=== PATIENT | female | born 1945 | race Caucasian/White ===

== ENCOUNTER 2023-09-01 09:34 | Outpatient (REF) | payer MEDICARE, SELFPAY | END 2023-09-01 09:35 | disposition home or self-care (01) | LOC: HO.HOSX 09:34 | PROVIDERS: Visit Provider Orthopaedic Surgery | DX: M25.561 Pain in right knee (principal) | CPT/HCPCS: 73562; 99202 ==

== ENCOUNTER 2023-09-01 14:06 | Outpatient (AMB) | payer MEDICARE, SELFPAY ==
--- NOTE | 2023-09-01 14:13 | MHC.OFFVIS ---
Intake Intake Visit Reasons: Right knee pain Intake Note: Ms. Leyva is a 78-year-old female who presents with complaints of progressively worsening right knee pain. She describes her pain as sharp and severe in nature. Her pain has gotten worse over the last few years in spite of continued non operative treatments. The patient did undergo left total knee replacement surgery in 2019. That surgery was performed by another orthopedic surgeon in [place]. The patient reports mild intermittent discomfort in her left knee. She has had injections given into her right knee. The most recent injection gave her minimal relief. She has also done physical therapy which aggravated her pain. The patient has tried Tylenol which gives her minimal relief. She has not able to take anti-inflammatory medicines because she is on Eliquis. The patient has difficulty walking even short distances because of her pain. At this point her right knee pain is interfering with her activities of daily living and her ability to sleep well through the night. Allergies No Known Allergies Allergy (Verified 09/01/23 14:20) Medication List - Last Reconciled 09/02/23 by Adán De León MD amlodipine 5 mg PO DAILY apixaban (Eliquis) 5 mg PO BID atorvastatin 40 mg PO DAILY cyclosporine 0.05% (Restasis) drps ophthalmic (eye) BID esomeprazole magnesium (Nexium) mg PO gabapentin 300 mg PO TID trazodone 100 mg PO [facility] Surgical History History of arthroscopy of left shoulder (~06/2022) History of right shoulder replacement (~04/2021) History of total left knee replacement (~03/2020) Social History Household Members: Spouse Housing: House Alcohol intake: current Alcohol intake frequency: holidays/special occasions only Alcohol type: wine Patient Tobacco Use Status: Former Tobacco user Current occupational status: retired Physical Exam Const Other: Well-nourished well-developed very friendly female awake alert and oriented x3 in no acute distress Extrem Other: Bilateral lower extremity examination shows good capillary refill, no skin lesions noted, normal sensation light touch Right knee examination shows a minimal effusion, palpable crepitus with range of motion, pain with range of motion, range of motion from -3 degrees to 115 degrees, no instability Results Reviewed Results Reviewed: X-rays of the patient's right knee show severe joint space narrowing with grade 4 [id number] arthritis, subchondral sclerosis, osteophyte formation, no acute bony abnormalities Assessment & Plan Assessment & Plan (1) Right knee pain: Code(s): M25.561 - Pain in right knee Plan Ms. Leyva presents with progressively worsening right knee pain due to end-stage degenerative joint disease. I had a lengthy discussion with the patient regarding the treatment options. This point she has failed continued non operative treatments. Risks and benefits of right total knee replacement surgery were discussed at length with the patient. The patient wishes to proceed with surgery. She will be scheduled for next available date. I will see her back 1 week prior to her surgery to answer any final questions that she might have. Feel free to call me at any time should questions regarding her orthopedic management arise. Thank you very much for asking me to see this very friendly patient. I spent 22 minutes in reviewing the patient's records and imaging studies, seeing the patient and documenting in the medical record. Orders: Orders XR knee RT 3V 09/01/23 M25.561 - Pain in right knee Coding Level of Care Code New Pt Level 2 (89583) Diagnoses Right knee pain M25.561
== END 2023-09-01 15:11 | disposition home or self-care (01) ==
PROVIDERS: PCP Internal Medicine Endocrinology, Diabetes & Metabolism; Visit Provider Orthopaedic Surgery
DX: M25.561 Pain in right knee (principal)
CPT/HCPCS: 99202

== ENCOUNTER 2023-12-07 12:20 | Outpatient (AMB) | payer MEDICARE, SELFPAY ==
--- NOTE | 2023-12-07 12:26 | MHC.OFFVIS ---
Intake Vital Signs 12/07/23 12:42 Height 4 ft 11 in Weight 127 lb BMI 25.6 Intake Visit Reasons: Preop RT TKA 12/12/23 DR Intake Note: Ms. Leyav is a 78-year-old female who presents with complaints of progressively worsening right knee pain. She describes her pain as sharp and severe in nature. Her pain has gotten worse over the last few years in spite of continued non operative treatments. The patient did undergo left total knee replacement surgery in 2019. That surgery was performed by another orthopedic surgeon in [place]. The patient reports mild intermittent discomfort in her left knee. She has had injections given into her right knee. The most recent injection gave her minimal relief. She has also done physical therapy which aggravated her pain. The patient has tried Tylenol which gives her minimal relief. She has not able to take anti-inflammatory medicines because she is on Eliquis. The patient has difficulty walking even short distances because of her pain. At this point her right knee pain is interfering with her activities of daily living and her ability to sleep well through the night. Allergies oxycodone [From Tylox] Adverse Reaction (Intermediate, Verified 12/07/23 12:42) Nausea and Vomiting ( after childbirth-age 19)-has had since Medication List - Last Reconciled 12/07/23 by Adán De León MD acetaminophen 975 mg PO BID amlodipine 5 mg PO QAM apixaban (Eliquis) 5 mg PO BID ascorbic acid (vitamin C) 500 mg PO QAM atorvastatin 40 mg PO QAM calcium carbonate-vitamin D3 600 mg-5 mcg (200 unit) 1 tab PO BEDTIME cyclosporine 0.05% (Restasis) 1 drp ophthalmic (eye) BID docusate sodium 100 mg PO BID esomeprazole magnesium (Nexium) 40 mg PO BID ferrous sulfate 325 mg PO QAM gabapentin 300 mg PO BEDTIME glucos sul [id number] 550-30-1 mg (Glucosamine Chondroitin) 1 cap PO BID loratadine (Claritin) 10 mg PO DAILY PRN mirabegron ER (Myrbetriq) 50 mg PO BEDTIME multivitamin 1 tab PO QAM trazodone 100 mg PO BEDTIME [facility] Medical History Lumbar disc herniation Spinal stenosis Difficulty swallowing Basal cell carcinoma Overactive bladder Iron deficiency Elevated cholesterol Atrial fibrillation CVA (cerebral vascular accident) Sjogrens syndrome Osteoarthritis GERD (gastroesophageal reflux disease) HTN (hypertension) Surgical History History of surgery on upper extremity Hx of bilateral cataract extraction History of esophagogastroduodenoscopy (EGD) H/O colonoscopy Hx of tonsillectomy History of extraction of renal calculus History of arthroscopy of left shoulder (~06/2022) History of right shoulder replacement (~04/2021) History of total left knee replacement (~03/2020) Social History Household Members: Spouse Housing: House Are you a primary home health caregiver to a significant other at home: No Do you presently have visiting nurse or other home services: No Alcohol intake: current Alcohol intake frequency: holidays/special occasions only Alcohol type: wine Patient Tobacco Use Status: Former Tobacco user Quit Date: age 19 Tobacco use type: Cigarette Years Smoked: 5 Current occupational status: retired Physical Exam Vital Signs: BMI result Body Mass Index 25.6 Const Other: Well-nourished well-developed very friendly female awake alert and oriented x3 in no acute distress Extrem Other: Bilateral lower extremity examination shows good capillary refill, no skin lesions noted, normal sensation light touch Right knee examination shows a minimal effusion, palpable crepitus with range of motion, pain with range of motion, range of motion from -3 degrees to 115 degrees, no instability Results Reviewed Results Reviewed: X-rays of the patient's right knee show end-stage degenerative joint disease with grade 4 [id number]-rw-kkid arthritis, subchondral sclerosis, osteophyte formation, no acute bony abnormalities Assessment & Plan Assessment & Plan (1) Arthritis of right knee: Code(s): M17.11 - Unilateral primary osteoarthritis, right knee Plan Ms. Leyva presents with progressively worsening right knee pain due to end-stage degenerative joint disease. I had a lengthy discussion with the patient regarding the treatment options. At this point she has failed continued non operative treatments. The risks and benefits of right total knee replacement surgery were discussed at length with the patient. The patient wishes to proceed with surgery. services program manager will be consulted for inpatient rehabilitation at [facility] following her surgery. The patient will follow-up as instructed. Feel free to call me at any time should questions regarding her orthopedic management arise. I spent 22 minutes in reviewing the patient's records and imaging studies, seeing the patient and documenting in the medical record. Coding Level of Care Code Est Pt Level 2 (99740) Diagnoses Arthritis of right knee M17.11
[2023-12-07 12:42] VITALS: BMI 25.6
== END 2023-12-07 13:00 | disposition home or self-care (01) ==
PROVIDERS: PCP Internal Medicine Endocrinology, Diabetes & Metabolism; Visit Provider Orthopaedic Surgery
DX: M17.11 Unilateral primary osteoarthritis, right knee (principal)
CPT/HCPCS: 99213

== ENCOUNTER → 2023-12-07 12:20 | Outpatient (BNVA) | payer MEDICARE, SELFPAY | PROVIDERS: PCP Internal Medicine Endocrinology, Diabetes & Metabolism; Visit Provider Orthopaedic Surgery | DX: Z01.818 Encounter for other preprocedural examination (principal); M17.11 Unilateral primary osteoarthritis, right knee | CPT/HCPCS: 99212 ==

== ENCOUNTER 2023-12-12 08:04 | Inpatient (IN) | payer MEDICARE, SELFPAY ==
[2023-12-01 14:15] VITALS: BP 111/58; PULSE 80; RESP 18; BMI 26.7
--- NOTE | 2023-12-01 14:31 | HO.ANESPROP2 ---
HPI - Anesthesia Eval Consult details Narrative: 78yo F for Right Knee Replacement Total, 12/12/23 Medically optimized No recent illness No CP/SOB within limits of knee pain. Able to do housework, groceries. Afib/flutter: Paroxysmal. 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 GERD: ppi BID controls Sjogrens: Restasis eye drops PMFSH Active Problems Active Problems: All Active Problems (Updated 12/01/23 @ 14:04 by Kathleen Serrano RN) Right knee pain (Acute) Past Medical History Medical History Lumbar disc herniation Spinal stenosis Difficulty swallowing Basal cell carcinoma Overactive bladder Iron deficiency Elevated cholesterol Atrial fibrillation CVA (cerebral vascular accident) Sjogrens syndrome Osteoarthritis GERD (gastroesophageal reflux disease) HTN (hypertension) Family History Family history of problems with anesthesia: No Surgical History Surgical History History of surgery on upper extremity Hx of bilateral cataract extraction History of esophagogastroduodenoscopy (EGD) H/O colonoscopy Hx of tonsillectomy History of extraction of renal calculus History of arthroscopy of left shoulder (~06/2022) History of right shoulder replacement (~04/2021) History of total left knee replacement (~03/2020) History of Problems with Anesthesia: No Social History Social History Household Members: Spouse Housing: House Are you a primary primary care sales representative to a significant other at home: No Do you presently have visiting nurse or other home services: No Alcohol intake: current Alcohol intake frequency: holidays/special occasions only Alcohol type: wine Patient Tobacco Use Status: Former Tobacco user Quit Date: age 19 Tobacco use type: Cigarette Years Smoked: 5 Smoked in Last 30 Days: No Use of substances other than those prescribed or required for medical reasons: No Currently Displaying Signs/Symptoms of Drug Intoxication Withdrawal: No Have you been hit, kicked, punched, or otherwise hurt by someone within the past year? If so, by whom?: No Do you feel safe in your current relationship?: Yes Is there a partner from a previous relationship who is making you feel unsafe now?: No Are you made to feel afraid or neglected: No Are you DNR?: No Advance Directives: No Advance Directives Information Provided: Yes Advance Directives on File: No Do you have thoughts of harming others: None Do you have a plan to hurt others: No Plan Recently lost weight without trying: No Eating poorly because of decreased appetite: No Nutrition Risks: Surgical patient >75years Patient : No : No Poor oral hygiene: No Current occupational status: retired Meds Allergies Allergy/AdvReac Type Severity Reaction Status Date / Time oxycodone [From Tylox] AdvReac Intermediate Nausea and Verified 12/12/23 08:11 Vomiting ( after childbirth-age 19)-has had since Home Medications Medication Instructions Recorded Confirmed Last Taken Type amlodipine 5 mg tablet 5 mg PO DAILY 09/01/23 12/12/23 Unknown History apixaban 5 mg tablet (Eliquis) 5 mg PO BID 09/01/23 12/07/23 12/08/23 History atorvastatin 40 mg tablet 40 mg PO DAILY 09/01/23 12/12/23 Unknown History cyclosporine 0.05 % eye drops in a 1 drp ophthalmic (eye) BID 09/01/23 12/07/23 Unknown History dropperette (Restasis) esomeprazole magnesium 40 mg 40 mg PO BID 09/01/23 12/07/23 Unknown History capsule,delayed release (Nexium) gabapentin 300 mg capsule 300 mg PO BEDTIME 09/01/23 12/07/23 Unknown History trazodone 50 mg tablet 100 mg PO BEDTIME 09/01/23 12/07/23 Unknown History acetaminophen 325 mg tablet 975 mg PO BID 11/30/23 12/07/23 Unknown History calcium carbonate 600 mg-vitamin 1 tab PO BEDTIME 11/30/23 12/07/23 Unknown History D3 5 mcg (200 unit) tablet docusate sodium 100 mg capsule 100 mg PO BID 11/30/23 12/07/23 Unknown History mirabegron 50 mg tablet,extended 50 mg PO BEDTIME 11/30/23 12/07/23 Unknown History release 24 hr (Myrbetriq) multivitamin 1 tab PO DAILY 11/30/23 12/12/23 Unknown History ascorbic acid (vitamin C) 500 mg 500 mg PO DAILY 12/01/23 12/12/23 Unknown History tablet ferrous sulfate 325 mg (65 mg 325 mg PO DAILY 12/01/23 12/12/23 Unknown History iron) tablet glucosamine sulf dipot 1 cap PO BID 12/01/23 12/07/23 Unknown History chlr,msm,chond 550 mg-C 30 mg-alondra 1 mg capsule (Glucosamine Chondroitin) loratadine 10 mg tablet (Claritin) 10 mg PO DAILY PRN Allergy Symptoms 12/01/23 12/07/23 Unknown History Exam Pertinent Lab Results Pertinent Lab Results: CBC 11/2023 from outside facility WNL Laboratory Tests 12/01/23 15:34 Sodium 140 Potassium 4.8 Chloride 107 Carbon Dioxide 24 BUN 13 Creatinine 0.83 Narrative Narrative: EKG 11/2023 NSR Airway Mallampati Class: III TM Dist: >3cm Neck ROM: Full Loose/Missing/Broken Teeth: Yes (pulled molars, crowns throughout d/t sjogrens) Heart: RRR Lungs: CTAB Assessment and Plan Assessment Anesthesia Assessment: Anesthesia Plan Discussed and PAT Visit Final Anesthetic Review Family History of Problems with Anesthesia: No History of Problems with Anesthesia: No
[2023-12-01 16:39] LABS: Anion Gap 14 (12-20); Blood Urea Nitrogen 13 mg/dL (9-16); Calcium 9.5 mg/dL (8.4-10.2); Carbon Dioxide 24 mmol/L (22-29); Chloride 107 mmol/L (96-108); Creatinine Clr Calc Pharmacy 43.3; Estimated Glomerular Filt Rate > 60; Glucose Random 97 mg/dL (60-115); Potassium 4.8 mmol/L (3.3-5.1); Sodium 140 mmol/L (135-145)
[2023-12-01 16:55] LABS: MRSA Nasal PCR NEGATIVE (Negative); SA Nasal PCR POSITIVE (Negative)
[2023-12-12] VITALS (13 sets, daily range): BP systolic 99–147; BP diastolic 48–84; PULSE 71–90; RESP 15–20; TEMP 36.1–36.7; O2SAT 92–99; BMI 25.6
--- NOTE | ~2023-12-12 | XR_ITS ---
EXAMINATION: XR KNEE, RIGHT CLINICAL INFORMATION: Status post right TKA COMPARISON: 09/01/2023 TECHNIQUE: AP and lateral views of the right knee. FINDINGS: Prosthetic components of the total knee arthroplasty are appropriately aligned. No periprosthetic fracture. Gas from recent surgery is present in the joint and surrounding soft tissues. A joint effusion is present. XR/XR knee RT 2V IMPRESSION: Appropriate alignment of the right total knee arthroplasty.
[2023-12-12] MEDS: Lactated Ringers 1,000 ML 100 ML IVCONT ×2 (08:36→18:21)
--- NOTE | 2023-12-12 09:19 | PHA.MEDREC ---
Pharmacy Consult ? Medication Reconciliation Pharmacy has completed the medication reconciliation. Reviewed med rec done by nursing
--- NOTE | 2023-12-12 12:39 | PM.OP ---
Brief Operative Note Date of Service: 12/12/23 Pre-op diagnosis: Right knee degenerative joint disease Post-op diagnosis: same Procedure: Right total knee arthroplasty Implants: [employer] cemented posterior stabilized total knee arthroplasty with a femoral component size 1 right, tibial component size 2, polyethylene liner size 2 with 9 mm of thickness, a symmetric patellar component size 27 with 8 mm of thickness Surgeon: Adán De León MD Anesthesia: regional and spinal Was an Paper Sales Manager used for this Procedure?: Yes Paper Sales Manager: Adriane Peep Estimated blood loss (mL): 200 Pathology: other (Bony fragments from the right femur, tibia and patella) Condition: stable Disposition: PACU
--- NOTE | 2023-12-12 12:40 | P.OP_ITS ---
Operative Note Operative Note Date of Service: 12/12/23 Narrative: After the patient was identified as Brigitte Leyva and her right knee was initialed by myself the patient was brought to the holding area where a right leg nerve block was performed by the anesthesiologist in routine fashion. The patient was then brought to the operating room where conscious sedation and spinal anesthesia were performed by the anesthesiologist in routine fashion. The patient was given 2 g of IV Ancef preoperatively for infection prophylaxis. The patient's right lower extremity was prepped and draped in sterile fashion. A formal time-out was completed. The patient's right knee was placed onto a small bump to produce 30? of knee flexion during exposure. A #10 scalpel blade was used to make a midline incision extending 1 handbreadth proximal and distal to the patella. A second #10 scalpel blade was used to dissect the subcutaneous tissues down to the extensor mechanism. The subcutaneous flaps were maintained as thick as possible. A medial parapatellar arthrotomy was then performed using a #10 scalpel blade. The arthrotomy was begun just medial to the patellar tendon. The arthrotomy was continued 1 cm medial to the patella and then 5 mm into the medial aspect of the quadriceps tendon. The infrapatellar fat pad was partially excised to help with exposure. The soft tissue retinaculum was raised one-half of the way around the medial aspect of the proximal tibia. The patella was everted and the knee was flexed to 90?. There was no injury to the patellar tendon or its insertion onto the tibial tubercle. A drill bit was introduced into the distal aspect of the femur with a starting point 1 cm anterior to the origin of the posterior cruciate ligament. The intramedullary alignment juancarlos was put into place. The distal alignment guide was set for a 5 degree valgus cut. The distal cutting block was put into place and was held with 4 pins. The intramedullary alignment juancarlos was removed. Soft tissues were retracted in the distal femoral cut was made using a sagittal saw. The distal aspect of the femur measured to be a size 1 right component. Two drill holes were placed into the distal aspect of the femur marking 3? of external rotation. The distal cutting block was impacted into place and was held with 2 pins. Soft tissues were retracted and the 4 distal femoral cuts were made using a sagittal saw. Final notching and drilling of the distal aspect of the femur were performed in routine fashion. The trial femoral component was impacted into place. The knee was taken through a full range of motion. The patella tracked well. The patella was everted and the knee was flexed to 90?. The trial component was removed and our attention was directed to the proximal tibia. The medial and lateral menisci were removed using a #10 scalpel blade. A small rim of the medial meniscus was left intact to help prevent injury to the medial collateral ligament. A drill bit was then introduced into the proximal tibia with a starting point midway from medial to lateral and one-third of the way posteriorly. The intramedullary alignment juancarlos was put into place. The proximal tibial cutting guide was placed over the alignment juancarlos in line with the 2nd toe. The guide was held in place using 3 pins. The intramedullary alignment juancarlos was removed. Soft tissues were retracted and the proximal tibial cut was made using a sagittal saw. The proximal tibia measured to be a size 2 component. The tibial tray was put into place with a 9 mm liner. The femoral component was impacted into place. The knee was taken through a full range of motion. There was full flexion and full extension. There was no instability with varus or valgus stress testing with the knee in flexion or extension. The patella tracked well with no medially directed force. The rotation of the tibial tray was marked using electrocautery with the knee in extension. The patella was everted and the knee was flexed to 90?. All trial components were removed. The tibial tray was placed onto the proximal tibia in line with the electrocautery lorin. The tray was held in place using 3 pins. Final broaching of the proximal tibia was performed in routine fashion. The trial liner and trial femoral component were put into place. The knee was brought into extension and our attention was directed to the patella. The patella measured 25 mm in thickness. The patellar resection guide was set for a 10 mm resection. Soft tissues were retracted and the patella cut was made using a sagittal saw. The remaining patella measured 15 mm in thickness. The undersurface of the patella was paul sured to be a size 27 symmetric component. Three drill holes were placed into the undersurface of the patella in routine fashion. The trial component was put into place. The knee was taken through a full range of motion. The patella tracked well. The patella was everted and the knee was flexed to 90?. All trial components were removed. The knee was once again brought into extension and placed onto a small bump. The knee joint was irrigated with copious amounts of normal saline solution via pulse lavage while the cement was mixed. The patella was everted and the knee was flexed to 90?. A small amount of cement was placed along the posterior aspects of the tibial and femoral components. Cement was then pressurized into the proximal tibia. The tibial component was impacted into place. Any excess cement was removed. The polyethylene liner was then impacted into place. Cement was then pressurized into the distal aspect of the femur. A small amount of cement was placed into the intramedullary canal to help reduce bleeding. The femoral component was impacted into place. Any excess cement was removed. The knee was then brought into extension. Cement was pressurized into the undersurface of the patella. The patellar component was put into place and was held with a patella clamp. Any excess cement was removed. Once the cement had hardened the patellar clamp was removed. The knee was taken through a full range of motion. There was full flexion and extension. There was no instability with varus or valgus stress testing with the knee in flexion or extension. The patella tracked well with no medially directed force. The knee joint was irrigated with copious amounts of normal saline solution via pulse lavage. Any significant bleeding vessels were coagulated. The patient's right knee was placed onto a small bump. The arthrotomy was closed with #2 Ethibond [id number] interrupted suture as well as #1 Vicryl [id number] interrupted suture. The wound was once again irrigated. The subcutaneous tissues were closed with 0 Vicryl and 2-0 Vicryl interrupted sutures. The skin was closed with skin nikki. Dry sterile dressing and Bhavin bandages were placed over the patient's right knee. The patient was awake and alert. The patient was transferred to the recovery room in stable condition.
--- NOTE | 2023-12-12 12:44 | P.EN_ITS ---
Event Note Date of Service: 12/12/23 Event Note: Patient's sister is an logistics administrator at a snf. She has reserved the patient a bed for short term rehab. The patient is also in agreement to be discharged to a short term rehab as her is elderly and she will need assistance at home. Would benefit from at least a 2 night stay and discharge to rehab. Time Spent With Patient Time: Total time managing care of this patient today ____ minutes.
[2023-12-12] MEDS: oxyCODONE HCl Immed Release 5 MG TABLET PO (14:21)
[2023-12-12] MEDS: HYDROmorphone HCl 0.5 MG/0.5 ML SYRINGE 0.25 MG IVPUSH (15:17)
--- NOTE | 2023-12-12 15:50 | P.CONHOSP_ITS ---
History of Present Illness Data of Consult Service Date: 12/12/23 Requesting physician: Adriane Pepe Primary Care Provider: MD HENNA Fang Reason for consult: medical management 78-year-old female with history of iron-deficiency, hyperlipidemia, atrial fibrillation on Eliquis, Sjogren's syndrome, GERD, hypertension, chronic low back pain orthopedic surgery for management of osteoarthritis of the right knee with consult placed to hospitalist service for medical management. She reports only occasional alcohol use is a former smoker who quit many years ago, and denies any illicit drug use. She has no complaints at this time. Not currently on steroids for her sjogrens but has chronic dry eyes and mouth. Review of Systems 2 Review of Systems: General: No fevers, malaise, unintentional weight loss HEENT: No blurred vision, diplopia. No sore throat, nasal congestion, rhinorrhea, sinus pain, ear pain Cardiovascular: No chest pain, palpitations, or leg edema Respiratory: No shortness of breath, wheezing, cough GI: No abdominal pain, nausea, vomiting, diarrhea, constipation, melena, hematochezia : No dysuria, hematuria, increased urinary frequency, decreased urinary output MSK: No myalgia, back pain Neuro: No headaches, weakness, paresthesias Skin: No rashes or lesions COUNT INCLUDES THE [facility] Medical History Lumbar disc herniation Spinal stenosis Difficulty swallowing Basal cell carcinoma Overactive bladder Iron deficiency Elevated cholesterol Atrial fibrillation CVA (cerebral vascular accident) Sjogrens syndrome Osteoarthritis GERD (gastroesophageal reflux disease) HTN (hypertension) Surgical History History of surgery on upper extremity Hx of bilateral cataract extraction History of esophagogastroduodenoscopy (EGD) H/O colonoscopy Hx of tonsillectomy History of extraction of renal calculus History of arthroscopy of left shoulder (~06/2022) History of right shoulder replacement (~04/2021) History of total left knee replacement (~03/2020) Social History Household Members: Spouse Housing: House Are you a primary manager managed care to a significant other at home: No Do you presently have visiting nurse or other home services: No Alcohol intake: current Alcohol intake frequency: holidays/special occasions only Alcohol type: wine Patient Tobacco Use Status: Former Tobacco user Quit Date: age 19 Tobacco use type: Cigarette Years Smoked: 5 Smoked in Last 30 Days: No Use of substances other than those prescribed or required for medical reasons: No Have you been hit, kicked, punched, or otherwise hurt by someone within the past year? If so, by whom?: No Do you feel safe in your current relationship?: Yes Is there a partner from a previous relationship who is making you feel unsafe now?: No Are you made to feel afraid or neglected: No Are you DNR?: No Advance Directives: No Advance Directives Information Provided: Yes Advance Directives on File: No Do you have thoughts of harming others: None Do you have a plan to hurt others: No Plan Recently lost weight without trying: No Eating poorly because of decreased appetite: No Nutrition Risks: Surgical patient >75years Patient : No : No Poor oral hygiene: No Current occupational status: retired [employer] Allergies Allergy/AdvReac Type Severity Reaction Status Date / Time oxycodone [From Tylox] AdvReac Intermediate Nausea and Verified 12/12/23 08:11 Vomiting ( after childbirth-age 19)-has had since Active Medications: Current Medications Acetaminophen (Acetaminophen 325 Mg Tablet) 650 mg PO Q6H PRN PRN Reason: Pain, Mild (Pain Scale 1-3) Amlodipine Besylate (Amlodipine Besylate 5 Mg Tablet) 5 mg PO DAILY@0900 [facility]; Protocol Apixaban (Apixaban 5 Mg Tablet) 5 mg PO BID [facility] Ascorbic Acid (Ascorbic Acid 500 Mg Tablet) 500 mg PO DAILY@0900 [facility] Atorvastatin Calcium (Atorvastatin Calcium 40 Mg Tablet) 40 mg PO DAILY@0900 [facility] Celecoxib (Celecoxib 200 Mg Capsule) 200 mg PO BID [facility] Docusate Sodium (Docusate Sodium 100 Mg Capsule) 100 mg PO BID [facility] Ferrous Sulfate (Ferrous Sulfate 324 Mg Tablet.Dr) 324 mg PO DAILY@0900 [facility] Gabapentin (Gabapentin 300 Mg Capsule) 300 mg PO BEDTIME [facility] Hydromorphone HCl (Hydromorphone Hcl 0.5 Mg/0.5 Ml Syringe) 0.25 mg IVPUSH Q4H PRN; Protocol PRN Reason: Pain, Severe (Pain Scale 7-10) Last Admin: 12/12/23 15:17 Dose: 0.25 mg Hydromorphone HCl (Hydromorphone Hcl 0.5 Mg/0.5 Ml Syringe) 0.5 mg IVPUSH Q4H PRN; Protocol PRN Reason: Pain, Severe (Pain Scale 7-10) Lactated Ringer's (Lr) 1,000 mls @ 100 mls/hr IVCONT .Q10H [facility] Cefazolin Sodium/Dextrose (Ancef) 2 gm in 50 mls @ 100 mls/hr IV Q8H [facility] Stop: 12/13/23 02:29 Loratadine (Loratadine 10 Mg Tablet) 10 mg PO DAILY PRN PRN Reason: Allergy Symptoms Methocarbamol (Methocarbamol 500 Mg Tablet) 500 mg PO TID [facility] Mirabegron (Mirabegron 50 Mg Tab.Er.24h) 50 mg PO BEDTIME [facility] Non-Formulary Medication (Calcium Carbonate-Vitamin D3) 1 tab PO BEDTIME [facility] Non-Formulary Medication (Cyclosporine [Restasis]) 1 drop EYE-BOTH BID [facility] Non-Formulary Medication (Glucos Sul [id number] [Glucosamine Chondroitin]) 1 cap PO BID [facility] Omeprazole (Omeprazole 20 Mg Capsule.Dr) 20 mg PO BID [facility] Ondansetron HCl (Ondansetron Hcl 4 Mg/2 Ml Vial) 4 mg IVPUSH Q8H PRN PRN Reason: Nausea and Vomiting Oxycodone HCl (Oxycodone Hcl Immed Release 5 Mg Tablet) 5 mg PO Q4H PRN PRN Reason: Pain, Moderate(Pain Scale 4-6) Last Admin: 12/12/23 14:21 Dose: 5 mg Oxycodone HCl (Oxycodone Hcl Immed Release 5 Mg Tablet) 0.25 mg PO Q4H PRN PRN Reason: Pain, Mild (Pain Scale 1-3) Sodium Chloride (0.9 % Sodium Chloride Flush 3 Ml Syringe) 3 ml IVFLUSH QSHIFT [facility] Trazodone HCl (Trazodone Hcl 100 Mg Tablet) 100 mg PO BEDTIME [facility] Home Medications Medication Instructions Recorded Confirmed Last Taken Type amlodipine 5 mg tablet 5 mg PO DAILY 09/01/23 12/12/23 Unknown History apixaban 5 mg tablet (Eliquis) 5 mg PO BID 09/01/23 12/07/23 12/08/23 History atorvastatin 40 mg tablet 40 mg PO DAILY 09/01/23 12/12/23 Unknown History cyclosporine 0.05 % eye drops in a 1 drp ophthalmic (eye) BID 09/01/23 12/07/23 Unknown History dropperette (Restasis) esomeprazole magnesium 40 mg 40 mg PO BID 09/01/23 12/07/23 Unknown History capsule,delayed release (Nexium) gabapentin 300 mg capsule 300 mg PO BEDTIME 09/01/23 12/07/23 Unknown History trazodone 50 mg tablet 100 mg PO BEDTIME 09/01/23 12/07/23 Unknown History acetaminophen 325 mg tablet 975 mg PO BID 11/30/23 12/07/23 Unknown History calcium carbonate 600 mg-vitamin 1 tab PO BEDTIME 11/30/23 12/07/23 Unknown History D3 5 mcg (200 unit) tablet docusate sodium 100 mg capsule 100 mg PO BID 11/30/23 12/07/23 Unknown History mirabegron 50 mg tablet,extended 50 mg PO BEDTIME 11/30/23 12/07/23 Unknown History release 24 hr (Myrbetriq) multivitamin 1 tab PO DAILY 11/30/23 12/12/23 Unknown History ascorbic acid (vitamin C) 500 mg 500 mg PO DAILY 12/01/23 12/12/23 Unknown History tablet ferrous sulfate 325 mg (65 mg 325 mg PO DAILY 12/01/23 12/12/23 Unknown History iron) tablet glucosamine sulf dipot 1 cap PO BID 12/01/23 12/07/23 Unknown History chlr,msm,chond 550 mg-C 30 mg-alondra 1 mg capsule (Glucosamine Chondroitin) loratadine 10 mg tablet (Claritin) 10 mg PO DAILY PRN Allergy Symptoms 12/01/23 12/07/23 Unknown History Physical Exam 2 Vital Signs and Narrative: Vital Signs: Last Vital Signs Temp 98 F 12/12/23 12:04 Pulse 71 12/12/23 15:22 Resp 15 12/12/23 15:22 BP 146/68 H 12/12/23 15:22 Pulse Ox 97 12/12/23 15:22 O2 Del Method Nasal Cannula 12/12/23 15:22 O2 Flow Rate 2 12/12/23 15:22 BMI result Body Mass Index 25.6 Constitutional - Awake and Alert, No apparent distress Eyes - PERRLA, EOMI Cardiovascular - S1S2, RRR, No edema Respiratory - Normal lung expansion, Normal respiratory effort, No respiratory distress, CTA bilaterally Gastrointestinal - NT / ND; +BS; No rebound or guarding Extremities - no calf tenderness bilaterally, no swelling Skin - Warm/Dry Neurological - Alert & oriented x3 Psychological - Appropriate affect Results Labs 12/01/23 15:34 Imaging Radiologist's Impressions: Impressions Knee X-Ray 12/12/23 12:23 IMPRESSION: Appropriate alignment of the right total knee arthroplasty. Assessment and Plan (1) Arthritis of right knee: Status: Acute Plan 78-year-old female with history of iron-deficiency, hyperlipidemia, atrial fibrillation on Eliquis, Sjogren's syndrome, GERD, hypertension, chronic low back pain orthopedic surgery for management of osteoarthritis of the right knee with consult placed to hospitalist service for medical management. #OA R knee s/p TKA POD 0 -plan per ortho #Paroxysmal atrial fibrillation- rate controlled -resume eliquis per ortho surgery -not on rate control #HTN -resume amlodipine am #HLD -statin #GERD -ppi #Sjogrens -continue eye drops Thank you for allowing me to participate in this consult. Signing off at this time. Please do not hesitate to call for further questions or for ny acute medical issues
[2023-12-12] MEDS: ceFAZolin Sodium/Dextrose,Iso 2 GM/50 ML PIGGYBACK IV (18:21)
[2023-12-12] MEDS: methocarbamoL 500 MG TABLET PO (19:28)
[2023-12-12] MEDS: Celecoxib 200 MG CAPSULE PO (19:28)
[2023-12-12] MEDS: Calcium + Vitamin D 250 MG TABLET 500 MG PO (19:28)
[2023-12-12] MEDS: HYDROmorphone HCl 0.5 MG/0.5 ML SYRINGE IVPUSH (19:28)
[2023-12-12] MEDS: Docusate Sodium 100 MG CAPSULE PO (19:28)
[2023-12-12] MEDS: ondansetron HCL 4 MG/2 ML VIAL IVPUSH (20:59)
[2023-12-12] MEDS: Mirabegron 50 MG TAB.ER.24H PO (21:34)
[2023-12-12] MEDS: Apixaban 5 MG TABLET PO (21:34)
[2023-12-12] MEDS: CYCLOSPORINE 0.05% 1 EACH EYE-BOTH (21:34)
[2023-12-12] MEDS: Gabapentin 300 MG CAPSULE PO (21:34)
[2023-12-12] MEDS: traZODone HCL 100 MG TABLET PO (23:33)
[2023-12-13] VITALS (8 sets, daily range): BP systolic 93–139; BP diastolic 46–71; PULSE 63–90; RESP 16–20; TEMP 36.1–37; O2SAT 88–96
[2023-12-13] MEDS: Magnesium Hydrox/Alum Hydrox 30 ML ORAL.SUSP PO (00:03)
[2023-12-13] MEDS: HYDROmorphone HCl 0.5 MG/0.5 ML SYRINGE 0.25 MG IVPUSH ×5 (00:03→19:56)
[2023-12-13] MEDS: ceFAZolin Sodium/Dextrose,Iso 2 GM/50 ML PIGGYBACK IV (01:01)
--- NOTE | 2023-12-13 01:10 | PC.NURSE ---
Pt c/o nausea PRN Zofran given with some effect. Pt continues to belch and c/o heart burn and indigestion. MD Walker notified. PRN Maalox ordered and given with some effect. Pt vomit x2. Encouraged sleeping with HOB >30 degrees to decrease risk of aspiration and to stop acid from coming up the esophagus.
[2023-12-13] MEDS: Acetaminophen 325 MG TABLET 650 MG PO ×2 (01:44→19:54)
[2023-12-13] MEDS: Lactated Ringers 1,000 ML 100 ML IVCONT ×2 (04:32→17:24)
[2023-12-13 06:11] LABS: MANUAL DIFF FLAG NO
[2023-12-13 06:24] LABS: Basophils Percent Auto 0.2 % (0-2); Eosinophils Percent Auto 0.1 % (0-4); Hematocrit 31.3 % (37.0-47.0); Hemoglobin 10.3 g/dl (12.0-16.0); Imm Gran Abs Auto 0.07 X10*3/uL (0.00-0.03); Imm Gran Pct Auto 0.7 % (0.0-0.4); Lymphocytes Absolute Auto 0.8 X10*3/uL (1.2-4.9); Lymphocytes Percent Auto 7.1 % (20-40); Mean Corpuscular HGB Conc 32.9 g/dl (31.0-35.0); Mean Corpuscular Hemoglobin 30.6 pg (27.0-33.0); Mean Corpuscular Volume 92.9 fL (80.0-98.0); Mean Platelet Volume 9.6 fL (9.4-12.3); Monocytes Absolute Auto 1.3 X10*3/uL (0.1-1.2); Monocytes Percent Auto 11.6 % (2-11); Neutrophils Absolute Auto 8.6 x10*3/uL (2.0-8.3); Neutrophils Percent Auto 80.3 % (45-73); Platelet Count 189 X10*3/uL (160-400); Red Blood Count 3.37 X10*6/uL (4.20-5.50); Red Cell Distribution Width 14.9 % (11.0-16.0); White Blood Count 10.7 X10*3/uL (4.8-10.8)
[2023-12-13 06:35] LABS: Anion Gap 12 (12-20); Blood Urea Nitrogen 10 mg/dL (9-16); Calcium 8.4 mg/dL (8.4-10.2); Carbon Dioxide 26 mmol/L (22-29); Chloride 103 mmol/L (96-108); Creatinine Clr Calc Pharmacy 51.9; Estimated Glomerular Filt Rate > 60; Glucose Fasting 133 mg/dL (60-99); Potassium 3.8 mmol/L (3.3-5.1); Sodium 137 mmol/L (135-145)
[2023-12-13] MEDS: CYCLOSPORINE 0.05% 1 EACH EYE-BOTH ×2 (07:34→19:56)
[2023-12-13] MEDS: Ferrous Sulfate 324 MG TABLET.DR PO (07:38)
[2023-12-13] MEDS: amLODIPine Besylate 5 MG TABLET PO (07:39)
[2023-12-13] MEDS: Atorvastatin Calcium 40 MG TABLET PO (07:39)
[2023-12-13] MEDS: Ascorbic Acid 500 MG TABLET PO (07:39)
[2023-12-13] MEDS: Docusate Sodium 100 MG CAPSULE PO ×2 (07:40→19:53)
[2023-12-13] MEDS: methocarbamoL 500 MG TABLET PO ×3 (07:40→19:53)
[2023-12-13] MEDS: Apixaban 5 MG TABLET PO ×2 (07:40→19:53)
[2023-12-13] MEDS: Celecoxib 200 MG CAPSULE PO ×2 (07:40→19:54)
--- NOTE | 2023-12-13 10:39 | P.PNOP_ITS ---
Subjective Subjective Date of Service: 12/13/23 Interval history: POD 1 s/p RT TKA no overnight events resting in bed denies sob,cp,palpitations Physical Exam Vital Signs: Vital Signs: Last Vital Signs Temp 98.4 F 12/13/23 08:00 Pulse 90 12/13/23 03:14 Resp 20 12/13/23 08:00 BP 119/65 12/13/23 08:00 Pulse Ox 93 12/13/23 03:18 O2 Del Method Nasal Cannula 12/13/23 03:18 O2 Flow Rate 2 12/13/23 03:18 BMI result Body Mass Index 25.6 Const: General: cooperative, healthy appearing and no acute distress Resp: Effort & Inspection: normal respiratory effort and able to speak in complete sentences Cardio: Rate: regular rate Peripheral pulses: Peripheral pulses 2+ throughout GI: Palpation (GI): Soft to palpation Skin: General skin exam: no rashes or lesions noted Extrem: Other: bandage clean dry and intact. [place] intact. No erythema or joint effusion. Calf supple nontender. Neurovascularly intact. Procedures Date of Service Date of Service: 12/13/23 Progress Note: A&P Assessment and plan (1) Status post total right knee replacement: Status: Acute Assessment and Plan: * Continue pain mgmnt * Begin Aspirin for dvt ppx * begin PT for RT TKA * Dispo planning-Pending PT eval, pain mgmnt Need for continued inpatient stay: Time Spent With Patient Time: Total time managing care of this patient today ____ minutes. Quality Stroke Does the patient have a stroke diagnosis?: No VTE Prior VTE?: No VTE Risk Level:: Surgical - very high VTE Device Contraindication: N/A - Device Ordered VTE Drug Contraindication: N/A - Med Ordered
--- NOTE | 2023-12-13 11:41 | HO.POSTANES ---
Post Anesthesia Evaluation Post Anesthesia Evaluation Date of Service: 12/13/23 Vital Signs: Vital Signs Temp Pulse Resp BP Pulse Ox O2 Del Method O2 Flow Rate 12/13/23 08:00 98.4 F 20 119/65 12/13/23 03:18 93 Nasal Cannula 2 12/13/23 03:14 97.9 F 90 20 139/71 88 L Room Air Anesthesia: Spinal and Nerve Block Mental Status: Awake Pain Control: Satisfactory Nausea/Vomiting: None Hydration: Adequate Anesthesia-Related Issues: No Anes. Related Issues
--- NOTE | 2023-12-13 15:50 | MHC.CM.PN ---
IMM 12/13/23 Female s/p R TKA. She lives with her spouse. She is independent with all functional mobility. PT rec STR. Preferences obtained. A referral has been sent to [facility]. They have offered a bed for 12/15/23. DP STR @ [facility] via BLS. A copy of the patients HCP has been requested.
[2023-12-13] MEDS: 0.9 % Sodium Chloride Flush 3 ML SYRINGE IVFLUSH ×2 (16:24→20:07)
[2023-12-13] MEDS: ondansetron HCL 4 MG/2 ML VIAL IVPUSH (17:24)
[2023-12-13] MEDS: Mirabegron 50 MG TAB.ER.24H PO (19:53)
[2023-12-13] MEDS: Calcium + Vitamin D 250 MG TABLET 500 MG PO (19:53)
[2023-12-13] MEDS: Gabapentin 300 MG CAPSULE PO (19:53)
[2023-12-13] MEDS: traZODone HCL 100 MG TABLET PO (20:04)
--- NOTE | 2023-12-13 21:42 | PC.NURSE ---
Patient transferred down to [facility] at this time. RN to RN report given to ESTELA Martinez assuming care of patient at this time.
--- NOTE | 2023-12-13 21:58 | PC.NURSE ---
patient states she is not allergic to Roxicodone
[2023-12-13] MEDS: oxyCODONE HCl Immed Release 5 MG TABLET PO (22:12)
[2023-12-14 04:00] VITALS: BP 100/53; PULSE 82; RESP 16; TEMP 36.5; O2SAT 94
[2023-12-14 06:42] LABS: Basophils Percent Auto 0.3 % (0-2); Eosinophils Absolute Auto 0.2 X10*3/uL (0.0-0.4); Eosinophils Percent Auto 1.5 % (0-4); Hematocrit 27.4 % (37.0-47.0); Imm Gran Abs Auto 0.09 X10*3/uL (0.00-0.03); Imm Gran Pct Auto 0.9 % (0.0-0.4); Lymphocytes Absolute Auto 1.4 X10*3/uL (1.2-4.9); Lymphocytes Percent Auto 13.5 % (20-40); MANUAL DIFF FLAG SCAN; Mean Corpuscular HGB Conc 32.8 g/dl (31.0-35.0); Mean Corpuscular Hemoglobin 30.5 pg (27.0-33.0); Mean Corpuscular Volume 92.9 fL (80.0-98.0); Mean Platelet Volume 9.9 fL (9.4-12.3); Monocytes Absolute Auto 1.5 X10*3/uL (0.1-1.2); Monocytes Percent Auto 14.8 % (2-11); Neutrophils Absolute Auto 7.1 x10*3/uL (2.0-8.3); Platelet Count 184 X10*3/uL (160-400); Red Blood Count 2.95 X10*6/uL (4.20-5.50); Red Cell Distribution Width 15.3 % (11.0-16.0); SCAN SMEAR FLAG 1; White Blood Count 10.3 X10*3/uL (4.8-10.8)
[2023-12-14 06:57] LABS: Anion Gap 11 (12-20); Blood Urea Nitrogen 16 mg/dL (9-16); Calcium 8.5 mg/dL (8.4-10.2); Carbon Dioxide 25 mmol/L (22-29); Chloride 101 mmol/L (96-108); Creatinine Clr Calc Pharmacy 41.9; Estimated Glomerular Filt Rate > 60; Glucose Fasting 109 mg/dL (60-99); Potassium 3.9 mmol/L (3.3-5.1); Sodium 133 mmol/L (135-145)
[2023-12-14] MEDS: oxyCODONE HCl Immed Release 5 MG TABLET PO ×2 (07:09→18:33)
[2023-12-14 07:12] VITALS: BP 125/60; PULSE 89; RESP 12; TEMP 36.2; O2SAT 92
--- NOTE | 2023-12-14 07:13 | PC.NURSE ---
medicated patient for stated 6/10 right knee pain at 0710, first attempt removed lower dose, but unable to waste order (0.25mg of 5mg tab). nursing city supervisor wasted tab with this fha underwriter and also called pharmacy to correct. pharmacy will reach out to provider to correct.
--- NOTE | 2023-12-14 07:58 | P.PNOP_ITS ---
Subjective Subjective Date of Service: 12/14/23 Interval history: POD 2 s/p RT TKA no overnight events resting in bed denies sob,cp,palpitations Physical Exam Vital Signs: Vital Signs: Last Vital Signs Temp 97.1 F 12/14/23 07:12 Pulse 89 12/14/23 07:12 Resp 12 12/14/23 07:12 BP 125/60 12/14/23 07:12 Pulse Ox 92 12/14/23 07:12 O2 Del Method Nasal Cannula 12/14/23 07:12 O2 Flow Rate 2 12/14/23 07:12 BMI result Body Mass Index 25.6 Const: General: cooperative, healthy appearing and no acute distress Resp: Effort & Inspection: normal respiratory effort and able to speak in complete sentences Cardio: Rate: regular rate Peripheral pulses: Peripheral pulses 2+ throughout GI: Palpation (GI): Soft to palpation Skin: General skin exam: no rashes or lesions noted Extrem: Other: bandage clean dry and intact. [place] intact. No erythema or joint effusion. Calf supple nontender. Neurovascularly intact. Procedures Date of Service Date of Service: 12/14/23 Progress Note: A&P Assessment and plan (1) Status post total right knee replacement: Status: Acute Assessment and Plan: * Continue pain mgmnt * Begin Aspirin for dvt ppx * begin PT for RT TKA * Dispo planning- PT, pain mgmnt Need for continued inpatient stay: Additional physical therapy for safe ambulation, pain management Time Spent With Patient Time: Total time managing care of this patient today ____ minutes. Quality Stroke Does the patient have a stroke diagnosis?: No VTE Prior VTE?: No VTE Risk Level:: Surgical - very high VTE Device Contraindication: N/A - Device Ordered VTE Drug Contraindication: N/A - Med Ordered
[2023-12-14] MEDS: Ferrous Sulfate 324 MG TABLET.DR PO (08:16)
[2023-12-14] MEDS: amLODIPine Besylate 5 MG TABLET PO (08:16)
[2023-12-14] MEDS: Atorvastatin Calcium 40 MG TABLET PO (08:16)
[2023-12-14] MEDS: Celecoxib 200 MG CAPSULE PO ×2 (08:16→20:46)
[2023-12-14] MEDS: Ascorbic Acid 500 MG TABLET PO (08:17)
[2023-12-14] MEDS: 0.9 % Sodium Chloride Flush 3 ML SYRINGE IVFLUSH ×2 (08:17→17:51)
[2023-12-14] MEDS: methocarbamoL 500 MG TABLET PO ×3 (08:17→20:45)
[2023-12-14] MEDS: Docusate Sodium 100 MG CAPSULE PO ×2 (08:17→20:45)
[2023-12-14] MEDS: Apixaban 5 MG TABLET PO ×2 (08:17→20:46)
[2023-12-14] MEDS: CYCLOSPORINE 0.05% 1 EACH EYE-BOTH ×2 (08:18→20:49)
[2023-12-14 08:19] LABS: SLIDE REVIEW VERIFIED
[2023-12-14] MEDS: HYDROmorphone HCl 0.5 MG/0.5 ML SYRINGE 0.25 MG IVPUSH (10:35)
[2023-12-14 11:25] VITALS: BP 100/49; PULSE 86; RESP 16; TEMP 36.9; O2SAT 93
--- NOTE | 2023-12-14 12:49 | MHC.CM.PN ---
pt not ready for dc dc plan is for str
[2023-12-14 16:00] VITALS: BP 128/52; PULSE 90; RESP 18; TEMP 37.2; O2SAT 94
--- NOTE | 2023-12-14 17:45 | PC.NURSE ---
Spoke with Javier in Pharmacy,new label will be send for Nexium
--- NOTE | 2023-12-14 18:31 | PC.NURSE ---
Patient requested to keep Nexium in her room
[2023-12-14 20:00] VITALS: BP 106/53; PULSE 90; RESP 20; TEMP 36.9; O2SAT 92
[2023-12-14] MEDS: Mirabegron 50 MG TAB.ER.24H PO (20:45)
[2023-12-14] MEDS: Gabapentin 300 MG CAPSULE PO (20:45)
[2023-12-14] MEDS: traZODone HCL 100 MG TABLET PO (20:46)
[2023-12-14] MEDS: Calcium + Vitamin D 250 MG TABLET 500 MG PO (20:46)
[2023-12-14 23:23] VITALS: BP 109/55; PULSE 89; RESP 20; TEMP 36.3; O2SAT 90
[2023-12-15] MEDS: 0.9 % Sodium Chloride Flush 3 ML SYRINGE IVFLUSH ×2 (01:18→08:39)
--- NOTE | 2023-12-15 02:22 | PC.NURSE ---
pt requested to using the bedside commode at night. we encourage to walk to BR. walk to the hallway and bathroom during the day. no c/o pain. will cont to monitor.
[2023-12-15 02:37] VITALS: BP 130/59; PULSE 86; RESP 20; TEMP 36.2; O2SAT 93
[2023-12-15] MEDS: HYDROmorphone HCl 0.5 MG/0.5 ML SYRINGE 0.25 MG IVPUSH (05:30)
[2023-12-15 06:22] LABS: MANUAL DIFF FLAG NO
[2023-12-15 06:25] LABS: Basophils Percent Auto 0.4 % (0-2); Eosinophils Absolute Auto 0.2 X10*3/uL (0.0-0.4); Eosinophils Percent Auto 2.5 % (0-4); Hematocrit 27.1 % (37.0-47.0); Hemoglobin 8.9 g/dl (12.0-16.0); Imm Gran Abs Auto 0.12 X10*3/uL (0.00-0.03); Imm Gran Pct Auto 1.3 % (0.0-0.4); Lymphocytes Absolute Auto 1.3 X10*3/uL (1.2-4.9); Lymphocytes Percent Auto 13.8 % (20-40); Mean Corpuscular HGB Conc 32.8 g/dl (31.0-35.0); Mean Corpuscular Hemoglobin 30.5 pg (27.0-33.0); Mean Corpuscular Volume 92.8 fL (80.0-98.0); Mean Platelet Volume 10.1 fL (9.4-12.3); Monocytes Absolute Auto 1.2 X10*3/uL (0.1-1.2); Monocytes Percent Auto 13.3 % (2-11); Neutrophils Absolute Auto 6.2 x10*3/uL (2.0-8.3); Neutrophils Percent Auto 68.7 % (45-73); Platelet Count 186 X10*3/uL (160-400); Red Blood Count 2.92 X10*6/uL (4.20-5.50); Red Cell Distribution Width 14.8 % (11.0-16.0); White Blood Count 9.1 X10*3/uL (4.8-10.8)
[2023-12-15 06:41] LABS: Anion Gap 9 (12-20); Blood Urea Nitrogen 14 mg/dL (9-16); Calcium 8.4 mg/dL (8.4-10.2); Carbon Dioxide 27 mmol/L (22-29); Chloride 99 mmol/L (96-108); Creatinine Clr Calc Pharmacy 46.3; Estimated Glomerular Filt Rate > 60; Glucose Fasting 97 mg/dL (60-99); Potassium 4.1 mmol/L (3.3-5.1); Sodium 131 mmol/L (135-145)
[2023-12-15 07:04] VITALS: BP 124/60; PULSE 85; RESP 16; TEMP 36.6
[2023-12-15] MEDS: Docusate Sodium 100 MG CAPSULE PO (08:35)
[2023-12-15] MEDS: Apixaban 5 MG TABLET PO (08:35)
[2023-12-15] MEDS: amLODIPine Besylate 5 MG TABLET PO (08:35)
[2023-12-15] MEDS: Celecoxib 200 MG CAPSULE PO (08:35)
[2023-12-15] MEDS: Atorvastatin Calcium 40 MG TABLET PO (08:35)
[2023-12-15] MEDS: Ascorbic Acid 500 MG TABLET PO (08:36)
[2023-12-15] MEDS: Ferrous Sulfate 324 MG TABLET.DR PO (08:36)
[2023-12-15] MEDS: CYCLOSPORINE 0.05% 1 EACH EYE-BOTH (08:36)
[2023-12-15] MEDS: methocarbamoL 500 MG TABLET PO (08:36)
[2023-12-15] MEDS: oxyCODONE HCl Immed Release 5 MG TABLET PO (10:15)
--- NOTE | 2023-12-15 10:30 | P.DS_ITS ---
DS: Providers Provider Date of Service: 12/15/23 Date of admission: 12/12/23 08:04 Primary care physician: Yenni Barnard MD Consults: 12/12/23 14:18 Consult to Hospitalist Routine Comment: Consulting Provider: Hospitalist Reason For Exam: Routine medical management DS: Diagnosis Discharge Diagnosis (1) Status post total right knee replacement: Status: Acute DS: Summary Hospital Course Hospital Course: The patient underwent a successful Right total knee arthroplasty on 12/12/[address] De León, was transferred to PACU and then to the floor to recover. During their stay, their vitals were stable, afebrile at 98.0. Labs were unremarkable, H/H 8.9/27.1. POD 1 she was started on Eliquis for DVT ppx, they also received Physical Therapy services twice a day. Physical therapy should include gait training, ROM to tolerance and quad strength. He is WBAT. Prior to discharge dressing clean dry and intact. The Aquacel dressing should remain intact and dry at all times. Any concerns with the dressing, please contact orthopedic office. No showering. The plan is to be discharged to [facility] Time Attestation Discharge Coordination Time (in mins): 30 Quality: Safe Use of Opioids Does Pt have an Active Cancer Diagnosis on the Problem List?: No Quality: Stroke Does the patient have a stroke diagnosis?: No Physical Exam Vital Signs: Vital Signs: Last Vital Signs Temp 98 F 12/15/23 07:04 Pulse 85 12/15/23 07:04 Resp 16 12/15/23 07:04 BP 124/60 12/15/23 07:04 Pulse Ox 93 12/15/23 02:37 O2 Del Method Nasal Cannula 12/15/23 07:04 O2 Flow Rate 2 12/15/23 07:04 BMI result Body Mass Index 25.6 DS: Data Data Completed and Pending Pending studies at discharge: Pending at discharge 12/12/23 10:09 Surgical [PTH] Routine Labs on day of discharge: Laboratory Results - last 24 hr 12/15/23 06:18 WBC 9.1 RBC 2.92 L Hgb 8.9 L Hct 27.1 L MCV 92.8 MCH 30.5 MCHC 32.8 RDW 14.8 Plt Count 186 MPV 10.1 Immature Gran % (Auto) 1.3 H Neut % (Auto) 68.7 Lymph % (Auto) 13.8 L [place] % (Auto) 13.3 H Eos % (Auto) 2.5 Baso % (Auto) 0.4 Lymph # (Auto) 1.3 [place] # (Auto) 1.2 Eos # (Auto) 0.2 Baso # (Auto) 0.0 Abs Immat Gran (auto) 0.12 H Absolute Neuts (auto) 6.2 Absolute Nucleated RBC 0.000 Nucleated RBC % (auto) 0.0 Sodium 131 L Potassium 4.1 Chloride 99 Carbon Dioxide 27 Anion Gap 9 L BUN 14 Creatinine 0.76 Estim Creat Clear Calc 46.3 Estimated GFR > 60 Fasting Glucose 97 Calcium 8.4 Discharge Plan Discharge Anticipated Discharge Date/Time: 12/15/23 06:44 Patient Disposition: Xfer SNF Discharge Diagnosis: rt tka Referrals: [facility] [Outside] - 1 Week (TRANSFER FOR SHORT TERM REHAB) Yenni Barnard MD [Primary Care Provider] - 1 Week Adriane Pepe PA-C [Physician Process Supervisor] - 2 Weeks (12/29/23 13:15 [facility] Adriane Pepe PA-C ) Discharge Medications: New oxycodone 5 mg Tablet 5 mg PO Q4H PRN (Reason: Pain, Moderate(Pain Scale 4-6)) 7 Days Qty: 42 0RF Rx Instructions: Partial Fill upon patient request. celecoxib 200 mg Capsule 200 mg PO BID 30 Days Qty: 60 0RF methocarbamol 500 mg Tablet 500 mg PO TID 7 Days Qty: 21 0RF acetaminophen 325 mg Tablet 650 mg PO Q6H PRN (Reason: Pain, Mild (Pain Scale 1-3)) 30 Days Qty: 240 0RF Continued multivitamin Tablet 1 tab PO DAILY calcium carbonate-vitamin D3 600 mg-5 mcg (200 unit) Tablet 1 tab PO BEDTIME docusate sodium 100 mg Capsule 100 mg PO BID Myrbetriq 50 mg Tablet Extended Release 24 Hr 50 mg PO BEDTIME loratadine [Claritin] 10 mg Tablet 10 mg PO DAILY PRN (Reason: Allergy Symptoms) ascorbic acid (vitamin C) 500 mg Tablet 500 mg PO DAILY ferrous sulfate 325 mg (65 mg iron) Tablet 325 mg PO DAILY Glucosamine Chondroitin 550-30-1 mg Capsule 1 cap PO BID cyclosporine [Restasis] 0.05 % dropperette 1 drp ophthalmic (eye) BID atorvastatin 40 mg tablet 40 mg PO DAILY gabapentin 300 mg capsule 300 mg PO BEDTIME trazodone 50 mg tablet 100 mg PO BEDTIME amlodipine 5 mg tablet 5 mg PO DAILY Eliquis 5 mg tablet 5 mg PO BID esomeprazole magnesium [Nexium] 40 mg capsule,delayed release(DR/EC) 40 mg PO BID Discontinued acetaminophen 325 mg Tablet 975 mg PO BID Discharge Orders: Discharge Order (Routine); Ordered 12/15/23 Ordered By: Karlie Farah Diet: Regular diet Activity on Discharge: Use cane or walker Stand Alone Forms: Patient Portal Discharge page Print Language: Syrian Care Plan Goals: Restore function of joint Health Concerns: none Plan of Treatment: Physical Therapy Pain management DVT prophylaxis Assessment: Physical Therapy for Total knee arthroplasty: WBAT, gait training, ROM 0-12, quad strength * Limit stair climbing * No showering, no tub bath-keep dressing clean, dry and intact * No driving x6 weeks * Continue Aspirin twice a day x 6 weeks * Follow up with [facility] in 2 weeks: *
--- NOTE | 2023-12-15 10:41 | MHC.CM.PN ---
DP: PT HAS BEEN MEDICALLY CLEARED FOR DC TO STR AT [facility]. BLS TRANSPORT SET UP FOR 2 PM VIA [facility]. RN NOTIFIED, CENTER AWARE.
[2023-12-15] MEDS: HYDROmorphone HCl 0.5 MG/0.5 ML SYRINGE IVPUSH (13:52)
--- NOTE | 2023-12-15 14:38 | PC.NURSE ---
Attempted to call and give report at [facility] x 2 (14:30 and 14:40hrs). No answer on unit. Left message with administrative secretary Ashwini, to have nurse call here for report.
== END 2023-12-15 14:38 | disposition skilled nursing facility (03) | DRG 470 ==
LOC: HO.SSSA 09:02 → HO.IMC 16:46 → HO.S3 12-13 20:23
PROVIDERS: Nurse Practitioner; Admitting Provider Physician Assistant; PCP Internal Medicine Endocrinology, Diabetes & Metabolism; Visit Provider Orthopaedic Surgery
PROC: 0SRC0J9 Replacement of Right Knee Joint with Synthetic Substitute, Cemented, Open Approach (ICD-10-PCS; CPT 27447; principal; 2023-12-12 09:00)
DX: M17.11 Unilateral primary osteoarthritis, right knee (principal); E78.5 Hyperlipidemia, unspecified; G89.18 Other acute postprocedural pain; I48.91 Unspecified atrial fibrillation; M35.00 Sjogren syndrome, unspecified; Z87.891 Personal history of nicotine dependence; Z79.01 Long term (current) use of anticoagulants; Z79.899 Other long term (current) drug therapy
CPT/HCPCS: 36415; 73560; 80048; 85025; 86850; 86900; 86901; 87640; 87641; 88305; 88311; 97110; 97116; 97162; 97530; C1776; J0131; J0665; J0690; J1100; J1170; J2250; J2405; J2704; J3010; J3370; J7120

== ENCOUNTER → 2023-12-12 08:04 | Outpatient (BNV) | payer MEDICARE, SELFPAY | PROVIDERS: Admitting Provider Physician Assistant; PCP Internal Medicine Endocrinology, Diabetes & Metabolism; Visit Provider Orthopaedic Surgery | DX: Z96.651 Presence of right artificial knee joint (principal) | CPT/HCPCS: 27447; 99024; 99499 ==

== ENCOUNTER → 2023-12-12 08:04 | Outpatient (BNV) | payer MEDICARE, SELFPAY | PROVIDERS: Admitting Provider Physician Assistant; PCP Internal Medicine Endocrinology, Diabetes & Metabolism; Visit Provider Physician Assistant | DX: M17.11 Unilateral primary osteoarthritis, right knee (principal) | CPT/HCPCS: 99222 ==

== ENCOUNTER 2023-12-29 10:39 | Outpatient (REF) | payer OTHER, MEDICARE, SELFPAY ==
--- NOTE | ~2023-12-29 | XR_ITS ---
EXAMINATION: XR KNEE, RIGHT CLINICAL INFORMATION: Pain in unspecified knee. COMPARISON: December 12, 2023. TECHNIQUE: AP standing view of bilateral knees as well as lateral and sunrise views of the right knee. FINDINGS: Right knee: Expected postoperative changes status post right knee total arthroplasty with anterior surgical nikki, joint effusion and soft tissue swelling. Hardware appears intact. Alignment is appropriate. Increased curvilinear calcifications along the posterior aspect of the right knee joint. Lucencies in the periarticular soft tissues redemonstrated, decreased since the prior exam, characteristic of recent surgery. Single AP view of the left knee demonstrates total knee arthroplasty which appears intact. XR/XR knee RT 3V IMPRESSION: 1.Expected postoperative changes status post right knee total arthroplasty. Hardware appears intact. 2. Increased curvilinear calcifications along the posterior aspect of the right knee joint. Lucencies in the periarticular soft tissues redemonstrated, decreased since the prior exam, characteristic of recent surgery.
== END 2023-12-29 10:40 | disposition home or self-care (01) ==
LOC: HO.HOSX 10:39
PROVIDERS: Visit Provider Physician Assistant
DX: M25.561 Pain in right knee (principal)
CPT/HCPCS: 73562; 99212

== ENCOUNTER 2023-12-29 13:07 | Outpatient (AMB) | payer MEDICARE, SELFPAY ==
--- NOTE | 2023-12-29 13:16 | A.OFFVIS_ITS ---
Intake Visit Reasons: PO-RT TKA 12/12/23 Intake Note: Brigitte is a 78 year old female who presents today for a post op appointment s/p RT TKA 12/12/23 Patient reports feeling soreness. She was wondering if she could get some pain medication to help her sleep at night due to having a lot of pain at night when she is laying down. Allergies oxycodone [From Tylox] Adverse Reaction (Intermediate, Verified 12/29/23 13:22) Nausea and Vomiting ( after childbirth-age 19)-has had since HPI HPI PO-RT TKA 12/12/23 DR: Details: 78-year-old female who presents in the office today 17 days status post a right total knee arthroplasty, which was performed on 12/12/[address] De León. While in the office today the patient reports feeling soreness. She would like to request pain medication to help her sleep at night due to having a lot of pain when laying down. COUNT INCLUDES THE [facility] Medical History Lumbar disc herniation Spinal stenosis Difficulty swallowing Basal cell carcinoma Overactive bladder Iron deficiency Elevated cholesterol Atrial fibrillation CVA (cerebral vascular accident) Sjogrens syndrome Osteoarthritis GERD (gastroesophageal reflux disease) HTN (hypertension) Surgical History History of surgery on upper extremity Hx of bilateral cataract extraction History of esophagogastroduodenoscopy (EGD) H/O colonoscopy Hx of tonsillectomy History of extraction of renal calculus History of arthroscopy of left shoulder (~06/2022) History of right shoulder replacement (~04/2021) History of total left knee replacement (~03/2020) Social History Household Members: Spouse Housing: House Are you a primary medical care evaluation specialist to a significant other at home: No Do you presently have visiting nurse or other home services: No Alcohol intake: current Alcohol intake frequency: holidays/special occasions only Alcohol type: wine Patient Tobacco Use Status: Former Tobacco user Quit Date: age 19 Tobacco use type: Cigarette Years Smoked: 5 service: No Current occupational status: retired Review of Systems Const All systems reviewed & are unremarkable except as noted in HPI and below Physical Exam Const General: cooperative, healthy appearing and no acute distress Resp Effort & Inspection: normal respiratory effort and able to speak in complete sentences Cardio Rate: regular rate Peripheral pulses: Peripheral pulses 2+ throughout GI Palpation (GI): Soft to palpation Skin Lesions: no lesions Rashes: no rashes Extrem Other: Right knee: Incision site is clean, dry, and intact. No surrounding erythema or drainage. No signs of infection. Barbra intact. ROM Is 10-140 degrees. NVI. Assessment & Plan Assessment & Plan (1) Status post total right knee replacement: Onset Date: ~12/12/23 Comment: Dr. De León Code(s): Z96.651 - Presence of right artificial knee joint Category: Surgical Plan Ms. Leyva is a 78-year-old female who presents in the office today 17 days status post a right total knee arthroplasty, which was performed on 12/12/[address] De León. While in the office today the patient reports feeling soreness. She would like to request pain medication to help her sleep at night due to having a lot of pain when laying down. Patient reports she is at the [facility] in [place]. She reports she is having episodes of Afib for which she has been taking Metoprolol and Eliquis. She reported to me that she had a history of Afib with a stroke in the past. 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 She is in the process of making an appointment with Dr. Koenig. In the meantime, I discussed the case with Dr. De León, and we have decided that we would like to attempt for the patient to be seen by our cardiologists as the patient is currently describing being in and out of Afib with a pulse rate in the high hundreds and low two hundreds occasionally. I spoke with Mehnaz, our nurse navigator who will reach out to our cardiology department for patient to be seen. Follow-up will be with Dr. Marr in 4 weeks, or sooner if needed. X-rays of the right knee which were obtained while in the office today and were reviewed by me, Adriane Pepe PA-C, revealed intact orthopedic hardware with proper alignment. I sent a prescription for an antibiotic prophylactically for possible dental work in the future. However, the patient was educated they should not have any major dental work for the first 3 months post op after the right total knee arthroplasty. I also sent a prescription for Tramadol 50mg po q4-6hrs prn for pain as the patient reports she is unable to tolerate Oxycodone. Orders: Orders XR knee RT 3V Today M25.569 - Pain in unspecified knee Medications: New amoxicillin 2,000 mg (4 x 500 mg) PO ONCE 1 day 4 tabs 0RF take 4 tabs by mouth 1 hour prior to dental ppx tramadol 50 mg PO Q4-6H PRN 42 tabs 0RF pain 7 days Discontinued oxycodone Partial Fill upon patient request. Discontinued Reason: Doctor's Order 5 mg PO Q6H 7 days PRN 28 tabs 0RF Pain, Moderate(Pain Scale 4-6) Patient Instructions: Scribed by Susy De Anda medical staff assistant, for Adriane Pepe PA-C on 12/29/2023 at 1:19 pm, EST.
== END 2023-12-29 14:18 | disposition home or self-care (01) ==
PROVIDERS: PCP Internal Medicine Endocrinology, Diabetes & Metabolism; Visit Provider Physician Assistant
DX: Z96.651 Presence of right artificial knee joint (principal)
CPT/HCPCS: 99024

== ENCOUNTER 2024-01-16 14:03 | Outpatient (AMB) | payer MEDICARE, SELFPAY ==
--- NOTE | 2024-01-16 14:08 | MHC.OFFVIS ---
Vital Signs 01/16/24 14:09 Height 4 ft 11 in Weight 126 lb BMI 25.4 Intake Visit Reasons: PO-s/p RTKA with DR lassiter 12/12/23 Intake Note: Brigitte is a 78 year old who presents today for post op, RTKA with on 12/12/23. Patient reports pain comes and goes, worse at night. Pain level at a 3 on 0-10 pain scale but it goes up to a 7 when laying down. Patient is taking Tramadol for pain with relief. Wet Inspector Optical Glass Required: No Accompanied by: Spouse Allergies oxycodone [From Tylox] Adverse Reaction (Intermediate, Verified 01/16/24 14:10) Nausea and Vomiting ( after childbirth-age 19)-has had since HPI HPI PO-s/p RTKA with DR lassiter 12/12/23: Details: 78-year-old female who returns to the office today for post-op right TKA, 12/12/[address] De León. She continues to have intermittent pain in her knee which is aggravated at night. She has developed a blister over the weekend, she called the service and was rx Bactrim. She denies fever or chills. REPLACED BY [facility] Medical History Lumbar disc herniation Spinal stenosis Difficulty swallowing Basal cell carcinoma Overactive bladder Iron deficiency Elevated cholesterol Atrial fibrillation CVA (cerebral vascular accident) Sjogrens syndrome Osteoarthritis GERD (gastroesophageal reflux disease) HTN (hypertension) Surgical History History of surgery on upper extremity Hx of bilateral cataract extraction History of esophagogastroduodenoscopy (EGD) H/O colonoscopy Hx of tonsillectomy History of extraction of renal calculus History of arthroscopy of left shoulder (~06/2022) History of right shoulder replacement (~04/2021) History of total left knee replacement (~03/2020) Social History Household Members: Spouse Housing: House Are you a primary neonatal intensive care nurse to a significant other at home: No Do you presently have visiting nurse or other home services: No Alcohol intake: current Alcohol intake frequency: holidays/special occasions only Alcohol type: wine Patient Tobacco Use Status: Former Tobacco user Quit Date: age 19 Tobacco use type: Cigarette Years Smoked: 5 service: No Current occupational status: retired Review of Systems Const All systems reviewed & are unremarkable except as noted in HPI and below Physical Exam Vital Signs: BMI result Body Mass Index 25.4 Extrem Other: Right knee: Incision well healed. She does have an area along the lateral aspect of the incision that represents a fracture blister. There is trace amount of erythema along the blister. No purulent drainage. She can extend and flex her knee 0-95 degrees. Calf supple, nontender. NVI. Assessment & Plan Assessment & Plan (1) Status post total right knee replacement: Onset Date: ~12/12/23 Comment: Dr. De León Code(s): Z96.651 - Presence of right artificial knee joint Category: Surgical Plan Dr. De León was available to see the patient with me today. The decision was made to lawrence the blister which occurred in the office today without complications. A sterile dressing was applied. She will take Bactrim twice a day. She will see us back for her routine follow-up appointment as planned, sooner if needed. Medications: Changed From sulfamethoxazole-trimethoprim 800-160 mg (Bactrim DS) 1 tab PO BID 7 days 14 tabs 0RF To sulfamethoxazole-trimethoprim 800-160 mg (Bactrim DS) 1 tab PO BID 6 tabs 0RF 3 days Patient Instructions: Scribed for Karlie Farah PA-C, by Richie Gandhi medical i d sales, on 01/16/2024 at 2:15 PM EST. I, Karlie Farah PA-C, have personally reviewed and agree with the information entered by the scribe. Coding Level of Care Code Global (78730) Diagnoses Status post total right knee replacement Z96.651
[2024-01-16 14:09] VITALS: BMI 25.4
== END 2024-01-16 15:05 | disposition home or self-care (01) ==
PROVIDERS: PCP Internal Medicine Endocrinology, Diabetes & Metabolism; Visit Provider Physician Assistant
DX: Z96.651 Presence of right artificial knee joint (principal)
CPT/HCPCS: 99024

== ENCOUNTER → 2024-01-16 14:03 | Outpatient (BNVA) | payer MEDICARE, SELFPAY | PROVIDERS: PCP Internal Medicine Endocrinology, Diabetes & Metabolism; Visit Provider Physician Assistant | DX: Z47.1 Aftercare following joint replacement surgery (principal); Z96.651 Presence of right artificial knee joint | CPT/HCPCS: 99212 ==

== ENCOUNTER 2024-01-26 13:34 | Outpatient (AMB) | payer MEDICARE, SELFPAY ==
[2024-01-26 13:38] VITALS: BMI 25.4
--- NOTE | 2024-01-26 13:38 | A.OFFVIS_ITS ---
Vital Signs 01/26/24 13:38 Height 4 ft 11 in Weight 126 lb BMI 25.4 Intake Visit Reasons: 6 wk PO-RT TKA 12/12/23 Intake Note: Brigitte is a 78 year old female who presents for her post operative appointment s/p Right TKA on 12/12/2023 . Patient reports she is doing ok she is going to physical therapy and it is going well. She has no concerns at this time. She has completed her Levaquin for possible early cellulitis. She states that the redness around her blister has resolved. She denies any fevers or chills. She has no longer taking narcotics for her discomfort. Allergies oxycodone [From Tylox] Adverse Reaction (Intermediate, Verified 01/26/24 13:48) Nausea and Vomiting ( after childbirth-age 19)-has had since Medication List - Last Reconciled 01/27/24 by Adán De León MD acetaminophen 650 mg (2 x 325 mg) PO Q6H PRN 30 days amoxicillin 2,000 mg (4 x 500 mg) PO ONCE 1 day apixaban (Eliquis) 5 mg PO BID ascorbic acid (vitamin C) 500 mg PO DAILY atorvastatin 40 mg PO DAILY calcium carbonate-vitamin D3 600 mg-5 mcg (200 unit) 1 tab PO BEDTIME cyclosporine 0.05% (Restasis) 1 drp ophthalmic (eye) BID docusate sodium 100 mg PO BID esomeprazole magnesium (Nexium) 40 mg PO BID ferrous sulfate 325 mg PO DAILY furosemide 20 mg PO DAILY gabapentin 300 mg PO BEDTIME glucos sul [id number]-C-Mn 550-30-1 mg (Glucosamine Chondroitin) 1 cap PO B ID loratadine (Claritin) 10 mg PO DAILY PRN metoprolol tartrate 25 mg PO DAILY mirabegron ER (Myrbetriq) 50 mg PO BEDTIME multivitamin 1 tab PO DAILY sulfamethoxazole-trimethoprim 800-160 mg (Bactrim DS) 1 tab PO BID 3 days tramadol 50 mg PO Q4-6H PRN 7 days trazodone 100 mg PO BEDTIME [facility] Medical History Arthritis of right knee Lumbar disc herniation Spinal stenosis Difficulty swallowing Basal cell carcinoma Overactive bladder Iron deficiency Elevated cholesterol Atrial fibrillation CVA (cerebral vascular accident) Sjogrens syndrome Osteoarthritis GERD (gastroesophageal reflux disease) HTN (hypertension) Surgical History (Updated 01/26/24 @ 13:58 by Rachel Katz CMA) Hx of right knee surgery (~12/12/23) History of surgery on upper extremity Hx of bilateral cataract extraction History of esophagogastroduodenoscopy (EGD) H/O colonoscopy Hx of tonsillectomy History of extraction of renal calculus History of arthroscopy of left shoulder (~06/2022) History of right shoulder replacement (~04/2021) History of total left knee replacement (~03/2020) Social History Household Members: Spouse Housing: House Are you a primary neonatal intensive care unit nurse to a significant other at home: No Do you presently have visiting nurse or other home services: No Alcohol intake: current Alcohol intake frequency: holidays/special occasions only Alcohol type: wine Patient Tobacco Use Status: Former Tobacco user Quit Date: age 19 Tobacco use type: Cigarette Years Smoked: 5 service: No Current occupational status: retired Physical Exam Vital Signs: BMI result Body Mass Index 25.4 Extrem Other: Right knee examination shows that the surgical incision is well healed, no erythema, the previous blister is now a dry eschar, no drainage, full active extension and flexion to 120 degrees, her patella tracks well Assessment & Plan Assessment & Plan (1) Right knee pain: Code(s): M25.561 - Pain in right knee Category: Medical Plan Ms. Leyva continues to do well after undergoing right total knee replacement surgery on 12/12/2023. She will continue going to formal physical therapy for now. She will gradually transition to a home exercise program. At this point she has no signs of cellulitis. She can remain off of the Levaquin. She does know to take antibiotics before any dental work. She will contact me prior to her follow-up appointment in 6 weeks should any questions or concerns arise. Feel free to call me at any time should questions regarding her orthopedic management arise. Coding Level of Care Code Global (51830) Diagnoses Right knee pain M25.561
== END 2024-01-26 14:08 | disposition home or self-care (01) ==
PROVIDERS: PCP Internal Medicine Endocrinology, Diabetes & Metabolism; Visit Provider Orthopaedic Surgery
DX: M25.561 Pain in right knee (principal)
CPT/HCPCS: 99024

== ENCOUNTER → 2024-01-26 13:34 | Outpatient (BNVA) | payer MEDICARE, SELFPAY | PROVIDERS: PCP Internal Medicine Endocrinology, Diabetes & Metabolism; Visit Provider Orthopaedic Surgery | DX: Z47.89 Encounter for other orthopedic aftercare (principal); M25.561 Pain in right knee | CPT/HCPCS: 99212 ==

== ENCOUNTER 2024-03-29 09:13 | Outpatient (REF) | payer MEDICARE, SELFPAY ==
--- NOTE | ~2024-03-29 | XR_ITS ---
EXAMINATION: XR KNEE, RIGHT CLINICAL INFORMATION: Right knee pain. COMPARISON: 12/29/2023. TECHNIQUE: Three views of the right knee. FINDINGS: Prosthetic components of the total knee arthroplasty are appropriately aligned without periprosthetic fracture or abnormal lucency. No component migration. Soft tissue fullness in the region of Hoffa's fat pad is likely postoperative. No appreciable effusion. Mild soft tissue swelling at the knee. Bones are osteopenic. XR/XR knee RT 3V IMPRESSION: Appropriate alignment of the total knee arthroplasty without evidence of complications.
== END 2024-03-29 09:14 | disposition home or self-care (01) ==
LOC: HO.HOSX 09:13
PROVIDERS: Visit Provider Orthopaedic Surgery
DX: Z47.1 Aftercare following joint replacement surgery (principal); Z96.651 Presence of right artificial knee joint
CPT/HCPCS: 73562; 99212

== ENCOUNTER 2024-03-29 11:39 | Outpatient (AMB) | payer MEDICARE, SELFPAY ==
--- NOTE | 2024-03-29 11:43 | A.OFFVIS_ITS ---
Intake Visit Reasons: 6 wk PO-RT TKA 12/12/23 Intake Note: Brigitte is a 79 year old female who presents today for a follow up S/P Right TKA 12/12/23 Patient states she is doing well. She completed PT but feels her muscles above the knee are still weak. When she stands for gait initiation she has some discomfort that resolves on its own. She is starting cardio-rehab for her heart. She continues to stay active. She denies any fevers or chills. Allergies oxycodone [From Tylox] Adverse Reaction (Intermediate, Verified 03/29/24 12:07) Nausea and Vomiting ( after childbirth-age 19)-has had since Medication List - Last Reconciled 03/29/24 by Adán De León MD acetaminophen 650 mg (2 x 325 mg) PO Q6H PRN 30 days amoxicillin 2,000 mg (4 x 500 mg) PO ONCE 1 day apixaban (Eliquis) 2.5 mg PO BID ascorbic acid (vitamin C) 500 mg PO DAILY atorvastatin 40 mg PO DAILY calcium carbonate-vitamin D3 600 mg-5 mcg (200 unit) 1 tab PO BEDTIME cyclosporine 0.05% (Restasis) 1 drp ophthalmic (eye) BID docusate sodium 100 mg PO BID empagliflozin (Jardiance) 20 mg PO DAILY esomeprazole magnesium (Nexium) 40 mg PO BID ferrous sulfate 325 mg PO DAILY furosemide 20 mg PO DAILY glucos sul [id number]-C-Mn 550-30-1 mg (Glucosamine Chondroitin) 1 cap PO BID loratadine (Claritin) 10 mg PO DAILY PRN metoprolol succinate ER 25 mg PO DAILY mirabegron ER (Myrbetriq) 50 mg PO BEDTIME multivitamin 1 tab PO DAILY spironolactone 25 mg PO DAILY tramadol 50 mg PO Q4-6H PRN 7 days trazodone 100 mg PO BEDTIME [facility] Medical History Arthritis of right knee Lumbar disc herniation Spinal stenosis Difficulty swallowing Basal cell carcinoma Overactive bladder Iron deficiency Elevated cholesterol Atrial fibrillation CVA (cerebral vascular accident) Sjogrens syndrome Osteoarthritis GERD (gastroesophageal reflux disease) HTN (hypertension) Surgical History Hx of right knee surgery (~12/12/23) History of surgery on upper extremity Hx of bilateral cataract extraction History of esophagogastroduodenoscopy (EGD) H/O colonoscopy Hx of tonsillectomy History of extraction of renal calculus History of arthroscopy of left shoulder (~06/2022) History of right shoulder replacement (~04/2021) History of total left knee replacement (~03/2020) Social History Household Members: Spouse Housing: House Are you a primary account executive healthcare to a significant other at home: No Do you presently have visiting nurse or other home services: No Alcohol intake: current Alcohol intake frequency: holidays/special occasions only Alcohol type: wine Patient Tobacco Use Status: Former Tobacco user Tobacco use type: Cigarette Years Smoked: 5 service: No Current occupational status: retired Physical Exam Const Other: Well-nourished well-developed very friendly female awake alert and oriented x3 in no acute distress Extrem Other: Bilateral lower extremity examination shows good capillary refill, no skin lesions noted, normal sensation light touch Right knee examination shows that the surgical incision is well healed, no erythema, full active extension and flexion to 120 degrees with no discomfort, her patella tracks well, there does remain a small eschar along the lateral aspect of her incision, no drainage, no surrounding erythema Results Reviewed Results Reviewed: X-rays of the patient's right knee taken today show a total knee arthroplasty in good position with no signs of loosening, no acute bony abnormalities Assessment & Plan Assessment & Plan (1) Right knee pain: Code(s): M25.561 - Pain in right knee Category: Medical Plan Mrs. Leyva continues to do well after undergoing right total knee replacement surgery on 12/12/2023. She will continue with her [id number] exercises to prevent stiffness. She does know to take antibiotics before any dental work. She will contact me prior to her follow-up appointment in 2 months should any questions or concerns arise. Feel free to call me at any time should questions regarding her orthopedic management arise. I spent 21 minutes in reviewing the patient's records and imaging studies, seeing the patient and documenting in the medical record. Orders: Orders XR knee RT 3V Today M25.561 - Pain in right knee Coding Level of Care Code Est Pt Level 3 (65904) Diagnoses Right knee pain M25.561
== END 2024-03-29 12:27 | disposition home or self-care (01) ==
PROVIDERS: PCP Internal Medicine Endocrinology, Diabetes & Metabolism; Visit Provider Orthopaedic Surgery
DX: M25.561 Pain in right knee (principal); Z96.651 Presence of right artificial knee joint
CPT/HCPCS: 99213

== ENCOUNTER 2024-05-31 13:12 | Outpatient (REF) | payer MEDICARE, SELFPAY ==
--- NOTE | ~2024-05-31 | XR_ITS ---
EXAMINATION: XR KNEE, RIGHT CLINICAL INFORMATION: M25.561 - Pain in right knee COMPARISON: 03/29/2024. TECHNIQUE: Three views of the right knee. FINDINGS: There is normal bony mineralization. No fracture, dislocation, or focal lesion. Total right knee arthroplasty, with femoral and tibial components intact, anatomically aligned. No periprosthetic lucency or other complication. There is a probable at least moderate sized suprapatellar joint effusion. There are vascular calcifications in the soft tissues. Soft tissues otherwise normal. XR/XR knee RT 3V IMPRESSION: 1. No acute bony abnormalities. 2. Right knee arthroplasty without complication. 2. Prominent knee joint effusion noted on the lateral projection. Electronically signed by: Deyvi Newsome MD 08/11/2024 08:29 PM [facility]
== END 2024-05-31 13:13 | disposition home or self-care (01) ==
LOC: HO.HOSX 13:12
PROVIDERS: PCP Internal Medicine Endocrinology, Diabetes & Metabolism; Visit Provider Orthopaedic Surgery
DX: M25.561 Pain in right knee (principal); Z96.651 Presence of right artificial knee joint
CPT/HCPCS: 73562; 99212

== ENCOUNTER → 2024-05-31 13:14 | Outpatient (BNV) | payer MEDICARE, SELFPAY | PROVIDERS: PCP Internal Medicine Endocrinology, Diabetes & Metabolism; Visit Provider Radiology Diagnostic Radiology | DX: M25.561 Pain in right knee (principal) | CPT/HCPCS: 73562 ==

== ENCOUNTER 2024-05-31 13:57 | Outpatient (AMB) | payer MEDICARE, SELFPAY ==
[2024-05-31 14:00] VITALS: BMI 25.4
--- NOTE | 2024-05-31 14:00 | A.OFFVIS_ITS ---
Vital Signs 05/31/24 14:00 Height 4 ft 11 in Weight 126 lb BMI 25.4 Intake Visit Reasons: OV-RT TKA 12/12/23 DR Intake Note: Brigitte is a 79 year old female who presents for routine follow-up after undergoing right total knee replacement surgery on 12/12/2023. The patient reports minimal discomfort in her right knee. She states that she has had 2 small scabs along the anterior aspect of her right knee which have been getting smaller in size. She denies any fevers or chills. She continues with her home exercise program. She does not take any medicines for her discomfort. Allergies oxycodone [From Tylox] Adverse Reaction (Intermediate, Verified 03/29/24 12:07) Nausea and Vomiting ( after childbirth-age 19)-has had since Medication List - Last Reconciled 05/31/24 by Adán De León MD acetaminophen 650 mg (2 x 325 mg) PO Q6H PRN 30 days amoxicillin 2,000 mg (4 x 500 mg) PO ONCE 1 day apixaban (Eliquis) 2.5 mg PO BID ascorbic acid (vitamin C) 500 mg PO DAILY atorvastatin 40 mg PO DAILY calcium carbonate-vitamin D3 600 mg-5 mcg (200 unit) 1 tab PO BEDTIME cyclosporine 0.05% (Restasis) 1 drp ophthalmic (eye) BID docusate sodium 100 mg PO BID empagliflozin (Jardiance) 20 mg PO DAILY esomeprazole magnesium (Nexium) 40 mg PO BID ferrous sulfate 325 mg PO DAILY furosemide 20 mg PO DAILY glucos sul [id number]-C-Mn 550-30-1 mg (Glucosamine Chondroitin) 1 cap PO BID loratadine (Claritin) 10 mg PO DAILY PRN metoprolol succinate ER 25 mg PO DAILY mirabegron ER (Myrbetriq) 50 mg PO BEDTIME multivitamin 1 tab PO DAILY spironolactone 25 mg PO DAILY tramadol 50 mg PO Q4-6H PRN 7 days trazodone 100 mg PO BEDTIME [facility] Medical History Arthritis of right knee Lumbar disc herniation Spinal stenosis Difficulty swallowing Basal cell carcinoma Overactive bladder Iron deficiency Elevated cholesterol Atrial fibrillation CVA (cerebral vascular accident) Sjogrens syndrome Osteoarthritis GERD (gastroesophageal reflux disease) HTN (hypertension) Surgical History Hx of right knee surgery (~12/12/23) History of surgery on upper extremity Hx of bilateral cataract extraction History of esophagogastroduodenoscopy (EGD) H/O colonoscopy Hx of tonsillectomy History of extraction of renal calculus History of arthroscopy of left shoulder (~06/2022) History of right shoulder replacement (~04/2021) History of total left knee replacement (~03/2020) Social History Household Members: Spouse Housing: House Are you a primary eye care professional to a significant other at home: No Do you presently have visiting nurse or other home services: No Alcohol intake: current Alcohol intake frequency: holidays/special occasions only Alcohol type: wine Patient Tobacco Use Status: Former Tobacco user Tobacco use type: Cigarette Years Smoked: 5 service: No Current occupational status: retired Physical Exam Vital Signs: BMI result Body Mass Index 25.4 Const Other: Well-nourished well-developed very friendly female awake alert and oriented x3 in no acute distress Extrem Other: Bilateral lower extremity examination shows good capillary refill, no skin lesions noted, normal sensation light touch Right knee examination shows full active extension and flexion to 120 degrees with no discomfort, there is a small eschar along the proximal aspect of her incision measuring approximately 2 mm x 2 mm, no drainage; there is a 2nd eschar just lateral to the distal aspect of her incision with no surrounding erythema, no drainage Assessment & Plan Assessment & Plan (1) Status post total right knee replacement: Onset Date: ~12/12/23 Code(s): Z96.651 - Presence of right artificial knee joint Category: Surgical Plan Ms. Leyva continues to do fairly well after undergoing right total knee replacement surgery on 12/12/2023. She does have 2 small eschars along the anterior aspect of her knee of unclear etiology. Although the eschars are becoming smaller in size over time and have no surrounding erythema, I did recommend that the patient follow-up in our [facility] here at [facility] for further recommendations regarding treatment options. At this point the patient does not have evidence of infection. The patient will contact me prior to her follow-up appointment in 4-6 weeks should any questions or concerns arise. Feel free to call me at any time should questions regarding her orthopedic management arise. I spent 22 minutes in reviewing the patient's records and imaging studies, seeing the patient and documenting in the medical record. Orders: Orders XR knee RT 3V Today M25.561 - Pain in right knee Referrals Wound Care Referral R23.4 - Changes in skin texture, Z96.651 - Presence of right artificial knee joint Coding Level of Care Code Est Pt Level 3 (98511) Complex EM visit Add On G2211 Diagnoses Status post total right knee replacement Z96.651
== END 2024-05-31 14:23 | disposition home or self-care (01) ==
PROVIDERS: PCP Internal Medicine Endocrinology, Diabetes & Metabolism; Visit Provider Orthopaedic Surgery
DX: Z47.89 Encounter for other orthopedic aftercare (principal); Z96.651 Presence of right artificial knee joint
CPT/HCPCS: 99213; G2211

== ENCOUNTER 2024-07-12 12:59 | Outpatient (AMB) | payer MEDICARE, SELFPAY ==
--- NOTE | 2024-07-12 13:02 | MHC.OFFVIS ---
Vital Signs 07/12/24 13:03 Height 4 ft 11 in Weight 126 lb BMI 25.4 Intake Visit Reasons: OV-RT TKA 12/12/23 Intake Note: Brigitte is a 79 year old female who presents today for evaluation of her right knee s/p right TKA DOS 12/12/[address] De León. At Dr. De León's request, patient has been evaluated by Dr. Luis Antonio Hancock at [facility] in [place], [place] to get his opinion regarding the possibility that there could be a sinus tract from the knee joint itself indicating a chronic periprosthetic infection. Allergies oxycodone [From Tylox] Adverse Reaction (Intermediate, Verified 07/12/24 13:03) Nausea and Vomiting ( after childbirth-age 19)-has had since HPI HPI OV-RT TKA 12/12/23 DR: Details: 79-year-old female who returns to the office today for a follow-up of right TKA, 12/12/[address] De León. [facility] Medical History Arthritis of right knee Lumbar disc herniation Spinal stenosis Difficulty swallowing Basal cell carcinoma Overactive bladder Iron deficiency Elevated cholesterol Atrial fibrillation CVA (cerebral vascular accident) Sjogrens syndrome Osteoarthritis GERD (gastroesophageal reflux disease) HTN (hypertension) Surgical History Hx of right knee surgery (~12/12/23) History of surgery on upper extremity Hx of bilateral cataract extraction History of esophagogastroduodenoscopy (EGD) H/O colonoscopy Hx of tonsillectomy History of extraction of renal calculus History of arthroscopy of left shoulder (~06/2022) History of right shoulder replacement (~04/2021) History of total left knee replacement (~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) Social History Household Members: Spouse Housing: House Are you a primary hospice home care coordinator to a significant other at home: No Do you presently have visiting nurse or other home services: No Alcohol intake: current Alcohol intake frequency: holidays/special occasions only Alcohol type: wine Patient Tobacco Use Status: Former Tobacco user Tobacco use type: Cigarette Years Smoked: 5 service: No Current occupational status: retired Review of Systems Const All systems reviewed & are unremarkable except as noted in HPI and below Physical Exam Vital Signs: BMI result Body Mass Index 25.4 Extrem Other: Right knee: Incision well healed. She does have a pin prick sized area on the most proximal aspect of the incision that has scant serous discharge. No evidence of retained suture. No erythema, no swelling, no tenderness to palpation. ROM is 0-120 degrees. Calf supple, nontender. NVI. Assessment & Plan Assessment & Plan (1) Status post total right knee replacement: Onset Date: ~12/12/23 Code(s): Z96.651 - Presence of right artificial knee joint Category: Surgical Plan I did take a small curette at the area to try and expose tissue and promote bleeding for healthy tissue healing. She will keep the covered with bandage. She has follow-up with Dr. Hancock at the end of the month which she will keep. She will make an appointment with Dr. De León in 3 months for her routine 9 months postop appointment, sooner if needed. Patient Instructions: Scribed for Karlie Farah PA-C, by Richie Gandhi medical scientific officer, on 07/12/2024 at 1:15 PM EST.? I, Karlie Farah PA-C, have personally reviewed and agree with the information entered by the scribe. Coding Level of Care Code Est Pt Level 3 (49608) Complex EM visit Add On G2211 Diagnoses Status post total right knee replacement Z96.651
[2024-07-12 13:03] VITALS: BMI 25.4
== END 2024-07-12 14:09 | disposition home or self-care (01) ==
PROVIDERS: PCP Internal Medicine Endocrinology, Diabetes & Metabolism; Visit Provider Physician Assistant
DX: Z47.1 Aftercare following joint replacement surgery (principal); Z96.651 Presence of right artificial knee joint
CPT/HCPCS: 99213; G2211

== ENCOUNTER → 2024-07-12 12:59 | Outpatient (BNVA) | payer MEDICARE, SELFPAY | PROVIDERS: PCP Internal Medicine Endocrinology, Diabetes & Metabolism; Visit Provider Orthopaedic Surgery | DX: Z96.651 Presence of right artificial knee joint (principal); Z98.890 Other specified postprocedural states | CPT/HCPCS: 99212 ==

== ENCOUNTER 2024-09-13 10:42 | Outpatient (REF) | payer MEDICARE, SELFPAY ==
--- NOTE | ~2024-09-13 | XR_ITS ---
EXAMINATION: XR KNEE 3 VIEWS RIGHT HISTORY: M25.561 - Pain in right knee COMPARISON: Comparison is made with the prior examination dated 05/31/2024. FINDINGS: Three views of the right knee are submitted. The patient is again noted to be status post right total knee arthroplasty. The orthopedic elements are in anatomic alignment. There is no radiographic evidence of loosening. There is no fracture or dislocation. There is no joint effusion. The soft tissues are unremarkable. XR/XR knee RT 3V IMPRESSION: Status post right total knee arthroplasty. Electronically signed by: Isidro Mendieta MD 09/24/2024 09:16 AM RAZA
--- OUTSIDE RECORDS SUMMARY | 2024-09-14 12:18 | XMS_ITS | Continuity of Care Document ---
Author Organization [facility] [address] [address] Phone [phone] Care Team Providers Care Dye Operator Name Role Phone Yenni Barnard M.D. 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 03/26/2024 KP Ferrous Rcjkelq162(65Fe) mg Tablets 1 by mouth every day Yenni Barnard M.D. 09/12/2023 Vitamin C500mg Chewtabs 1 by mouth every day Yenni Barnard M.D. 09/12/2023 Trazodone AKT703my Tablets Take 1 Tablet AT Bedtime 90tabs Yenni Barnard M.D. 09/02/2023 Gjeykavzmud988xp Capsules 4 caps by mouth prior to dental work 24caps Yenni Barnard M.D. Knoufzxpagdtoa51nd Tablets 1 by mouth every day Unknown Eliquis2.5mg Tablets Take 1 Tablet By Mouth Twice A Day Unknown Metoprolol Succinate ER25mg Tablets ER 24HR 1 by mouth every day Unknown Mbljutgwgp15ol Tablets 1 by mouth every day Unknown Rwuxvegkys538pv Capsules 1 by mouth three times a day prn Unknown Tylenol Extra Dnltczdz325rx Tablets 2 by mouth twice a day prn Yenni Barnard M.D. Restasis0.05% Emulsion 1 drop each eye twice daily Yenni Barnard M.D. Multivitamin Adults 50+Adlt 50+ Tablets 1 by mouth every day Yenni Barnard M.D. Calcium 600 +D High Ilupbsh830-350xx-Tqvj Tablets 1 by mouth qd Yenni Barnard M.D. Vbbite89yk Capsules DR spain mouth twice a day Serena Collins MD Fqjxxewxl06go Tablets ER 24HR 1 by mouth every day Tuan Garduno MD Atorvastatin Sqrwpxf66hb Tablets Take 1 Tablet Once Daily 90tabs Yenni Barnard M.D. History Medications Halgtsywbcxr43hw Madeleine Take 1 lozenge four times a day for 10 days 40units Yenni Barnard M.D. 03/06/2024 - 03/26/2024 Mhyhqryk229275Mwrp/ML Suspension rinse and spit 4 ml qid [...] Comments: TNP CBC With Differential/Plat elet 11/18/2023 [facility] Lab WBC 9.3 K/MM3 (4.0-11 [...] 0) Lymph # 1.7 K/MM3 (0.8-3. 1) [place]# 0.8 K/MM3 (0.4-0. 9) Eo # 0.3 K/MM3 (0.0-0. 4) Baso # 0.1 K/MM3 (0.0-0. 1) Abs. Imm Gran 0.0 K/MM3 Neut 69.0 % (44-76) Lymph 18.8 % (15-43) Monocyte 8.5 % (4.5-10 .5) Eo 2.7 % (0-6) Baso 0.6 % (0-2) Imm Gran 0.4 % Laboratory test finding 11/18/2023 Inhouse Glucose Fingerstick 129 Hemoglobin A1c 5.5% Complete Abc With Diff 10/17/2023 [facility] WBC 6.5 K/MM3 (4.0-11 [...] 0) Lymph # 1.3 K/MM3 (0.8-3. 1) [place]# 0.5 K/MM3 (0.4-0. 9) Eo # 0.2 K/MM3 (0.0-0. 4) Baso # 0.1 K/MM3 (0.0-0. 1) Abs. Imm Gran 0.0 K/MM3 Neut 67.7 % (44-76) Lymph 20.4 % (15-43) Monocyte 7.7 % (4.5-10 .5) Eo 2.8 % (0-6) Baso 0.9 % (0-2) Imm Gran 0.5 % Laboratory test finding 10/17/2023 [facility] Vitamin B12 1166 pg/mL (232-12 45) Folic Acid 36.9 ng/mL (4.8-37 .3) Homocysteine, Plasma 8.9 UMOL/L (0-15) Laboratory test finding 09/12/2023 [facility] Vitamin B12 <pending> Folic Acid <pending> Homocysteine,Pl as ma/Serum <pending> Comprehensive Metabolic Panl 09/02/2023 [facility] Glucose 103 mg/dL High [...] M2 1 Complete Abc With Diff 09/02/2023 [facility] WBC 9.8 K/MM3 (4.0-11 [...] 0) Lymph # 1.9 K/MM3 (0.8-3. 1) [place]# 1.1 K/MM3 High (0.4-0. 9) Eo # 0.2 K/MM3 (0.0-0. 4) Baso # 0.1 K/MM3 (0.0-0. 1) Abs. Imm Gran 0.1 K/MM3 Neut 66.4 % (44-76) Lymph 19.6 % (15-43) Monocyte 10.9 % High (4.5-10 .5) Eo 2.0 % (0-6) Baso 0.6 % (0-2) Imm Gran 0.5 % Iron & Tibc 09/02/2023 [facility] Iron 24 g /dL Low (30-160 ) Unsaturated Iro n Binding [place] 316 g /dL (110-37 0) Est T. Iron Bin d Capacity 340 g /dL (140-53 0) % Iron Saturation 7 % Low (20-55 ) Immunofixation Serum 09/02/2023 [facility] Immunoglobulin Igg 805 mg/dL (700-16 00) Immunoglobulin Iga 207 mg/dL (70-400 ) Immunoglobulin Igm 133 mg/dL (40-230 ) Immunofix Normal immunofix <SEE NOTE> 2 Laboratory test finding 09/02/2023 [facility] Ferritin 14 NG/ML (14-283 ) Laboratory test finding 09/02/2023 Inhouse Glucose Fingerstick 109 Hemoglobin A1c 5.7% Laboratory test finding 05/09/2023 [facility] PTH, Intact 62 pg/mL (15-65) Albumin 4.1 GM/DL (3.4-4. 8) Calcium 8.8 mg/dL (8.6-10 .5) N-Telopeptide Cross Links, Urine 05/09/2023 [facility] Cross Linked N-Telopeptides 589 3 Creat, Urine 67.0 4 N-Telopeptide/C re at Ratio 99 High 5 NTX Interpretaion Comment 6 Creatinine 05/09/2023 [facility] Creatinine 0.8 mg/dL (0.5-1. 0) Estimated GFR Creatinine 74 ML/MIN/1.73 M2 7 Laboratory test finding 05/09/2023 [facility] TSH With Reflex To FT4 3.96 uIU/mL (0.4-4. 2) 25Oh Vitamin D 45.2 NG/ML (20-50 ) Laboratory test finding 05/08/2023 [facility] PTH, Intact <pending> TSH With Reflex To FT4 <pending> 25Oh Vitamin D <pending> Laboratory test finding 05/08/2023 [facility] Calcium <pending> Albumin <pending> Creatinine <pending> Complete Abc With Diff 02/26/2023 [facility] WBC 6.6 K/MM3 (4.0-11 [...] 0) Lymph # 1.6 K/MM3 (0.8-3. 1) [place]# 0.6 K/MM3 (0.4-0. 9) Eo # 0.2 K/MM3 (0.0-0. 4) Baso # 0.0 K/MM3 (0.0-0. 1) Abs. Imm Gran 0.0 K/MM3 Neut 61.7 % (44-76) Lymph 24.4 % (15-43) Monocyte 9.6 % (4.5-10 .5) Eo 3.5 % (0-6) Baso 0.6 % (0-2) Imm Gran 0.2 % Comprehensive Metabolic Panl 02/26/2023 [facility] Glucose 99 mg/dL (70-99) [...] 65 ML/MIN/1.73 M2 8 Lipid Panel 02/26/2023 [facility] Cholesterol, Total 182 mg/dL (<200) Triglyceride 87 mg/dL (<150) HDL Chol 92 mg/dL (>39) LDL Cholesterol , Calculated 73 mg/dL (0-130) Non HDL Cholesterol (Calc) 90 mg/dL (<160) Laboratory test finding 02/26/2023 [facility] Hemoglobin A1c 5.6 % (4.0-5. 6) 9 Laboratory test finding 01/24/2023 [facility] Hemoglobin A1c <pending> Laboratory test finding 12/07/2022 Inhouse Glucose Fingerstick 93 Culture Urine 10/27/2022 [facility] Specimen Description URINE Special Requests NONE Culture NO GROWTH Report Status FINAL 10/29/2022 10 Laboratory test finding 10/13/2022 Inhouse Glucose Fingerstick 94 Hemoglobin A1c 5.4% Comprehensive Metabolic Panl 06/02/2022 [facility] Glucose 117 mg/dL High [...] M2 11 Complete Abc With Diff 06/02/2022 [facility] WBC 7.4 K/MM3 (4.0-11 [...] 0) Lymph # 1.8 K/MM3 (0.8-3. 1) [place]# 0.5 K/MM3 (0.4-0. 9) Eo # 0.2 [...] Estab. Unit: nmol BCE Test performed at [address] [address] 4 Reference range: Not Estab. Unit: mg/dL [facility] [address] [place] [address] 5 Reference range: 0 t o 89 [...] value is <or EQ 38 nM BCE/mM CIRCULAR KNITTER, or NTx has decreased >or EQ 30% [...] J Bone Min Res.11(1):M757,1995 [place] [address] 7 Creatinine based est imated glomerular filtration [...] with health care provider. DIAGNOSTIC USE: The [place] [employer] (ADA) and the World Health [...] sex. Procedures Date Code Description Status 08/30/2024 98339 Collection Of Venous Blood B y Venipuncture Completed 03/26/2024 72520 Collection Of Venous Blood B y Venipuncture Completed 11/18/2023 14994 Collection Of Venous Blood B y Venipuncture Completed 09/02/2023 39143 Collection Of Venous Blood B y Venipuncture Completed 06/02/2022 45068 Collection Of Venous Blood B y Venipuncture [...] M.D. at Main Office 08/30/2024 - Yenni Barnard M.D.* D50.9 Iron deficiency anemia, unspecified * [...] Dr Reason for Referral Status Appt [facility] Maintenance Leader NEW IRON DEFICIENCY AN EMIA Closed [address] [place], [place] [id number] [phone] [facility] Neurology WAS DR MARY CRUZ,.... DX, CARDIOEMBOLIC CVA Closed 06/22/[address] [place] [address] [phone]
--- OUTSIDE RECORDS SUMMARY | 2024-09-14 12:18 | XMS_ITS | Data Portability ---
Author Organization [place] - [facility], Allergy Address [address] [place] [address] Care Team Providers Care Evening Sitter Name Role Phone ZAKI SMILEY Primary Care Provider [phone] Assessment Encounter Date Assessment Date Assessment LastModified [...] Organization Details Recorded Time Bleeding from nose 205627170 Active 2022 Epistaxis; Note: Date Diagnosed: 08/05/2023 9:39 AM (R04.0) Not Available [facility] 02:39:26 [place] ce of salivary secretion 97991215 Active 2014 Diseases of the salivary glands: Xerostomia ; Note: Date Diagnosed: 10/18/2014 3:28 PM (527.7) Not Available [facility] 4 02:39:30 Acute sialoaden itis 278449341 Active 2021 Acute sialoadeni tis; Note: Date Diagnosed: 12/22/2021 11:03 AM (K11.21) Not Available [facility] 4 02:39:23 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 406277018 Active 2022 Other hemorrhagi c disorder due to intrinsic circulatin g anticoagul ants, antibodies , or inhibitors ; Note: Date Diagnosed: 08/05/2023 9:39 AM (D68.318) Not Available [facility] 4 02:39:30 Sialolith iasis 97098545 Active 2021 Sialolithi asis; Note: Date Diagnosed: 12/22/2021 11:07 AM (K11.5) Not Available [facility] 4 02:39:27 Anterior epistaxis 691803178 Active 2023 YARIEL BERGER MD [address] [place] [address], [place], [address] , [facility] 4 14:09:40 Sj??gren' s syndrome 21067039 Active 2023 YARIEL BERGER MD [address] [place] [address], [place], [phone] , [facility] 4 14:09:47 Problem Notes None recorded. Procedures Surgical History Date Name Laterality Status Provider Name and Address Organization Details Recorded Time 4 Epistaxis Simple Nasal Cautery Left completed YARIEL BERGER MD [address] [place] [address], [place], [address], [facility] 06/14/2024 14:10:30 Imaging Results None recorded. Procedure Notes None recorded. Medical Equipment None Reported. Allergies Allergen ID Allergen Name Allergen Category Reaction Reaction Severity Criticality Documentation Date Start Date Code Code System Note Provider Name and Address Organization Details Recorded Time 57393 acetamino phen / oxycodone medicatio n other Not available Not available 01/24/2024 31753 3 RxNorm React ion: unkno wn, unspe cifie d;; Not Available [facility] 4 01:01:01 Medications Name Sig Start Date Stop [...] 5 mg tablet active Medicati on ID: 289293 B rand Name: pilocarp ine HCl Send Method: E-Prescr ibed Sub s Allowed: subs OK Medic ationGen ericName : pilocarp ine HCl Not Available Not Available Not Available nystatin 100,000 unit/mL oral suspensio n 12/22 [place] Medic[place] ID: 15309 Pr escribed By Name: Andrea Chan nd [...] 5 mg tablet active Medicati on ID: 766149 B rand Name: amlodipi ne Send Method: E-Prescr ibed Sub s Allowed: subs OK Medic ationGen ericName : amlodipi ne Not Available Not Available Not Available sulfameth oxazole 800 mg-trimet hoprim 160 mg tablet TAKE 1 TABLET BY MOUTH TWICE A DAY FOR 3 DAYS 06/14 completed Not Available Not Available Not Available aspirin 81 mg tablet,de layed release active Medicati on ID: 184285 B rand Name: aspirin Send Method: E-Prescr [...] mg capsule 12/22 completed Medicati on ID: 60472 Du ration Value: 90 Brand Name: Celebrex Send Method: E-Prescr ibed Sub s Allowed: No subs Med icationG enericNa me: Celebrex Not Available Not Available Not Available trazodone 100 mg tablet 06/14 completed Not Available Not Available Not Available simvastat in 20 mg tablet 12/22 completed Medicati on ID: 09648 Du ration Value: 90 Brand Name: simvasta tin Send Method: E-Prescr ibed Sub s Allowed: subs OK Medic ationGen ericName : simvasta tin Not Available Not Available Not Available cevimelin e 30 mg capsule 12/22 completed Medicati on ID: 07118 Du ration Value: 90 Brand Name: cevimeli [...] propionat e 50 mcg/actua tion nasal spray,lv radhaon 12/22 completed Medicati on ID: 84468 Du ration Value: 30 Brand Name: fluticas one propiona te Send Method: E-Prescr ibed Sub s Allowed: subs OK Speci al Instruct ion: USE 2 SPRAYS IN EACH NOSTRIL DAILY Me dication GenericN ganesh: fluticas one propiona te Not Available Not Available Not Available glucosami ne-chondr oitin 1,500 mg -1,200 mg/30 mL oral liquid 12/22 [place] ID: 9[address]63 Br and Name: glucosam ine-modesto droitin Send [...] multivita min 12/22 completed Medicati on ID: 99620 Br and Name: multivit joseph Sen d Method: E-Prescr ibed Sub s Allowed: subs OK Medic ationGen ericName : multivit joseph Not Available Not Available Not Available Super [place]-3 1,000 mg capsule 12/22 completed Medicati on ID: 82776 Br and Name: Fish Oil Concentr ate Send Method: E-Prescr ibed Sub s Allowed: subs OK Medic ationGen ericName : Fish Oil Concentr ate Not Available Not Available Not Available Myrbetriq 50 mg tablet,ex tended release active Not Available Not Available Not Available Myrbetriq active Medicati on ID: 809322 B rand Name: Myrbetri q Send Method: [...] Updated DateTime 06/14/2024 149.86 cm 23.8 kg/m2 61540.9 g Rozina Addi [place] - [facility] 06/14/2024 14:00:01 Social History None recorded. Functional Status None recorded. Mental Status None recorded. Family History Nothing Reported. Medical History No medical history recorded. Gynecological HistoryNo gynecological history recorded. Obstetrics History GPAL:G 0 P 0 0 0 0 Past Encounters Encounter ID Performer Location Encounter Start Date Encounter Closed Date Diagnosis/Indication Diagnosis SNOMED-CT Code Diagnosis ICD10 Code [id number] YARIEL BERGER MD [facility] [address] [address] 06/14/2024 13:13:49 06/14/2024 14:10:19 Anterior epistaxis 004666264 R04.0 Sj??gren's syndrome 8390 1003 M35.00 Health Concerns Section Related Observation LastModified by Organization Detai ls LastModified Time None Recorded Concern Status LastModified by Organization Details LastModified Time None Recorded Advance Directives Directive None Recorded Payers Encounter Date Sequence Insurance Name Policy Number Policy Palmer Covered Member ID Palmer Member ID Guarantor Name 06/14/2024 1 [place] B-[place] [facility] Brigitte Cordoban [id number] Brigitte Diez [place] 06/14/2024 2 [place] [id number] Brigitte Jeanvon [id number] Brigitte Leyva Notes Date Note Type Note Provider Name and Address Organization Details Recorded Time 06/14/2024 text/html left epistaxis3 times in past few weeks, lasting 3 minutespmhx - sjogrens PV 08/10/23 Aimee - right nasal cautery YARIEL BERGER MD [address] [place] [address], [phone], [place] - [facility] 06/14/2024 14:10:50 OBGyn Episode No OBEpisode recorded.
== END 2024-09-13 10:43 | disposition home or self-care (01) ==
LOC: HO.HOSX 10:42
PROVIDERS: Visit Provider Orthopaedic Surgery
DX: M25.561 Pain in right knee (principal)
CPT/HCPCS: 73562; 99212

== ENCOUNTER 2024-09-13 14:31 | Outpatient (AMB) | payer MEDICARE, SELFPAY ==
[2024-09-13 14:42] VITALS: BMI 25.4
--- NOTE | 2024-09-13 14:42 | A.OFFVIS_ITS ---
Vital Signs 09/13/24 14:42 Height 4 ft 11 in Weight 126 lb BMI 25.4 Intake Visit Reasons: OV-RT TKA 12/12/23 DR Intake Note: Brigitte is a 79 year old female who presents for routine follow-up after undergoing right total knee replacement surgery on 12/12/2023. She reports mild intermittent discomfort in her right knee. She denies any fevers or chills. She has completed formal physical therapy. Allergies oxycodone [From Tylox] Adverse Reaction (Intermediate, Verified 09/13/24 14:42) Nausea and Vomiting ( after childbirth-age 19)-has had since Medication List - Last Reconciled 09/13/24 by Adán De León MD acetaminophen 650 mg (2 x 325 mg) PO Q6H PRN 30 days apixaban (Eliquis) 2.5 mg PO BID ascorbic acid (vitamin C) 500 mg PO DAILY atorvastatin 40 mg PO DAILY calcium carbonate-vitamin D3 600 mg-5 mcg (200 unit) 1 tab PO BEDTIME cyclosporine 0.05% (Restasis) 1 drp ophthalmic (eye) BID docusate sodium 100 mg PO BID empagliflozin (Jardiance) 20 mg PO DAILY esomeprazole magnesium (Nexium) 40 mg PO BID ferrous sulfate 325 mg PO DAILY furosemide 20 mg PO DAILY glucos sul [id number] 550-30-1 mg (Glucosamine Chondroitin) 1 cap PO BID loratadine (Claritin) 10 mg PO DAILY PRN metoprolol succinate ER 25 mg PO DAILY mirabegron ER (Myrbetriq) 50 mg PO BEDTIME multivitamin 1 tab PO DAILY spironolactone 25 mg PO DAILY trazodone 100 mg PO BEDTIME PFSH Medical History Arthritis of right knee Lumbar disc herniation Spinal stenosis Difficulty swallowing Basal cell carcinoma Overactive bladder Iron deficiency Elevated cholesterol Atrial fibrillation CVA (cerebral vascular accident) Sjogrens syndrome Osteoarthritis GERD (gastroesophageal reflux disease) HTN (hypertension) Surgical History Hx of right knee surgery (~12/12/23) History of surgery on upper extremity Hx of bilateral cataract extraction History of esophagogastroduodenoscopy (EGD) H/O colonoscopy Hx of tonsillectomy History of extraction of renal calculus History of arthroscopy of left shoulder (~06/2022) History of right shoulder replacement (~04/2021) History of total left knee replacement (~03/2020) Social History Household Members: Spouse Housing: House Are you a primary attending ambulatory care to a significant other at home: No Do you presently have visiting nurse or other home services: No Alcohol intake: current Alcohol intake frequency: holidays/special occasions only Alcohol type: wine Patient Tobacco Use Status: Former Tobacco user Tobacco use type: Cigarette Years Smoked: 5 service: No Current occupational status: retired Physical Exam Vital Signs: BMI result Body Mass Index 25.4 Const Other: Well-nourished well-developed very friendly female awake alert and oriented x3 in no acute distress Extrem Other: Bilateral lower extremity examination shows good capillary refill, no skin lesions noted, normal sensation light touch Knee examination shows that the surgical incision is, the previous eschar along the proximal aspect of the incision is now gone, full active extension and flexion to 120 degrees with minimal discomfort, her patella tracks well Assessment & Plan Assessment & Plan (1) Right knee pain: Code(s): M25.561 - Pain in right knee Category: Medical Plan Ms. Leyva continues to do well after undergoing right total knee replacement surgery on 12/12/2023. She will continue with her home exercise program. I discussed with the patient the fact that her discomfort and strength should continue to improve over the next few months. She does know to take antibiotics before any dental work. She will contact me prior to her annual follow-up appointment should any questions or concerns arise. Feel free to call me at any time should questions regarding her orthopedic management arise. I spent 22 minutes in reviewing the patient's records and imaging studies, seeing the patient and documenting in the medical record. Orders: Orders XR knee RT 3V Today M25.561 - Pain in right knee Coding Level of Care Code Est Pt Level 3 (75951) Complex EM visit Add On G2211 Diagnoses Right knee pain M25.561
--- OUTSIDE RECORDS SUMMARY | 2024-09-13 16:00 | XMS_ITS | Continuity of Care Document ---
Author Organization [facility] [address] [address] Phone [phone] Care Team Providers Care Gauge And Instrument Inspector Name Role Phone Yenni Barnard M.D. Care Team Informati on Director Of Gift Planning [phone] [facility] Care Team Information Director Of Gift Planning [phone] Problems Active Problems Provider Date Gastroesophageal reflux disease Yenni Alvarez M.D. Onset: 06/02/2022 Sjogren's syndrome Yenni Barnard M.D. Onset: 06/02/2022 Dyslipidemia Yenni Barnard M.D. Ons et: 06/02/2022 Impaired fasting glycemia Yenni Barnard M.D. Onset: 06/02/2022 Essential hypertension Toby Rizzo Onset: 06/02/2022 Osteopenia Yenni Barnard M.D. Ons et: 06/02/2022 Urinary incontinence Karen Rizzo Onset: 06/02/2022 Gastritis Yenni Barnard M.D. Ons et: 06/02/2022 Stricture of esophagus Toby Rizzo Onset: 06/02/2022 Cerebrovascular accident Yenni Barnard M.D. Onset: 06/02/2022 Kidney stone Yenni Barnard M.D. Ons et: 06/02/2022 Prediabetes Yenni Barnard M.D. Ons et: 06/02/2022 Increased frequency of urination Yenni Jasmine M.D. Onset: 06/02/2022 Disorder of rotator cuff Yenni Barnard M.D. Onset: 06/02/2022 Paroxysmal atrial fibrillation Yenni mike M.D. Onset: 06/07/2022 Pure hypercholesterolemia Yenni Barnard M.D. 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 03/26/2024 KP Ferrous Wlaewwk762(65Fe) mg Tablets 1 by mouth every day Yenni Barnard M.D. 09/12/2023 Vitamin C500mg Chewtabs 1 by mouth every day Yenni Barnard M.D. 09/12/2023 Trazodone NWD419hy Tablets Take 1 Tablet AT Bedtime 90tabs Yenni Barnard M.D. 09/02/2023 Ozkxxybwuvc723av Capsules 4 caps by mouth prior to dental work 24caps Yenni Barnard M.D. Mdhclzmuvekyam89hm Tablets 1 by mouth every day Unknown Eliquis2.5mg Tablets Take 1 Tablet By Mouth Twice A Day Unknown Metoprolol Succinate ER25mg Tablets ER 24HR 1 by mouth every day Unknown Xapwopsypz47su Tablets 1 by mouth every day Unknown Ldfjalqxwk382pd Capsules 1 by mouth three times a day prn Unknown Tylenol Extra Sksnqtyk271ky Tablets 2 by mouth twice a day prn Yenni Barnard M.D. Restasis0.05% Emulsion 1 drop each eye twice daily Yenni Barnard M.D. Multivitamin Adults 50+Adlt 50+ Tablets 1 by mouth every day Yenni Barnard M.D. Calcium 600 +D High Yxqpayk904-085ok-Wmiy Tablets 1 by mouth qd Yenni Barnard M.D. Kbecre87is Capsules DR spain mouth twice a day Serena Collins MD Evddiazle42ur Tablets ER 24HR 1 by mouth every day Tuan Garduno MD Atorvastatin Fqbdgmr87tm Tablets Take 1 Tablet Once Daily 90tabs Yenni Barnard M.D. History Medications Xgxgdpdwpeab91ij Madeleine Take 1 lozenge four times a day for 10 days 40units Yenni Barnard M.D. 03/06/2024 - 03/26/2024 Hjbohmud431044Nsdp/ML Suspension rinse and spit 4 ml qid x 10 days 200ml Yenni Barnard M.D. 03/05/2024 - 03/06/2024 Vital Signs Date Vital Result Comment 08/30/2024 2:44pm BP Systolic 110 mmHg BP Diastolic 60 mmHg Height 58.5 inches 4'10.50 Weight 123.50 lb BMI (Body Mass Index) 25.4 kg/m2 Results Test Acquired Date Facility Test Result H/L Range Note CBC With Differential/Plat elet 08/30/2024 [facility] WBC 8.7 x10E3/uL 3.4-10. 8 RBC 4.03 x10E6/uL 3.77-5. 28 Hemoglobin 12.0 g/dL 11.1-15 .9 Hematocrit 37.3 % 34.0-46 .6 MCV 93 fL 79-97 MCH 29.8 pg 26.6-33 .0 MCHC 32.2 g/dL 31.5-35 .7 RDW 14.1 % 11.7-15 .4 Platelets 223 x10E3/uL 150-450 Neutrophils 70 % Not Estab. Lymphs 18 % Not Estab. Monocytes 8 % Not Estab. Eos 3 % Not Estab. Basos 1 % Not Estab. Immature Cells TNP Neutrophils (Absolute) 6.1 x10E3/uL 1.4-7.0 Lymphs (Absolute) 1.5 x10E3/uL 0.7-3.1 Monocytes(Absol ut e) 0.7 x10E3/uL 0.1-0.9 Eos (Absolute) 0.3 x10E3/uL 0.0-0.4 Baso (Absolute) 0.1 x10E3/uL 0.0-0.2 Immature Granulocytes 0 % Not Estab. Immature Grans (Abs) 0.0 x10E3/uL 0.0-0.1 NRBC TNP Hematology Comments: TNP Laboratory test finding 08/30/2024 [facility] Ferritin 47 ng/mL 15-150 Laboratory test finding 08/30/2024 Inhouse Glucose Fingerstick 97 Hemoglobin A1c 5.6% Comp. Metabolic Panel (14) 08/30/2024 [facility] Glucose 103 mg/dL High 70-99 BUN 20 mg/dL 8-27 Creatinine 1.09 mg/dL High 0.57-1. 00 eGFR 51 mL/min/1.73 Low >59 BUN/Creatinine Ratio 18 12-28 Sodium 137 mmol/L 134-144 Potassium 4.7 mmol/L 3.5-5.2 Chloride 104 mmol/L 96-106 Carbon Dioxide, Total 18 mmol/L Low 20-29 Calcium 8.9 mg/dL 8.7-10. 3 Protein, Total 6.0 g/dL 6.0-8.5 Albumin 3.9 g/dL 3.8-4.8 Globulin, Total 2.1 g/dL 1.5-4.5 Bilirubin, Total 0.3 mg/dL 0.0-1 .2 Alkaline Phosphatase 75 IU/L 44-121 Ast (Sgot) 24 IU/L 0-40 Alt (SGPT) 18 IU/L 0-32 CBC With Differential/Plat elet 03/26/2024 [facility] WBC 8.0 x10E3/uL 3.4-10. 8 RBC 4.05 x10E6/uL 3.77-5. 28 Hemoglobin 11.1 g/dL 11.1-15 .9 Hematocrit 37.7 % 34.0-46 .6 MCV 93 fL 79-97 MCH 27.4 pg 26.6-33 .0 MCHC 29.4 g/dL Low 31.5-35 .7 RDW 16.9 % High 11.7-15 .4 Platelets 397 x10E3/uL 150-450 Neutrophils 70 % Not Estab. Lymphs 17 % Not Estab. Monocytes 8 % Not Estab. Eos 3 % Not Estab. Basos 1 % Not Estab. Immature Cells TNP Neutrophils (Absolute) 5.7 x10E3/uL 1.4-7.0 Lymphs (Absolute) 1.4 x10E3/uL 0.7-3.1 Monocytes(Absol ut e) 0.6 x10E3/uL 0.1-0.9 Eos (Absolute) 0.2 x10E3/uL 0.0-0.4 Baso (Absolute) 0.1 x10E3/uL 0.0-0.2 Immature Granulocytes 1 % Not Estab. Immature Grans (Abs) 0.1 x10E3/uL 0.0-0.1 NRBC TNP Hematology Comments: TNP Laboratory test finding 03/26/2024 [facility] Ferritin 169 ng/mL High 15-150 Laboratory test finding 03/26/2024 Inhouse Glucose Fingerstick 102 Hemoglobin A1c 5.7% CBC With Differential/Plat elet 01/31/2024 [facility] WBC 9.3 x10E3/uL 3.4-10. 8 RBC 3.86 x10E6/uL 3.77-5. 28 Hemoglobin 11.4 g/dL 11.1-15 .9 Hematocrit 36.6 % 34.0-46 .6 MCV 95 fL 79-97 MCH 29.5 pg 26.6-33 .0 MCHC 31.1 g/dL Low 31.5-35 .7 RDW 13.5 % 11.7-15 .4 Platelets 406 x10E3/uL 150-450 Neutrophils 73 % Not Estab. Lymphs 16 % Not Estab. Monocytes 6 % Not Estab. Eos 3 % Not Estab. Basos 1 % Not Estab. Immature Cells TNP Neutrophils (Absolute) 6.9 x10E3/uL 1.4-7.0 Lymphs (Absolute) 1.5 x10E3/uL 0.7-3.1 Monocytes(Absol ut e) 0.5 x10E3/uL 0.1-0.9 Eos (Absolute) 0.3 x10E3/uL 0.0-0.4 Baso (Absolute) 0.1 x10E3/uL 0.0-0.2 Immature Granulocytes 1 % Not Estab. Immature Grans (Abs) 0.1 x10E3/uL 0.0-0.1 NRBC TNP Hematology Comments: TNP CBC With Differential/Plat elet 11/18/2023 [facility] WBC 9.3 K/MM3 (4.0-11 .0) RBC 4.22 M/MM3 (4.20-5 .40) HGB 12.7 GM/DL (11.7-1 5.5) HCT 40.0 % (35.7-4 5.8) MCV 94.8 FL (80.0-1 00.0) MCH 30.1 pg (27.0-3 4.0) MCHC 31.8 g/dL Low (33.0-3 7.0) PLT 266 K/MM3 (150-46 0) RDW-SD 62.2 FL High (<47.0) MPV 10.6 FL (9.4-12 .4) Automated NRBC 0.0 #/100WBC'S Abs. NRBC 0.0 K/MM3 Neut # 6.4 K/MM3 (1.3-7. 0) Lymph # 1.7 K/MM3 (0.8-3. 1) Mitchell# 0.8 K/MM3 (0.4-0. 9) Eo # 0.3 K/MM3 (0.0-0. 4) Baso # 0.1 K/MM3 (0.0-0. 1) Abs. Imm Gran 0.0 K/MM3 Neut 69.0 % (44-76) Lymph 18.8 % (15-43) Monocyte 8.5 % (4.5-10 .5) Eo 2.7 % (0-6) Baso 0.6 % (0-2) Imm Gran 0.4 % Laboratory test finding 11/18/2023 Inhouse Glucose Fingerstick 129 Hemoglobin A1c 5.5% Complete Abc With Diff 10/17/2023 [facility] WBC 6.5 K/MM3 (4.0-11 .0) RBC 4.11 M/MM3 Low (4.20-5 .40) HGB 11.7 GM/DL (11.7-1 5.5) HCT 38.1 % (35.7-4 5.8) MCV 92.7 FL (80.0-1 00.0) MCH 28.5 pg (27.0-3 4.0) MCHC 30.7 g/dL Low (33.0-3 7.0) PLT 277 K/MM3 (150-46 0) RDW-SD 64.1 FL High (<47.0) MPV 11.0 FL (9.4-12 .4) Automated NRBC 0.0 #/100WBC'S Abs. NRBC 0.0 K/MM3 Neut # 4.4 K/MM3 (1.3-7. 0) Lymph # 1.3 K/MM3 (0.8-3. 1) Mitchell# 0.5 K/MM3 (0.4-0. 9) Eo # 0.2 K/MM3 (0.0-0. 4) Baso # 0.1 K/MM3 (0.0-0. 1) Abs. Imm Gran 0.0 K/MM3 Neut 67.7 % (44-76) Lymph 20.4 % (15-43) Monocyte 7.7 % (4.5-10 .5) Eo 2.8 % (0-6) Baso 0.9 % (0-2) Imm Gran 0.5 % Laboratory test finding 10/17/2023 [facility] Vitamin B12 1166 pg/mL (232-12 45) Folic Acid 36.9 ng/mL (4.8-37 .3) Homocysteine, Plasma 8.9 UMOL/L (0-15) Laboratory test finding 09/12/2023 [facility] Vitamin B12 <pending> Folic Acid <pending> Homocysteine,Pl as ma/Serum <pending> Comprehensive Metabolic Panl 09/02/2023 [facility] Glucose 103 mg/dL High (70-99) BUN 14 mg/dL (8-23) Creatinine 0.9 mg/dL (0.5-1. 0) Sodium 141 mmol/L (133-14 5) Potassium 4.6 mmol/L (3.6-5. 2) Chloride 106 mmol/L (98-107 ) Bicarbonate 25 mmol/L (22-29) Anion Gap 10 (4-17) Albumin 4.2 GM/DL (3.4-4. 8) Calcium 9.1 mg/dL (8.6-10 .5) Bilirubin,Total 0.2 mg/dL (0-1.2 ) Total Protein 6.6 GM/DL (6.2-8. 2) Ag Ratio 1.8 Ast 23 U/L (0-32) Alk Phos 81 U/L (35-104 ) Alt 14 U/L (0-33) Estimated GFR Creatinine 68 ML/MIN/1.73 M2 1 Complete Abc With Diff 09/02/2023 [facility] WBC 9.8 K/MM3 (4.0-11 .0) RBC 3.77 M/MM3 Low (4.20-5 .40) HGB 10.5 GM/DL Low (11.7-1 5.5) HCT 34.5 % Low (35.7-4 5.8) MCV 91.5 FL (80.0-1 00.0) MCH 27.9 pg (27.0-3 4.0) MCHC 30.4 g/dL Low (33.0-3 7.0) PLT 293 K/MM3 (150-46 0) RDW-SD 54.6 FL High (<47.0) MPV 11.3 FL (9.4-12 .4) Automated NRBC 0.0 #/100WBC'S Abs. NRBC 0.0 K/MM3 Neut # 6.5 K/MM3 (1.3-7. 0) Lymph # 1.9 K/MM3 (0.8-3. 1) Mitchell# 1.1 K/MM3 High (0.4-0. 9) Eo # 0.2 K/MM3 (0.0-0. 4) Baso # 0.1 K/MM3 (0.0-0. 1) Abs. Imm Gran 0.1 K/MM3 Neut 66.4 % (44-76) Lymph 19.6 % (15-43) Monocyte 10.9 % High (4.5-10 .5) Eo 2.0 % (0-6) Baso 0.6 % (0-2) Imm Gran 0.5 % Iron & Tibc 09/02/2023 [facility] Iron 24 g /dL Low (30-160 ) Unsaturated Iro n Binding Plush 316 g /dL (110-37 0) Est T. Iron Bin d Capacity 340 g /dL (140-53 0) % Iron Saturation 7 % Low (20-55 ) Immunofixation Serum 09/02/2023 [facility] Immunoglobulin Igg 805 mg/dL (700-16 00) Immunoglobulin Iga 207 mg/dL (70-400 ) Immunoglobulin Igm 133 mg/dL (40-230 ) Immunofix Normal immunofix <SEE NOTE> 2 Laboratory test finding 09/02/2023 [facility] Ferritin 14 NG/ML (14-283 ) Laboratory test finding 09/02/2023 Inhouse Glucose Fingerstick 109 Hemoglobin A1c 5.7% Laboratory test finding 05/09/2023 [facility] PTH, Intact 62 pg/mL (15-65) Albumin 4.1 GM/DL (3.4-4. 8) Calcium 8.8 mg/dL (8.6-10 .5) N-Telopeptide Cross Links, Urine 05/09/2023 [facility] Cross Linked N-Telopeptides 589 3 Creat, Urine 67.0 4 N-Telopeptide/C re at Ratio 99 High 5 NTX Interpretaion Comment 6 Creatinine 05/09/2023 [facility] Creatinine 0.8 mg/dL (0.5-1. 0) Estimated GFR Creatinine 74 ML/MIN/1.73 M2 7 Laboratory test finding 05/09/2023 [facility] TSH With Reflex To FT4 3.96 uIU/mL (0.4-4. 2) 25Oh Vitamin D 45.2 NG/ML (20-50 ) Laboratory test finding 05/08/2023 [facility] PTH, Intact <pending> TSH With Reflex To FT4 <pending> 25Oh Vitamin D <pending> Laboratory test finding 05/08/2023 [facility] Calcium <pending> Albumin <pending> Creatinine <pending> Complete Abc With Diff 02/26/2023 [facility] WBC 6.6 K/MM3 (4.0-11 .0) RBC 4.08 M/MM3 Low (4.20-5 .40) HGB 11.8 GM/DL (11.7-1 5.5) HCT 38.0 % (35.7-4 5.8) MCV 93.1 FL (80.0-1 00.0) MCH 28.9 pg (27.0-3 4.0) MCHC 31.1 g/dL Low (33.0-3 7.0) PLT 314 K/MM3 (150-46 0) RDW-SD 51.0 FL High (<47.0) MPV 9.9 FL (9.4-12 .4) Automated NRBC 0.0 #/100WBC'S Abs. NRBC 0.0 K/MM3 Neut # 4.0 K/MM3 (1.3-7. 0) Lymph # 1.6 K/MM3 (0.8-3. 1) Mitchell# 0.6 K/MM3 (0.4-0. 9) Eo # 0.2 K/MM3 (0.0-0. 4) Baso # 0.0 K/MM3 (0.0-0. 1) Abs. Imm Gran 0.0 K/MM3 Neut 61.7 % (44-76) Lymph 24.4 % (15-43) Monocyte 9.6 % (4.5-10 .5) Eo 3.5 % (0-6) Baso 0.6 % (0-2) Imm Gran 0.2 % Comprehensive Metabolic Panl 02/26/2023 [facility] Glucose 99 mg/dL (70-99) BUN 16 mg/dL (8-23) Creatinine 0.9 mg/dL (0.5-1. 0) Sodium 140 mmol/L (133-14 5) Potassium 4.6 mmol/L (3.6-5. 2) Chloride 105 mmol/L (98-107 ) Bicarbonate 25 mmol/L (22-29) Anion Gap 10 (4-17) Albumin 4.2 GM/DL (3.4-4. 8) Calcium 9.2 mg/dL (8.6-10 .5) Bilirubin,Total 0.3 mg/dL (0-1.2 ) Total Protein 6.2 GM/DL (6.2-8. 2) Ag Ratio 2.1 Ast 25 U/L (0-32) Alk Phos 91 U/L (35-104 ) Alt 19 U/L (0-33) Estimated GFR Creatinine 65 ML/MIN/1.73 M2 8 Lipid Panel 02/26/2023 [facility] Cholesterol, Total 182 mg/dL (<200) Triglyceride 87 mg/dL (<150) HDL Chol 92 mg/dL (>39) LDL Cholesterol , Calculated 73 mg/dL (0-130) Non HDL Cholesterol (Calc) 90 mg/dL (<160) Laboratory test finding 02/26/2023 [facility] Hemoglobin A1c 5.6 % (4.0-5. 6) 9 Laboratory test finding 01/24/2023 [facility] Hemoglobin A1c <pending> Laboratory test finding 12/07/2022 Inhouse Glucose Fingerstick 93 Culture Urine 10/27/2022 [facility] Specimen Description URINE Special Requests NONE Culture NO GROWTH Report Status FINAL 10/29/2022 10 Laboratory test finding 10/13/2022 Inhouse Glucose Fingerstick 94 Hemoglobin A1c 5.4% Comprehensive Metabolic Panl 06/02/2022 [facility] Glucose 117 mg/dL High (70-99) BUN 14 mg/dL (8-23) Creatinine 0.9 mg/dL (0.5-1. 0) Sodium 141 mmol/L (133-14 5) Potassium 4.7 mmol/L (3.6-5. 2) Chloride 104 mmol/L (98-107 ) Bicarbonate 26 mmol/L (22-29) Anion Gap 11 (4-17) Albumin 4.4 GM/DL (3.4-4. 8) Calcium 9.3 mg/dL (8.6-10 .5) Bilirubin,Total 0.2 mg/dL (0-1.2 ) Total Protein 6.5 GM/DL (6.2-8. 2) Ag Ratio 2.1 Ast 27 U/L (0-32) Alk Phos 116 U/L High (35-104 ) Alt 21 U/L (0-33) Estimated GFR Creatinine 65 ML/MIN/1.73 M2 11 Complete Abc With Diff 06/02/2022 [facility] WBC 7.4 K/MM3 (4.0-11 .0) RBC 4.30 M/MM3 (4.20-5 .40) HGB 12.9 GM/DL (11.7-1 5.5) HCT 39.8 % (35.7-4 5.8) MCV 92.6 FL (80.0-1 00.0) MCH 30.0 pg (27.0-3 4.0) MCHC 32.4 g/dL Low (33.0-3 7.0) PLT 273 K/MM3 (150-46 0) RDW-SD 50.2 FL High (<47.0) MPV 9.9 FL (9.4-12 .4) Automated NRBC 0.0 #/100WBC'S Abs. NRBC 0.0 K/MM3 Neut # 4.9 K/MM3 (1.3-7. 0) Lymph # 1.8 K/MM3 (0.8-3. 1) Mitchell# 0.5 K/MM3 (0.4-0. 9) Eo # 0.2 K/MM3 (0.0-0. 4) Baso # 0.0 K/MM3 (0.0-0. 1) Abs. Imm Gran 0.0 K/MM3 Neut 65.9 % (44-76) Lymph 24.6 % (15-43) Monocyte 6.2 % (4.5-10 .5) Eo 2.4 % (0-6) Baso 0.4 % (0-2) Imm Gran 0.5 % Laboratory test finding 06/02/2022 Inhouse Hemoglobin A1c 5.5% Glucose Fingerstick 125 1 Creatinine based est imated glomerular filtration (eGFR) in adults is calculated using the National Kidney Foundation recommended 2020 CKD-EPI equation. Estimates GFR from serum creatinine, age and sex. 2 Interpreted by Fior Snow MD 3 Reference range: Not Estab. Unit: nmol BCE Test performed at [address] [address] 4 Reference range: Not Estab. Unit: mg/dL [facility], [address] [place] [address] 5 Reference range: 0 t o 89 Unit: nM BCE/mM Cr 6 (NOTE) The N-telopeptide and Creatinine are used to calculate the N-telo/Creat. Ratio which is referred to as NTx . Suggested guidelines for the clinical use of NTx are as follows: 1. Menopausal Women not on Hormone Replacement Therapy (HRT): Women with a baseline NTx value >38 are at significant risk for a decrease in bone mineral density (BMD) after 1 year compared to women on HRT. The probability of a decline in BMD increases with NTx value as follows: (1): Baseline NTx Probability of Decrease in BMD 18- 38 1.4 p EQ 0.28 38- 51 2.5 p EQ 0.03 51- 67 3.8 p EQ 0.0006 67-188 17.3 p EQ 0.0001 2. Menopausal Women Receiving Antiresorptive Therapy: The probability that treatment is effective after three months is increased when the measured NTx value is <or EQ 38 nM BCE/mM ARTIST BLACKSMITH, or NTx has decreased >or EQ 30% from baseline.[1] 3. Patients with Paget's Disease of Bone: The probability that treatment is effective after one month is increased when the measured NTx value is within the reference range, or NTx has decreased >or EQ 30% from baseline.[2] 1. Edda CH, Gayle NH, Valentín GS, et al. Am J Med, 102:29-37,1997. (1):M757, 1996. 2. Bone H, Darryn Dumont, et al. J Bone Min Res.11(1):M757,1995 [place] [address] 7 Creatinine based est imated glomerular filtration (eGFR) in adults is calculated using the National Kidney Foundation recommended 2020 CKD-EPI equation. Estimates GFR from serum creatinine, age and sex. 8 Creatinine based est imated glomerular filtration (eGFR) in adults is calculated using the National Kidney Foundation recommended 2020 CKD-EPI equation. Estimates GFR from serum creatinine, age and sex. 9 MONITORING: In known diabetic patients, hemoglobin A1c targets should be discussed with health care provider. DIAGNOSTIC USE: The [place] Diabetes Association (ADA) and the World Health Organization (WHO) recommend the use of HbA1c to diagnose diabetes using a threshold of 6.5%. Patients who have an HbA1c between 5.7% and 6.4% are considered at increased risk for developing diabetes in the future. CAUTION: Falsely low HbA1c results may be observed in patients with hemolytic anemia, homozygous forms of abnormal hemoglobin (e.g. SS, CC, SC), , recent blood loss or hemoglobin F greater than 7%. Fructosamine may be used as an alternate test in these cases. REFERENCE: ADA: Standards of Medical Care in Diabetes 2020, The Journal of Clinical and Applied Research and Education Volume 43, Supplement 1 10 FINAL 10/29/2022 11 Creatinine based est imated glomerular filtration (eGFR) in adults is calculated using the National Kidney Foundation recommended 2020 CKD-EPI equation. Estimates GFR from serum creatinine, age and sex. Procedures Date Code Description Status 08/30/2024 08404 Collection Of Venous Blood B y Venipuncture Completed 03/26/2024 07185 Collection Of Venous Blood B y Venipuncture Completed 11/18/2023 44791 Collection Of Venous Blood B y Venipuncture Completed 09/02/2023 78947 Collection Of Venous Blood B y Venipuncture Completed 06/02/2022 74428 Collection Of Venous Blood B y Venipuncture Completed Medical Devices Description No Information Available Encounters Type Date Location Provider Dx Diagnosis Office Visit 08/30/2024 2:45p Main Office Yenni Barnard M.D. 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 08/30/2024 I10 Essential (primary) hyperten vince Yenni Barnard M.D. 08/30/2024 I48.0 Paroxysmal atrial fibrillati on Yenni Barnard M.D. 08/30/2024 I50.32 Chronic diastoli c (congestive) heart failure Yenni Barnard M.D. 08/30/2024 E78.00 Pure hypercholesterolemia, u nspecified Yenni Barnard M.D. 08/30/2024 R73.03 Prediabetes Yenni Jasmine M.D. 08/30/[address] ate NOS Yenni Barnard M.D. 08/30/2024 M85.80 Other specified disorders of bone density and structure, unspecified site Yenni Barnard M.D. 08/30/2024 Z86.73 Personal history of transient ischemic attack (TIA), and cerebral infarction without residual deficits Yenni Barnard M.D. Plan of Treatment Future Appointment(s):* 01/03/2025 2:15 pm - Yenni Barnard M.D. at Main Office 08/30/2024 - Yenni Banrard M.D.* D50.9 Iron deficiency anemia, unspecified * I10 Essential (primary) hypertension * I48.0 Paroxysmal atrial fibrillation * I50.32 Chronic diastolic (congestive) heart failure * E78.00 Pure hypercholesterolemia, unspecified * R73.03 Prediabetes * D68.69 Secondary hypercoagulable state NOS * M85.80 Other specified disorders of bone density and structure, unspecified site * Z86.73 Personal history of transient ischemic attack (TIA), and cerebral infarction without residual deficits Functional Status Description No Information Available Mental Status Description No Information Available Referrals Refer to Dr Reason for Referral Status Appt [facility] Client Development Director NEW IRON DEFICIENCY AN EMIA Closed [address] [place], [place] [id number] [phone] [facility] Neurology WAS DR MARY CRUZ,.... DX, CARDIOEMBOLIC CVA Closed 06/22/2022 [address] [place] [address] [phone]
--- OUTSIDE RECORDS SUMMARY | 2024-09-13 16:00 | XMS_ITS | Continuity of Care Document ---
Author Organization [place] - [facility], [facility] Address [address] [place] [address] Care Team Providers Care Excellence Consultant Name Role Phone ZAKI SMILEY Primary Care Provider Assessment Encounter Date Assessment Date Assessment LastModified by Organization Details LastModified Time 06/14/2024 06/14/2024 Nasal examination today identified a prominent bleeding source on the anterior septum. This site was cauterized with silver nitrate. Recommend local wound care with saline nasal spray 3 times daily, K-Y jelly at night, Afrin with episodes of bleeding and packing the nose with Bleed Cease (available OTC) if any additional bleeding. May use Ponaris Nasal Emollient 1/2 dropper twice daily as needed with dryness. If taking antiplatelet or anticoagulant therapy discuss holding with prescribing provider. Return to office as needed or go to emergency room if severe episodes dplosky Not available 06/14/2024 14:09:56 Plan of Treatment Reminders Order Date Submit Date Provider Last Modified By Organization Details Last Modified Time Details Appointments None record ed. Lab None record ed. Referral None record ed. Procedures None record ed. Surgeries None record ed. Imaging None record ed. Medication Orders None record ed. Patient TargetsNo targets recorded. Patient InstructionsNo instructions recorded. Reason for Referral None Reported. Problems Name Problem SNOMED Code Status Onset Date Resolution Date Notes Provider Name and Address Organization Details Recorded Time Bleeding from nose 278644369 Active 2022 Epistaxis; Note: Date Diagnosed: 08/05/2023 9:39 AM (R04.0) Not Available [facility] 02:39:26 [place] ce of salivary secretion 06331262 Active 2014 Diseases of the salivary glands: Xerostomia ; Note: Date Diagnosed: 10/18/2014 3:28 PM (527.7) Not Available [facility] 4 02:39:30 Acute sialoaden itis 624574180 Active 2021 Acute sialoadeni tis; Note: Date Diagnosed: 12/22/2021 11:03 AM (K11.21) Not Available [facility] 4 02:39:23 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 353945622 Active 2022 Other hemorrhagi c disorder due to intrinsic circulatin g anticoagul ants, antibodies , or inhibitors ; Note: Date Diagnosed: 08/05/2023 9:39 AM (D68.318) Not Available [facility] 4 02:39:30 Sialolith iasis 97898316 Active 2021 Sialolithi asis; Note: Date Diagnosed: 12/22/2021 11:07 AM (K11.5) Not Available [facility] 4 02:39:27 Anterior epistaxis 824049698 Active 2023 YARIEL BERGER MD [address] [place] [address], [place], [phone] , [facility] - [facility] 4 14:09:40 Sj??gren' s syndrome 25302715 Active 2023 YARIEL BERGER MD [address] [place] [address], [place], [phone] , [facility] 4 14:09:47 Problem Notes None recorded. Procedures Surgical History Date Name Laterality Status Provider Name and Address Organization Details Recorded Time 4 Epistaxis Simple Nasal Cautery Left completed YARIEL BERGER MD [address] [place] [address], [phone], [facility] - [facility] 06/14/2024 14:10:30 Imaging Results None recorded. Procedure Notes None recorded. Medical Equipment None Reported. Allergies Allergen ID Allergen Name Allergen Category Reaction Reaction Severity Criticality Documentation Date Start Date Code Code System Note Provider Name and Address Organization Details Recorded Time 68616 acetamino phen / oxycodone medicatio n other Not available Not available 01/24/2024 91456 3 RxNorm React ion: unkno wn, unspe cifie d;; Not Available [facility] 01:[facility]01 Medications Name Sig Start Date Stop Date Status Note LastModified by Organization Details LastModified Time cyclobenz aprine 10 mg tablet TAKE 1 TABLET NEEDED BY ORAL ROUTE IN THE EVENING FOR 14 DAYS. 06/14 completed Not Available Not Available Not Available amoxicill in 500 mg capsule TAKE 4 CAPSULES BY MOUTH 1 HOUR BEFORE INJECTIO N 06/14 completed Not Available Not Available Not Available atorvasta tin 40 mg tablet active Not Available Not Available Not Available clotrimaz ole 10 mg mai DISSOLVE 1 MAI BY MOUTH FOUR TIMES A DAY FOR 10 DAYS 06/14 completed Not Available Not Available Not Available pilocarpi ne 5 mg tablet active Medicati on ID: [id number] B rand Name: pilocarp ine HCl Send Method: E-Prescr ibed Sub s Allowed: subs OK Medic ationGen ericName : pilocarp ine HCl Not Available Not Available Not Available nystatin 100,000 unit/mL oral suspensio n 12/22 completed Medicati on ID: [id number] Pr escribed By Name: Andrea Chan nd Name: nystatin Send Method: E-Prescr ibed Sub s Allowed: subs OK Speci al Instruct ion: 5 ml swish and swallow four times daily x 2-4 weeks Me dication GenericN ganesh: nystatin Not Available Not Available Not Available trazodone 50 mg tablet TAKE 1 AND 1/2 TABLETS AT BEDTIME FOR 30 DAYS 06/14 completed Not Available Not Available Not Available Nexium 40 mg capsule,d elayed release active Not Available Not Available Not Available amlodipin e 5 mg tablet active Medicati on ID: [id number] B rand Name: amlodipi ne Send Method: E-Prescr ibed Sub s Allowed: subs OK Medic ationGen ericName : amlodipi ne Not Available Not Available Not Available sulfameth oxazole 800 mg-trimet hoprim 160 mg tablet TAKE 1 TABLET BY MOUTH TWICE A DAY FOR 3 DAYS 06/14 completed Not Available Not Available Not Available aspirin 81 mg tablet,de layed release active Medicati on ID: [id number] B rand Name: aspirin Send Method: E-Prescr ibed Sub s Allowed: subs OK Speci al Instruct ion: TAKE 1 TABLET BY MOUTH EVERY DAY Medi cationGe nericNam e: aspirin Not Available Not Available Not Available tramadol 50 mg tablet TAKE 1 TABLET BY MOUTH EVERY 6 HOURS NEEDED FOR PAIN. PATIENT MAY FILL FOR LESSER QUANTITY active Not Available Not Available No t Available spironola ctone 25 mg tablet TAKE 1 TABLET BY MOUTH EVERY DAY active Not Available Not Available No t Available amoxicill in 500 mg tablet TAKE 4 TABLETS BY MOUTH 1 HOUR PRIOR TO DENTAL APPT FOR 1 DAY 06/14 completed Not Available Not Available Not Available Celebrex 200 mg capsule 12/22 completed Medicati on ID: [id number] Du ration Value: 90 Brand Name: Celebrex Send Method: E-Prescr ibed Sub s Allowed: No subs Med ication [facility] me: Celebrex Not Available Not Available Not Available trazodone 100 mg tablet 06/14 completed Not Available Not Available Not Available simvastat in 20 mg tablet 12/22 completed Medicati on ID: [id number] Du ration Value: 90 Brand Name: simvasta tin Send Method: E-Prescr ibed Sub s Allowed: subs OK Medic ationGen ericName : simvasta tin Not Available Not Available Not Available cevimelin e 30 mg capsule 12/22 completed Medicati on ID: [id number] Du ration Value: 90 Brand Name: cevimeli ne Send Method: E-Prescr ibed Sub s Allowed: subs OK Medic ationGen ericName : cevimeli ne Not Available Not Available Not Available metoprolo l tartrate 50 mg tablet active Not Available Not Available Not Available gabapenti n 300 mg capsule TAKE 1 CAPSULE BY MOUTH THREE TIMES A DAY active Not Available Not Available No t Available furosemid e 20 mg tablet TAKE 1 TABLET BY MOUTH EVERY DAY NEEDED active Not Available Not Available No t Available metoprolo l succinate ER 25 mg tablet,ex tended release 24 hr TAKE 1 TABLET BY MOUTH EVERY DAY active Not Available Not Available No t Available colchicin e 0.6 mg tablet TAKE 1 TABLET BY MOUTH EVERY DAY active Not Available Not Available No t Available fluticaso ne propionat e 50 mcg/actua tion nasal spray,lv pension 12/22 completed Medicati on ID: [id number] Du ration Value: 30 Brand Name: fluticas one propiona te Send Method: E-Prescr ibed Sub s Allowed: subs OK Speci al Instruct ion: USE 2 SPRAYS IN EACH NOSTRIL DAILY Me dication GenericN ganesh: fluticas one propiona te Not Available Not Available Not Available glucosami ne-chondr oitin 1,500 mg -1,200 mg/30 mL oral liquid 12/22 completed Medicati on ID: [id number] Br and Name: glucosam ine-modesto droitin Send Method: E-Prescr ibed Sub s Allowed: subs OK Medic ationGen ericName : glucosam ine-modesto droitin Not Available Not Available Not Available Denta 5000 Plus 1.1 % cream BRUSH TWICE DAILY WITH TOOTHPAS TE THEN EXPECTOR ATE. DO NOT RINSE. active Not Available Not Available No t Available Restasis 0.05 % eye drops in a dropperet te active Not Available Not Available Not Available metoprolo l tartrate 25 mg tablet TAKE 1 TABLET BY MOUTH TWICE A DAY active Not Available Not Available No t Available multivita min 12/22 completed Medicati on ID: [id number] Br and Name: multivit joseph Sen d Method: E-Prescr ibed Sub s Allowed: subs OK Medic ationGen ericName : multivit joseph Not Available Not Available Not Available Super Reading-3 1,000 mg capsule 12/22 completed Medicati on ID: [id number] Br and Name: Fish Oil Concentr ate Send Method: E-Prescr ibed Sub s Allowed: subs OK Medic ationGen ericName : Fish Oil Concentr ate Not Available Not Available Not Available Myrbetriq 50 mg tablet,ex tended release active Not Available Not Available Not Available Myrbetriq active Medicati on ID: [id number] B rand Name: Myrbetri q Send Method: E-Prescr ibed Sub s Allowed: subs OK Medic ationGen ericName : Myrbetri q Not Available Not Available Not Available Eliquis 5 mg tablet 06/14 completed Not Available Not Available Not Available Eliquis 2.5 mg tablet active Not Available Not Available Not Available Jardiance 10 mg tablet TAKE 1 TABLET BY MOUTH EVERY DAY IN THE MORNING active Not Available Not Available No t Available Vitals Date Recorded Body height Body mass index (BMI) Body weight Provider Name and Address Organization Details Last Updated DateTime 06/14/2024 149.86 cm 23.8 kg/m2 03660.9 g Rozina Fontana [place] - [facility] 06/14/2024 14:00:01 Social History None recorded. Functional Status None recorded. Mental Status None recorded. Family History Nothing Reported. Medical History No medical history recorded. Gynecological HistoryNo gynecological history recorded. Obstetrics History GPAL:G 0 P 0 0 0 0 Past Encounters Encounter ID Performer Location Encounter Start Date Encounter Closed Date Diagnosis/Indication Diagnosis SNOMED-CT Code Diagnosis ICD10 Code [id number] YARIEL BERGER MD [facility] [address] [phone] 06/14/2024 13:13:49 06/14/2024 14:10:19 Anterior epistaxis 497075188 R04.0 Sj??gren's syndrome 8390 1003 M35.00 Health Concerns Section Related Observation LastModified by Organization Detai ls LastModified Time None Recorded Concern Status LastModified by Organization Details LastModified Time None Recorded Payers Encounter Date Sequence Insurance Name Policy Number Policy Palmer Covered Member ID Palmer Member ID Guarantor Name 06/14/2024 1 [place]ARE B-[place] [facility] Brigitte Diez Gordon [id number] Brigitte Diez Gordon 06/14/2024 2 [place] [id number] Brigitte Diez Gordon [id number] Brigitte Leyva Notes Date Note Type Note Provider Name and Address Organization Details Recorded Time 06/14/2024 text/html left epistaxis3 times in past few weeks, lasting 3 minutespmhx - sjogrens PV 08/10/23 Aimee - right nasal cautery YARIEL BERGER MD [address] [place] [address], [phone], [place] - [facility] 06/14/2024 14:10:50 OBGyn Episode No OBEpisode recorded.
--- OUTSIDE RECORDS SUMMARY | 2024-09-13 16:01 | XMS_ITS ---
Author Name [facility] Organization Unknown Results Test Name/Text Value Interpretation Date Range Source ESR Bld Qn Photometric 19mm/h Normal 0 - 20 [facility] CRP SERPL MCNC 0.6mg/dL Normal [id number] - 0.9 [facility] POLYS NFR SNV MANUAL 79% Normal [facility] MONONUC CELLS NFR SNV MANUAL 12% Normal [facility] UNIDENT CELLS NFR SNV 0/100WBC Normal [facility] SYNOVIOCYTES NFR SNV 1/100WBC Normal [facility] DIFFERENTIAL TYPE AUTOMATED Normal [facility] NEUTROPHILS NFR BLD AUTO 71.5% Normal 44 - 74 [facility] BASOPHILS NFR BLD AUTO 1.1% Normal 0 - 2 [facility] MONOCYTES NFR BLD AUTO 8.6% Normal 2 - 12 [facility] HCT VFR BLD AUTO 37.5% Normal 37 - 47 [facility] MONOCYTES NO. BLD AUTO 0.8K/uL Normal 0 - 0.8 [facility] RDW RBC AUTO RTO 17.7% Above high normal 12 .1 - 16.2 [facility] PLATELET NO. BLD AUTO 250K/uL Normal 150 - 450 [facility] EOSINOPHIL NO. BLD AUTO 0.2K/uL Normal 0 - 0.5 [facility] RBC NO. BLD AUTO 4.12M/uL Below low normal 4.2 - 5.4 [facility] MCH RBC QN AUTO 30pg Normal 25 - 33 C [facility] MCHC RBC AUTO MCNC 32.9g/dL Normal 32 - 36 [facility] HGB BLD MCNC 12.4g/dL Below low normal 12.5 - 16 [facility] BASOPHILS IN BLOOD BY AUTOMATED COUNT 0.1K/uL Normal 0 - 0.2 [facility] WBC NO. BLD AUTO 8.8K/uL Normal 4 - 10.5 [facility] EOSINOPHIL NFR BLD AUTO 2.5% Normal 0 - 6 [facility] LYMPHOCYTES NFR BLD AUTO 16.3% Below low normal 20 - 48 [facility] MCV RBC AUTO 91.2fL Normal 78 - 100 [facility] NEUTROPHILS NO. BLD AUTO 6.3K/uL Normal [id number] 1.8 - 7.8 [facility] LYMPHOCYTES NO. BLD AUTO 1.4K/uL Normal 1 - 3.2 [facility] PMV BLD AUTO 8.3fL Normal 7.4 - 11.4 [facility] APPEARANCE SNV BLOODY FLUID Normal [id number] [facility] NUCLEATED CELLS NO. SNV MANUAL 568/UL Normal [id number] [facility] RBC NO. SNV MANUAL 73439/UL Normal [id number] [facility] SPECIMEN SOURCE FLD RIGHT KNEE Normal [id number] [facility] History of Medication Use Medication Directions Dispensed Refills Start Date End Date Stat furosemide (LASIX) 20 MG tablet Take by mouth. 06/14/2024 active atorvastatin (LIPITOR) tablet 40 mg 06/14/2024 active esomeprazole (NexIUM) 40 MG capsule Take by mouth. 06/14/2024 active gabapentin (NEURONTIN) 300 MG capsule Take by mouth. 06/14/2024 active amoxicillin (AMOXIL) 500 MG capsule Take by mouth. 06/14/2024 active colchicine 0.6 MG tablet Take 1 tablet (0.6 mg total) by mouth daily. 06/14/2024 active cycloSPORINE (Restasis) 0.05 % ophthalmic emulsion Apply to eye. 06/14/2024 ac tive Ascorbic Acid (Vitamin C) 500 MG CHEW Chew by mouth. 06/14/2024 active Denta 5000 Plus 1.1 % CREA BRUSH TWICE DAILY WITH TOOTHPASTE THEN EXPECTORATE. DO NOT RINSE. 06/14/2024 active traMADol (ULTRAM) 50 MG tablet TAKE 1 TABLET BY MOUTH EVERY 6 HOURS NEEDED FOR PAIN. PATIENT MAY FILL FOR LESSER QUANTITY 06/14/2024 active Multiple Vitamins-Minerals (Multivitamin Adults 50+) TABS Take by mouth. 06/14/2024 active Jardiance 10 MG tablet TAKE 1 TABLET BY MOUTH EVERY DAY IN THE MORNING 06/14/2024 active traZODone (DESYREL) 100 MG tablet Take by mouth. 06/14/2024 active spironolactone (ALDACTONE) tablet 25 mg Take by mouth. 06/14/2024 active clotrimazole (MYCELEX) 10 MG mai DISSOLVE 1 MAI BY MOUTH FOUR TIMES A DAY FOR 10 DAYS 06/14/2024 active ferrous sulfate (KP Ferrous Sulfate) 325 (65 FE) MG tablet Take by mouth. 06/14/2024 act tyrone metoprolol succinate (TOPROL-XL) 24 hr tablet 25 mg Take by mouth. 06/14/2024 active Mirabegron ER (Myrbetriq) 50 MG TB24 Take by mouth. 06/14/2024 active metoprolol tartrate (LOPRESSOR) 50 MG tablet 06/14/2024 active acetaminophen (TYLENOL) 500 MG tablet Take by mouth. 06/14/2024 active apixaban (Eliquis) 2.5 MG TABS tablet 06/14/2024 active Problems Problem Status Onset Date Problem Type Date of Resolution Source Draining postoperative wound active 2024-06-21 ProblemAct [facility] Infection of total right knee replacement, initial encounter (HCC) active EncounterDiagnosisAct [facility] MG Infection of right knee (HCC) active EncounterDiagnosisAct [facility] RAN Status post right knee replacement active EncounterDiagnosisAct CT [facility]
== END 2024-09-13 15:02 | disposition home or self-care (01) ==
PROVIDERS: PCP Internal Medicine Endocrinology, Diabetes & Metabolism; Visit Provider Orthopaedic Surgery
DX: M25.561 Pain in right knee (principal)
CPT/HCPCS: 99213; G2211

== ENCOUNTER → 2024-09-13 14:33 | Outpatient (BNV) | payer MEDICARE, SELFPAY | PROVIDERS: Visit Provider Radiology Diagnostic Radiology | DX: M25.561 Pain in right knee (principal) | CPT/HCPCS: 73562 ==

== ENCOUNTER 2024-12-26 11:12 | Outpatient (REF) | payer MEDICARE, SELFPAY ==
--- NOTE | ~2024-12-26 | XR_ITS ---
EXAMINATION: XR KNEE, RIGHT CLINICAL INFORMATION: M25.561 - Pain in right knee COMPARISON: 09/13/2024, 05/31/2024 TECHNIQUE: Three views of the right knee. FINDINGS: Total right knee arthroplasty. Patellar resurfacing. Tibial and femoral components appear well seated, in anatomic alignment. There is diffuse osteopenia. No fractures or bone lesions. No evidence of joint effusion. There is similar prepatellar soft tissue swelling, unchanged. There are vascular calcifications in the soft tissues. XR/XR knee RT 3V IMPRESSION: Right knee total arthroplasty without complication. Similar prepatellar soft tissue swelling unchanged. Electronically signed by: Deyvi Newsome MD 12/27/2024 10:34 AM EDT
--- OUTSIDE RECORDS SUMMARY | 2024-12-27 13:50 | XMS_ITS | Clinical Summary ---
Author Organization [facility] Address [address] [place] [address] Care Team Providers Care Paint Laboratory Technician Name Role Phone Yenni Jerez PA-C Primary Care Provider [phone] Medications Medication Sig Dispensed Refills Start Date [...] age to complete this topic Care Teams Paint Laboratory Technician Relationship Specialty Start Date End Date Yenni Jerez PA-C [address] [place] [address] PCP - General Physician Griddle Cook 06/05/24
--- OUTSIDE RECORDS SUMMARY | 2024-12-27 13:51 | XMS_ITS | Clinical Summary ---
Author Organization [facility] Address [address] [place] [address] Phone Care Team Providers Care Polisher Balance Screwhead Name Role Phone Yenni Jerez Primary Care Provider [phone] Medications ascorbic acid (VITAMIN C) 500 mg [...] DX:Irregu lar heart rhythm Osteoporosis DX:Osteoporosis Stroke ([facility]/HCC V24, CMS/[facility] V28) DX:Stroke (HCC) Sjogren's disease ([facility] V24) DX:Sjogren's disease (HCC) Family [...] age to complete this topic Insurance MEDICARE [facility] Advance Directives Documents on File Type Date Recorded Patient Thread Inspector Expl anation Health Care Decision (hx) 10/31/2021 AD KELLY DIRECTIVE Health Care Decision (hx) 10/31/2021 AD KELLY DIRECTIVE Health Care Decision (hx) 10/31/2021 AD KELLY DIRECTIVE Health Care Decision (hx) 10/31/2021 AD KELLY DIRECTIVE Health Care Decision (hx) 10/31/2021 AD KELLY DIRECTIVE Health Care Decision (hx) 10/31/2021 AD KELLY DIRECTIVE Care Teams Polisher Balance Screwhead Relationship Specialty Start Date End Date Yenni Jerez PA [address] [place] [address] PCP - General 06/05/24
--- OUTSIDE RECORDS SUMMARY | 2024-12-27 13:51 | XMS_ITS | Clinical Summary ---
Author Organization [facility] Address [address] [place] [address] Care Team Providers Care Wool Hat Hydraulicker Name Role Phone Unavailable Primary Care Provider [...] (SF 5000 PLUS) 1.1 % creaIndications: Caries [place] twice daily with toothpaste then expectorate. Do not rinse. 51 g 4 4 Active Active Problems Problem Noted Date Diagnosed Date Paroxysmal atrial fibrillation ([facility]) 024 Encounters Date Type Department Care Team Description 12/12/2024 2:20 PM EDT Office Visit [facility] [address] [place] [address] Lesli Ramsey RHD Encounter for dental examination [...] Description 06/17/2025 2:20 PM EDT Office Visit [facility] [address] [place] [phone] Lesli Ramsey, RHD [address] [place] [address] Health Maintenance Due Date Last Done Comments Imm-Pneumococcal 65+ (1 of 1 - PCV) 02/18/1994 Imm-Zoster, Recombinant (2 of 3) 12/27/2007 11/01/19 08 Bone Density Screening 02/18/2009 Falls Prevention 02/18/2009 Imm-DTaP/Tdap/Td (2 - Td or Tdap) 03/16/2021 011 [id number] ( - season) 2024 Imm-Influenza (#1) 2024 [...]
--- OUTSIDE RECORDS SUMMARY | 2024-12-27 13:51 | XMS_ITS | Continuity of Care Document ---
Author Organization [facility] [address] [address] Phone [phone] Care Team Providers Care Sample Book Maker Name Role Phone Yenni Barnard M.D. 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 03/26/2024 KP Ferrous Fguimln730(65Fe) mg Tablets 1 by mouth every day Yenni Barnard M.D. 09/12/2023 Vitamin C500mg Chewtabs 1 by mouth every day Yenni Barnard M.D. 09/12/2023 Trazodone URC687es Tablets Take 1 Tablet AT Bedtime 90tabs Yenni Barnard M.D. 09/02/2023 Iynjzabeihw504ip Capsules 4 caps by mouth prior to dental work 24caps Yenni Barnard M.D. Sehnzarnedjero54ws Tablets 1 by mouth every day Unknown Eliquis2.5mg Tablets Take 1 Tablet By Mouth Twice A Day Unknown Metoprolol Succinate ER25mg Tablets ER 24HR 1 by mouth every day Unknown Pdlwuvtezi69pr Tablets 1 by mouth every day Unknown Axdbidulow794wi Capsules 1 by mouth three times a day prn Unknown Tylenol Extra Xlywfigt665cs Tablets 2 by mouth twice a day prn Yenni Barnard M.D. Restasis0.05% Emulsion 1 drop each eye twice daily Yenni Barnard M.D. Multivitamin Adults 50+Adlt 50+ Tablets 1 by mouth every day Yenni Barnard M.D. Calcium 600 +D High Dlsvwur163-498nh-Hago Tablets 1 by mouth qd Yenni Barnard M.D. Mibitk13ki Capsules DR spain mouth twice a day Serena Collins MD Fjlnwhnmu04kr Tablets ER 24HR 1 by mouth every day Tuan Garduno MD Atorvastatin Qdhkfyv66wm Tablets Take 1 Tablet By Mouth Once Daily 90tabs Yenni Barnard M.D. History Medications Wdjlknlawagx08ct Madeleine Take 1 lozenge four times a day for 10 days 40units Yenni Barnard M.D. 03/06/2024 - 03/26/2024 Yisiituv562951Rlon/ML Suspension rinse and spit 4 ml qid [...] Comments: TNP CBC With Differential/Plat elet 11/18/2023 [facility] WBC 9.3 K/MM3 (4.0-11 [...] 0) Lymph # 1.7 K/MM3 (0.8-3. 1) Morrill# 0.8 K/MM3 (0.4-0. 9) Eo # 0.3 K/MM3 (0.0-0. 4) Baso # 0.1 K/MM3 (0.0-0. 1) Abs. Imm Gran 0.0 K/MM3 Neut 69.0 % (44-76) Lymph 18.8 % (15-43) Monocyte 8.5 % (4.5-10 .5) Eo 2.7 % (0-6) Baso 0.6 % (0-2) Imm Gran 0.4 % Glucose Fingerstick 11/18/2023 Inhouse Glucose Fingerstick 129 Hemoglobin A1c 11/18/2023 Inhouse Hemoglobin A1c 5.5% Folic Acid 10/17/2023 [facility] Folic Acid 36.9 ng/mL (4.8-37 .3) Homocysteine, Plasma 10/17/2023 [facility] Homocysteine, Plasma 8.9 UMOL/L (0-15) Vitamin B12 10/17/2023 [facility] Vitamin B12 1166 pg/mL (232-12 45) Complete Abc With Diff 10/17/2023 [facility] WBC 6.5 K/MM3 (4.0-11 [...] 0) Lymph # 1.3 K/MM3 (0.8-3. 1) Morrill# 0.5 K/MM3 (0.4-0. 9) Eo # 0.2 K/MM3 (0.0-0. 4) Baso # 0.1 K/MM3 (0.0-0. 1) Abs. Imm Gran 0.0 K/MM3 Neut 67.7 % (44-76) Lymph 20.4 % (15-43) Monocyte 7.7 % (4.5-10 .5) Eo 2.8 % (0-6) Baso 0.9 % (0-2) Imm Gran 0.5 % Vitamin B12 09/12/2023 [facility] Vitamin B12 <pending> Folic Acid 09/12/2023 [facility] Folic Acid <pending> Homocysteine,Plas ma/Serum 09/12/2023 [facility] Homocysteine,Plas ma/Serum <pending> Iron & Tibc 09/02/2023 [facility] Iron 24 g /dL Low (30-160 ) Unsaturated Iro n Binding [place] 316 g /dL (110-37 0) Est T. Iron Bin d Capacity 340 g /dL (140-53 0) % Iron Saturation 7 % Low (20-55 ) Hemoglobin A1c 09/02/2023 Inhouse Hemoglobin A1c 5.7% Glucose Fingerstick 09/02/2023 Inhouse Glucose Fingerstick 109 Ferritin 09/02/2023 [facility] Ferritin 14 NG/ML (14-283 ) Immunofixation Serum 09/02/2023 [facility] Immunoglobulin Igg 805 mg/dL (700-16 00) Immunoglobulin Iga 207 mg/dL (70-400 ) Immunoglobulin Igm 133 mg/dL (40-230 ) Immunofix Normal immunofix <SEE NOTE> 1 Complete Abc With Diff 09/02/2023 [facility] WBC 9.8 K/MM3 (4.0-11 [...] 0) Lymph # 1.9 K/MM3 (0.8-3. 1) Morrill# 1.1 K/MM3 High (0.4-0. 9) Eo # 0.2 K/MM3 (0.0-0. 4) Baso # 0.1 K/MM3 (0.0-0. 1) Abs. Imm Gran 0.1 K/MM3 Neut 66.4 % (44-76) Lymph 19.6 % (15-43) Monocyte 10.9 % High (4.5-10 .5) Eo 2.0 % (0-6) Baso 0.6 % (0-2) Imm Gran 0.5 % Comprehensive Metabolic Panl 09/02/2023 [facility] Glucose 103 mg/dL High [...] 68 ML/MIN/1.73 M2 2 PTH, Intact 05/09/2023 [facility] PTH, Intact 62 pg/mL (15-65) N-Telopeptide Cross Links, Urine 05/09/2023 [facility] Cross Linked N-Telopeptides 589 3 Creat, Urine 67.0 4 N-Telopeptide/C re at Ratio 99 High 5 NTX Interpretaion Comment 6 25Oh Vitamin D 05/09/2023 [facility] 25Oh Vitamin D 45.2 NG/ML (20-50) TSH With Reflex To FT4 05/09/2023 [facility] TSH With Reflex To FT4 3.96 uIU/mL (0.4-4. 2) Calcium 05/09/2023 [facility] Calcium 8.8 mg/dL (8.6-10 .5) Albumin 05/09/2023 [facility] Albumin 4.1 GM/DL (3.4-4. 8) Creatinine 05/09/2023 [facility] Creatinine 0.8 mg/dL (0.5-1. 0) Estimated GFR Creatinine 74 ML/MIN/1.73 M2 7 PTH, Intact 05/08/2023 [facility] PTH, Intact <pending> TSH With Reflex To FT4 05/08/2023 [facility] TSH With Reflex To FT4 <pending> 25Oh Vitamin D 05/08/2023 [facility] 25Oh Vitamin D <pending> Calcium 05/08/2023 [facility] Calcium <pending> Albumin 05/08/2023 [facility] Albumin <pending> Creatinine 05/08/2023 [facility] Creatinine <pending> Hemoglobin A1c 02/26/2023 [facility] Hemoglobin A1c 5.6 % (4.0-5. 6) 8 Lipid Panel 02/26/2023 [facility] Cholesterol, Total 182 mg/dL (<200) Triglyceride 87 mg/dL (<150) HDL Chol 92 mg/dL (>39) LDL Cholesterol , Calculated 73 mg/dL (0-130) Non HDL Cholesterol (Calc) 90 mg/dL (<160) Comprehensive Metabolic Panl 02/26/2023 [facility] Glucose 99 mg/dL (70-99) [...] M2 9 Complete Abc With Diff 02/26/2023 [facility] WBC 6.6 K/MM3 (4.0-11 [...] 0) Lymph # 1.6 K/MM3 (0.8-3. 1) Morrill# 0.6 K/MM3 (0.4-0. 9) Eo # 0.2 K/MM3 (0.0-0. 4) Baso # 0.0 K/MM3 (0.0-0. 1) Abs. Imm Gran 0.0 K/MM3 Neut 61.7 % (44-76) Lymph 24.4 % (15-43) Monocyte 9.6 % (4.5-10 .5) Eo 3.5 % (0-6) Baso 0.6 % (0-2) Imm Gran 0.2 % Hemoglobin A1c 01/24/2023 [facility] Hemoglobin A1c <pending> Glucose Fingerstick 12/07/2022 Inhouse Glucose Fingerstick 93 Culture Urine 10/27/2022 [facility] Specimen Description URINE Special Requests NONE Culture NO GROWTH Report Status FINAL 10/29/2022 10 Glucose Fingerstick 10/13/2022 Inhouse Glucose Fingerstick 94 Hemoglobin A1c 10/13/2022 Inhouse Hemoglobin A1c 5.4% Comprehensive Metabolic Panl 06/02/2022 [facility] Glucose 117 mg/dL High [...] M2 11 Complete Abc With Diff 06/02/2022 [facility] WBC 7.4 K/MM3 (4.0-11 [...] 0) Lymph # 1.8 K/MM3 (0.8-3. 1) Morrill# 0.5 K/MM3 (0.4-0. 9) Eo # 0.2 [...] Glucose Fingerstick 125 1 Interpreted by Fior Snow MD 2 Creatinine based est imated glomerular filtration (eGFR) in adults is calculated using the National Kidney Foundation recommended 2020 CKD-EPI equation. Estimates GFR from serum creatinine, age and sex. 3 Reference range: Not Estab. Unit: nmol BCE [facility] [address] [place] [address] 4 Reference range: Not Estab. Unit: mg/dL [facility], [address] [place] [address] 5 Reference range: 0 t o 89 [...] value is <or EQ 38 nM BCE/mM PLANISHING PRESS OPERATOR, or NTx has decreased >or EQ 30% [...] J Bone Min Res.11(1):M757,1996 Test performed at [address] [address] 7 Creatinine based est imated glomerular filtration (eGFR) in adults is calculated using the National Kidney Foundation recommended 2020 CKD-EPI equation. Estimates GFR from serum creatinine, age and sex. 8 MONITORING: In known diabetic patients, hemoglobin A1c targets should be discussed with health care provider. DIAGNOSTIC USE: The [place] Diabetes Association (ADA) and the World Health [...] sex. Procedures Date Code Description Status 08/30/2024 34120 Collection Of Venous Blood B y Venipuncture Completed 03/26/2024 67821 Collection Of Venous Blood B y Venipuncture Completed 11/18/2023 24392 Collection Of Venous Blood B y Venipuncture Completed 09/02/2023 95392 Collection Of Venous Blood B y Venipuncture Completed 06/02/2022 02986 Collection Of Venous Blood B y Venipuncture [...] Reason for Referral Status Appt [facility] Hvac Services Professional NEW IRON DEFICIENCY AN EMIA Closed [address] [place], [place] [id number] [phone] [facility] Neurology WAS DR MARY CRUZ,.... DX, CARDIOEMBOLIC CVA Closed 06/22/[address] [place], [place] [address] [phone]
--- OUTSIDE RECORDS SUMMARY | 2024-12-27 13:51 | XMS_ITS | Patient Health Record ---
Author Organization [facility] Address [address] [place] [address] Care Team Providers Care Data Analytics Analyst Name Role Phone ZAKI HENRIQUEZ M.D. Primary Care Provid er Unavailable WillamsKierstenli Unavailable [phone] Allergies Allergen (clinical drug ingredient) Drug/Non Drug Allergy documented on EMR Reaction Allergy Type Onset Date Status TYLOX Nausea/Vomiting/ Diarrhea Drug Allergy Active Results Component Value Reference Range Notes [id number] Reviewed date:02/03/2024 08:52:57 AM Interpretation: Performing Lab:[facility], [address] [place] [address], Phone - [phone], Director - MDJodry Notes/Report: TSH 4.500 0.450-4.500 uIU/mL CBC With Differential/Platel et-[id number] Reviewed date:02/03/2024 08:53:28 AM Interpretation: Performing Lab:[facility], [address] [facility], Phone - [phone], Director - MDJodry Notes/Report: WBC 8.6 3.4-10.8 [...] % Immature Grans (Abs) 0.1 0.0-0.1 x10E3/uL PTH, Intact-481524 Reviewed date:02/03/2024 08:52:38 AM Interpretation: Performing Lab:[facility] [place], [address] [place] [address], [place], Phone - [phone], Director - Quentin Notes/Report: PTH, Intact 41 15-65 pg/mL Vitamin D, 75-Rqpmjcf-601330 Reviewed date:02/03/2024 08:52:45 AM Interpretation: Performing Lab:[facility] [place], [address] [place] [address], [place], Phone - [phone], Director - Quentin Notes/Report: Vitamin D, 25-Hydroxy 49.2 30.0-100.0 ng/mL Vitamin D deficiency has been defined by the [place] of Medicine and an Endocrine Society practice guideline as a level of serum 25-OH vitamin D less than 20 ng/mL (1,2). The Endocrine Society went on to further define vitamin D insufficiency as a level between 21 and 29 ng/mL (2). 1. IOM ([place] of [employer]). 2010. Dietary reference intakes for calcium and D. [place]: The National Academies Press. 2. Melissa MF, [place], Semaj GASTELUM, et al. Evaluation, treatment, and prevention of vitamin D deficiency: an Endocrine Society clinical practice guideline. JCEM. 2010; 96(7):1911-30. Comp. Metabolic Panel (14)-3 33974 Reviewed date:02/03/2024 08:53:11 AM Interpretation: Performing Lab:[facility] [place], [address] [facility], [place], Phone - [phone], Director - Quentin Notes/Report: Glucose 104 70-99 mg/dL BUN 14 [...] 0-40 IU/L ALT (SGPT) 13 0-32 IU/L PDF Report Reviewed date:02/03/2024 08:52:29 AM Interpretation: Performing Lab:[facility], [address] [place] [address], [place], Phone - [phone], Director - Quentin Notes/Report: Reason For Referral No Information Medications Medication SIG (Take, Route, Frequency, Duration) Notes Start Date End Date Status Multivitamins 1 ORAL daily for [facility] 02/21/2012 Active Glucosamine Chondroitin Adv 1500/1200 1 ORAL twice daily for [facility] 02/21/2012 Active NexIUM 40 MG 1 Orally Twice a day [facility] 02/21/2012 Active Myrbetriq 50 MG 1 tablet Orally Once a day Active Restasis 0.05% CHRISTIANO Ophthalmic twice daily for [facility] 02/21/2012 Active Gabapentin 300 MG TAKE 1 [...] 600 + D 1 ORAL daily for [facility] 2 Active Atorvastatin Calcium 40 MG Oral for 90 Active CeleBREX 200MG 1 ORAL daily for [facility] 02/21/2012 Not-Taking Social History Tobacco Use: Social [...] Status Risk Notes Problem Postmenopausal atrophic vaginitis (94749526) Postmenopausal atrophic vaginitis (N95.2) Active confirmed Problem Overactive bladder (712275337) Overactive bladder (N32.81) Active confirmed Problem Age-related osteoporosis (579262851) Age-related osteoporosis without current pathological fracture (M81.0) Active confirmed Problem Screening for malignant neoplasm of breast (555471804) Encounter for screening mammogram for malignant neoplasm of breast (Z12.31) Active confirmed Problem Hyperlipidemia (81831160) Other and unspecified hyperlipidemia (272.4) Active confirmed Major Problem Esophageal reflux (757818800) Esophageal reflux (530.81) Active confirmed Major Problem Menopausal symptom (43424413) Symptomatic menopausal or female climacteric states (627.2) Active confirmed Major Problem Postmenopausal atrophic vaginitis (27425673) Postmenopausal atrophic vaginitis (627.3) Active confirmed Diag Problem Sicca syndrome (48263893) Sicca syndrome (710.2) Active confirmed Major Problem Gynecological examination normal (519493419006151) Routine gynecological examination (V72.31) Active confirmed Problem Dietary management surveillance (614365514) Dietary surveillance and counseling (V65.3) Active confirmed Diag Problem Screening for malignant neoplasm of colon (651751674) Special screening for malignant neoplasms, colon (V76.51) [...] MEDICARE [address] [place], [place] [id number] [phone] [id number] DEMARCOLYNETTE Jeffrey Self - patient is the insured MEDEX [address] [place] [address] [phone] [id number] DEMARCOLYNETTE Self - patient is the [...]
--- OUTSIDE RECORDS SUMMARY | 2024-12-27 13:51 | XMS_ITS | Clinical Summary ---
Author Organization [facility] Address [address] [place] [address] Care Team Providers Care Ui Developer Name Role Phone Pcp, No Primary Care [...] topic Insurance MEDICARE PART A & B [facility] Care Teams Ui Developer Relationship Specialty Start Date End Date Pcp, No PCP - General General Medicine 09/24/24
== END 2024-12-26 11:13 | disposition home or self-care (01) ==
LOC: HO.HOSX 11:12
PROVIDERS: Visit Provider Orthopaedic Surgery
DX: T84.84XA Pain due to internal orthopedic prosthetic devices, implants and grafts, initial encounter (principal); Z96.651 Presence of right artificial knee joint
CPT/HCPCS: 73562; 99212

== ENCOUNTER 2024-12-26 13:15 | Outpatient (AMB) | payer MEDICARE, SELFPAY ==
[2024-12-26 13:35] VITALS: BMI 25.4
--- NOTE | 2024-12-26 13:35 | A.OFFVIS_ITS ---
Vital Signs 12/26/24 13:35 Height 4 ft 11 in Weight 126 lb BMI 25.4 Intake Visit Reasons: OV-RT TKA 12/12/23 DR Intake Note: Brigitte is a 79 year old female who presents for routine follow-up after undergoing right total knee replacement surgery on 12/12/2023. The patient reports mild intermittent discomfort in her right knee. She notices the discomfort mostly when she is going up and down stairs. She has taken Tylenol which gives her mild relief. She can not take anti-inflammatory medicines because she is on Eliquis. Allergies oxycodone [From Tylox] Adverse Reaction (Intermediate, Verified 12/26/24 13:35) Nausea and Vomiting ( after childbirth-age 19)-has had since Medication List - Last Reconciled 12/26/24 by Adán De León MD acetaminophen 650 mg (2 x 325 mg) PO Q6H PRN 30 days apixaban (Eliquis) 2.5 mg PO BID ascorbic acid (vitamin C) 500 mg PO DAILY atorvastatin 40 mg PO DAILY calcium carbonate-vitamin D3 600 mg-5 mcg (200 unit) 1 tab PO BEDTIME cyclosporine 0.05% (Restasis) 1 drp ophthalmic (eye) BID docusate sodium 100 mg PO BID empagliflozin (Jardiance) 20 mg PO DAILY esomeprazole magnesium (Nexium) 40 mg PO BID ferrous sulfate 325 mg PO DAILY furosemide 20 mg PO DAILY glucos sul 0GIn-ofv-nnrzc-C-Mn 550-30-1 mg (Glucosamine Chondroitin) 1 cap PO BID loratadine (Claritin) 10 mg PO DAILY PRN metoprolol succinate ER 25 mg PO DAILY mirabegron ER (Myrbetriq) 50 mg PO BEDTIME multivitamin 1 tab PO DAILY spironolactone 25 mg PO DAILY trazodone 100 mg PO BEDTIME PFSH Medical History Arthritis of right knee Lumbar disc herniation Spinal stenosis Difficulty swallowing Basal cell carcinoma Overactive bladder Iron deficiency Elevated cholesterol Atrial fibrillation CVA (cerebral vascular accident) Sjogrens syndrome Osteoarthritis GERD (gastroesophageal reflux disease) HTN (hypertension) Surgical History Hx of right knee surgery (~12/12/23) History of surgery on upper extremity Hx of bilateral cataract extraction History of esophagogastroduodenoscopy (EGD) H/O colonoscopy Hx of tonsillectomy History of extraction of renal calculus History of arthroscopy of left shoulder (~06/2022) History of right shoulder replacement (~04/2021) History of total left knee replacement (~03/2020) Social History Household Members: Spouse Housing: House Are you a primary technical healthcare consultant to a significant other at home: No Do you presently have visiting nurse or other home services: No Alcohol intake: current Alcohol intake frequency: holidays/special occasions only Alcohol type: wine Patient Tobacco Use Status: Former Tobacco user Tobacco use type: Cigarette Years Smoked: 5 service: No Current occupational status: retired Physical Exam Vital Signs: BMI result Body Mass Index 25.4 Const Other: Well-nourished well-developed very friendly female awake alert and oriented x3 in no acute distress Extrem Other: Bilateral lower extremity examination shows good capillary refill, no skin lesions noted, normal sensation light touch Right knee examination shows that the surgical incision is well healed, no erythema, full active extension and flexion to 115 degrees with minimal discomfort, her patella tracks well Results Reviewed Results Reviewed: X-rays of the patient's right knee taken today show a total knee arthroplasty in good position with no signs of loosening, no acute bony abnormalities Assessment & Plan Assessment & Plan (1) Right knee pain: Code(s): M25.561 - Pain in right knee Category: Medical Plan Ms. Leyva presents with intermittent discomfort in her right knee after undergoing right total knee replacement surgery on 12/12/2023. I discussed with the patient the fact that her symptoms should continue to improve over the next few months. She asks whether or not she is a candidate for a nerve stimulation procedure that might help dissipate her pain sooner. I told the patient that I am not sure but that I would put in a referral to our pain management department so that she may get further information regarding nerve stimulation procedures. She does know to take antibiotics before any dental work. Feel free to call me at any time should questions regarding her orthopedic management arise. I spent 20 minutes in reviewing the patient's records and imaging studies, seeing the patient and documenting in the medical record. Orders: Orders XR knee RT 3V Today M25.561 - Pain in right knee Referrals Pain Management Referral M25.561 - Pain in right knee Coding Level of Care Code Est Pt Level 3 (50353) Complex EM visit Add On G2211 Diagnoses Right knee pain M25.561
--- OUTSIDE RECORDS SUMMARY | 2024-12-26 15:42 | XMS_ITS | Clinical Summary ---
Author Organization Formerly [facility] Address [address] [place] [address] Care Team Providers Care Certifier Name Role Phone Yenni Jerez PA-C Primary Care Provider [phone] Medications Medication Sig Dispensed Refills Start Date End Date Status atorvastatin (LIPITOR) tablet 40 mg 0 06/23/2022 Active esomeprazole (NexIUM) 40 MG capsule Take by mouth. 0 Active apixaban (Eliquis) 2.5 MG TABS tablet 0 01/17/2024 Active acetaminophen (TYLENOL) 500 MG tablet Take by mouth. 0 05/28/2022 Active amoxicillin (AMOXIL) 500 MG capsule Take by mouth. 0 11/18/2023 Active Ascorbic Acid (Vitamin C) 500 MG CHEW Chew by mouth. 0 09/12/2023 Active Calcium Carbonate-Vitamin D (Calcium 600 +D High Potency) 600-10 MG-MCG TABS Take by mouth. 0 Active clotrimazole (MYCELEX) 10 MG mai DISSOLVE 1 MAI BY MOUTH FOUR TIMES A DAY FOR 10 DAYS 0 03/06/2024 Active colchicine 0.6 MG tablet Take 1 tablet (0.6 mg total) by mouth daily. 0 03/01/2024 Active cycloSPORINE (Restasis) 0.05 % ophthalmic emulsion Apply to eye. 0 03/17/2020 Ac tive Jardiance 10 MG tablet TAKE 1 TABLET BY MOUTH EVERY DAY IN THE MORNING 0 05/12/2024 Active ferrous sulfate (KP Ferrous Sulfate) 325 (65 FE) MG tablet Take by mouth. 0 09/12/2023 Act tyrone furosemide (LASIX) 20 MG tablet Take by mouth. 0 03/13/2024 Active gabapentin (NEURONTIN) 300 MG capsule Take by mouth. 0 Active metoprolol succinate (TOPROL-XL) 24 hr tablet 25 mg Take by mouth. 0 03/13/2024 Active metoprolol tartrate (LOPRESSOR) 50 MG tablet 0 05/03/2024 Active Mirabegron ER (Myrbetriq) 50 MG TB24 Take by mouth. 0 03/09/2021 Active Multiple Vitamins-Minerals (Multivitamin Adults 50+) TABS Take by mouth. 0 Active Denta 5000 Plus 1.1 % CREA BRUSH TWICE DAILY WITH TOOTHPASTE THEN EXPECTORATE. DO NOT RINSE. 0 04/17/2024 Active spironolactone (ALDACTONE) tablet 25 mg Take by mouth. 0 03/31/2024 Active traMADol (ULTRAM) 50 MG tablet TAKE 1 TABLET BY MOUTH EVERY 6 HOURS NEEDED FOR PAIN. PATIENT MAY FILL FOR LESSER QUANTITY 0 04/17/2024 Active traZODone (DESYREL) 100 MG tablet Take by mouth. 0 09/02/2023 Active Active Problems Problem Noted Date Diagnosed Date Draining postoperative wound 06/21/2024 History of total knee arthroplasty, right 2023 Family History Medical History Relation Name Comments Arthritis Father Coronary artery disease Father Hypertension Father Irregular heart beat Father Kidney disease Father Osteoporosis Father Relation Name Status Comments Father Social History Tobacco Use Types Packs/Day Years Used Date Smoking Tobacco: Former Cigarettes 2 Smokeless Tobacco: Former Alcohol Use Standard Drinks/Week Comments Yes 0 (1 standard drink = 0.6 oz pur e alcohol) 1-2 xmonth socially Sex and Gender Information Value Date Recorded Sex Assigned at Female 06/05/2024 9:26 AM EDT Gender Identity Not on file Sexual Orientation Not on file Job Start Date Occupation Industry Not on file Not on file Not on file Last Filed Vital Signs Vital Sign Reading Time Taken Comments Blood Pressure 101/54 06/07/2024 11:09 AM EDT Pulse 78 06/07/2024 11:09 AM EDT Temperature 36.9 ??C (98.4 ??F) 06/07/2024 11:09 AM E DT Respiratory Rate - - Oxygen Saturation - - Inhaled Oxygen Concentration - - Weight 54.4 kg (120 lb) 06/07/2024 11:09 AM EDT Height 149.9 cm (4' 11 ) 06/07/2024 11:09 AM EDT Body Mass Index 24.24 06/07/2024 11:09 AM EDT Plan of Treatment Health Maintenance Due Date Last Done Comments COVID-19 Vaccine (#1) 1944 Depression Screening 1956 Preventative Health Evaluation 02/18/1962 DTap / Tdap / Td (1 - Tdap) 02/18/1963 Shingrix-Zoster Vaccine (1 of 2) 02/18/1994 Fall Risk Assessment 02/18/2009 Osteoporosis Screening (DEXA Scan) 02/18/2009 Pneumococcal Vaccine (1 of 1 - PCV) 02/18/2009 RSV Adult > 60+ Yrs or Pregn ant (1 - 1-dose 75+ series) 02/18/2019 Influenza Vaccine (#1) 2024 Hepatitis B Vaccines Aged Out No long er eligible based on patient's age to complete this topic RSV Ped < 20 months Aged Out No longe r eligible based on patient's age to complete this topic Care Teams Certifier Relationship Specialty Start Date End Date Yenni Jerez PA-C [address] Ear, [place]ose & [place] [address] PCP - General Physician Mirror Specialist 06/05/24
--- OUTSIDE RECORDS SUMMARY | 2024-12-26 15:42 | XMS_ITS | Continuity of Care Document ---
Author Organization [facility] [address] [address] Phone [phone] Care Team Providers Care Transit Survey Worker Name Role Phone Yenni Barnard M.D. 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 03/26/2024 KP Ferrous Xqoznef121(65Fe) mg Tablets 1 by mouth every day Yenni Barnard M.D. 09/12/2023 Vitamin C500mg Chewtabs 1 by mouth every day Yenni Barnard M.D. 09/12/2023 Trazodone JPH564tg Tablets Take 1 Tablet AT Bedtime 90tabs Yenni Barnard M.D. 09/02/2023 Shakofbmrir037hx Capsules 4 caps by mouth prior to dental work 24caps Yenni Barnard M.D. Mgmppsotvjqpjg89wa Tablets 1 by mouth every day Unknown Eliquis2.5mg Tablets Take 1 Tablet By Mouth Twice A Day Unknown Metoprolol Succinate ER25mg Tablets ER 24HR 1 by mouth every day Unknown Lctxctfvop04pz Tablets 1 by mouth every day Unknown Uhmmvnvwpp960fp Capsules 1 by mouth three times a day prn Unknown Tylenol Extra Ycmeprhi596ly Tablets 2 by mouth twice a day prn Yenni Barnard M.D. Restasis0.05% Emulsion 1 drop each eye twice daily Yenni Barnard M.D. Multivitamin Adults 50+Adlt 50+ Tablets 1 by mouth every day Yenni Barnard M.D. Calcium 600 +D High Ckuykpy681-932od-Oiql Tablets 1 by mouth qd Yenni Barnard M.D. Gpnonl04ly Capsules DR spain mouth twice a day Serena Collins MD Dwxdrnejw08eb Tablets ER 24HR 1 by mouth every day Tuan Garduno MD Atorvastatin Oermtfj71zw Tablets Take 1 Tablet By Mouth Once Daily 90tabs Yenni Barnard M.D. History Medications Jjgkkathlshx38hj Madeleine Take 1 lozenge four times a day for 10 days 40units Yenni Barnard M.D. 03/06/2024 - 03/26/2024 Iovwvnli002629Tpes/ML Suspension rinse and spit 4 ml qid [...] x10E3/uL 0.0-0.1 NRBC TNP Hematology Comments: TNP Ferritin 08/30/2024 [facility] Ferritin 47 ng/mL 15-150 Glucose Fingerstick 08/30/2024 Inhouse Glucose Fingerstick 97 Hemoglobin A1c 08/30/2024 Inhouse Hemoglobin A1c 5.6% Comp. Metabolic Panel (14) [...] x10E3/uL 0.0-0.1 NRBC TNP Hematology Comments: TNP Ferritin 03/26/2024 [facility] Ferritin 169 ng/mL High 15-150 Glucose Fingerstick 03/26/2024 Inhouse Glucose Fingerstick 102 Hemoglobin A1c 03/26/2024 Inhouse Hemoglobin A1c 5.7% CBC With Differential/Plat elet [...] Comments: TNP CBC With Differential/Plat elet 11/18/2023 [facility] WBC 9.3 K/MM3 (4.0-11 [...] 0) Lymph # 1.7 K/MM3 (0.8-3. 1) [place]# 0.8 K/MM3 (0.4-0. 9) Eo # 0.3 K/MM3 (0.0-0. 4) Baso # 0.1 K/MM3 (0.0-0. 1) Abs. Imm Gran 0.0 K/MM3 Neut 69.0 % (44-76) Lymph 18.8 % (15-43) Monocyte 8.5 % (4.5-10 .5) Eo 2.7 % (0-6) Baso 0.6 % (0-2) Imm Gran 0.4 % Glucose Fingerstick 11/18/2023 Inhouse Glucose Fingerstick 129 Hemoglobin A1c 11/18/2023 Inhouse Hemoglobin A1c 5.5% Folic Acid 10/17/2023 [facility] Folic Acid 36.9 ng/mL (4.8-37 .3) Homocysteine, Plasma 10/17/2023 [facility] Homocysteine, Plasma 8.9 UMOL/L (0-15) Vitamin B12 10/17/2023 [facility] Vitamin B12 1166 pg/mL (232-12 45) Complete Abc With Diff 10/17/2023 [facility] WBC 6.5 K/MM3 (4.0-11 [...] 0) Lymph # 1.3 K/MM3 (0.8-3. 1) [place]# 0.5 K/MM3 (0.4-0. 9) Eo # 0.2 K/MM3 (0.0-0. 4) Baso # 0.1 K/MM3 (0.0-0. 1) Abs. Imm Gran 0.0 K/MM3 Neut 67.7 % (44-76) Lymph 20.4 % (15-43) Monocyte 7.7 % (4.5-10 .5) Eo 2.8 % (0-6) Baso 0.9 % (0-2) Imm Gran 0.5 % Vitamin B12 09/12/2023 [facility] Vitamin B12 <pending> Folic Acid 09/12/2023 [facility] Folic Acid <pending> Homocysteine,Plas ma/Serum 09/12/2023 [facility] Homocysteine,Plas ma/Serum <pending> Iron & Tibc 09/02/2023 [facility] Iron 24 g /dL Low (30-160 ) Unsaturated Iro n Binding Descanso 316 g /dL (110-37 0) Est T. Iron Bin d Capacity 340 g /dL (140-53 0) % Iron Saturation 7 % Low (20-55 ) Hemoglobin A1c 09/02/2023 Inhouse Hemoglobin A1c 5.7% Glucose Fingerstick 09/02/2023 Inhouse Glucose Fingerstick 109 Ferritin 09/02/2023 [facility] Ferritin 14 NG/ML (14-283 ) Immunofixation Serum 09/02/2023 [facility] Immunoglobulin Igg 805 mg/dL (700-16 00) Immunoglobulin Iga 207 mg/dL (70-400 ) Immunoglobulin Igm 133 mg/dL (40-230 ) Immunofix Normal immunofix <SEE NOTE> 1 Complete Abc With Diff 09/02/2023 [facility] WBC 9.8 K/MM3 (4.0-11 [...] 0) Lymph # 1.9 K/MM3 (0.8-3. 1) [place]# 1.1 K/MM3 High (0.4-0. 9) Eo # 0.2 K/MM3 (0.0-0. 4) Baso # 0.1 K/MM3 (0.0-0. 1) Abs. Imm Gran 0.1 K/MM3 Neut 66.4 % (44-76) Lymph 19.6 % (15-43) Monocyte 10.9 % High (4.5-10 .5) Eo 2.0 % (0-6) Baso 0.6 % (0-2) Imm Gran 0.5 % Comprehensive Metabolic Panl 09/02/2023 [facility] Glucose 103 mg/dL High [...] (0-33) Estimated GFR Creatinine 68 ML/MIN/1.73 M2 2 PTH, Intact 05/09/2023 [facility] PTH, Intact 62 pg/mL (15-65) N-Telopeptide Cross Links, Urine 05/09/2023 [facility] Cross Linked N-Telopeptides 589 3 Creat, Urine 67.0 4 N-Telopeptide/C re at Ratio 99 High 5 NTX Interpretaion Comment 6 25Oh Vitamin D 05/09/2023 [facility] 25Oh Vitamin D 45.2 NG/ML (20-50) TSH With Reflex To FT4 05/09/2023 [facility] TSH With Reflex To FT4 3.96 uIU/mL (0.4-4. 2) Calcium 05/09/2023 [facility] Calcium 8.8 mg/dL (8.6-10 .5) Albumin 05/09/2023 [facility] Albumin 4.1 GM/DL (3.4-4. 8) Creatinine 05/09/2023 [facility] Creatinine 0.8 mg/dL (0.5-1. 0) Estimated GFR Creatinine 74 ML/MIN/1.73 M2 7 PTH, Intact 05/08/2023 [facility] PTH, Intact <pending> TSH With Reflex To FT4 05/08/2023 [facility] TSH With Reflex To FT4 <pending> 25Oh Vitamin D 05/08/2023 [facility] 25Oh Vitamin D <pending> Calcium 05/08/2023 [facility] Calcium <pending> Albumin 05/08/2023 [facility] Albumin <pending> Creatinine 05/08/2023 [facility] Creatinine <pending> Hemoglobin A1c 02/26/2023 [facility] Hemoglobin A1c 5.6 % (4.0-5. 6) 8 Lipid Panel 02/26/2023 [facility] Cholesterol, Total 182 mg/dL (<200) Triglyceride 87 mg/dL (<150) HDL Chol 92 mg/dL (>39) LDL Cholesterol , Calculated 73 mg/dL (0-130) Non HDL Cholesterol (Calc) 90 mg/dL (<160) Comprehensive Metabolic Panl 02/26/2023 [facility] Glucose 99 mg/dL (70-99) [...] (0-33) Estimated GFR Creatinine 65 ML/MIN/1.73 M2 9 Complete Abc With Diff 02/26/2023 [facility] WBC 6.6 K/MM3 (4.0-11 [...] 0) Lymph # 1.6 K/MM3 (0.8-3. 1) [place]# 0.6 K/MM3 (0.4-0. 9) Eo # 0.2 K/MM3 (0.0-0. 4) Baso # 0.0 K/MM3 (0.0-0. 1) Abs. Imm Gran 0.0 K/MM3 Neut 61.7 % (44-76) Lymph 24.4 % (15-43) Monocyte 9.6 % (4.5-10 .5) Eo 3.5 % (0-6) Baso 0.6 % (0-2) Imm Gran 0.2 % Hemoglobin A1c 01/24/2023 [facility] Hemoglobin A1c <pending> Glucose Fingerstick 12/07/2022 Inhouse Glucose Fingerstick 93 Culture Urine 10/27/2022 [facility] Specimen Description URINE Special Requests NONE Culture NO GROWTH Report Status FINAL 10/29/2022 10 Glucose Fingerstick 10/13/2022 Inhouse Glucose Fingerstick 94 Hemoglobin A1c 10/13/2022 Inhouse Hemoglobin A1c 5.4% Comprehensive Metabolic Panl 06/02/2022 [facility] Glucose 117 mg/dL High [...] M2 11 Complete Abc With Diff 06/02/2022 [facility] WBC 7.4 K/MM3 (4.0-11 [...] 0) Lymph # 1.8 K/MM3 (0.8-3. 1) [place]# 0.5 K/MM3 (0.4-0. 9) Eo # 0.2 K/MM3 (0.0-0. 4) Baso # 0.0 K/MM3 (0.0-0. 1) Abs. Imm Gran 0.0 K/MM3 Neut 65.9 % (44-76) Lymph 24.6 % (15-43) Monocyte 6.2 % (4.5-10 .5) Eo 2.4 % (0-6) Baso 0.4 % (0-2) Imm Gran 0.5 % Hemoglobin A1c 06/02/2022 Inhouse Hemoglobin A1c 5.5% Glucose Fingerstick 06/02/2022 Inhouse Glucose Fingerstick 125 1 Interpreted by Fior Sonw MD 2 Creatinine based est imated glomerular filtration (eGFR) in adults is calculated using the National Kidney Foundation recommended 2020 CKD-EPI equation. Estimates GFR from serum creatinine, age and sex. 3 Reference range: Not Estab. Unit: nmol BCE [facility], [address] [place] [address] 4 Reference range: Not Estab. Unit: mg/dL [facility], [address] [place] [address] 5 Reference range: 0 t o 89 [...] value is <or EQ 38 nM BCE/mM PLANNING RN, or NTx has decreased >or EQ 30% [...] 102:29-37,1997. (1):M757, 1996. 2. Bone H, Darryn J, et al. J Bone Min Res.11(1):M757,1996 Test performed at [address] [address] 7 Creatinine based est imated glomerular filtration (eGFR) in adults is calculated using the National Kidney Foundation recommended 2020 CKD-EPI equation. Estimates GFR from serum creatinine, age and sex. 8 MONITORING: In known diabetic patients, hemoglobin A1c targets should be discussed with health care provider. DIAGNOSTIC USE: The [place] Diabetes Association (ADA) and the World Health [...] Research and Education Volume 43, Supplement 1 9 Creatinine based est imated glomerular filtration (eGFR) in adults is calculated using the National Kidney Foundation recommended 2020 CKD-EPI equation. Estimates GFR from serum creatinine, age and sex. 10 FINAL 10/29/2022 11 Creatinine based est imated glomerular filtration (eGFR) in adults is calculated using the National Kidney Foundation recommended 2020 CKD-EPI equation. Estimates GFR from serum creatinine, age and sex. Procedures Date Code Description Status 08/30/2024 33374 Collection Of Venous Blood B y Venipuncture Completed 03/26/2024 60803 Collection Of Venous Blood B y Venipuncture Completed 11/18/2023 79964 Collection Of Venous Blood B y Venipuncture Completed 09/02/2023 14208 Collection Of Venous Blood B y Venipuncture Completed 06/02/2022 65284 Collection Of Venous Blood B y Venipuncture [...] Description No Information Available Referrals Refer to Reason for Referral Status Appt Gabriel e [facility] Space Planner NEW IRON DEFICIENCY AN EMIA Closed [address] [place], [place] [address] [phone] [facility] [address] MARY CRUZ,.... DX, CARDIOEMBOLIC CVA Closed 06/22/[address] [place], [place] [id number] [phone]
--- OUTSIDE RECORDS SUMMARY | 2024-12-26 15:42 | XMS_ITS | Patient Health Record ---
Author Organization [facility] Address [address] [address] Care Team Providers Care Agricultural Research Engineer Name Role Phone ZAKI HENRIQUEZ M.D. Primary Care Provid er Unavailable Willams Evita Unavailable [phone] Allergies Allergen (clinical drug ingredient) Drug/Non Drug Allergy documented on EMR Reaction Allergy Type Onset Date Status TYLOX Nausea/Vomiting/ Diarrhea Drug Allergy Active Results Component Value Reference Range Notes PDF Report Reviewed date:02/03/2024 08:52:29 AM Interpretation: Performing Lab:[facility] Hughes, [facility], Phone - [phone], Director - MDJodry Notes/Report: Comp. Metabolic Panel ([id number] Reviewed date:02/03/2024 08:53:11 AM Interpretation: Performing Lab:[facility]unna Hughes, [facility], Phone - [phone], Director - MDJodry Notes/Report: Glucose 104 70-99 mg/dL BUN 14 8-27 mg/dL Creatinine 0.81 0.57-1.00 mg/dL eGFR 74 >59 mL/min/1.73 BUN/Creatinine Ratio 17 12-28 Sodium 140 134-144 mmol/L Potassium 4.6 3.5-5.2 mmol/L Chloride 103 96-106 mmol/L Anion Gap 14.0 10.0-18.0 mmol/L Carbon Dioxide, Total 23 20-29 mmol/L Calcium 9.0 8.7-10.3 mg/dL Protein, Total 6.2 6.0-8.5 g/dL Albumin 3.7 3.8-4.8 g/dL Globulin, Total 2.5 1.5-4.5 g/dL A/G Ratio 1.5 1.2-2.2 Bilirubin, Total 0.2 0.0-1.2 mg/dL Alkaline Phosphatase 93 44-121 IU/L AST (SGOT) 22 0-40 IU/L ALT (SGPT) 13 0-32 IU/L Vitamin D, 74-Zipspqf-[id number] Reviewed date:02/03/2024 08:52:45 AM Interpretation: Performing Lab:[facility] [place], [address] [place] [address], Phone - [phone], Director - Sindyy Notes/Report: Vitamin D, 25-Hydroxy 49.2 30.0-100.0 ng/mL Vitamin D deficiency has been defined by the [place] of [employer] and an Endocrine Society practice guideline as a level of serum 25-OH vitamin D less than 20 ng/mL (1,2). The Endocrine Society went on to further define vitamin D insufficiency as a level between 21 and 29 ng/mL (2). 1. IOM ([place] of [employer]). 2010. Dietary reference intakes for calcium and D. Teresa [place]: The National Academies Press. 2. Melissa MF, Beka ENGLISH, Semaj GASTELUM, et al. Evaluation, treatment, and prevention of vitamin D deficiency: an Endocrine Society clinical practice guideline. JCEM. 2010; 96(7):1911-30. PTH, Intact-115540 Reviewed date:02/03/2024 08:52:38 AM Interpretation: Performing Lab:[facility] [place], [address] [place] [address], Phone - [phone], Director - Sindyy Notes/Report: PTH, Intact 41 15-65 pg/mL CBC With Differential/Platel et-[id number] Reviewed date:02/03/2024 08:53:28 AM Interpretation: Performing Lab:[facility] [place], [address] [facility], [place], Phone - [phone], Director - MDJodry Notes/Report: WBC 8.6 3.4-10.8 x10E3/uL RBC 3.95 3.77-5.28 x10E6/uL Hemoglobin 11.3 11.1-15.9 g/dL Hematocrit 36.9 34.0-46.6 % MCV 93 79-97 fL MCH 28.6 26.6-33.0 pg MCHC 30.6 31.5-35.7 g/dL RDW 13.1 11.7-15.4 % Platelets 427 150-450 x10E3/uL Neutrophils 73 Not Estab. % Lymphs 16 Not Estab. % Monocytes 6 Not Estab. % Eos 3 Not Estab. % Basos 1 Not Estab. % Neutrophils (Absolute) 6.3 1.4-7.0 x10E3/uL Lymphs (Absolute) 1.4 0.7-3.1 x10E3/uL Monocytes(Absolute) 0.6 0.1-0.9 x10E3/uL Eos (Absolute) 0.2 0.0-0.4 x10E3/uL Baso (Absolute) 0.0 0.0-0.2 x10E3/uL Immature Granulocytes 1 Not Estab. % Immature Grans (Abs) 0.1 0.0-0.1 x10E3/uL TSH-[id number] Reviewed date:02/03/2024 08:52:57 AM Interpretation: Performing Lab:[facility], [address], [place], Phone - [phone], Director - Quentin Notes/Report: TSH 4.500 0.450-4.500 uIU/mL Reason For Referral No Information Medications Medication SIG (Take, Route, Frequency, Duration) Notes Start Date End Date Status Multivitamins 1 ORAL daily for [facility] 02/21/2012 Active Glucosamine Chondroitin Adv 1500/1200 1 ORAL twice daily for [facility] 02/21/2012 Active NexIUM 40 MG 1 Orally Twice a day [facility] 02/21/2012 Active Myrbetriq 50 MG 1 tablet Orally Once a day Active Restasis 0.05% CHRISTIANO Ophthalmic twice daily for [facility] 02/21/2012 Active Gabapentin 300 MG TAKE 1 CAPSULE BY MOUTH THREE TIMES A DAY Oral for 30 Active Eliquis 5 MG Oral for 90 Activ e Pilocarpine HCl Acti ve Claritin 10 MG 1 tablet Orally Once a day for 30 day(s) As needed 06/27/2023 Active amLODIPine Besylate 5 MG 1 tablet Orally Once a day for 30 day(s) Active traZODone HCl 50 MG Oral for 90 Active Calcium-Carb 600 + D 1 ORAL daily for [facility] 2 Active Atorvastatin Calcium 40 MG Oral for 90 Active CeleBREX 200MG 1 ORAL daily for [facility] 02/21/2012 Not-Taking Social History Tobacco Use: Social History Observation Description Date Details (start date - stop date) Former Smoker NA - NA Tobacco Use/Smoking Question Answer Notes Are you a former smoker How long has it been since you last smoked? > 10 years Alcohol Screen (Audit-C) Question Answer Notes Did you have a drink contain ing alcohol in the past year? Yes How often did you have a dri nk containing alcohol in the past year? 2 to 4 times a month (2 points) How many drinks did you have on a typical day when you were drinking in the past year? 1 or 2 drinks (0 point) Points 2 Interpretation Negative Problems Problem Type SNOMED Code ICD Code Onset Dates Problem Status W/U Status Risk Notes Problem Postmenopausal atrophic vaginitis (67944253) Postmenopausal atrophic vaginitis (N95.2) Active confirmed Problem Overactive bladder (865949536) Overactive bladder (N32.81) Active confirmed Problem Age-related osteoporosis (458784967) Age-related osteoporosis without current pathological fracture (M81.0) Active confirmed Problem Screening for malignant neoplasm of breast (532951015) Encounter for screening mammogram for malignant neoplasm of breast (Z12.31) Active confirmed Problem Hyperlipidemia (70890179) Other and unspecified hyperlipidemia (272.4) Active confirmed Major Problem Esophageal reflux (639750158) Esophageal reflux (530.81) Active confirmed Major Problem Menopausal symptom (57997219) Symptomatic menopausal or female climacteric states (627.2) Active confirmed Major Problem Postmenopausal atrophic vaginitis (29161136) Postmenopausal atrophic vaginitis (627.3) Active confirmed Diag Problem Sicca syndrome (87786320) Sicca syndrome (710.2) Active confirmed Major Problem Gynecological examination normal (590170480585541) Routine gynecological examination (V72.31) Active confirmed Problem Dietary management surveillance (255476275) Dietary surveillance and counseling (V65.3) Active confirmed Diag Problem Screening for malignant neoplasm of colon (730731280) Special screening for malignant neoplasms, colon (V76.51) Active confirmed Major Plan Of Treatment Pending Test Test Name Order Date MAMMOGRAM, SCREENING 03/24/2015 MAMMOGRAM, SCREENING 06/24/2021 MAMMOGRAM, SCREENING 06/27/2023 Urine Culture and Sensitivity 03/24/2015 MM Digital Mammo Screening 06/27/2023 MM Digital Mammo Screening 06/24/2021 Insurance Providers Payer Name Payer Address Payer Phone Subscriber Number Group Number Insured Name Patient Relationship to Insured Coverage Start Date Coverage End Date MEDICARE [address] [place], [place] [id number] [phone] [id number] DEMARCOLYNETTE Jeffrey Self - patient is the insured MEDEX [address] [place] [address] [phone] [id number] DEMARCOLYNETTE Self - patient is the insured Medical (General) History Medical History History ICD Code Menopausal and female climacteric states N95.1 Sicca syndrome, unspecified M35.00 Hyperlipidemia, unspecified E78.5 Gastro-esophageal reflux disease without esophagitis K21.9 Postmenopausal atrophic vaginitis N95.2 Unspecified urinary incontinence R32 Basal Cell, Nose Overactive bladder N32.81 Inconclusive mammogram R92.2 Mammographic heterogeneous density, bila teral breasts R92.333 Surgical History Surgery Date(Month/Year) Colonoscopy Left Knee Surgery/Arthroscopic Tonsillectomy Felix's procedure on Nose, Basal cell Left Knee Replacement 04/26/20 Reverse Shoulder Replacement 02/22/21 Hospitalization History Reason Date(Month/Year) 2 Vaginal Deliveries See Surgical Hx
--- OUTSIDE RECORDS SUMMARY | 2024-12-26 15:42 | XMS_ITS | Data Portability ---
Author Organization [place] - [facility], Allergy Address [address] [place] [id number] Care Team Providers Care Phone Representative Name Role Phone ZAKI SMILEY Primary Care Provider [phone] Assessment Encounter Date Assessment Date Assessment LastModified [...] Organization Details Recorded Time Bleeding from nose 738436248 Active 2022 Epistaxis; Note: Date Diagnosed: 08/05/2023 9:39 AM (R04.0) Not Available [facility] 02:39:26 Disturban ce of salivary secretion 52827883 Active 2014 Diseases of the salivary glands: Xerostomia ; Note: Date Diagnosed: 10/18/2014 3:28 PM (527.7) Not Available [facility] 4 02:39:30 Acute sialoaden itis 499564651 Active 2021 Acute sialoadeni tis; Note: Date Diagnosed: 12/22/2021 11:03 AM (K11.21) Not Available [facility] 4 02:39:23 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 936977462 Active 2022 Other hemorrhagi c disorder due to intrinsic circulatin g anticoagul ants, antibodies , or inhibitors ; Note: Date Diagnosed: 08/05/2023 9:39 AM (D68.318) Not Available [facility] 4 02:39:30 Sialolith iasis 17407094 Active 2021 Sialolithi asis; Note: Date Diagnosed: 12/22/2021 11:07 AM (K11.5) Not Available [facility] 4 02:39:27 Anterior epistaxis 356955111 Active 2023 YARIEL BERGER MD [address] [place] [address], [place], [address] , [facility] 4 14:09:40 Sj? ? ?gren's syndrome 53370764 Active 2023 YARIEL BERGER MD [address] [place] [address], [place], [address] , [facility] 4 14:09:47 Problem Notes None recorded. Procedures Surgical History Date Name Laterality Status Provider Name and Address Organization Details Recorded Time 4 Epistaxis Simple Nasal Cautery Left completed YARIEL BERGER MD [address] [place] [address], [place], [phone], [facility] 06/14/2024 14:10:30 Imaging Results None recorded. Procedure Notes None recorded. Medical Equipment None Reported. Allergies Allergen ID Allergen Name Allergen Category Reaction Reaction Severity Criticality Documentation Date Start Date Code Code System Note Provider Name and Address Organization Details Recorded Time 98268 acetamino phen / oxycodone medicatio n other Not available Not available 01/24/2024 93465 3 RxNorm React ion: unkno wn, unspe [...] 5 mg tablet active Medicati on ID: [id number] B rand Name: pilocarp ine HCl Send Method: E-Prescr ibed Sub s Allowed: subs OK Medic ationGen ericName : pilocarp ine HCl Not Available Not Available Not Available nystatin 100,000 unit/mL oral suspensio n 12/22 completed Medicati [place] ID: [id number] Pr escribed By Name: Andrea Chan nd [...] 5 mg tablet active Medicati on ID: [id number] B rand Name: amlodipi ne Send Method: E-Prescr ibed Sub s Allowed: subs OK Medic ationGen ericName : amlodipi ne Not Available Not Available Not Available sulfameth oxazole 800 mg-trimet hoprim 160 mg tablet TAKE 1 TABLET BY MOUTH TWICE A DAY FOR 3 DAYS 06/14 completed Not Available Not Available Not Available aspirin 81 mg tablet,de layed release active Medicati on ID: [id number] B rand Name: aspirin Send Method: E-Prescr [...] mg capsule 12/22 completed Medicati on ID: [id number] Du ration Value: 90 Brand Name: Celebrex Send Method: E-Prescr ibed Sub s Allowed: No subs Med icationG enericNa me: Celebrex Not Available Not Available Not Available trazodone 100 mg tablet 06/14 completed Not Available Not Available Not Available simvastat in 20 mg tablet 12/22 completed Medicati on ID: [id number] Du ration Value: 90 Brand Name: simvasta tin Send Method: E-Prescr ibed Sub s Allowed: subs OK Medic ationGen ericName : simvasta tin Not Available Not Available Not Available cevimelin e 30 mg capsule 12/22 completed Medicati on ID: [id number] Du ration Value: 90 Brand Name: cevimeli [...] propionat e 50 mcg/actua tion nasal spray,lv garciaon 12/22 completed Medicati on ID: [id number] Du ration Value: 30 Brand Name: fluticas one propiona te Send Method: E-Prescr ibed Sub s Allowed: subs OK Speci al Instruct ion: USE 2 SPRAYS IN EACH NOSTRIL DAILY Me dication GenericN ganesh: fluticas one propiona te Not Available Not Available Not Available glucosami ne-chondr oitin 1,500 mg -1,200 mg/30 mL oral liquid 12/22 completed Medicati on ID: [id number] Br and Name: glucosam ine-modesto droitin Send [...] multivita min 12/22 completed Medicati on ID: [id number] Br and Name: multivit joseph Sen d Method: E-Prescr ibed Sub s Allowed: subs OK Medic ationGen ericName : multivit joseph Not Available Not Available Not Available Super Inez-3 1,000 mg capsule 12/22 completed Medicati on ID: [id number] Br and Name: Fish Oil Concentr ate Send Method: E-Prescr ibed Sub s Allowed: subs OK Medic ationGen ericName : Fish Oil Concentr ate Not Available Not Available Not Available Myrbetriq 50 mg tablet,ex tended release active Not Available Not Available Not Available Myrbetriq active Medicati on ID: [id number] B rand Name: Myrbetri q Send Method: [...] Updated DateTime 06/14/2024 149.86 cm 23.8 kg/m2 82745.9 g Rozina Addi [place] - [facility] 06/14/2024 14:00:01 Social History None recorded. Functional Status None recorded. Mental Status None recorded. Family History Nothing Reported. Medical History No medical history recorded. Gynecological HistoryNo gynecological history recorded. Obstetrics History GPAL:G 0 P 0 0 0 0 Past Encounters Encounter ID Performer Location Encounter Start Date Encounter Closed Date Diagnosis/Indication Diagnosis SNOMED-CT Code Diagnosis ICD10 Code Diagnosis Note YARIEL BERGER MD [facility] [address] [address] 06/14/2024 13:13:49 06/14/2024 14:10:19 Anterior epistaxis [id number] R04.0 Sj? ? ?gren's syndrome 87944321 M35.00 Health Concerns Section Related Observation LastModified by Organization Detai ls LastModified Time None Recorded Concern Status LastModified by Organization Details LastModified Time None Recorded Advance Directives Directive None Recorded Payers Encounter Date Sequence Insurance Name Policy Number Policy Palmer Covered Member ID Palmer Member ID Guarantor Name 06/14/2024 1 [place] [employer] Brigitte Cordoban [id number] Brigitte Diez Gordon 06/14/2024 2 [place] [id number] Brigitte Jeanvon [id number] Brigitte Diez Gordon Notes Date Note Type Note Provider Name and Address Organization Details Recorded Time 06/14/2024 text/html left epistaxis3 times in past few weeks, lasting 3 minutespmhx - sjogrens PV 08/10/23 Aimee - right nasal cautery YARIEL BERGER MD [address] [place] [address], [phone], [place] - [facility] 06/14/2024 14:10:50 OBGyn Episode No OBEpisode recorded.
--- OUTSIDE RECORDS SUMMARY | 2024-12-26 15:43 | XMS_ITS ---
Author Organization [facility] Address [address] [address] Care Team Providers Care Offshoring Manager Name Role Phone WESLEY SCRUGGS M.D., ZAKI Primary Care Provid er Evita Giordano Unavailable [phone] Allergies Allergen (clinical drug ingredient) Drug/Non Drug Allergy documented on EMR Reaction Allergy Type Onset Date Status TYLOX Nausea/Vomiting/ Diarrhea Drug Allergy Active REASON FOR VISIT Annual MANAGER SEMICONDUCTOR Physical, Annual MANAGER SEMICONDUCTOR Physical 60-85+ Medications Medication SIG (Take, Route, Frequency, Duration) Notes Start Date End Date Status Myrbetriq 50 MG 1 tablet Orally Once a day Active Gabapentin 300 MG TAKE 1 CAPSULE BY MOUTH THREE TIMES A DAY Oral for 30 Active Eliquis 5 MG Oral for 90 Activ e Claritin 10 MG 1 tablet Orally Once a day for 30 day(s) As needed 06/27/2023 Active traZODone HCl 50 MG Oral for 90 Active Multivitamins 1 ORAL daily for -3 [facility] 02/21/2012 Active Glucosamine Chondroitin Adv 1500/1200 1 ORAL twice daily for -3 [facility] 02/21/2012 Active NexIUM 40 MG 1 Orally Twice a day [facility] 02/21/2012 Active Restasis 0.05% CHRISTIANO Ophthalmic twice daily for -3 [facility] 02/21/2012 Active Calcium-Carb 600 + D 1 ORAL daily for - [facility] 2 Active Pilocarpine HCl Acti ve amLODIPine Besylate 5 MG 1 tablet Orally Once a day for 30 day(s) Active Atorvastatin Calcium 40 MG Oral for 90 Active CeleBREX 200MG 1 ORAL daily for -3 [facility] 02/21/2012 Not-Taking Social History Tobacco Use: [...] Problem Status W/U Status Risk Notes Problem Age-related osteoporosis (089419789) Age-related osteoporosis without current pathological fracture (M81.0) Active confirmed Vital Signs Temperature 98.1 degrees Fahrenheit 06/27/20 23 Blood pressure systolic 114 mm Hg 06/27/20 23 Blood pressure diastolic 60 mm Hg 023 Height 59.5 in 06/27/2023 Weight 128 lbs 06/27/2023 BMI 25.42 kg/m2 06/27/2023 Encounters Encounter Location Date Provider Diagnosis [address] [address] 06/27/2023 Evita Willams Encounter for gynecological examination (general) (routine) without abnormal findings Z01.419 ; Encounter for screening mammogram for malignant neoplasm of breast Z12.31 ; Age-related osteoporosis without current pathological fracture M81.0 ; Postmenopausal atrophic vaginitis N95.2 and Overactive bladder N32.81 Assessments Encounter Date Diagnosis (ICD Code) Assessment Notes Treatment Notes Treatment Clinical Notes Section Notes 06/27/2023 Encounter for gynecological examination (general) (routine) without abnormal findings (ICD-10 - Z01.419) NO MORE PAP TESTS. 06/27/2023 Encounter for screening mammogram for malignant neoplasm of breast (ICD-10 - Z12.31) REGULAR MAMMOGRAMS AND SBE'S WERE RECOMMENDED. 06/27/2023 Age-related osteoporosis without current pathological fracture (ICD-10 - M81.0) DISCUSSED OSTEOPOROSIS AND ITS IMPACT ON HER HEALTH. ADEQUATE CALCIUM AND VIT D. WEIGHT BEARING EXERCISES. CONTINUE CARE WITH DR CAR SCRUGGS. REPEAT BMD IN 2024. 06/27/2023 Postmenopausal atrophic vaginitis (ICD-10 - N95.2) DISCUSSED FINDINGS, DX AND TX OPTIONS. PAT IS ASYMPTOMATIC. 06/27/2023 Overactive bladder (ICD-10 - N32.81) CONTINUE CARE WITH [facility]. Plan Of Treatment Treatment Notes Assessment Notes Encounter for gynecological examination (general) (routine) without abnormal findings NO MORE PAP TESTS. Encounter for screening mamm ogram for malignant neoplasm of breast REGULAR MAMMOGRAMS AND SBE'S WERE RECOMMENDED. Age-related osteoporosis wit hout current pathological fracture DISCUSSED OSTEOPOROSIS AND ITS IMPACT ON HER HEALTH. ADEQUATE CALCIUM AND VIT D. WEIGHT BEARING EXERCISES. CONTINUE CARE WITH DR CAR SCRUGGS. REPEAT BMD IN 2024. Postmenopausal atrophic vaginitis DISCUSSED FINDINGS, DX AND TX OPTIONS. PAT IS ASYMPTOMATIC. Overactive bladder CONTINUE CARE WITH P [facility]. Pending Test Test Name Order Date MAMMOGRAM, SCREENING 06/27/2023 MM Digital Mammo Screening 06/27/2023 Next Appt Details Follow Up: 1 Year, Reason: Progress Notes * LYNETTE PAL ADOB: [birth year] (78 yo F)Acc No.[id number]:06/27/2023 PROGRESS NOTES Patient:?LYNETTE PAL A Appointment Provider:?Evita levin M.D. :1945???Age:78 Y???Sex:Female D ate:06/27/2023 Address:[address] [place] [address] Pcp:ZAKI SCRUGGS M.D. Subjective: * Chief Complaints: * ???Annual MANAGER SEMICONDUCTOR PhysicalAnnual MANAGER SEMICONDUCTOR Physical 60-85+ * HPI: ???New/Follow-up Patient Consult:? PAT ENTERED MENOPAUSE IN HER 50'S. SHE IS BUT NOT SEXUALLY ACTIVE. ?SHE IS KNOWN TO HAVE OVERACTIVE BLADDER AND IS ON MYRBETRIQ, GIVEN BY [facility]. SHE IS DOING WELL. ?SHE UNDERWENT RIGHT SHOULDER REPLACEMENT IN 2020. SHE HAD A CT SCAN IN 2019 SHOWING KIDNEY STONES. ?SHE SUFFERED A STROKE THIS OCT 2022 BUT HAS RECOVERED FULLY. SHE IS ON ELIQUIS. ?HER LAST MAMMOGRAM DONE IN OCT 2022 SHOWED BREASTS ARE NOT DENSE. REPEAT LEFT MAMMOGRAM WAS NORMAL. ?HER LAST PAP TEST IN 2017 WAS NEGATIVE AND HPV NEGATIVE. ?HER LAST BMD IN 2022 SHOWED MARKED DECREASE IN T-SCORES FROM -1.4 IN 2020 TO -2.3 IN 2022. SHE IS SEEING DR CAR SCRUGGS AND IS ON RECLAST. ?SHE HAD A COLONOSCOPY DONE IN 2018. ?PFIZER X 2. ???Annual:? Patient presents for annual exam, ages 60-85, postmenopausal. ?General Health Maintenance:?Current breast complaints:?no breast pain, mass, discharge, or skin changes ?Urinary problems:?patient reports no urinary health problems or bowel health problems ?Calcium intake:?takes adequate calcium via diet and supplementation ?Significant MANAGER SEMICONDUCTOR problems:?no significant signal supervisor symptoms or problems * ROS:?general:?no?chest pain.?no?palpitations.?no?headache.?no?cough.?no?shortness of breath.?no?fever.?no?unexplained weight loss.?no?nausea/vomiting.?no?change in bowel movements.?no blood in stool.?no?genitourinary complaints.?no?skin complaints.? * Medical History:? 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 Control:?None.?Menopause: ?Began at age: ?52 ???Colonoscopy?2015, 04/2011.?Bone Density:?04/27/23, 10/11/19, 2017.? * OB History:?Total pregnancies?2.?Total living children?2.?NVD?2.? * Surgical History:?Colonoscop y Left Knee Surgery/Arthroscopic Tonsillectomy Felix's procedure on Nose, Basal cell Left Knee Replacement 04/26/20Reverse Shoulder Replacement 02/22/21 * Hospitalization/Major Diagno stic Procedure:?2 Vaginal Deliveries See Surgical Hx * Family History:?Mother: juanjose moscoso, Colon Cancer.?Father: 85 yrs, Coronary Artery Disease, Kidney Failure.?Maternal Grand Mother: Basal Cell Cancer.?Maternal Grand Father: Bladder Cancer.? * Social History:?Tobacco Use:?Tobacco Use/Smoking?Are you a?former smoker ?How long has it been since you last smoked??> 10 years ???Sexual History:?Sexual History?Had sex in the past 12 months (vaginal, oral, or anal)?: No.?Details of Sexual History?Are you sexually active??No ???Drugs/Alcohol:?Drugs?Have you used drugs other than those for medical reasons in the past 12 months??No ?Alcohol Screen (Audit-C)?Did you have a drink containing alcohol in the past year??Yes ?How often did you have a drink containing alcohol in the past year??2 to 4 times a month (2 points) ?How many drinks did you have on a typical day when you were drinking in the past year??1 or 2 drinks (0 point) ?Points?2 ?Interpretation?Negative ???Miscellaneous:?Children: yes, 2. ?no Domestic violence. ?Exercise: yes, walking. ?Home smoke detector use: yes. ?Living with: spouse. ?Marital status: . ?Natural support system: yes. ?Occupation: Retired. ?no Sexual abuse. ?no Sexually active, monogamous relationship. ?no Verbal abuse. * Medications:?TakingamLODIPin e Besylate 5 MG Tablet 1 tablet Orally Once a dayPilocarpine HCl Atorvastatin Calcium 40 MG Tablet Oral Calcium-Carb 600 + D 30 1 ORAL daily, Notes: Lukasz-MJGlucosamine Chondroitin Adv 1500/1200 1 ORAL twice daily, Notes: Lukasz-MJMultivitamins 30 1 ORAL daily, Notes: Lukasz-MJNexIUM 40 MG 30 1 Orally Twice a day, Notes: Lukasz-MJRestasis 0.05% 32 CHRISTIANO Ophthalmic twice daily, Notes: Lukasz-MJMyrbetriq 50 MG Tablet Extended Release 24 Hour 1 tablet Orally Once a dayEliquis 5 MG Tablet Oral Gabapentin 300 MG Capsule TAKE 1 CAPSULE BY MOUTH THREE TIMES A DAY Oral traZODone HCl 50 MG Tablet Oral Claritin 10 MG Tablet 1 tablet Orally Once a day, Notes: As neededTaking amLODIPine Besylate 5 MG Tablet 1 tablet Orally Once a dayTaking Pilocarpine HCl Taking Atorvastatin Calcium 40 MG Tablet Oral Taking Calcium-Carb 600 + D 30 1 ORAL daily, Notes: Lukasz-MJTaking Glucosamine Chondroitin Adv 1500/1200 1 ORAL twice daily, Notes: Lukasz-MJTaking Multivitamins 30 1 ORAL daily, Notes: Lukasz-MJTaking NexIUM 40 MG 30 1 Orally Twice a day, Notes: Lukasz-MJTaking Restasis 0.05% 32 CHRISTIANO Ophthalmic twice daily, Notes: Lukasz-MJTaking Myrbetriq 50 MG Tablet Extended Release 24 Hour 1 tablet Orally Once a dayTaking Eliquis 5 MG Tablet Oral Taking Gabapentin 300 MG Capsule TAKE 1 CAPSULE BY MOUTH THREE TIMES A DAY Oral Taking traZODone HCl 50 MG Tablet Oral Taking Claritin 10 MG Tablet 1 tablet Orally Once a day, Notes: As neededNot-TakingCeleBREX 200MG 30 1 ORAL daily, Notes: Lukasz-Medication List reviewed and reconciled with the patientNot-Taking CeleBREX 200MG 30 1 ORAL daily, Notes: Lukasz-MJMedication List reviewed and reconciled with the patient * Allergies:?TYLOX: Nausea/Vom iting/Diarrhea - Allergyno[Allergies Verified] Objective: * Vitals:?Ht: 59.5 in, Wt:128 lbs, BMI:25.42 Index, BP:114/60 mm Hg, Temp:98.1 F. * Examination: ???General Exam: ?CONSTITUTIONAL:?General Appearance:?alert, in no acute distress, normal, well nourished ?NECK/THYROID:?Inspection/Palpation:?normal ?Thyroid:?normal size and shape ?RESPIRATORY:?Auscultation: clear to auscultation bilaterally, Respiratory Effort: normal.?CARDIOVASCULAR:?Auscultation: regular rate and rhythm.?BREAST, Right:?Inspection/Palpation:?no discharge, no masses present, no nipple retraction, no skin changes, no skin dimpling, no tenderness, no lymphadenopathy, no axillary mass, no axillary tenderness ?BREAST, Left:?Inspection/Palpation:?no discharge, no masses present, no nipple retraction, no skin changes, no skin dimpling, no tenderness, no lymphadenopathy, no axillary mass, no axillary tenderness ?GASTROINTESTINAL:?Abdomen:?no masses, nontender, nondistended ?Liver and Spleen:?normal ?Hernias:?no hernias present, no inguinal adenopathy ?MUSCULOSKELETAL:?Inspection/Palpation:?no clubbing, cyanosis, or edema ?SKIN:?Skin:?normal ?NEURO/PSYCH:?Orientation:?time , place, person ?Mood/Affect:?normal?Genitourinary: ?EXTERNAL GENITALIA:?External Genitalia:?normal, no lesions ?VAGINA:?Vagina:?normal appearance, no abnormal discharge, no lesions ?BLADDER:?Bladder:?no mass, nontender ?URETHRA:?Urethra:?no erythema or lesions present ?CERVIX:?Cervix:?no lesions, nontender ?UTERUS:?Uterus:?nontender, normal contour, normal mobility, normal size ?ADNEXA:?Adnexa:?no masses, no tenderness ?ANUS AND PERINEUM:?Anus/Perineum:?visually normal??? Assessment: * Assessment: 1.?Encounter for gynecologic al examination (general) (routine) without abnormal findings - Z01.419?2.?Encounter for screening mammogram for malignant neoplasm of breast - Z12.31?3.?Age-related osteoporosis without current pathological fracture - M81.0?4.?Postmenopausal atrophic vaginitis - N95.2?5.?Overactive bladder - N32.81? Plan: * Treatment: 2.?Encounter for screening m ammogram for malignant neoplasm of breast?Imaging: MM Digital Mammo Screening Notes: REGULAR MAMMOGRAMS AND SBE'S WERE RECOMMENDED.?? 3.?Age-related osteoporosis without current pathological fracture? Notes: DISCUSSED OSTEOPOROSIS AND ITS IMPACT ON HER HEALTH. ADEQUATE CALCIUM AND VIT D. WEIGHT BEARING EXERCISES. CONTINUE CARE WITH DR CAR SCRUGGS. REPEAT BMD IN 2024.?? 4.?Postmenopausal atrophic v aginitis? Notes: DISCUSSED FINDINGS, DX AND TX OPTIONS. PAT IS ASYMPTOMATIC.?? 5.?Overactive bladder? Notes: CONTINUE CARE WITH [facility]. ?? * Imaging:? * ?Imaging: MAMMOGRAM, SCR EENING * Procedure Codes:? * Preventive Medicine:? ??YOUR PREVENTIVE WELLNESS PLAN:?Osteoporosis prevention?Calcium, D, strength training.?Breast Cancer Screening (Mammogram):?annually.?Cervical Cancer Screening (Pap Smear):?q 3 years with HPV screen.?Colorectal Cancer Screening:?q 10 years.? * Follow Up:?1 Year * Images: Billing Information: * Visit Code:? 24992 Preventive Care Est Pt. Age 65 and over. * Procedure Codes:? * Sign off status: Completed true * Appointment Provider:?Evita Willams M.D. Date:?06/27/2023 Generated for Juan douglas/Pollo/Aleciaitting on:?12/26/2024 03:42 PM EDT History and Physical Notes * HPI (History of Present Illness) Category Sub-Category Detail Notes Category Not es New/Follow-up Patient Consult PAT ENTERED MENOPAUSE IN HER 50'S. SHE IS BUT NOT SEXUALLY ACTIVE. SHE IS KNOWN TO HAVE OVERACTIVE BLADDER AND IS ON MYRBETRIQ, GIVEN BY [facility]. SHE IS DOING WELL. SHE UNDERWENT RIGHT SHOULDER REPLACEMENT IN 2020. SHE HAD A CT SCAN IN 2018 SHOWING KIDNEY STONES. SHE SUFFERED A STROKE THIS OCT 2022 BUT HAS RECOVERED FULLY. SHE IS ON ELIQUIS. HER LAST MAMMOGRAM DONE IN OCT 2022 SHOWED BREASTS ARE NOT DENSE. REPEAT LEFT MAMMOGRAM WAS NORMAL. HER LAST PAP TEST IN 2017 WAS NEGATIVE AND HPV NEGATIVE. HER LAST BMD IN 2022 SHOWED MARKED DECREASE IN T-SCORES FROM -1.4 IN 2019 TO -2.3 IN 2022. SHE IS SEEING DR CAR SCRUGGS AND IS ON RECLAST. SHE HAD A COLONOSCOPY DONE IN 2018. PFIZER X 2. Annual General Health Maintenance: Current breast complaints:: no breast pain, mass, discharge, or skin changes Urinary problems:: patient r eports no urinary health problems or bowel health problems Calcium intake:: takes adequ ate calcium via diet and supplementation Significant MANAGER SEMICONDUCTOR problems:: n o significant signal supervisor symptoms or problems Examination Category Sub-Category Detail Notes Category Not es General Exam CONSTITUTIONAL: General Appearan ce:: alert, in no acute distress, normal, well nourished NECK/THYROID: Thyroid:: normal size and shape Inspection/Palpation:: normal RESPIRATORY: Auscultation: clear to auscultation bilaterally, Respiratory Effort: normal CARDIOVASCULAR: Auscultation: regula r rate and rhythm GASTROINTESTINAL: Hernias:: no hernias present, no inguinal adenopathy Liver and Spleen:: normal Abdomen:: no masses, nontender, nondiste nded MUSCULOSKELETAL: Inspection/Palpation:: no clubb ing, cyanosis, or edema SKIN: Skin:: normal NEURO/PSYCH: Mood/Affect:: normal Orientation:: time , place, person BREAST, Right: Inspection/Palpation :: no discharge, no masses present, no nipple retraction, no skin changes, no skin dimpling, no tenderness, no lymphadenopathy, no axillary mass, no axillary tenderness BREAST, Left: Inspection/Palpation :: no discharge, no masses present, no nipple retraction, no skin changes, no skin dimpling, no tenderness, no lymphadenopathy, no axillary mass, no axillary tenderness Genitourinary EXTERNAL GENITALIA: External Genitalia:: nor mal, no lesions VAGINA: Vagina:: normal appearance, no a bnormal discharge, no lesions BLADDER: Bladder:: no mass, nontender URETHRA: Urethra:: no erythema or lesions present CERVIX: Cervix:: no lesions, nontender UTERUS: Uterus:: nontender, normal conto ur, normal mobility, normal size ADNEXA: Adnexa:: no masses, no tendernes s ANUS AND PERINEUM: Anus/Perineum:: visually norm al
--- OUTSIDE RECORDS SUMMARY | 2024-12-26 15:43 | XMS_ITS | Clinical Summary ---
Author Organization [facility] Address [address] [place] [address] Care Team Providers Care Web Operations Manager Name Role Phone Pcp, No Primary Care Provider Unavailabl e Allergies No known active allergies Medications Myrbetriq 50 MG ER tablet Take 50 mg by mouth. 4 Active Eliquis 2.5 MG tablet 1 tablet by Mouth/Oral Cavity route every 12 hours. 4 Active traZODone (DESYREL) 100 MG tablet Take 100 mg by mouth nightly. 4 Active Jardiance 10 MG tablet Take 1 tablet by mouth every morning. 4 Active Restasis 0.05 % ophthalmic emulsion INSTILL 1 DROP IN AFFECTED EYE (BOTH EYES) TWICE DAILY 4 Active metoPROLOL SUCCINATE (TOPROL-XL) 25 MG 24 hr tablet Take 25 mg by mouth. 5 Active spironolactone (ALDACTONE) 25 MG tablet Take 25 mg by mouth. 4 Active NexIUM 40 MG capsule Take 40 mg by mouth 2 times a day. 4 Active atorvastatin (LIPITOR) 40 MG tablet Take 40 mg by mouth daily. Active erythromycin (ILOTYCIN) ophthalmic ointmentIndication s:Acute bacterial conjunctivitis of right eye Administer 1 application(s) to the right eye 4 (four) times a day. 3.5 g 5 Active Active Problems No known active problems Social History Tobacco Use Types Packs/Day Years Used Date Smoking Tobacco: Never Smokeless Tobacco: Never Comments Unknown Sex and Gender Information Value Date Recorded Sex Assigned at Not on file Legal Sex Female 12:12 PM EST Gender Identity Not on file Sexual Orientation Not on file Last Filed Vital Signs Vital Sign Reading Time Taken Comments Blood Pressure 118/72 09/24/2024 12:38 PM EST Pulse 71 09/24/2024 12:38 PM EST Temperature 36.7 ??C (98.1 ??F) 09/24/2024 12:[address] Respiratory Rate 16 09/24/2024 12:38 PM EST Oxygen Saturation 100% 09/24/2024 12:38 PM EST Inhaled Oxygen Concentration - - Weight - - Height - - Body Mass Index - - Plan of Treatment Health Maintenance Due Date Last Done Comments DTaP/Tdap/Td Vaccines (1 - Tdap) 02/18/1963 Pneumococcal Vaccines 50+ (1 of 1 - PCV) 02/18/1994 Zoster (Shingles) Vaccine (1 of 2) 02/18/1994 DXA Bone Density (Females,Ag es 65 and older) 02/18/2009 RSV Vaccine 60 years and old er and Patients (1 - 1-dose 75+ series) 02/18/2019 Influenza Vaccine 04/12/2024 COVID-19 Vaccine (2023-2 5 season) 2024 Hepatitis B Vaccines Aged Out No long er eligible based on patient's age to complete this topic Insurance MEDICARE PART A & B [facility] Care Teams Web Operations Manager Relationship Specialty Start Date End Date Pcp, No PCP - General General Medicine 09/24/24
--- OUTSIDE RECORDS SUMMARY | 2024-12-26 15:43 | XMS_ITS | Clinical Summary ---
Author Organization [facility] Address [address] [place] [address] Phone Care Team Providers Care Bottler Name Role Phone Yenni Jerez Primary Care Provider [phone] Medications ascorbic acid (VITAMIN C) 500 mg chewable tablet Chew by mouth. 4 Active calcium carbonate-vitam in D (Calcium 600 + D,3,) 600 mg-10 mcg (400 unit) per tablet Take by mouth. Activ e multivitamin with minerals (MULTIPLE VITAMIN-MINERAL S ORAL) Take by mouth. Activ e acetaminophen (TYLENOL) 500 mg tablet Take by mouth. 2 Active amoxicillin (AMOXIL) 500 mg capsule Take by mouth. 4 Active apixaban (ELIQUIS) 2.5 mg tablet 4 Active atorvastatin (LIPITOR) 40 mg tablet 2 Active clotrimazole (MYCELEX) 10 mg mai DISSOLVE 1 MAI BY MOUTH FOUR TIMES A DAY FOR 10 DAYS 4 Active colchicine (COLCRYS) 0.6 mg tablet Take 1 tablet (0.6 mg total) by mouth daily. 4 Active cycloSPORINE (RESTASIS) 0.05 % ophthalmic emulsion Apply to eye. 0 Active empagliflozin (Jardiance) 10 mg tablet TAKE 1 TABLET BY MOUTH EVERY DAY IN THE MORNING 4 Active esomeprazole (NexIUM) [address] capsule Take by mouth. Acti ve ferrous sulfate 325 mg (65 mg elemental iron) tablet Take by mouth. 4 Active fluoride, sodium, (Denta 5000 Plus) 1.1 % cream BRUSH TWICE DAILY WITH TOOTHPASTE THEN EXPECTORATE. DO NOT RINSE. 4 Active furosemide (LASIX) 20 mg tablet Take by mouth. 4 Active gabapentin (NEURONTIN) 300 mg capsule Take by mouth. Acti ve metoprolol succinate (TOPROL-XL) 25 mg 24 hr tablet Take by mouth. 4 Active metoprolol tartrate (LOPRESSOR) 50 mg tablet 4 Active mirabegron (MYRBETRIQ) 50 mg tablet extended release 24 hr 24 hr tablet Take by mouth. 1 Active spironolactone (ALDACTONE) 25 mg tablet Take by mouth. 4 Active traMADoL (ULTRAM) 50 mg tablet TAKE 1 TABLET BY MOUTH EVERY 6 HOURS NEEDED FOR PAIN. PATIENT MAY FILL FOR LESSER QUANTITY 4 Active traZODone (DESYREL) 100 mg tablet Take by mouth. 3 Active Active Problems Problem Noted Date Diagnosed Date Draining postoperative wound 06/21/2024 Surgical History Surgery Date Site/Laterality Comments JOINT REPLACEMENT PROCEDURE:JOINT REPLACEMENT;COMMENT:Left TKA 2019 JOINT REPLACEMENT PROCEDURE:JOINT REPLACEMENT;COMMENT:Right TKA 2023 JOINT REPLACEMENT PROCEDURE:JOINT REPLACEMENT;COMMENT:Right shoulder replacement 2021 JOINT REPLACEMENT PROCEDURE:JOINT REPLACEMENT;COMMENT:Left shoulder repair 2022 Medical History Medical History Date Comments Arthritis DX:Arthritis Irregular heart rhythm DX:Irregu lar heart rhythm Osteoporosis DX:Osteoporosis Stroke ([facility]/HCC V24, CMS/[facility] V28) DX:Stroke (HCC) Sjogren's disease ([facility] V24) DX:Sjogren's disease (HCC) Family History Medical History Relation Name Comments Arthritis Father Coronary artery disease Father Hypertension Father Irregular heart beat Father Kidney disease Father Osteoporosis Father Relation Name Status Comments Father Social History Tobacco Use Types Packs/Day Years Used Date Smoking Tobacco: Former Smokeless Tobacco: Former Tobacco Cessation:Counseling Given: Not Answered Alcohol Use Standard Drinks/Week Comments Yes 0 (1 standard drink = 0.6 oz pur e alcohol) Comments Unknown Sex and Gender Information Value Date Recorded Sex Assigned at Not on file Legal Sex Female 10:40 AM EST Gender Identity Not on file Sexual Orientation Not on file Obstetrics History Last Filed Vital Signs Vital Sign Reading Time Taken Comments Blood Pressure 120/62 08/23/2024 1:11 PM EST Pulse 76 08/23/2024 1:11 PM EST Temperature - - Respiratory Rate - - Oxygen Saturation - - Inhaled Oxygen Concentration - - Weight 53.1 kg (117 lb) 08/23/2024 1:11 PM EST Height 149.9 cm (4' 11 ) 08/23/2024 1:11 PM EST Body Mass Index 23.63 08/23/2024 1:11 PM EST Plan of Treatment Health Maintenance Due Date Last Done Comments Pneumococcal Vaccine: 50+ Years (1 of 1 - PCV) 02/18/1994 Zoster Vaccines (2 of 3) 12/27/2007 11/01/2007 RSV Immunization Adult Patients (1 - 1-dose 75+ series) 02/18/2019 DTaP,Tdap,and Td Vaccines (2 - Td or Tdap) 03/16/2021 03/16/2011 Cholesterol Screening (Lipid Panel) 08/22/2022 Depression Screening 08/22/2022 Falls Risk Assessment 08/22/2022 Medicare Annual Wellness Visit 08/22/2022 Osteoporosis Screening (Bone Density Screening) 08/22/2022 Social Influencers of Health Screening 08/22/2022 Hypertension/CHF/CAD Annual BMP Blood Test 08/28/2022 COVID-19 Vaccine ( season) 2024 Influenza Vaccine (Season Ended) 2025 06/16/2022, 06/14/2021, 05/29/2020, Additional history exists HIB Vaccines Aged Out No longer eligi ble based on patient's age to complete this topic HPV Vaccines Aged Out No longer eligi ble based on patient's age to complete this topic Hepatitis A Vaccines Aged Out No long er eligible based on patient's age to complete this topic Hepatitis B Vaccines Aged Out No long er eligible based on patient's age to complete this topic IPV Vaccines Aged Out No longer eligi ble based on patient's age to complete this topic MMR Vaccines Aged Out No longer eligi ble based on patient's age to complete this topic Meningococcal ACWY Vaccine Aged Out N o longer eligible based on patient's age to complete this topic Meningococcal B Vaccine Aged Out No l onger eligible based on patient's age to complete this topic RSV Immunization Patients Under 20 months Aged Out No longer eligible based on patient's age to complete this topic Varicella Vaccines Aged Out No longer eligible based on patient's age to complete this topic Insurance MEDICARE [facility] Advance Directives Documents on File Type Date Recorded Patient Barber Instructor Expl anation Health Care Decision (hx) 10/31/2021 AD KELLY DIRECTIVE Health Care Decision (hx) 10/31/2021 AD KELLY DIRECTIVE Health Care Decision (hx) 10/31/2021 AD KELLY DIRECTIVE Health Care Decision (hx) 10/31/2021 AD KELLY DIRECTIVE Health Care Decision (hx) 10/31/2021 AD KELLY DIRECTIVE Health Care Decision (hx) 10/31/2021 AD KELLY DIRECTIVE Care Teams Bottler Relationship Specialty Start Date End Date Yenni Jerez PA [address] [place] [address] PCP - General 06/05/24
--- OUTSIDE RECORDS SUMMARY | 2024-12-26 15:43 | XMS_ITS | Clinical Summary ---
Author Organization [facility] Address [address] [place] [address] Care Team Providers Care Security Site Supervisor Name Role Phone Unavailable Primary Care Provider Unavailabl e Source Comments PLEASE NOTE, if this patient is a minor, it may be UNLAWFUL to discuss sensitive information that is contained in these records (such as FAMILY PLANNING, MENTAL HEALTH or SUBSTANCE ABUSE) with the minor patient's parent or other person without the patient's specific authorization.[facility] Medications amLODIPine (NORVASC) 5 mg tablet Take 5 mg by mouth once daily Active pilocarpine HCl (SALAGEN) 5 mg tablet Take 5 mg by mouth 3 (three) times daily Active atorvastatin (LIPITOR) 40 mg tablet Take 40 mg by mouth once daily Active esomeprazole magnesium (NEXIUM) [address] capsule Take 40 mg by mouth every morning before breakfast Active mirabegron 50 mg Tb24 Take by mouth Active aspirin 81 mg cap Take by mouth Active cycloSPORINE 0.05 % drop Apply to eye Activ e calcium carbonate/vitami n D3 (CALCIUM 500 + D ORAL) Take by mouth Ac tive multivitamin-min erals-lutein (CEROVITE SENIOR) tablet Take 1 Tablet by mouth once daily Active glucosamine HCl 1,500 mg tab Take by mouth Act tyrone loratadine (CLARITIN) 10 mg tablet Take 10 mg by mouth once daily as needed Active traZODone (DESYREL) 100 mg tablet Take by mouth nightly at bedtime Active apixaban (ELIQUIS) 5 mg tab Take by mouth Active acetaminophen (TYLENOL) 500 mg tabletIndication s:Tooth pain Take 1 Tablet by mouth every 6 (six) hours as needed for pain 20 Tablet 2 Active triamcinolone (KENALOG) 0.1 % pasteIndications :Aphthous ulcer Place in mouth 2 (two) times daily 5 g 1 3 Active amoxicillin (AMOXIL) 500 mg capsuleIndicatio ns:antibiotic prophylaxis Take four tables 1 hour before dental appointment Indications: antibiotic prophylaxis 16 Capsule 4 Active fluoride, sodium, (SF 5000 PLUS) 1.1 % creaIndications: Caries [place] twice daily with toothpaste then expectorate. Do not rinse. 51 g 4 4 Active Active Problems Problem Noted Date Diagnosed Date Paroxysmal atrial fibrillation ([facility]) 024 Encounters Date Type Department Care Team Description 12/12/2024 2:20 PM EDT Office Visit [facility] [address] [place] [address] Lesli Ramsey RHD Encounter for dental examination (Primary Dx); Retained tooth root; Nonrestorable carious tooth from Last 3 Months Social History Tobacco Use Types Packs/Day Years Used Date Smoking Tobacco: Former Cigarettes Smokeless Tobacco: Never Tobacco Cessation:Counseling Given: Not Answered Social Connections Answer Date Recorded Connectedness 0 06/02/2024 Financial Resource Strain Answer Date R ecorded Financial Resource Strain 0 2019 Stress Answer Date Recorded Stress 0 12/07/2019 Physical Activity Answer Date Recorded Physical Activity 0 12/07/2019 Food Insecurity Answer Date Recorded Food 0 06/07/2024 Transportation Needs Answer Date Record ed Transportation 0 12/07/2019 Housing Stability Answer Date Recorded Housing 0 12/07/2019 Safety and Environment Answer Date Jonas rded Safety 0 12/07/2019 Utilities Answer Date Recorded Utilities 0 12/07/2019 Employment Answer Date Recorded Stress 0 06/02/2024 Comments Unknown Sex and Gender Information Value Date Recorded Sex Assigned at Not on file Legal Sex Female 8:57 AM PDT Gender Identity Not on file Sexual Orientation Not on file Last Filed Vital Signs Vital Sign Reading Time Taken Comments Blood Pressure 116/64 07/09/2024 11:04 AM EDT Pulse 74 07/09/2024 11:04 AM EDT Temperature - - Respiratory Rate - - Oxygen Saturation - - Inhaled Oxygen Concentration - - Weight - - Height - - Body Mass Index - - Plan of Treatment Upcoming Encounters Date Type Department Care Team (Late st Contact Info) Description 06/17/2025 2:20 PM EDT Office Visit [facility] [address] [place] [phone] Lesli Ramsey, RHD [address] [place] [address] Health Maintenance Due Date Last Done Comments Imm-Pneumococcal 65+ (1 of 1 - PCV) 02/18/1994 Imm-Zoster, Recombinant (2 of 3) 12/27/2007 11/01/19 08 Bone Density Screening 02/18/2009 Falls Prevention 02/18/2009 Imm-DTaP/Tdap/Td (2 - Td or Tdap) 03/16/2021 011 [id number] ( - season) 2024 Imm-Influenza (#1) 2024 Alcohol and Drug Screen 09/12/2024 Depression Annual Screen 09/12/2024 Hypertension Screening (#1) 07/09/2025 Tobacco Screening 12/12/2025 12/12/2024 Dental BW 12/14/2025 12/12/2024, 10/14, 12/09/2022, Additional history exists Dental Examination 12/14/2025 12/12/2024, 0 05/15/2024, 11/03/2023, Additional history exists Dental Perio Charting 12/14/2025 12/12/2024, 023 Dental Prophy 12/14/2025 12/12/2024, 09/0 11/2023, 11/03/2023, Additional history exists Dental FMX/Pano 10/29/2027 10/27/2022 Procedures Procedure Name Priority Date/Time Associated Diagnosis Comments PERIODIC ORAL EVALUATION ESTABLISHED PATIENT Routine 12/12/2024 2:20 PM EDT Encounter for dental examination DENTAL CASE MANAGEMENT - MOTIVATIONAL INTV Routine 12/12/2024 2:20 PM EDT Encounter for dental examination PROPHYLAXIS - ADULT Routine 12/12/2024 2 :20 PM EDT Encounter for dental examination COMP PERIODONTAL EVALUATION - NEW/EST PATIENT Routine 12/12/2024 2:20 PM EDT Encounter for dental examination BITEWINGS - FOUR RADIOGRAPHIC IMAGES Routine 12/12/2024 2:20 PM EDT Retained tooth root Encounter for dental examination CARIES RISK ASSESSMENT & DOC FINDING HIGH RISK Routine 12/12/2024 2:20 PM EDT Encounter for dental examination NUTRITIONAL COUNSELING CONTROL OF DENTAL DISEASE Routine 12/12/2024 2:20 PM EDT Encounter for dental examination ORAL HYGIENE INSTRUCTIONS Routine 12/12/2024 2:20 PM EDT Encounter for dental examination ORAL CANCER SCREENING Routine 12/12/2024 2:20 PM EDT Encounter for dental examination CASE PRESENTATION SUBS DTL & EXTENSIVE TX PLN Routine 12/12/2024 2:20 PM EDT Encounter for dental examination PANORAMIC RADIOGRAPHIC IMAGE Routine 10/27/2022 10:00 AM EST Caries of pulp from Last 3 Months or Most Recently Relevant to Health Maintenance
== END 2024-12-26 13:49 | disposition home or self-care (01) ==
LOC: HO.HOS 13:15
PROVIDERS: Visit Provider Orthopaedic Surgery
DX: M25.561 Pain in right knee (principal); Z96.651 Presence of right artificial knee joint
CPT/HCPCS: 99213; G2211

== ENCOUNTER → 2024-12-26 13:22 | Outpatient (BNV) | payer MEDICARE, SELFPAY | PROVIDERS: Visit Provider Radiology Diagnostic Radiology | DX: M25.561 Pain in right knee (principal) | CPT/HCPCS: 73562 ==

== ENCOUNTER 2025-01-11 11:02 | Outpatient (AMB) | payer MEDICARE, SELFPAY ==
--- NOTE | 2025-01-11 11:09 | MHC.OFFVIS ---
Vital Signs 01/11/25 11:13 Height 4 ft 1 in Weight 124 lb BMI 36.3 BP 124/57 L Blood Pressure Location Lt brachial Position Sitting Respiration 16 Pulse 71 Pulse Source Pulse Oximeter Intake Visit Reasons: Pain in right knee Vending Machine Operator Required: No Allergies oxycodone [From Tylox] Adverse Reaction (Intermediate, Verified 01/11/25 11:14) Nausea and Vomiting ( after childbirth-age 19)-has had since Medication List - Last Reconciled 01/11/25 by Rosa Gamboa LPN acetaminophen 650 mg (2 x 325 mg) PO Q6H PRN 30 days apixaban (Eliquis) 2.5 mg PO BID ascorbic acid (vitamin C) 500 mg PO DAILY atorvastatin 40 mg PO DAILY calcium carbonate-vitamin D3 600 mg-5 mcg (200 unit) 1 tab PO BEDTIME cyclosporine 0.05% (Restasis) 1 drp ophthalmic (eye) BID docusate sodium 100 mg PO BID empagliflozin (Jardiance) 20 mg PO DAILY esomeprazole magnesium (Nexium) 40 mg PO BID ferrous sulfate 325 mg PO DAILY furosemide 20 mg PO DAILY glucos sul 0URj-zmg-lmntb-C-Mn 550-30-1 mg (Glucosamine Chondroitin) 1 cap PO BID loratadine (Claritin) 10 mg PO DAILY PRN metoprolol succinate ER 25 mg PO DAILY mirabegron ER (Myrbetriq) 50 mg PO BEDTIME multivitamin 1 tab PO DAILY spironolactone 25 mg PO DAILY trazodone 100 mg PO BEDTIME HPI HPI Pain in right knee: Details: History of Present Illness The patient is an 79-year-old female presenting with post-surgical knee pain following a total knee arthroplasty. Following her surgery in December 2022, she has experienced intermittent right knee discomfort, notably when using stairs. Her pain is characterized by an aching and stabbing quality, with a severity of 7 out of 10, and limited mild relief achieved through Tylenol use, as further analgesic options are contraindicated due to her treatment with Eliquis. Physical therapy and other interventions have not alleviated her discomfort. Additionally, she has a history of chronic low back pain attributed to severe spinal stenosis, documented by MRI in 2022. She previously found relief through injections, but recent interventions have failed to manage her symptoms effectively. She expresses a preference for conservative management because of her age, downplaying extensive surgical options such as spinal fusion, while considering limited decompression should it be deemed beneficial. Pain Description - Onset and Timing: Post-operative pain following total knee arthroplasty in December 2022 - Quality and Character: Aching and stabbing sensation - Primary Location: Right knee, with pain primarily when ascending and descending stairs - Areas of Radiation: None mentioned - Aggravating Factors: Activities such as using stairs - Alleviating Factors: Limited relief with Tylenol - Impact: Difficulty in weight-bearing, especially on stairs; limitations in stair climbing requiring left leg preference Physical Exam - Musculoskeletal- Tenderness all around the right patella, especially in the infra patellar medial region; well-healed scar overlying the right knee following previous knee replacement surgery Results - Tests and Diagnostics: MRI Lumbar Spine conducted in 2022 showed spinal stenosis Pain Management - Affect: Pain adversely affects her ability to engage in activities, especially any that involve stair negotiation; no specific mention of mood impact - Analgesia: Currently using Tylenol with mild relief, pain severity rated at 7/10 - Adverse Effects: Risk of gastrointestinal bleeding prevents the use of anti-inflammatories due to being on Eliquis - Activities of Daily Living: Pain inhibits stair navigation; functional goals include improved weight-bearing for stair mobility - Aberrant Drug Related Behaviors: None reported or evident [facility] Medical History (Updated 01/15/25 @ 16:09 by Meek Childs MD) Arthritis of right knee Lumbar disc herniation Spinal stenosis Difficulty swallowing Basal cell carcinoma Overactive bladder Iron deficiency Elevated cholesterol Atrial fibrillation CVA (cerebral vascular accident) Sjogrens syndrome Osteoarthritis GERD (gastroesophageal reflux disease) HTN (hypertension) Surgical History (Updated 05/31/24 @ 14:28 by Adán De León MD) Hx of right knee surgery (~12/12/23) History of surgery on upper extremity Hx of bilateral cataract extraction History of esophagogastroduodenoscopy (EGD) H/O colonoscopy Hx of tonsillectomy History of extraction of renal calculus History of arthroscopy of left shoulder (~06/2022) History of right shoulder replacement (~04/2021) History of total left knee replacement (~03/2020) Social History Household Members: Spouse Housing: House Are you a primary hospice care transitions coordinator to a significant other at home: No Do you presently have visiting nurse or other home services: No Alcohol intake: current Alcohol intake frequency: holidays/special occasions only Alcohol type: wine Patient Tobacco Use Status: Former Tobacco user Tobacco use type: Cigarette Years Smoked: 5 service: No Current occupational status: retired Physical Exam Vital Signs: Last Vital Signs Pulse 71 01/11/25 11:13 Resp 16 01/11/25 11:13 BP 124/57 L 01/11/25 11:13 BMI result Body Mass Index 36.3 Assessment & Plan Assessment & Plan (1) Status post total right knee replacement: Onset Date: ~12/12/23 Code(s): Z96.651 - Presence of right artificial knee joint Category: Medical (2) Right knee pain: Code(s): M25.561 - Pain in right knee Category: Medical (3) Spinal stenosis: Code(s): M48.00 - Spinal stenosis, site unspecified Category: Medical Plan Plan - Proceed with right saphenous nerve temporary PNS placement to address post-knee arthroplasty pain, with an anticipated pain relief period of 6-10 months with a 70% success rate. - Consult with spine surgery regarding limited decompression for spinal stenosis, emphasizing a conservative approach and patient's preference against extensive surgery. Consider obtaining a new MRI if minimally invasive decompression is advised. Patient was informed and verbally consented to the use of an ambient scribe for clinic note documentation during this visit. Discussion Notes I reviewed with the patient the nature of her post-surgical knee pain and the proposed treatment plan, which includes the temporary placement of a peripheral nerve stimulator. We discussed the benefits of this approach, mainly its success rate and the duration of potential pain relief, along with it being a less invasive procedure involving no general anesthesia. I addressed questions about nerve stimulator types and provided clarity on the significant difference between this and nerve block injections. Surgical options regarding her spinal stenosis, including minimally invasive decompression, were discussed, contemplating both expected benefits in daily functional status and the patient's preferences. We agreed on coordinating with the spine surgery team for further assessment to determine feasibility. After confirming understanding of all outlined risks, benefits, and alternatives, informed consent was obtained for the proposed procedures and follow-up planning. Patient Instructions - You will have a nerve stimulator placed to help with the knee pain. It will be done as an outpatient procedure. - Avoid anti-inflammatory medications due to your medication, Eliquis. - Continue using Tylenol for pain as needed. - Schedule a follow-up to discuss your back pain and potential surgical options with spine surgery. - You will be updated about scheduling the procedure and any necessary future appointments. - Report any worsening of pain, new symptoms, or issues with the nerve stimulator immediately. - Contact us if you have questions or concerns about treatment. Coding Level of Care Code New Pt Level 4 (82503) Diagnoses Status post total right knee replacement Z96.651 Right knee pain M25.561 Spinal stenosis M48.00
[2025-01-11 11:13] VITALS: BP 124/57; PULSE 71; RESP 16; BMI 36.3
--- OUTSIDE RECORDS SUMMARY | 2025-01-11 12:09 | XMS_ITS | Continuity of Care Document ---
Author Organization [facility] [address] [address] Phone [phone] Care Team Providers Care Linen Folder Name Role Phone Yenni Barnard M.D. 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 09/12/2023 KP Ferrous Lbasykg947(65Fe) mg Tablets 1 by mouth every day Yenni Barnard M.D. 09/12/2023 Trazodone QXO822fh Tablets Take 1 Tablet AT Bedtime 90tabs Yenni Barnard M.D. 09/02/2023 Tylenol Extra Umcnszbr506fv Tablets 2 by mouth twice a day prn Yenni Barnard M.D. Ehjybjecv81kh Tablets 1 by mouth every day Unknown Gyuasbcbhzllmy31ei Tablets 1 by mouth every day Unknown Eliquis2.5mg Tablets Take 1 Tablet By Mouth Twice A Day Unknown Metoprolol Succinate ER25mg Tablets ER 24HR 1 by mouth every day Unknown Antlwkfiqz09al Tablets 1 by mouth every day prn Unknown Enfarkkpnv686wk Capsules 1 by mouth three times a day prn Unknown Restasis0.05% Emulsion 1 drop each eye twice daily Yenni Barnard M.D. Rnhebukdidp078sv Capsules 4 caps by mouth prior to dental work 24caps Yenni Barnard M.D. Multivitamin Adults 50+Adlt 50+ Tablets 1 by mouth every day Yenni Barnard M.D. Calcium 600 +D High Zusnrpi910-589yk-Edzp Tablets 1 by mouth qd Yenni Barnard M.D. Jyqfxn80nu Capsules DR spain mouth twice a day Serena Collins MD Ccdmrthyi45ql Tablets ER 24HR 1 by mouth every day Tuan Garduno MD Atorvastatin Bxebzef27to Tablets Take 1 Tablet By Mouth Once Daily 90tabs Yenni Barnard M.D. History Medications Uuztawrlq49tk Tablets 1 tablet by mouth every day 90tabs Yenni Barnard M.D. 03/26/2024 - 01/03/2025 Htdhrqmbxmwl40hi Madeleine Take 1 lozenge four times a day for 10 days 40units Yenni Barnard M.D. 03/06/2024 - 03/26/2024 Zutcqaia886805Oyeu/ML Suspension rinse and spit 4 ml qid x 10 days 200ml Yenni Barnard M.D. 03/05/2024 - 03/06/2024 Vital Signs Date Vital Result Comment 01/03/2025 2:08pm BP Systolic 125 mmHg BP Diastolic 56 mmHg Heart Rate 88 /min Height 58.5 inches 4'10.50 Weight 130.00 lb with shoes BMI (Body Mass Index) 26.7 kg/m2 Results Test Acquired Date Facility Test Result H/L Range Note CBC With Differential/Plat elet 01/03/2025 [facility] WBC 8.0 x10E3/uL 3.4-10. 8 RBC 4.49 x10E6/uL 3.77-5. 28 Hemoglobin 13.5 g/dL 11.1-15 .9 Hematocrit 42.0 % 34.0-46 .6 MCV 94 fL 79-97 MCH 30.1 pg 26.6-33 .0 MCHC 32.1 g/dL 31.5-35 .7 RDW 15.1 % 11.7-15 .4 Platelets 209 x10E3/uL 150-450 Neutrophils 67 % Not Estab. Lymphs 18 % Not Estab. Monocytes 8 % Not Estab. Eos 5 % Not Estab. Basos 1 % Not Estab. Immature Cells TNP Neutrophils (Absolute) 5.5 x10E3/uL 1.4-7.0 Lymphs (Absolute) 1.4 x10E3/uL 0.7-3.1 Monocytes(Absol ut e) 0.7 x10E3/uL 0.1-0.9 Eos (Absolute) 0.4 x10E3/uL 0.0-0.4 Baso (Absolute) 0.1 x10E3/uL 0.0-0.2 Immature Granulocytes 1 % Not Estab. Immature Grans (Abs) 0.0 x10E3/uL 0.0-0.1 NRBC TNP Hematology Comments: TNP Ferritin 01/03/2025 [facility] Ferritin 68 ng/mL 15-150 Glucose Fingerstick 01/03/2025 Inhouse Glucose Fingerstick 89 Hemoglobin A1c 01/03/2025 Inhouse Hemoglobin A1c 5.7% Basic Metabolic Panel (8) 01/03/2025 [facility] Glucose 81 mg/dL 70-99 BUN 22 mg/dL 8-27 Creatinine 1.17 mg/dL High 0.57-1. 00 eGFR 47 mL/min/1.73 Low >59 BUN/Creatinine Ratio 19 12- Sodium 143 mmol/L 134-144 Potassium 4.5 mmol/L 3.5-5.2 Chloride 107 mmol/L High 96-106 Carbon Dioxide, Total 19 mmol/L Low 20-29 Calcium 9.1 mg/dL 8.7-10. 3 Comp. Metabolic Panel (14) 08/30/2024 [facility] Glucose 103 mg/dL High 70-99 BUN 20 mg/dL 8-27 Creatinine 1.09 mg/dL High 0.57-1. 00 eGFR 51 mL/min/1.73 Low >59 BUN/Creatinine Ratio 18 12- Sodium 137 mmol/L 134-144 Potassium 4.7 mmol/L 3.5-5.2 Chloride 104 mmol/L 96-106 Carbon Dioxide, Total 18 mmol/L Low 20-29 Calcium 8.9 mg/dL 8.7-10. 3 Protein, Total 6.0 g/dL 6.0-8.5 Albumin 3.9 g/dL 3.8-4.8 Globulin, Total 2.1 g/dL 1.5-4.5 Bilirubin, Total 0.3 mg/dL 0.0-1 .2 Alkaline Phosphatase 75 IU/L 44-121 Ast (Sgot) 24 IU/L 0-40 Alt (SGPT) 18 IU/L 0-32 CBC With Differential/Plat elet 08/30/2024 [facility] WBC [...] Hemoglobin A1c 08/30/2024 Inhouse Hemoglobin A1c 5.6% CBC With Differential/Plat elet 03/26/2024 [facility] WBC [...] Comments: TNP CBC With Differential/Plat elet 11/18/2023 [facility] WBC 9.3 K/MM3 [...] 0) Lymph # 1.7 K/MM3 (0.8-3. 1) [place]# 0.8 K/MM3 (0.4-0. 9) Eo # 0.3 K/MM3 (0.0-0. 4) Baso # 0.1 K/MM3 (0.0-0. 1) Abs. Imm Gran 0.0 K/MM3 Neut 69.0 % (44-76) Lymph 18.8 % (15-43) Monocyte 8.5 % (4.5-10 .5) Eo 2.7 % (0-6) Baso 0.6 % (0-2) Imm Gran 0.4 % Glucose Fingerstick 11/18/2023 Inhouse Glucose Fingerstick 129 Hemoglobin A1c 11/18/2023 Inhouse Hemoglobin A1c 5.5% Complete Abc With Diff 10/17/2023 [facility] WBC 6.5 K/MM3 [...] 0) Lymph # 1.3 K/MM3 (0.8-3. 1) [place]# 0.5 K/MM3 (0.4-0. 9) Eo # 0.2 K/MM3 (0.0-0. 4) Baso # 0.1 K/MM3 (0.0-0. 1) Abs. Imm Gran 0.0 K/MM3 Neut 67.7 % (44-76) Lymph 20.4 % (15-43) Monocyte 7.7 % (4.5-10 .5) Eo 2.8 % (0-6) Baso 0.9 % (0-2) Imm Gran 0.5 % Vitamin B12 10/17/2023 [facility] Vitamin B12 1166 pg/mL (232-12 45) Folic Acid 10/17/2023 [facility] Folic Acid 36.9 ng/mL (4.8-37 .3) Homocysteine, Plasma 10/17/2023 [facility] Homocysteine, Plasma 8.9 UMOL/L (0-15) Vitamin B12 09/12/2023 [facility] Vitamin B12 <pending> Folic Acid 09/12/2023 [facility] Folic Acid <pending> Homocysteine,Plas ma/Serum 09/12/2023 [facility] Homocysteine,Plas ma/Serum <pending> Hemoglobin A1c 09/02/2023 Inhouse Hemoglobin A1c 5.7% Glucose Fingerstick 09/02/2023 Inhouse Glucose Fingerstick 109 Ferritin 09/02/2023 [facility] Ferritin 14 NG/ML (14-283 ) Iron & Tibc 09/02/2023 [facility] Iron 24 g /dL Low (30-160 ) Unsaturated Iro n Binding [place] 316 g /dL (110-37 0) Est T. Iron Bin d Capacity 340 g /dL (140-53 0) % Iron Saturation 7 % Low (20-55 ) Complete Abc With Diff 09/02/2023 [facility] WBC 9.8 K/MM3 [...] 0) Lymph # 1.9 K/MM3 (0.8-3. 1) [place]# 1.1 K/MM3 High (0.4-0. 9) Eo # 0.2 K/MM3 (0.0-0. 4) Baso # 0.1 K/MM3 (0.0-0. 1) Abs. Imm Gran 0.1 K/MM3 Neut 66.4 % (44-76) Lymph 19.6 % (15-43) Monocyte 10.9 % High (4.5-10 .5) Eo 2.0 % (0-6) Baso 0.6 % (0-2) Imm Gran 0.5 % Comprehensive Metabolic Panl 09/02/2023 [facility] Glucose 103 mg/dL [...] Estimated GFR Creatinine 68 ML/MIN/1.73 M2 1 Immunofixation Serum 09/02/2023 [facility] Immunoglobulin Igg 805 mg/dL (700-16 00) Immunoglobulin Iga 207 mg/dL (70-400 ) Immunoglobulin Igm 133 mg/dL (40-230 ) Immunofix Normal immunofix <SEE NOTE> 2 PTH, Intact 05/09/2023 [facility] PTH, Intact 62 pg/mL (15-65) Albumin 05/09/2023 [facility] Albumin 4.1 GM/DL (3.4-4. 8) Calcium 05/09/2023 [facility] Calcium 8.8 mg/dL (8.6-10 .5) Creatinine 05/09/2023 [facility] Creatinine 0.8 mg/dL (0.5-1. 0) Estimated GFR Creatinine 74 ML/MIN/1.73 M2 3 TSH With Reflex To FT4 05/09/2023 [facility] TSH With Reflex To FT4 3.96 uIU/mL (0.4-4. 2) 25Oh Vitamin D 05/09/2023 [facility] 25Oh Vitamin D 45.2 NG/ML (20-50) N-Telopeptide Cross Links, Urine 05/09/2023 [facility] Cross Linked N-Telopeptides 589 4 Creat, Urine 67.0 5 N-Telopeptide/C re at Ratio 99 High 6 NTX Interpretaion Comment 7 Creatinine 05/08/2023 [facility] Creatinine <pending> Albumin 05/08/2023 [facility] Albumin <pending> 25Oh Vitamin D 05/08/2023 [facility] 25Oh Vitamin D <pending> TSH With Reflex To FT4 05/08/2023 [facility] TSH With Reflex To FT4 <pending> PTH, Intact 05/08/2023 [facility] PTH, Intact <pending> Calcium 05/08/2023 [facility] Calcium <pending> Complete Abc With Diff 02/26/2023 [facility] WBC 6.6 K/MM3 [...] 0) Lymph # 1.6 K/MM3 (0.8-3. 1) [place]# 0.6 K/MM3 (0.4-0. 9) Eo # 0.2 K/MM3 (0.0-0. 4) Baso # 0.0 K/MM3 (0.0-0. 1) Abs. Imm Gran 0.0 K/MM3 Neut 61.7 % (44-76) Lymph 24.4 % (15-43) Monocyte 9.6 % (4.5-10 .5) Eo 3.5 % (0-6) Baso 0.6 % (0-2) Imm Gran 0.2 % Comprehensive Metabolic Panl 02/26/2023 [facility] Glucose 99 mg/dL [...] 65 ML/MIN/1.73 M2 8 Lipid Panel 02/26/2023 [facility] Cholesterol, Total 182 mg/dL (<200) Triglyceride 87 mg/dL (<150) HDL Chol 92 mg/dL (>39) LDL Cholesterol , Calculated 73 mg/dL (0-130) Non HDL Cholesterol (Calc) 90 mg/dL (<160) Hemoglobin A1c 02/26/2023 [facility] Hemoglobin A1c 5.6 % (4.0-5. 6) 9 Hemoglobin A1c 01/24/2023 [facility] Hemoglobin A1c <pending> Glucose Fingerstick 12/07/2022 Inhouse Glucose Fingerstick 93 Culture Urine 10/27/2022 [facility] Specimen Description URINE Special Requests NONE Culture NO GROWTH Report Status FINAL 10/29/2022 10 Glucose Fingerstick 10/13/2022 Inhouse Glucose Fingerstick 94 Hemoglobin A1c 10/13/2022 Inhouse Hemoglobin A1c 5.4% Comprehensive Metabolic Panl 06/02/2022 [facility] Glucose 117 mg/dL [...] M2 11 Complete Abc With Diff 06/02/2022 [facility] WBC 7.4 K/MM3 [...] 0) Lymph # 1.8 K/MM3 (0.8-3. 1) [place]# 0.5 K/MM3 (0.4-0. 9) Eo # 0.2 K/MM3 (0.0-0. 4) Baso # 0.0 K/MM3 (0.0-0. 1) Abs. Imm Gran 0.0 K/MM3 Neut 65.9 % (44-76) Lymph 24.6 % (15-43) Monocyte 6.2 % (4.5-10 .5) Eo 2.4 % (0-6) Baso 0.4 % (0-2) Imm Gran 0.5 % Hemoglobin A1c 06/02/2022 Inhouse Hemoglobin A1c 5.5% Glucose Fingerstick 06/02/2022 Inhouse Glucose Fingerstick 125 1 Creatinine based est imated glomerular filtration (eGFR) in adults is calculated using the National Kidney Foundation recommended 2020 CKD-EPI equation. Estimates GFR from serum creatinine, age and sex. 2 Interpreted by Fior Snow MD 3 Creatinine based est imated glomerular filtration (eGFR) in adults is calculated using the National Kidney Foundation recommended 2020 CKD-EPI equation. Estimates GFR from serum creatinine, age and sex. 4 Reference range: Not Estab. Unit: nmol [place] [address] 5 Reference range: Not Estab. Unit: mg/dL Test performed by [facility], [address] [place] [address] 6 Reference range: 0 t o 89 Unit: nM BCE/mM Cr 7 (NOTE) The N-telopeptide and Creatinine are used [...] value is <or EQ 38 nM BCE/mM DIRECTOR OF INFECTION PREVENTION, or NTx has decreased >or EQ 30% from baseline.[1] 3. Patients with Paget's Disease of Bone: The probability that treatment is effective after one month is increased when the measured NTx value is within the reference range, or NTx has decreased >or EQ 30% from baseline.[2] 1. Edda CH, Araujo NH, Valentín GS, et al. Am J Med, 102:29-37,1997. (1):M757, 1996. 2. Bone H, Darryn J, et al. J Bone Min Res.11(1):M757,1996 Test performed at [facility], [address] [place] [address] 8 Creatinine based est imated glomerular filtration (eGFR) in adults is calculated using the National Kidney Foundation recommended 2020 CKD-EPI equation. Estimates GFR from serum creatinine, age and sex. 9 MONITORING: In known diabetic patients, hemoglobin A1c targets should be discussed with health care provider. DIAGNOSTIC USE: The [place] Diabetes Association (ADA) and the World Health [...] and sex. Procedures Date Code Description Status 01/03/2025 09325 Collection Of Venous Blood B y Venipuncture Completed 08/30/2024 39434 Collection Of Venous Blood B y Venipuncture Completed 03/26/2024 74486 Collection Of Venous Blood B y Venipuncture Completed 11/18/2023 64013 Collection Of Venous Blood B y Venipuncture Completed 09/02/2023 34141 Collection Of Venous Blood B y Venipuncture Completed 06/02/2022 59658 Collection Of Venous Blood B y Venipuncture Completed Medical Devices Description No Information Available Encounters Type Date Location Provider Dx Diagnosis Office Visit 01/03/2025 2:15p Main Office Yenni Barnard M.D. 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 01/03/2025 I48.0 Paroxysmal atrial fibrillati on Yenni Barnard M.D. 01/03/2025 I50.32 Chronic diastoli c (congestive) heart failure Yenni Barnard M.D. 01/03/2025 E78.00 Pure hypercholesterolemia, u nspecified Yenni Barnard M.D. 01/03/2025 R73.03 Prediabetes Yenni Jasmine M.D. 01/03/[address] ate NOS Yenni Barnard M.D. 01/03/2025 M85.80 Other specified disorders of bone density and structure, unspecified site Yenni Barnard M.D. 01/03/2025 D50.9 Iron deficiency anemia, unsp ecified Yenni Barnard M.D. 01/03/2025 Z86.73 Personal history of transient ischemic attack (TIA), and cerebral infarction without residual deficits Yenni Barnard M.D. Plan of Treatment Future Appointment(s):* 04/29/2025 3:00 pm - Yenni Barnard M.D. at Main Office 01/03/2025 - Yenni Barnard M.D.* I10 Essential (primary) hypertension * I48.0 Paroxysmal atrial fibrillation * I50.32 Chronic diastolic (congestive) heart failure * E78.00 Pure hypercholesterolemia, unspecified * R73.03 Prediabetes * D68.69 Secondary hypercoagulable state NOS * M85.80 Other specified disorders of bone density and structure, unspecified site * D50.9 Iron deficiency anemia, unspecified * Z86.73 Personal history of transient ischemic attack (TIA), and cerebral infarction without residual deficits Functional Status Description No Information Available Mental Status Description No Information Available Referrals Refer to Dr Reason for Referral Status Appt Gabriel e [facility] Theatrical Agent NEW IRON DEFICIENCY ANEMIA Closed [address] [place] [address] [phone] [facility] Neurology WAS DR MARY CRUZ,.... DX, CARDIOEMBOLIC CVA Closed 06/22/2022 [address] [facility] [address] [place] [id number] [phone]
--- OUTSIDE RECORDS SUMMARY | 2025-01-11 12:09 | XMS_ITS | Data Portability ---
Author Organization MD - [facility], Allergy Address [address] [address] Care Team Providers Care Bottom Man Name Role Phone ZAKI SMILEY Primary Care [...] severe episodes [email or web address] Not available 06/14/2024 14:09:56 01/09/2025 01/09/2025 Nasal examination today identified a prominent bleeding source on the left anterior septum. This site was cauterized with silver nitrate. Recommend local wound care with saline nasal spray 4-6 times daily, K-Y jelly at night, Afrin with episodes of bleeding. May use Ponaris Nasal Emollient 1/2 dropper twice daily as needed with dryness. If taking antiplatelet or anticoagulant therapy discuss holding with prescribing provider. Return to office for reevaluation in 3-4 weeks. [email or web address] Not available 01/09/2025 12:13:12 Plan of Treatment Reminders Order Date Submit Date Provider Last Modified By Organization Details Last Modified Time Details Appointments Establish ed 15 2024 09:00A Toby BARRAZA PA-C Not available Not available Not available Lab None recorded. Referral None recorded. Procedures None recorded. Surgeries None recorded. Imaging None recorded. Medication Orders None recorded. Patient TargetsNo targets recorded. Patient Instructions Encounter Date Encounter Id Patient Instructions Last Modified By Organization Details Last Modified Time 01/09/2025 [id number] nosebleed information [email or web address] Not available 01/09/2025 12:25:52 Reason for Referral None Reported. Problems Name Problem SNOMED Code Status Onset Date Resolution Date Notes Provider Name and Address Organization Details Recorded Time Bleeding from nose 511521748 Active 2022 Epistaxis; Note: Date Diagnosed: 08/05/2023 9:39 AM (R04.0) Not Available [facility] 4 02:39:26 [place] ce of salivary secretion 40392171 Active 2014 Diseases of the salivary glands: Xerostomia ; Note: Date Diagnosed: 10/18/2014 3:28 PM (527.7) Not Available [facility] 4 02:39:30 Acute sialoaden itis 452713583 Active 2021 Acute sialoadeni tis; Note: Date Diagnosed: 12/22/2021 11:03 AM (K11.21) Not Available [facility] 4 02:39:23 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 485114193 Active 2022 Other hemorrhagi c disorder due to intrinsic circulatin g anticoagul ants, antibodies , or inhibitors ; Note: Date Diagnosed: 08/05/2023 9:39 AM (D68.318) Not Available [facility] 4 02:39:30 Sialolith iasis 59747173 Active 2021 Sialolithi asis; Note: Date Diagnosed: 12/22/2021 11:07 AM (K11.5) Not Available [facility] 4 02:39:27 Anterior epistaxis 726283336 Active 2023 YARIEL RIVERA MD [address] [place] [address], [place], [address] , [facility] - [facility] 4 14:09:40 Sj? ? ?gren's syndrome 24838832 Active 2023 YARIEL RIVERA MD [address] [facility],[place] [address], [place], [address] , [facility] 4 14:09:47 Problem Notes None recorded. Procedures Surgical History Date Name Laterality Status Provider Name and Address Organization Details Recorded Time 5 Epistaxis Simple Nasal Cautery Left completed MICHELLE BARRAZA PA-C [address] [facility],[place] [address], [place], [address], [facility] 01/09/2025 12:11:59 4 Epistaxis Simple Nasal Cautery Left completed YARIEL RIVERA MD [address] [facility],[place] [address], [place], [address], [facility] 06/14/2024 14:10:30 Imaging Results None recorded. Procedure Notes None recorded. Medical Equipment None Reported. Allergies Allergen ID Allergen Name Allergen Category Reaction Reaction Severity Criticality Documentation Date Start Date Code Code System Note Provider Name and Address Organization Details Recorded Time 08049 acetamino phen / oxycodone medicatio n other Not available Not available 01/24/2024 71920 3 RxNorm React ion: unkno wn, unspe cifie d;; Not Available [facility] 4 01:01:01 Medications Name Sig Start Date Stop Date Status Note LastModified by Organization Details LastModified Time cyclobenz aprine 10 mg tablet TAKE 1 TABLET NEEDED BY ORAL ROUTE IN THE EVENING FOR 14 DAYS. 01/09 completed Not Available Not Available Not Available amoxicill in 500 mg capsule TAKE 4 CAPSULES (2 GRAM DOSE) BY MOUTH 1 HOUR BEFORE INJECTIO N 01/09 completed Not Available Not Available Not Available atorvasta tin 40 mg tablet TAKE 1 TABLET ONCE DAILY active Not Available Not Available No t Available clotrimaz ole 10 mg mai DISSOLVE 1 MAI BY MOUTH FOUR TIMES A DAY FOR 10 DAYS 06/14 completed Not Available Not Available Not Available pilocarpi ne 5 mg tablet active Medicati on ID: [id number] B rand Name: pilocarp ine HCl Send Method: E-Prescr ibed Sub s Allowed: subs OK Medic ationGen ericName : pilocarp ine HCl Not Available Not Available Not Available nystatin 100,000 unit/mL oral suspensio n 12/22 [place]: [id number] Pr escribed By Name: Andrea Chan nd [...] Available Nexium 40 mg capsule,d elayed release TAKE 1 CAPSULE TWICE DAILY active Not Available Not Available No t Available amlodipin e 5 mg tablet active Medicati on ID: [id number] B rand Name: amlodipi ne Send Method: E-Prescr ibed Sub s Allowed: subs OK Medic ationGen ericName : amlodipi ne Not Available Not Available Not Available sulfameth oxazole 800 mg-trimet hoprim 160 mg tablet TAKE 1 TABLET BY MOUTH TWICE A DAY 01/09 completed Not Available Not Available Not Available aspirin 81 mg tablet,de layed release active Medicati on ID: [id number] B rand Name: aspirin Send Method: E-Prescr ibed Sub s Allowed: subs OK Speci al Instruct ion: TAKE 1 TABLET BY MOUTH EVERY DAY Medi cationGe nericNam e: aspirin Not Available Not Available Not Available tramadol 50 mg tablet TAKE 1 TABLET BY MOUTH EVERY 6 HOURS NEEDED FOR PAIN. PATIENT MAY FILL FOR LESSER QUANTITY 01/09 completed Not Available Not Available Not Available spironola ctone 25 mg tablet TAKE 1 TABLET DAILY active Not Available Not Available No t Available amoxicill in 500 mg tablet TAKE 4 TABLETS BY MOUTH 1 HOUR PRIOR TO DENTAL APPT FOR 1 DAY 06/14 completed Not Available Not Available Not Available Celebrex 200 mg capsule 12/22 completed Medicati on ID: [id number] Du ration Value: 90 Brand Name: Celebrex Send Method: E-Prescr ibed Sub s Allowed: No subs Med icationG enericNa me: Celebrex Not Available Not Available Not Available oxycodone -acetamin ophen 5 mg-325 mg tablet TAKE 1/2 TABLET BY MOUTH TWICE A DAY NEEDED FOR PAIN 01/09 completed Not Available Not Available Not Available trazodone 100 mg tablet TAKE 1 TABLET AT BEDTIME active Not Available Not Available No t Available simvastat in 20 mg tablet 12/22 completed Medicati on ID: [id number] Du ration Value: 90 Brand Name: karlene bhakta Send Method: E-Prescr ibed Sub s Allowed: subs OK Medic ationGen ericName : simvasta tin Not Available Not Available Not Available erythromy belia 5 mg/gram (0.5 %) eye ointment ADMINIST ER 1 APPLICAT ION(S) TO THE RIGHT EYE 4 (FOUR) TIMES A DAY. active Not Available Not Available No t Available cevimelin e 30 mg capsule 12/22 completed Medicati on ID: [id number] Du ration Value: 90 Brand Name: scar erendira Send Method: E-Prescr ibed Sub s Allowed: subs OK Medic ationGen ericName : scar erendira Not Available Not Available Not Available metoprolo l tartrate 50 mg tablet TAKE 1 TABLET TWICE A DAY active Not Available Not Available No t Available betametha sone dipropion ate 0.05 % topical cream APPLY AM AND PM RED SCALY PATCH RIGHT LOWER LEG FOR 2 WEEKS active Not Available Not Available No t Available gabapenti n 300 mg capsule TAKE 1 CAPSULE BY MOUTH THREE TIMES A DAY active Not Available Not Available No t Available furosemid e 20 mg tablet TAKE 1 TABLET BY MOUTH EVERY DAY NEEDED active Not Available Not Available No t Available metoprolo l succinate ER 25 mg tablet,ex tended release 24 hr TAKE 1 TABLET DAILY active Not Available Not Available No t Available colchicin e 0.6 mg tablet TAKE 1 TABLET BY MOUTH EVERY DAY active Not Available Not Available No t Available fluticaso ne propionat e 50 mcg/actua tion nasal spray,lv pension 12/22 completed Medicati on ID: [id number] Du ration Value: 30 Brand Name: fluticas one propiona te Send Method: E-Prescr ibed Sub s Allowed: subs OK Speci al Instruct ion: USE 2 SPRAYS IN EACH NOSTRIL DAILY Me dication GenericN ganesh: fluticas one propiona te Not Available Not Available Not Available glucosami ne-chondr oitin 1,500 mg -1,200 mg/30 mL oral liquid 12/22 completed Medicati on ID: [id number] Br and Name: glucosam ine-modesto droitin Send Method: E-Prescr ibed Sub s Allowed: subs OK Medic ationGen ericName : glucosam ine-modesto droitin Not Available Not Available Not Available Denta 5000 Plus 1.1 % cream BRUSH TWICE DAILY WITH TOOTHPAS TE THEN EXPECTOR ATE. DO NOT RINSE. active Not Available Not Available No t Available Restasis 0.05 % eye drops in a dropperet te INSTILL 1 DROP IN AFFECTED EYE (BOTH EYES) TWICE DAILY active Not Available Not Available No t Available metoprolo l tartrate 25 mg tablet TAKE 1 TABLET BY MOUTH TWICE A DAY active Not Available Not Available No t Available multivita min 12/22 completed Medicati on ID: [id number] Br and Name: multivit joseph Sen d Method: E-Prescr ibed Sub s Allowed: subs OK Medic ationGen ericName : multivit joseph Not Available Not Available Not Available Super [place]-3 1,000 mg capsule 12/22 completed Medicati on ID: [id number] Br and Name: Fish Oil Concentr ate Send Method: E-Prescr ibed Sub s Allowed: subs OK Medic ationGen ericName : Fish Oil Concentr ate Not Available Not Available Not Available Myrbetriq 50 mg tablet,ex tended release TAKE 1 TABLET DAILY active Not Available Not Available No t Available Myrbetriq 01/09 completed Medicati on ID: [id number] B rand Name: Myrbetri q Send Method: E-Prescr ibed Sub s Allowed: subs OK Medic ationGen ericName : Myrbetri q Not Available Not Available Not Available Eliquis 5 mg tablet 06/14 completed Not Available Not Available Not Available Eliquis 2.5 mg tablet TAKE 1 TABLET TWICE A DAY active Not Available Not Available No t Available Jardiance 10 mg tablet TAKE 1 TABLET EVERY MORNING active Not Available Not Available No t Available Vitals Date Recorded Body height Body mass index (BMI) Body weight Provider Name and Address Organization Details Last Updated DateTime 01/09/2025 149.86 cm 24.6 kg/m2 10425.27 g Malini Das [place] - [facility] 01/09/2025 11:40:13 Date Recorded Body height Body mass index (BMI) Body weight Provider Name and Address Organization Details Last Updated DateTime 06/14/2024 149.86 cm 23.8 kg/m2 46256.9 g Rozina Addi MD - [facility] 06/14/2024 14:00:01 Social History None recorded. Functional Status None recorded. Mental Status None recorded. Family History Nothing Reported. Medical History No medical history recorded. Gynecological HistoryNo gynecological history recorded. Obstetrics History GPAL:G 0 P 0 0 0 0 Past Encounters Encounter ID Performer Location Encounter Start Date Encounter Closed Date Diagnosis/Indication Diagnosis SNOMED-CT Code Diagnosis ICD10 Code Diagnosis Note YARIEL RIVERA MD [facility] [address] [address] 06/14/2024 13:13:49 06/14/2024 14:10:19 Anterior epistaxis 327482543 R04.0 Sj? ? ?gren's syndrome 70746028 M35.00 [id number] MICHELLE BARRAZA PA-C [facility] [address] [address] 01/09/2025 11:25:20 01/09/2025 12:13:42 Anterior epistaxis 668748332 R04.0 Hemorrhagi c disorder due to circulating anticoagulants 887788172 D68.318 Long-term current use of antiplatelet drug 7500281193 86874 Z79.02 Health Concerns Section Related Observation LastModified by Organization Detai ls LastModified Time None Recorded Concern Status LastModified by Organization Details LastModified Time None Recorded Advance Directives Directive None Recorded Payers Encounter Date Sequence Insurance Name Policy Number Policy Palmer Covered Member ID Palmer Member ID Guarantor Name 06/14/2024 1 MEDICARE B-[place]: [employer] Brigitte Cordoban [id number] Brigitte Diez Gordon 06/14/2024 2 [place] [id number] Brigitte Cordoban [id number] Brigitte Diez Gordon 01/09/2025 1 MEDICARE B-[place]: [employer]ATIONAL [employer] Brigitte Jeanvon [id number] Brigitte Leyva 01/09/2025 2 [place] [id number] Brigitte Leyva [id number] Brigitte Leyva Notes Date Note Type Note Provider Name and Address Organization Details Recorded Time 06/14/2024 text/html left epistaxis3 times in past few weeks, lasting 3 minutespmhx - sjogrens PV 08/10/23 Aimee - right nasal cautery YARIEL RIVERA MD [address] [place] [address], [address], [facility] - [facility] 06/14/2024 14:10:50 01/09/2025 text/html 79 year old jose r polo presents reporting left sided epistaxis. She is on Eliquis. She had cautery 06/14/24 on the left with Dr. Rivera. She had minimal bloody drainage occasionally on tissues but no danette epistaxis until this Tuesday. On Tuesday she had a 20 minute nosebleed. Again yesterday she had a 15 minute nosebleed both times from the left side. She is also status post cautery on the right by Aimee 08/10/23 with no further bleeding. She uses Ponaris nasal emollient. STACY DUTTA MD [address] [place] [address], [place], [address], [facility] - [facility] 01/09/2025 12:26:11 OBGyn Episode No OBEpisode recorded.
--- OUTSIDE RECORDS SUMMARY | 2025-01-11 12:09 | XMS_ITS | Clinical Summary ---
Author Organization [facility] Address [address] [place] [address] Care Team Providers Care Account Administrator Name Role Phone Yenni Jerez PA-C Primary Care Provider [phone] Medications Medication Sig Dispensed Refills Start Date [...] age to complete this topic Care Teams Account Administrator Relationship Specialty Start Date End Date Yenni Jerez PA-C [address] Ear, [place] [address] PCP - General Physician Jboss Developer 06/05/24
--- OUTSIDE RECORDS SUMMARY | 2025-01-11 12:09 | XMS_ITS | Clinical Summary ---
Author Organization [facility] Address [address] [place] [address] Care Team Providers Care Oven Attendant Name Role Phone Pcp, No Primary Care [...] topic Insurance MEDICARE PART A & B [facility] Care Teams Oven Attendant Relationship Specialty Start Date End Date Pcp, No PCP - General General Medicine 09/24/24
--- OUTSIDE RECORDS SUMMARY | 2025-01-11 12:09 | XMS_ITS | Clinical Summary ---
Author Organization [facility] Address [address] [place] [address] Phone Care Team Providers Care Therapy Manager Name Role Phone Yenni Jerez Primary Care Provider [phone] Medications ascorbic acid (VITAMIN C) 500 mg [...] lar heart rhythm Osteoporosis DX:Osteoporosis Stroke ([facility]/HCC V24, CMS/[facility] V28) DX:Stroke (HCC) Sjogren's disease ([facility] V24) DX:Sjogren's disease (HCC) Family [...] age to complete this topic Insurance MEDICARE [facility] Advance Directives Documents on File Type Date Recorded 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
--- OUTSIDE RECORDS SUMMARY | 2025-01-11 12:09 | XMS_ITS | Patient Health Record ---
Author Organization [facility] Address [address] [facility] [address] [place] [address] Care Team Providers Care Technology Intern Name Role Phone ZAKI HENRIQUEZ M.D. Primary Care Provid er Unavailable WillamsKierstenli Unavailable [phone] Allergies Allergen (clinical drug ingredient) Drug/Non Drug Allergy documented on EMR Reaction Allergy Type Onset Date Status TYLOX Nausea/Vomiting/ Diarrhea Drug Allergy Active Results Component Value Reference Range Notes TSH-[id number] Reviewed date:02/03/2024 08:52:57 AM Interpretation: Performing Lab:[facility], [address] [place] [address], Phone - [phone], Director - MDJodry Notes/Report: TSH 4.500 0.450-4.500 uIU/mL CBC With Differential/Platel et-[id number] Reviewed date:02/03/2024 08:53:28 AM Interpretation: Performing Lab:[facility], [address], Phone - [phone], Director - MDJodry Notes/Report: WBC 8.6 3.4-10.8 [...] Immature Grans (Abs) 0.1 0.0-0.1 x10E3/uL PTH, Intact-013483 Reviewed date:02/03/2024 08:52:38 AM Interpretation: Performing Lab:[facility] [place], [address] [place] [address], [place], Phone - [phone], Director - Quentin Notes/Report: PTH, Intact 41 15-65 pg/mL Vitamin D, 72-Emixvcp-593534 Reviewed date:02/03/2024 08:52:45 AM Interpretation: Performing Lab:[facility] [place], [address] [place] [address], [place], Phone - [phone], Director - Quentin Notes/Report: Vitamin D, 25-Hydroxy 49.2 30.0-100.0 ng/mL Vitamin D deficiency has been defined by the [place] of Medicine and an Endocrine Society practice guideline as a level of serum 25-OH vitamin D less than 20 ng/mL (1,2). The Endocrine Society went on to further define vitamin D insufficiency as a level between 21 and 29 ng/mL (2). 1. IOM ([place] of Medicine). 2010. Dietary reference intakes for calcium and D. Teresa [place]: The National Academies Press. 2. Melissa MF, [place], Semaj GASTELUM, et al. Evaluation, treatment, and prevention of vitamin D deficiency: an Endocrine Society clinical practice guideline. JCEM. 2010; 96(7):1911-30. Comp. Metabolic Panel (14)-3 76508 Reviewed date:02/03/2024 08:53:11 AM Interpretation: Performing Lab:[facility] [place], [address] [facility], [place], Phone - [phone], Director - Quentin Notes/Report: Glucose 104 70-99 [...] date:02/03/2024 08:52:29 AM Interpretation: Performing Lab:[facility], [address] [place] [address], [place], Phone - [phone], Director - Quentin Notes/Report: Reason For Referral No Information Medications Medication SIG (Take, Route, Frequency, Duration) Notes Start Date End Date Status Multivitamins 1 ORAL daily for [facility] 02/21/2012 Active Glucosamine Chondroitin Adv 1500/1200 1 ORAL twice daily for [facility] 02/21/2012 Active NexIUM 40 MG 1 Orally Twice a day [facility] 02/21/2012 Active Myrbetriq 50 MG 1 tablet Orally Once a day Active Restasis 0.05% CHRISTIANO Ophthalmic twice daily for [facility] 02/21/2012 Active Gabapentin 300 MG TAKE [...] 600 + D 1 ORAL daily for [facility] 2 Active Atorvastatin Calcium 40 MG Oral for 90 Active CeleBREX 200MG 1 ORAL daily for [facility] 02/21/2012 Not-Taking Social History Tobacco Use: [...] Status Risk Notes Problem Postmenopausal atrophic vaginitis (01200654) Postmenopausal atrophic vaginitis (N95.2) Active confirmed Problem Overactive bladder (850358485) Overactive bladder (N32.81) Active confirmed Problem Age-related osteoporosis (601718341) Age-related osteoporosis without current pathological fracture (M81.0) Active confirmed Problem Screening for malignant neoplasm of breast (952133336) Encounter for screening mammogram for malignant neoplasm of breast (Z12.31) Active confirmed Problem Hyperlipidemia (00390727) Other and unspecified hyperlipidemia (272.4) Active confirmed Major Problem Esophageal reflux (030272440) Esophageal reflux (530.81) Active confirmed Major Problem Menopausal symptom (98089102) Symptomatic menopausal or female climacteric states (627.2) Active confirmed Major Problem Postmenopausal atrophic vaginitis (19639212) Postmenopausal atrophic vaginitis (627.3) Active confirmed Diag Problem Sicca syndrome (07901646) Sicca syndrome (710.2) Active confirmed Major Problem Gynecological examination normal (831240976176206) Routine gynecological examination (V72.31) Active confirmed Problem Dietary management surveillance (635095020) Dietary surveillance and counseling (V65.3) Active confirmed Diag Problem Screening for malignant neoplasm of colon (824474453) Special screening for malignant neoplasms, colon (V76.51) [...] MEDICARE [address] [place], [place] [id number] [phone] [id number] DEMARCOLYNETTE Jeffrey Self - patient is the insured MEDEX [address] [place] [address] [phone] [id number] DEMARCOLYNETTE Self - patient is the [...]
--- OUTSIDE RECORDS SUMMARY | 2025-01-11 12:09 | XMS_ITS | Clinical Summary ---
Author Organization [facility] Address [address] [place] [address] Care Team Providers Care Hook And Eye Machine Operator Name Role Phone Unavailable Primary Care Provider [...] (SF 5000 PLUS) 1.1 % creaIndications: Caries [place] twice daily with toothpaste then expectorate. Do not rinse. 51 g 4 4 Active Active Problems Problem Noted Date Diagnosed Date Paroxysmal atrial fibrillation ([facility]) 024 Encounters Date Type Department Care Team Description 12/12/2024 2:20 PM EDT Office Visit [facility] [address] [place] [address] Lesli Ramsey RHD Encounter for dental examination [...] Description 06/17/2025 2:20 PM EDT Office Visit [facility] [address] [place] [id number] Lesli Ramsey, RHD [address] [place] [address] Health Maintenance Due Date Last Done Comments Imm-Pneumococcal 65+ (1 of 1 - PCV) 02/18/1994 Imm-Zoster, Recombinant (2 of 3) 12/27/2007 11/01/19 08 Bone Density Screening 02/18/2009 Falls Prevention 02/18/2009 Imm-DTaP/Tdap/Td (2 - Td or Tdap) 03/16/2021 011 Bcz-VNNMR-33 ( - season) 2024 Imm-Influenza (#1) 2024 [...]
--- OUTSIDE RECORDS SUMMARY | 2025-01-11 12:09 | XMS_ITS | Continuity of Care Document ---
Author Organization [place] - [facility], [facility] Address [address] [place] [address] Care Team Providers Care Survey Technician Name Role Phone ZAKI SMILEY Primary Care Provider [phone] Assessment Encounter Date Assessment Date Assessment LastModified by Organization Details LastModified Time 01/09/2025 01/09/2025 Nasal examination today identified a [...] By Organization Details Last Modified Time 01/09/2025 [id number] nosebleed information rudi Not available 01/09/2025 12:25:52 Reason for Referral None Reported. Problems Name Problem SNOMED Code Status Onset Date Resolution Date Notes Provider Name and Address Organization Details Recorded Time Bleeding from nose 888317508 Active 2022 Epistaxis; Note: Date Diagnosed: 08/05/2023 9:39 AM (R04.0) Not Available [facility] 4 02:39:26 [place] ce of salivary secretion 57619998 Active 2014 Diseases of the salivary glands: Xerostomia ; Note: Date Diagnosed: 10/18/2014 3:28 PM (527.7) Not Available [facility] 4 02:39:30 Acute sialoaden itis 381419717 Active 2021 Acute sialoadeni tis; Note: Date Diagnosed: 12/22/2021 11:03 AM (K11.21) Not Available [facility] 4 02:39:23 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 274830690 Active 2022 Other hemorrhagi c disorder due to intrinsic circulatin g anticoagul ants, antibodies , or inhibitors ; Note: Date Diagnosed: 08/05/2023 9:39 AM (D68.318) Not Available [facility] 4 02:39:30 Sialolith iasis 16287566 Active 2021 Sialolithi asis; Note: Date Diagnosed: 12/22/2021 11:07 AM (K11.5) Not Available [facility] 4 02:39:27 Anterior epistaxis 104465758 Active 2023 THIAGO RIVERA MD [address] [place] [address],[place] [address], [place], [address] , [facility] - [facility] 4 14:09:40 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 Procedures Surgical History Date Name Laterality Status Provider Name and Address Organization Details Recorded Time 5 Epistaxis Simple Nasal Cautery Left completed MICHELLE BARRAZA PA-C [address] [facility],[place] [address], [place], [address], [place] - [facility] 01/09/2025 12:11:59 4 Epistaxis Simple Nasal Cautery Left completed THIAGO RIVERA MD [address] [place] [address], [address], [facility] - [facility] 06/14/2024 14:10:30 Imaging Results None recorded. Procedure Notes None recorded. Medical Equipment None Reported. Allergies Allergen ID Allergen Name Allergen Category Reaction Reaction Severity Criticality Documentation Date Start Date Code Code System Note Provider Name and Address Organization Details Recorded Time 19123 acetamino phen / oxycodone medicatio n other Not available Not available 01/24/2024 35965 3 RxNorm React ion: unkno wn, unspe cifie d;; Not Available [facility] 4 01:01:01 Medications Name Sig Start Date [...] 5 mg tablet active Medicati on ID: 716809 B rand Name: pilocarp ine HCl Send Method: E-Prescr ibed Sub s Allowed: subs OK Medic ationGen ericName : pilocarp ine HCl Not Available Not Available Not Available nystatin 100,000 unit/mL oral suspensio n 12/22 completed Medicati on ID: [id number] Pr escribed By Name: Thiago Rivera M.D. Bra yaritza Name: nystatin Send Method: E-Prescr ibed Sub [...] 5 mg tablet active Medicati on ID: 371034 B rand Name: amlodipi ne Send Method: E-Prescr ibed Sub s Allowed: subs OK Medic ationGen ericName : amlodipi ne Not Available Not Available Not Available sulfameth oxazole 800 mg-trimet hoprim 160 mg tablet TAKE 1 TABLET BY MOUTH TWICE A DAY 01/09 completed Not Available Not Available Not Available aspirin 81 mg tablet,de layed release active Medicati on ID: 938101 B rand Name: aspirin Send Method: E-Prescr [...] mg capsule 12/22 completed Medicati on ID: 78315 Du ration Value: 90 Brand Name: Celebrex [...] mg tablet 12/22 completed Medicati on ID: 32642 Du ration Value: 90 Brand Name: simvasta [...] mg capsule 12/22 completed Medicati on ID: 42027 Du ration Value: 90 Brand Name: scar krishna Send Method: E-Prescr ibed Sub s Allowed: [...] spray,lv pension 12/22 completed Medicati on ID: 37920 Du ration Value: 30 Brand Name: fluticas one propiona te Send Method: E-Prescr ibed Sub s Allowed: subs OK Speci al Instruct ion: USE 2 SPRAYS IN EACH NOSTRIL DAILY Me dication GenericN ganesh: fluticas one propiona te Not Available Not Available Not Available glucosami ne-chondr oitin 1,500 mg -1,200 mg/30 mL oral liquid 12/22 completed Medicati on ID: [id number] Br and Name: glucosam ine-modesto droitin Send [...] multivita min 12/22 completed Medicati on ID: 23020 Br and Name: multivit joseph Sen d Method: E-Prescr ibed Sub s Allowed: subs OK Medic ationGen ericName : multivit joseph Not Available Not Available Not Available Super [place]-3 1,000 mg capsule 12/22 completed Medicati on ID: 45312 Br and Name: Fish Oil Concentr ate Send Method: E-Prescr ibed Sub s Allowed: subs OK Medic ationGen ericName : Fish Oil Concentr ate Not Available Not Available Not Available Myrbetriq 50 mg tablet,ex tended release TAKE 1 TABLET DAILY active Not Available Not Available No t Available Myrbetriq 01/09 completed Medicati on ID: 880900 B rand Name: Myrbetri q Send Method: [...] Updated DateTime 01/09/2025 149.86 cm 24.6 kg/m2 53311.27 g Malini Das [place] - [facility] 01/09/2025 11:40:13 Social History None recorded. Functional Status None recorded. Mental Status None recorded. Family History Nothing Reported. Medical History No medical history recorded. Gynecological HistoryNo gynecological history recorded. Obstetrics History GPAL:G 0 P 0 0 0 0 Past Encounters Encounter ID Performer Location Encounter Start Date Encounter Closed Date Diagnosis/Indication Diagnosis SNOMED-CT Code Diagnosis ICD10 Code Diagnosis Note [id number] MICHELLE BARRAZA PA-C [facility] [address] [address] 01/09/2025 11:25:20 01/09/2025 12:13:42 Anterior epistaxis 445082416 R04.0 Hemorrhagi c disorder due to circulating anticoagulants 135591120 D68.318 Long-term current use of antiplatelet drug 4636938578 37826 Z79.02 Health Concerns Section Related Observation LastModified by Organization Detai ls LastModified Time None Recorded Concern Status LastModified by Organization Details LastModified Time None Recorded Payers Encounter Date Sequence Insurance Name Policy Number Policy Palmer Covered Member ID Palmer Member ID Guarantor Name 01/09/2025 1 [place] [employer] Brigitte Leyva [id number] Brigitte Leyva 01/09/2025 2 [place] [id number] Brigitte Leyva [id number] Brigitte Leyva Notes Date Note Type Note Provider Name and Address Organization Details Recorded Time 01/09/2025 text/html 79 year old jose r [...] uses Ponaris nasal emollient. STACY DUTTA MD [address] [place] [address], [place], [address], [place] - [facility] 01/09/2025 12:26:11 OBGyn Episode No OBEpisode recorded.
== END 2025-01-11 11:57 | disposition home or self-care (01) ==
LOC: HO.PMC 11:02
PROVIDERS: Referring Provider Orthopaedic Surgery; Visit Provider Internal Medicine
DX: M25.561 Pain in right knee (principal); Z96.651 Presence of right artificial knee joint; M48.00 Spinal stenosis, site unspecified
CPT/HCPCS: 99204

== ENCOUNTER → 2025-01-11 11:02 | Outpatient (BNVA) | payer MEDICARE, SELFPAY | PROVIDERS: Referring Provider Orthopaedic Surgery; Visit Provider Internal Medicine | DX: M25.561 Pain in right knee (principal); M48.00 Spinal stenosis, site unspecified; Z96.651 Presence of right artificial knee joint | CPT/HCPCS: 99202 ==

== ENCOUNTER 2025-01-24 06:27 | Outpatient (REF) | payer MEDICARE, SELFPAY ==
--- OUTSIDE RECORDS SUMMARY | 2025-01-24 06:30 | XMS_ITS | Patient Health Record ---
Author Organization [facility] Address [address] [place] [address] Care Team Providers Care Harvesting Supervisor Name Role Phone ZAKI HENRIQUEZ M.D. Primary Care Provid er Unavailable WillamsKierstenli Unavailable [phone] Allergies Allergen (clinical drug ingredient) Drug/Non Drug Allergy documented on EMR Reaction Allergy Type Onset Date Status TYLOX Nausea/Vomiting/ Diarrhea Drug Allergy Active Results Component Value Reference Range Notes TSH-[id number] Reviewed date:02/03/2024 08:52:57 AM Interpretation: Performing Lab:[facility], [address] [place] [address], Phone - [phone], Director - MDJodry Notes/Report: TSH 4.500 0.450-4.500 uIU/mL CBC With Differential/Platel et-775280 Reviewed date:02/03/2024 08:53:28 AM Interpretation: Performing Lab:[facility], [address] [facility], Phone - [phone], Director - MDJodry Notes/Report: WBC 8.6 3.4-10.8 [...] Immature Grans (Abs) 0.1 0.0-0.1 x10E3/uL PTH, Intact-058276 Reviewed date:02/03/2024 08:52:38 AM Interpretation: Performing Lab:[facility] [place], [address] [place] [address], [place], Phone - [phone], Director - Quentin Notes/Report: PTH, Intact 41 15-65 pg/mL Vitamin D, 85-Mhiwlnf-864035 Reviewed date:02/03/2024 08:52:45 AM Interpretation: Performing Lab:[facility] [place], [address] [place] [address], [place], Phone - [phone], Director - Quentin Notes/Report: Vitamin D, 25-Hydroxy 49.2 30.0-100.0 ng/mL Vitamin D deficiency has been defined by the Christopher of Medicine and an Endocrine Society practice guideline as a level of serum 25-OH vitamin D less than 20 ng/mL (1,2). The Endocrine Society went on to further define vitamin D insufficiency as a level between 21 and 29 ng/mL (2). 1. IOM (Christopher of Medicine). 2010. Dietary reference intakes for calcium and D. Teresa [place]: The National Academies Press. 2. Melissa MF, Beka [place], Semaj GASTELUM, et al. Evaluation, treatment, and prevention of vitamin D deficiency: an Endocrine Society clinical practice guideline. JCEM. 2010; 96(7):1911-30. Comp. Metabolic Panel (14)-3 49589 Reviewed date:02/03/2024 08:53:11 AM Interpretation: Performing Lab:[facility] [place], [address] [facility], [place], Phone - [phone], Director - Quentin Notes/Report: Glucose 104 70-99 [...] date:02/03/2024 08:52:29 AM Interpretation: Performing Lab:[facility], [address] [place] [address], [place], Phone - [phone], Director - Quentin Notes/Report: Reason For Referral No Information Medications Medication SIG (Take, Route, Frequency, Duration) Notes Start Date End Date Status Multivitamins 1 ORAL daily for [facility] 02/21/2012 Active Glucosamine Chondroitin Adv 1500/1200 1 ORAL twice daily for [facility] 02/21/2012 Active NexIUM 40 MG 1 Orally Twice a day [facility] 02/21/2012 Active Myrbetriq 50 MG 1 tablet Orally Once a day Active Restasis 0.05% CHRISTIANO Ophthalmic twice daily for [facility] 02/21/2012 Active Gabapentin 300 MG TAKE [...] 600 + D 1 ORAL daily for [facility] 2 Active Atorvastatin Calcium 40 MG Oral for 90 Active CeleBREX 200MG 1 ORAL daily for [facility] 02/21/2012 Not-Taking Social History Tobacco Use: [...] Status Risk Notes Problem Postmenopausal atrophic vaginitis (26483406) Postmenopausal atrophic vaginitis (N95.2) Active confirmed Problem Overactive bladder (643348304) Overactive bladder (N32.81) Active confirmed Problem Age-related osteoporosis (757966818) Age-related osteoporosis without current pathological fracture (M81.0) Active confirmed Problem Screening for malignant neoplasm of breast (169153200) Encounter for screening mammogram for malignant neoplasm of breast (Z12.31) Active confirmed Problem Hyperlipidemia (80335824) Other and unspecified hyperlipidemia (272.4) Active confirmed Major Problem Esophageal reflux (193114548) Esophageal reflux (530.81) Active confirmed Major Problem Menopausal symptom (09233775) Symptomatic menopausal or female climacteric states (627.2) Active confirmed Major Problem Postmenopausal atrophic vaginitis (45861485) Postmenopausal atrophic vaginitis (627.3) Active confirmed Diag Problem Sicca syndrome (85431272) Sicca syndrome (710.2) Active confirmed Major Problem Gynecological examination normal (707388628526833) Routine gynecological examination (V72.31) Active confirmed Problem Dietary management surveillance (308902041) Dietary surveillance and counseling (V65.3) Active confirmed Diag Problem Screening for malignant neoplasm of colon (483456616) Special screening for malignant neoplasms, colon (V76.51) Active confirmed Major Plan Of Treatment Pending Test Test Name Order Date MAMMOGRAM, SCREENING 06/24/2021 MAMMOGRAM, SCREENING 06/27/2023 MAMMOGRAM, SCREENING 03/24/2015 Urine Culture and Sensitivity 03/24/2015 MM Digital Mammo Screening 06/24/2021 MM Digital Mammo Screening 06/27/2023 Insurance Providers Payer Name Payer Address Payer Phone Subscriber Number Group Number Insured Name Patient Relationship to Insured Coverage Start Date Coverage End Date MEDICARE [address] [place], [place] [id number] [phone] [id number] DEMARCOLYNETTE Jeffrey Self - patient is the insured MEDEX [address] [place] [address] [phone] [id number] DEMARCOLYNETTE Self - patient is the [...]
--- OUTSIDE RECORDS SUMMARY | 2025-01-24 06:30 | XMS_ITS | Clinical Summary ---
Author Organization [facility] Address [address] [place] [address] Care Team Providers Care Zipper Trimmer Name Role Phone Yenni Jerez PA-C Primary Care Provider [phone] Medications Medication Sig Dispensed Refills Start Date [...] age to complete this topic Care Teams Zipper Trimmer Relationship Specialty Start Date End Date Yenni Jerez PA-C [address] [place] [address] Ear, [place] [address] PCP - General Physician Exerciser Horse 06/05/24
--- OUTSIDE RECORDS SUMMARY | 2025-01-24 06:30 | XMS_ITS | Data Portability ---
Author Organization [place] - [facility], Allergy Address [address] [address] Care Team Providers Care Supervisor Pigment Making Name Role Phone ZAKI SMILEY Primary Care [...] By Organization Details Last Modified Time 01/09/2025 [id number] nosebleed information jschreibmaribell Not available 01/09/2025 12:25:52 Reason for Referral None Reported. Problems Name Problem SNOMED Code Status Onset Date Resolution Date Notes Provider Name and Address Organization Details Recorded Time Bleeding from nose 365550772 Active 2022 Epistaxis; Note: Date Diagnosed: 08/05/2023 9:39 AM (R04.0) Not Available [facility] 4 02:39:26 [place] ce of salivary secretion 16232211 Active 2014 Diseases of the salivary glands: Xerostomia ; Note: Date Diagnosed: 10/18/2014 3:28 PM (527.7) Not Available [facility] 4 02:39:30 Acute sialoaden itis 411666974 Active 2021 Acute sialoadeni tis; Note: Date Diagnosed: 12/22/2021 11:03 AM (K11.21) Not Available [facility] 4 02:39:23 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 282336258 Active 2022 Other hemorrhagi c disorder due to intrinsic circulatin g anticoagul ants, antibodies , or inhibitors ; Note: Date Diagnosed: 08/05/2023 9:39 AM (D68.318) Not Available [facility] 4 02:39:30 Sialolith iasis 28963289 Active 2021 Sialolithi asis; Note: Date Diagnosed: 12/22/2021 11:07 AM (K11.5) Not Available [facility] 4 02:39:27 Anterior epistaxis 044025054 Active 2023 YARIEL RIVERA MD [address] [place] [address], [place], [address] , 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 Procedures Surgical History Date Name Laterality Status Provider Name and Address Organization Details Recorded Time 5 Epistaxis Simple Nasal Cautery Left completed MICHELLE BARRAZA PA-C [address] [facility],[place] [address], [place], [address], [facility] 01/09/2025 12:11:59 4 Epistaxis Simple Nasal Cautery Left completed YARIEL RIVERA MD [address] [facility],[place] [address], [place], [address], [facility] 06/14/2024 14:10:30 Imaging Results None recorded. Procedure Notes None recorded. Medical Equipment None Reported. Allergies Allergen ID Allergen Name Allergen Category Reaction Reaction Severity Criticality Documentation Date Start Date Code Code System Note Provider Name and Address Organization Details Recorded Time 64302 acetamino phen / oxycodone medicatio n other Not available Not available 01/24/2024 91561 3 RxNorm React ion: unkno wn, unspe cifie d;; Not Available [facility] 4 01:01:01 Medications Name Sig Start [...] 5 mg tablet active Medicati on ID: 669202 B rand Name: pilocarp ine HCl Send Method: E-Prescr ibed Sub s Allowed: subs OK Medic ationGen ericName : pilocarp ine HCl Not Available Not Available Not Available nystatin 100,000 unit/mL oral suspensio n 12/22 completed Medicati on ID: 08193 Pr escribed By Name: Andrea Chan nd [...] 5 mg tablet active Medicati on ID: 250900 B rand Name: amlodipi ne Send Method: E-Prescr ibed Sub s Allowed: subs OK Medic ationGen ericName : amlodipi ne Not Available Not Available Not Available sulfameth oxazole 800 mg-trimet hoprim 160 mg tablet TAKE 1 TABLET BY MOUTH TWICE A DAY 01/09 completed Not Available Not Available Not Available aspirin 81 mg tablet,de layed release active Medicati on ID: 238047 B rand Name: aspirin Send Method: E-Prescr [...] mg capsule 12/22 completed Medicati on ID: 37732 Du ration Value: 90 Brand Name: Celebrex [...] mg tablet 12/22 completed Medicati on ID: 21236 Du ration Value: 90 Brand Name: karlene [...] mg capsule 12/22 completed Medicati on ID: 15224 Du ration Value: 90 Brand Name: scar [...] spray,lv pension 12/22 completed Medicati on ID: 70698 Du ration Value: 30 Brand Name: fluticas one propiona te Send Method: E-Prescr ibed Sub s Allowed: subs OK Speci al Instruct ion: USE 2 SPRAYS IN EACH NOSTRIL DAILY Me dication GenericN ganesh: fluticas one propiona te Not Available Not Available Not Available glucosami ne-chondr oitin 1,500 mg -1,200 mg/30 mL oral liquid 12/22 completed Medicati on ID: 51369 Br and Name: glucosam ine-modesto droitin Send [...] multivita min 12/22 completed Medicati on ID: 82253 Br and Name: multivit joseph Sen d Method: E-Prescr ibed Sub s Allowed: subs OK Medic ationGen ericName : multivit joseph Not Available Not Available Not Available Super [place]-3 1,000 mg capsule 12/22 completed Medicati on ID: 26648 Br and Name: Fish Oil Concentr ate Send Method: E-Prescr ibed Sub s Allowed: subs OK Medic ationGen ericName : Fish Oil Concentr ate Not Available Not Available Not Available Myrbetriq 50 mg tablet,ex tended release TAKE 1 TABLET DAILY active Not Available Not Available No t Available Myrbetriq 01/09 completed Medicati on ID: 734088 B rand Name: Myrbetri q Send Method: [...] Updated DateTime 01/09/2025 149.86 cm 24.6 kg/m2 22153.27 g Malini Das [place] - [facility] 01/09/2025 11:40:13 Date Recorded Body height Body mass index (BMI) Body weight Provider Name and Address Organization Details Last Updated DateTime 06/14/2024 149.86 cm 23.8 kg/m2 84881.9 g Rozina Addi [place] - [facility] 06/14/2024 14:00:01 Social History None recorded. 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 45157821 M35.00 [id number] MICHELLE BARRAZA PA-C [facility] [address] [address] 01/09/2025 11:25:20 01/09/2025 12:13:42 Anterior epistaxis 784796131 R04.0 Hemorrhagi c disorder due to circulating anticoagulants 021019148 D68.318 Long-term current use of antiplatelet drug 0533292666 17224 Z79.02 Health Concerns Section Related Observation LastModified by Organization Detai ls LastModified Time None Recorded Concern Status LastModified by Organization Details LastModified Time None Recorded Advance Directives Directive None Recorded Payers Insurance Date Sequence Insurance Name Policy Number Policy Palmer Covered Member ID Palmer Member ID Guarantor Name 01/09/2025 1 [place] [employer] Brigitte Leyva [id number] Brigitte Leyva 01/09/2025 2 [place] [id number] Brigitte Leyva [id number] Brigitte Leyva 01/10/2025 2 [place] [id number] Brigitte Leyva [id number] Brigitte Leyva Notes Date Note Type Note Provider Name and Address Organization Details Recorded Time 06/14/2024 text/html left epistaxis3 times in past few weeks, lasting 3 minutespmhx - sjogrens PV 08/10/23 Aimee - right nasal cautery YARIEL RIVERA MD [address] [place] [address],[place] [address], [place], [address], [facility] - [facility] 06/14/2024 14:10:50 01/09/2025 text/html 79 year [...] uses Ponaris nasal emollient. STACY DUTTA MD [address] [facility],[place] [address], [place], [address], [facility] - [facility] 01/09/2025 12:26:11 OBGyn Episode No OBEpisode recorded.
--- OUTSIDE RECORDS SUMMARY | 2025-01-24 06:31 | XMS_ITS | Clinical Summary ---
Author Organization [facility] Address [address] [place] [address] Care Team Providers Care Wheel Alignment Mechanic Name Role Phone Unavailable Primary Care Provider [...] (SF 5000 PLUS) 1.1 % creaIndications: Caries [place] twice daily with toothpaste then expectorate. Do not rinse. 51 g 4 4 Active Active Problems Problem Noted Date Diagnosed Date Paroxysmal atrial fibrillation ([facility]) 024 Encounters Date Type Department Care Team Description 12/12/2024 2:20 PM EDT Office Visit [facility] [address] [place] [address] Lesli Ramsey RHD Encounter for dental examination [...] EDT Office Visit [facility] [address] [place] [id number] Lesli Ramsey, RHD [address] [place] [address] Health Maintenance Due Date Last Done Comments Imm-Pneumococcal 65+ (1 of 1 - PCV) 02/18/1994 Imm-Zoster, Recombinant (2 of 3) 12/27/2007 11/01/19 08 Bone Density Screening 02/18/2009 Falls Prevention 02/18/2009 Imm-DTaP/Tdap/Td (2 - Td or Tdap) 03/16/2021 011 Gqd-[id number]-10 ( - season) 2024 Imm-Influenza (#1) 2024 [...]
--- OUTSIDE RECORDS SUMMARY | 2025-01-24 06:31 | XMS_ITS | Clinical Summary ---
Author Organization [facility] Address [address] [place] [address] Care Team Providers Care Overhauler Helper Name Role Phone Pcp, No Primary Care [...] Patients (1 - 1-dose 75+ series) 02/18/2019 COVID-19 Vaccine ( - 2023-2 5 season) 2024 Influenza Vaccine 04/12/2025 Hepatitis B Vaccines Aged Out No long er eligible based on patient's age to complete this topic Insurance MEDICARE PART A & B [facility] Care Teams Overhauler Helper Relationship Specialty Start Date End Date Pcp, No PCP - General General Medicine 09/24/24
--- OUTSIDE RECORDS SUMMARY | 2025-01-24 06:31 | XMS_ITS ---
Continuity of Care Document (CCD) Created on: January 24, 2025 GordonBrigitte External Reference #: [id number] : [id number] Sex: Female Author Organization [facility] [address] [address] Phone [phone] Care Team Providers Care Band Log Mill And Carriage Operator Name Role Phone Yenni Barnard M.D. 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 09/12/2023 KP Ferrous Aoxqdoa532(65Fe) mg Tablets 1 by mouth every day Yenni Barnard M.D. 09/12/2023 Trazodone ALB108jl Tablets Take 1 Tablet AT Bedtime 90tabs Yenni Barnard M.D. 09/02/2023 Tylenol Extra Acrfehga243zh Tablets 2 by mouth twice a day prn Yenni Barnard M.D. Xcknmmizs64wz Tablets 1 by mouth every day Unknown Auveerumjtloop31go Tablets 1 by mouth every day Unknown Eliquis2.5mg Tablets Take 1 Tablet By Mouth Twice A Day Unknown Metoprolol Succinate ER25mg Tablets ER 24HR 1 by mouth every day Unknown Jdjxzbpomm85qa Tablets 1 by mouth every day prn Unknown Agrtdpxdhz604jn Capsules 1 by mouth three times a day prn Unknown Restasis0.05% Emulsion 1 drop each eye twice daily Yenni Barnard M.D. Nutcehvhjuw492sb Capsules 4 caps by mouth prior to dental work 24caps Yenni Barnard M.D. Multivitamin Adults 50+Adlt 50+ Tablets 1 by mouth every day Yenni Barnard M.D. Calcium 600 +D High Jjbnsqp560-365ry-Ecug Tablets 1 by mouth qd Yenni Barnard M.D. Cdfzuj85vn Capsules DR spain mouth twice a day Serena Collins MD Ikdjtbiku96qb Tablets ER 24HR 1 by mouth every day Tuan Garduno MD Atorvastatin Gqkujyp80ps Tablets Take 1 Tablet By Mouth Once Daily 90tabs Yenni Barnard M.D. History Medications Gpqramgaq69nx Tablets 1 tablet by mouth every day 90tabs Yenni Barnard M.D. 03/26/2024 - 01/03/2025 Wjndctcazmxj95nm Madeleine Take 1 lozenge four times a day for 10 days 40units Yenni Barnard M.D. 03/06/2024 - 03/26/2024 Xvworvsz969942Sidj/ML Suspension rinse and spit 4 ml qid [...] Comments: TNP CBC With Differential/Plat elet 11/18/2023 [facility] WBC 9.3 K/MM3 (4.0-11 .0) [...] 0) Lymph # 1.7 K/MM3 (0.8-3. 1) Republic# 0.8 K/MM3 (0.4-0. 9) Eo # 0.3 [...] A1c 5.5% Complete Abc With Diff 10/17/2023 [facility] WBC 6.5 K/MM3 (4.0-11 .0) [...] 0) Lymph # 1.3 K/MM3 (0.8-3. 1) Republic# 0.5 K/MM3 (0.4-0. 9) Eo # 0.2 K/MM3 (0.0-0. 4) Baso # 0.1 K/MM3 (0.0-0. 1) Abs. Imm Gran 0.0 K/MM3 Neut 67.7 % (44-76) Lymph 20.4 % (15-43) Monocyte 7.7 % (4.5-10 .5) Eo 2.8 % (0-6) Baso 0.9 % (0-2) Imm Gran 0.5 % Vitamin B12 10/17/2023 [facility] Vitamin B12 1166 pg/mL (232-12 45) Folic Acid 10/17/2023 [facility] Folic Acid 36.9 ng/mL (4.8-37 .3) Homocysteine, Plasma 10/17/2023 [facility] Homocysteine, Plasma 8.9 UMOL/L (0-15) Vitamin B12 09/12/2023 [facility] Vitamin B12 <pending> Folic Acid 09/12/2023 [facility] Folic Acid <pending> Homocysteine,Plas ma/Serum 09/12/2023 [facility] Homocysteine,Plas ma/Serum <pending> Hemoglobin A1c 09/02/2023 Inhouse Hemoglobin A1c 5.7% Glucose Fingerstick 09/02/2023 Inhouse Glucose Fingerstick 109 Ferritin 09/02/2023 [facility] Ferritin 14 NG/ML (14-283 ) Iron & Tibc 09/02/2023 [facility] Iron 24 g /dL Low (30-160 ) Unsaturated Iro n Binding [place] 316 g /dL (110-37 0) Est T. Iron Bin d Capacity 340 g /dL (140-53 0) % Iron Saturation 7 % Low (20-55 ) Complete Abc With Diff 09/02/2023 [facility] WBC 9.8 K/MM3 (4.0-11 .0) [...] 0) Lymph # 1.9 K/MM3 (0.8-3. 1) Republic# 1.1 K/MM3 High (0.4-0. 9) Eo # 0.2 K/MM3 (0.0-0. 4) Baso # 0.1 K/MM3 (0.0-0. 1) Abs. Imm Gran 0.1 K/MM3 Neut 66.4 % (44-76) Lymph 19.6 % (15-43) Monocyte 10.9 % High (4.5-10 .5) Eo 2.0 % (0-6) Baso 0.6 % (0-2) Imm Gran 0.5 % Comprehensive Metabolic Panl 09/02/2023 [facility] Glucose 103 mg/dL High (70-99) [...] 68 ML/MIN/1.73 M2 1 Immunofixation Serum 09/02/2023 [facility] Immunoglobulin Igg 805 mg/dL (700-16 00) Immunoglobulin Iga 207 mg/dL (70-400 ) Immunoglobulin Igm 133 mg/dL (40-230 ) Immunofix Normal immunofix <SEE NOTE> 2 PTH, Intact 05/09/2023 [facility] PTH, Intact 62 pg/mL (15-65) Albumin 05/09/2023 [facility] Albumin 4.1 GM/DL (3.4-4. 8) Calcium 05/09/2023 [facility] Calcium 8.8 mg/dL (8.6-10 .5) Creatinine 05/09/2023 [facility] Creatinine 0.8 mg/dL (0.5-1. 0) Estimated GFR Creatinine 74 ML/MIN/1.73 M2 3 TSH With Reflex To FT4 05/09/2023 [facility] TSH With Reflex To FT4 3.96 uIU/mL (0.4-4. 2) 25Oh Vitamin D 05/09/2023 [facility] 25Oh Vitamin D 45.2 NG/ML (20-50) N-Telopeptide Cross Links, Urine 05/09/2023 [facility] Cross Linked N-Telopeptides 589 4 Creat, Urine 67.0 5 N-Telopeptide/C re at Ratio 99 High 6 NTX Interpretaion Comment 7 Creatinine 05/08/2023 [facility] Creatinine <pending> Albumin 05/08/2023 [facility] Albumin <pending> 25Oh Vitamin D 05/08/2023 [facility] 25Oh Vitamin D <pending> TSH With Reflex To FT4 05/08/2023 [facility] TSH With Reflex To FT4 <pending> PTH, Intact 05/08/2023 [facility] PTH, Intact <pending> Calcium 05/08/2023 [facility] Calcium <pending> Complete Abc With Diff 02/26/2023 [facility] WBC 6.6 K/MM3 (4.0-11 .0) [...] 0) Lymph # 1.6 K/MM3 (0.8-3. 1) Republic# 0.6 K/MM3 (0.4-0. 9) Eo # 0.2 K/MM3 (0.0-0. 4) Baso # 0.0 K/MM3 (0.0-0. 1) Abs. Imm Gran 0.0 K/MM3 Neut 61.7 % (44-76) Lymph 24.4 % (15-43) Monocyte 9.6 % (4.5-10 .5) Eo 3.5 % (0-6) Baso 0.6 % (0-2) Imm Gran 0.2 % Comprehensive Metabolic Panl 02/26/2023 [facility] Glucose 99 mg/dL (70-99) BUN [...] 65 ML/MIN/1.73 M2 8 Lipid Panel 02/26/2023 [facility] Cholesterol, Total 182 mg/dL (<200) Triglyceride 87 mg/dL (<150) HDL Chol 92 mg/dL (>39) LDL Cholesterol , Calculated 73 mg/dL (0-130) Non HDL Cholesterol (Calc) 90 mg/dL (<160) Hemoglobin A1c 02/26/2023 [facility] Hemoglobin A1c 5.6 % (4.0-5. 6) 9 Hemoglobin A1c 01/24/2023 [facility] Hemoglobin A1c <pending> Glucose Fingerstick 12/07/2022 Inhouse Glucose Fingerstick 93 Culture Urine 10/27/2022 [facility] Specimen Description URINE Special Requests NONE Culture NO GROWTH Report Status FINAL 10/29/2022 10 Glucose Fingerstick 10/13/2022 Inhouse Glucose Fingerstick 94 Hemoglobin A1c 10/13/2022 Inhouse Hemoglobin A1c 5.4% Comprehensive Metabolic Panl 06/02/2022 [facility] Glucose 117 mg/dL High (70-99) [...] M2 11 Complete Abc With Diff 06/02/2022 [facility] WBC 7.4 K/MM3 (4.0-11 .0) [...] 0) Lymph # 1.8 K/MM3 (0.8-3. 1) Republic# 0.5 K/MM3 (0.4-0. 9) Eo # 0.2 [...] Estab. Unit: nmol BCE [place] [address] 5 Reference range: Not Estab. Unit: mg/dL Test performed by [facility], [address] [place] [address] 6 Reference range: 0 t o 89 [...] value is <or EQ 38 nM BCE/mM VICE PRESIDENT OF BUSINESS DEVELOPMENT, or NTx has decreased >or EQ 30% [...] J Bone Min Res.11(1):M757,1996 Test performed at [facility], [address] [place] [address] 8 Creatinine based est imated glomerular filtration (eGFR) in adults is calculated using the National Kidney Foundation recommended 2020 CKD-EPI equation. Estimates GFR from serum creatinine, age and sex. 9 MONITORING: In known diabetic patients, hemoglobin A1c targets should be discussed with health care provider. DIAGNOSTIC USE: The [place] Diabetes Association (ADA) and the World Health [...] sex. Procedures Date Code Description Status 01/03/2025 89985 Collection Of Venous Blood B y Venipuncture Completed 08/30/2024 77129 Collection Of Venous Blood B y Venipuncture Completed 03/26/2024 68034 Collection Of Venous Blood B y Venipuncture Completed 11/18/2023 92580 Collection Of Venous Blood B y Venipuncture Completed 09/02/2023 97467 Collection Of Venous Blood B y Venipuncture Completed 06/02/2022 99542 Collection Of Venous Blood B y Venipuncture Completed Medical Devices Description No Information Available Encounters Type Date Location Provider Dx Diagnosis Office Visit 01/16/2025 12:59p Main Office Yenni Barnard M.D. I10 Essential (primary) hypertension E78.00 Pure hypercholestero lemia, unspecified Assessments Date Code Description Provider 01/16/2025 I10 Essential (primary) hyperten vince Yenni Barnard M.D. 01/16/2025 E78.00 Pure hypercholesterolemia, u nspecified Yenni Barnard M.D. Plan of Treatment Future [...] Reason for Referral Status Appt Gabriel [facility] Educational Institution Curator NEW IRON DEFICIENCY ANEMIA Closed [address] [place] [address] [phone] [facility] Neurology WAS DR MARY CRUZ,.... DX, CARDIOEMBOLIC CVA Closed 06/22/2022 [address] [place] [address] [phone]
--- OUTSIDE RECORDS SUMMARY | 2025-01-24 06:31 | XMS_ITS | Clinical Summary ---
Author Organization [facility] Address [address] [place] [address] Phone Care Team Providers Care Food Production Machine Operator Name Role Phone Yenni Jerez Primary Care Provider [phone] Medications ascorbic acid (VITAMIN C) 500 mg [...] DX:Irregu lar heart rhythm Osteoporosis DX:Osteoporosis Stroke ([facility]/HCC V24, [facility] V28) DX:Stroke (HCC) Sjogren's disease ([facility] V24) DX:Sjogren's disease (HCC) Family History Medical [...] age to complete this topic Insurance MEDICARE [facility] Advance Directives Documents on File Type Date Recorded 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
== END 2025-01-24 06:28 | disposition home or self-care (01) ==
LOC: CF 06:27
PROVIDERS: Visit Provider Internal Medicine
DX: M25.561 Pain in right knee (principal); G89.29 Other chronic pain; Z96.651 Presence of right artificial knee joint
CPT/HCPCS: 64555; C1778; J2003

== ENCOUNTER 2025-01-24 12:39 | Outpatient (AMB) | payer MEDICARE, SELFPAY ==
--- NOTE | 2025-01-24 12:48 | MHC.OFFVIS ---
Vital Signs 01/24/25 12:49 01/24/25 13:30 BP 130/70 120/72 Blood Pressure Location Lt brachial Lt brachial Position Sitting Supine Respiration 16 16 Pulse 80 80 Pulse Source Pulse Oximeter Pulse Oximeter Intake Visit Reasons: Right saphenous Sprint Allergies oxycodone [From Tylox] Adverse Reaction (Intermediate, Verified 01/24/25 12:49) Nausea and Vomiting ( after childbirth-age 19)-has had since Medication List - Last Reconciled 01/24/25 by Rosa Gamboa LPN acetaminophen 650 mg (2 x 325 mg) PO Q6H PRN 30 days apixaban (Eliquis) 2.5 mg PO BID ascorbic acid (vitamin C) 500 mg PO DAILY atorvastatin 40 mg PO DAILY calcium carbonate-vitamin D3 600 mg-5 mcg (200 unit) 1 tab PO BEDTIME cyclosporine 0.05% (Restasis) 1 drp ophthalmic (eye) BID docusate sodium 100 mg PO BID empagliflozin (Jardiance) 20 mg PO DAILY esomeprazole magnesium (Nexium) 40 mg PO BID ferrous sulfate 325 mg PO DAILY furosemide 20 mg PO DAILY glucos sul 5YOb-jdn-xpkjx-C-Mn 550-30-1 mg (Glucosamine Chondroitin) 1 cap PO BID loratadine (Claritin) 10 mg PO DAILY PRN metoprolol succinate ER 25 mg PO DAILY mirabegron ER (Myrbetriq) 50 mg PO BEDTIME multivitamin 1 tab PO DAILY spironolactone 25 mg PO DAILY trazodone 100 mg PO BEDTIME HPI HPI Right saphenous Sprint: Details: Patient presents for scheduled procedure. Denies any recent cough, cold, infection, fever or other significant changes in medical history since last office visit. [facility] Medical History (Updated 01/24/25 @ 13:30 by Meek Childs MD) Arthritis of right knee Lumbar disc herniation Spinal stenosis Difficulty swallowing Basal cell carcinoma Overactive bladder Iron deficiency Elevated cholesterol Atrial fibrillation CVA (cerebral vascular accident) Sjogrens syndrome Osteoarthritis GERD (gastroesophageal reflux disease) HTN (hypertension) Surgical History (Updated 05/31/24 @ 14:28 by Adán De León MD) Hx of right knee surgery (~12/12/23) History of surgery on upper extremity Hx of bilateral cataract extraction History of esophagogastroduodenoscopy (EGD) H/O colonoscopy Hx of tonsillectomy History of extraction of renal calculus History of arthroscopy of left shoulder (~06/2022) History of right shoulder replacement (~04/2021) History of total left knee replacement (~03/2020) Social History Household Members: Spouse Housing: House Are you a primary child care nurse to a significant other at home: No Do you presently have visiting nurse or other home services: No Alcohol intake: current Alcohol intake frequency: holidays/special occasions only Alcohol type: wine Patient Tobacco Use Status: Former Tobacco user Tobacco use type: Cigarette Years Smoked: 5 service: No Current occupational status: retired Physical Exam Vital Signs: Last Vital Signs Pulse 80 01/24/25 12:49 Resp 16 01/24/25 12:49 BP 130/70 01/24/25 12:49 Office Procedures Details: Peripheral Nerve Stimulation Temporary Lead Placement, Ultrasound-Guided, Saphenous Nerve, Right ? After the risks, benefits and alternatives were discussed with the patient and informed consent was obtained, patient was placed in the supine position and padded to foster comfort. Appropriate skin and bony landmarks were identified, and pertinent vascular structures were located. The skin overlying the needle entry site was prepped and draped in sterile fashion. Ultrasound was used to identify the femoral artery, the femoral vein and the saphenous nerve. After identifying and marking the intended target along the course of the saphenous nerve, the skin around the planned entry point and the subcutaneous tissues were injected with local anesthetic. An introducer needle and stimulating probe were assembled, inserted and advanced along the intended course of the saphenous nerve, taking care to maintain the proper depth of insertion as the introducer was advanced under ultrasound guidance. The introducer needle was delivered to a location in proximity to the nerve taking care not to puncture the femoral artery or the vein. Multiple stimulation parameters were used to deliver stimulation to the saphenous nerve in concert with stimulating at multiple positions around the nerve. Nerve target acquisition was confirmed noting generation of sensory and mild motor effects (paresthesia, muscle tension, etc) in the medial knee, leg and ankle; corresponding to the distribution of the saphenous nerve. Various electrical parameter combinations were tested, and the lead location was adjusted (physically relocated under ultrasound guidance) until the patient indicated medial knee paresthesia and tension overlapping the distribution of the patient?s typical region of pain. The stimulating probe was removed from the introducer and a percutaneous lead was guided through the needle and delivered to a location in similar proximity to the nerve. Final location was verified with electrical stimulation and documented. The introducer needle was removed, and the exposed end of the percutaneous lead was attached to an external stimulator unit. Various electrical parameter combinations were again tested until the patient indicated paresthesia and muscle tension overlapping the distribution of the patient?s typical region of pain. After confirming that lead impedance was in the normal range, the external unit was detached, the needle was removed, and the lead was anchored at the skin. The lead was threaded into the connector block and electrical continuity and desired patient response was confirmed. The connector block was attached to the external stimulator unit. The site was covered with a sterile occlusive dressing. A final ultrasound image was taken to document final placement. The patient was observed for stability of vital signs and comfort. Sprint PNS Device: Sprint PNS Device [id number] Percutaneous Peripheral Neuroelectrode Procedure: 84220 - Percutaneous Peripheral Neuroelectrode Procedure code (CPT) selection complete Office Meds lidocaine HCl 10 mg/mL (1 %) injection solution Performing Provider: Kathrine Crow APRN, MARKETING SERVICES REP Performing Location: [facility] Administered by: Meek Childs MD on 01/24/25 13:29 Dose Route Admin Location Dispensed Lot Number Expiration Date [facility] [place] 2[place] Engineering Technician 5 mL subcut 5 mL Assessment & Plan Assessment & Plan (1) Chronic knee pain after total replacement of right knee joint: Code(s): M25.561 - Pain in right knee; G89.29 - Other chronic pain; Z96.651 - Presence of right artificial knee joint Category: Medical Plan Patient is status post temporary right saphenous nerve stimulator placement. Patient tolerated procedure well and was discharged home in stable condition with discharge instructions. All questions were answered. We will follow-up via telephone or in clinic to assess response to therapy. A follow-up appointment was made during today's visit. Orders: Orders US guide needle placement 01/23/25 M25.561 - Pain in right knee AMB Sprint PNS Today M25.561 - Pain in right knee Medications: New lidocaine HCl 5 mL subcut ONCE 5 mL 0RF M25.561 - Pain in right knee Coding Level of Care Code Procedure Only Diagnoses Chronic knee pain after total replacement of right knee joint M25.561; G89.29; Z96.651 CPT Codes Sprint PNS - Sprint PNS Device: Sprint PNS Device ([id number]) Sprint PNS - SPRINT: 46625 - Percutaneous Peripheral Neuroelectrode ([id number]) Implantable Device Implantable Device Implantable Devices Qty Engineering Technician Implant Date Expiration Date Analgesic PENS system 1 [employer] 01/24/25 07/09/26 CEMENT BONE SIMPLEX 2 12/12/23 01/09/26 COMPONENT FEMORAL 1 PS LFT 1 12/12/23 08/10/26 INSERT #2 9MM TIBIAL BEARING 1 12/12/23 02/09/28 PATELLA 8MM TRIATH X3 1 12/12/23 09/21/26 PEG TRIATHLON DISTAL FIXATION 1 12/12/23 08/15/28 TIBIAL BASEPLATE #2 TRIATHALON 1 12/12/23 11/08/27
[2025-01-24 12:49] VITALS: BP 130/70; PULSE 80; RESP 16
--- OUTSIDE RECORDS SUMMARY | 2025-01-24 13:19 | XMS_ITS | Continuity of Care Document ---
Author Organization [facility] [address] [address] Phone [phone] Care Team Providers Care Accounts Payable Supervisor Name Role Phone Yenni Barnard M.D. 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 09/12/2023 KP Ferrous Ndcvzjm958(65Fe) mg Tablets 1 by mouth every day Yenni Barnard M.D. 09/12/2023 Trazodone [id number] Tablets Take 1 Tablet AT Bedtime 90tabs Yenni Barnard M.D. 09/02/2023 Tylenol Extra Beuulthp720yb Tablets 2 by mouth twice a day prn Yenni Barnard M.D. Mpmwzdzrp85qa Tablets 1 by mouth every day Unknown Lyzvvtdxsvyelj35go Tablets 1 by mouth every day Unknown Eliquis2.5mg Tablets Take 1 Tablet By Mouth Twice A Day Unknown Metoprolol Succinate ER25mg Tablets ER 24HR 1 by mouth every day Unknown Mkdmlnitwl07sr Tablets 1 by mouth every day prn Unknown Xqatpwczqg848ej Capsules 1 by mouth three times a day prn Unknown Restasis0.05% Emulsion 1 drop each eye twice daily Yenni Barnard M.D. Vwifjqpndqm326hu Capsules 4 caps by mouth prior to dental work 24caps Yenni Barnard M.D. Multivitamin Adults 50+Adlt 50+ Tablets 1 by mouth every day Yenni Barnard M.D. Calcium 600 +D High Rktwqdy205-080vk-Cpjt Tablets 1 by mouth qd Yenni Barnard M.D. Zfytwr39eo Capsules DR spain mouth twice a day Serena Collins MD Hqwogekcb77wq Tablets ER 24HR 1 by mouth every day Tuan Garduno MD Atorvastatin Ujbdost95ss Tablets Take 1 Tablet By Mouth Once Daily 90tabs Yenni Barnard M.D. History Medications Bbjtuyudj19nu Tablets 1 tablet by mouth every day 90tabs Yenni Barnard M.D. 03/26/2024 - 01/03/2025 Kuycjwuhhqun86ig Madeleine Take 1 lozenge four times a day for 10 days 40units Yenni Barnard M.D. 03/06/2024 - 03/26/2024 Bdyshfao440931Zpvp/ML Suspension rinse and spit 4 ml qid [...] Comments: TNP CBC With Differential/Plat elet 11/18/2023 [facility] WBC 9.3 K/MM3 (4.0-11 .0) [...] 0) Lymph # 1.7 K/MM3 (0.8-3. 1) Levy# 0.8 K/MM3 (0.4-0. 9) Eo # 0.3 [...] A1c 5.5% Complete Abc With Diff 10/17/2023 [facility] WBC 6.5 K/MM3 (4.0-11 .0) [...] 0) Lymph # 1.3 K/MM3 (0.8-3. 1) Levy# 0.5 K/MM3 (0.4-0. 9) Eo # 0.2 K/MM3 (0.0-0. 4) Baso # 0.1 K/MM3 (0.0-0. 1) Abs. Imm Gran 0.0 K/MM3 Neut 67.7 % (44-76) Lymph 20.4 % (15-43) Monocyte 7.7 % (4.5-10 .5) Eo 2.8 % (0-6) Baso 0.9 % (0-2) Imm Gran 0.5 % Vitamin B12 10/17/2023 [facility] Vitamin B12 1166 pg/mL (232-12 45) Folic Acid 10/17/2023 [facility] Folic Acid 36.9 ng/mL (4.8-37 .3) Homocysteine, Plasma 10/17/2023 [facility] Homocysteine, Plasma 8.9 UMOL/L (0-15) Vitamin B12 09/12/2023 [facility] Vitamin B12 <pending> Folic Acid 09/12/2023 [facility] Folic Acid <pending> Homocysteine,Plas ma/Serum 09/12/2023 [facility] Homocysteine,Plas ma/Serum <pending> Hemoglobin A1c 09/02/2023 Inhouse Hemoglobin A1c 5.7% Glucose Fingerstick 09/02/2023 Inhouse Glucose Fingerstick 109 Ferritin 09/02/2023 [facility] Ferritin 14 NG/ML (14-283 ) Iron & Tibc 09/02/2023 [facility] Iron 24 g /dL Low (30-160 ) Unsaturated Iro n Binding [place] 316 g /dL (110-37 0) Est T. Iron Bin d Capacity 340 g /dL (140-53 0) % Iron Saturation 7 % Low (20-55 ) Complete Abc With Diff 09/02/2023 [facility] WBC 9.8 K/MM3 (4.0-11 .0) [...] 0) Lymph # 1.9 K/MM3 (0.8-3. 1) Levy# 1.1 K/MM3 High (0.4-0. 9) Eo # 0.2 K/MM3 (0.0-0. 4) Baso # 0.1 K/MM3 (0.0-0. 1) Abs. Imm Gran 0.1 K/MM3 Neut 66.4 % (44-76) Lymph 19.6 % (15-43) Monocyte 10.9 % High (4.5-10 .5) Eo 2.0 % (0-6) Baso 0.6 % (0-2) Imm Gran 0.5 % Comprehensive Metabolic Panl 09/02/2023 [facility] Glucose 103 mg/dL High (70-99) [...] 68 ML/MIN/1.73 M2 1 Immunofixation Serum 09/02/2023 [facility] Immunoglobulin Igg 805 mg/dL (700-16 00) Immunoglobulin Iga 207 mg/dL (70-400 ) Immunoglobulin Igm 133 mg/dL (40-230 ) Immunofix Normal immunofix <SEE NOTE> 2 PTH, Intact 05/09/2023 [facility] PTH, Intact 62 pg/mL (15-65) Albumin 05/09/2023 [facility] Albumin 4.1 GM/DL (3.4-4. 8) Calcium 05/09/2023 [facility] Calcium 8.8 mg/dL (8.6-10 .5) Creatinine 05/09/2023 [facility] Creatinine 0.8 mg/dL (0.5-1. 0) Estimated GFR Creatinine 74 ML/MIN/1.73 M2 3 TSH With Reflex To FT4 05/09/2023 [facility] TSH With Reflex To FT4 3.96 uIU/mL (0.4-4. 2) 25Oh Vitamin D 05/09/2023 [facility] 25Oh Vitamin D 45.2 NG/ML (20-50) N-Telopeptide Cross Links, Urine 05/09/2023 [facility] Cross Linked N-Telopeptides 589 4 Creat, Urine 67.0 5 N-Telopeptide/C re at Ratio 99 High 6 NTX Interpretaion Comment 7 Creatinine 05/08/2023 [facility] Creatinine <pending> Albumin 05/08/2023 [facility] Albumin <pending> 25Oh Vitamin D 05/08/2023 [facility] 25Oh Vitamin D <pending> TSH With Reflex To FT4 05/08/2023 [facility] TSH With Reflex To FT4 <pending> PTH, Intact 05/08/2023 [facility] PTH, Intact <pending> Calcium 05/08/2023 [facility] Calcium <pending> Complete Abc With Diff 02/26/2023 [facility] WBC 6.6 K/MM3 (4.0-11 .0) [...] 0) Lymph # 1.6 K/MM3 (0.8-3. 1) Levy# 0.6 K/MM3 (0.4-0. 9) Eo # 0.2 K/MM3 (0.0-0. 4) Baso # 0.0 K/MM3 (0.0-0. 1) Abs. Imm Gran 0.0 K/MM3 Neut 61.7 % (44-76) Lymph 24.4 % (15-43) Monocyte 9.6 % (4.5-10 .5) Eo 3.5 % (0-6) Baso 0.6 % (0-2) Imm Gran 0.2 % Comprehensive Metabolic Panl 02/26/2023 [facility] Glucose 99 mg/dL (70-99) BUN [...] 65 ML/MIN/1.73 M2 8 Lipid Panel 02/26/2023 [facility] Cholesterol, Total 182 mg/dL (<200) Triglyceride 87 mg/dL (<150) HDL Chol 92 mg/dL (>39) LDL Cholesterol , Calculated 73 mg/dL (0-130) Non HDL Cholesterol (Calc) 90 mg/dL (<160) Hemoglobin A1c 02/26/2023 [facility] Hemoglobin A1c 5.6 % (4.0-5. 6) 9 Hemoglobin A1c 01/24/2023 [facility] Hemoglobin A1c <pending> Glucose Fingerstick 12/07/2022 Inhouse Glucose Fingerstick 93 Culture Urine 10/27/2022 [facility] Specimen Description URINE Special Requests NONE Culture NO GROWTH Report Status FINAL 10/29/2022 10 Glucose Fingerstick 10/13/2022 Inhouse Glucose Fingerstick 94 Hemoglobin A1c 10/13/2022 Inhouse Hemoglobin A1c 5.4% Comprehensive Metabolic Panl 06/02/2022 [facility] Glucose 117 mg/dL High (70-99) [...] M2 11 Complete Abc With Diff 06/02/2022 [facility] WBC 7.4 K/MM3 (4.0-11 .0) [...] 0) Lymph # 1.8 K/MM3 (0.8-3. 1) Levy# 0.5 K/MM3 (0.4-0. 9) Eo # 0.2 [...] Estab. Unit: nmol BCE [place] [address] 5 Reference range: Not Estab. Unit: mg/dL Test performed by [facility], [address] [place] [address] 6 Reference range: 0 t o 89 [...] value is <or EQ 38 nM BCE/mM MANAGER BILLING, or NTx has decreased >or EQ 30% [...] J Bone Min Res.11(1):M757,1996 Test performed at [facility], [address] [place] [address] 8 Creatinine based est imated glomerular filtration (eGFR) in adults is calculated using the National Kidney Foundation recommended 2020 CKD-EPI equation. Estimates GFR from serum creatinine, age and sex. 9 MONITORING: In known diabetic patients, hemoglobin A1c targets should be discussed with health care provider. DIAGNOSTIC USE: The [place] Diabetes Association (ADA) and the World Health [...] sex. Procedures Date Code Description Status 01/03/2025 74961 Collection Of Venous Blood B y Venipuncture Completed 08/30/2024 79363 Collection Of Venous Blood B y Venipuncture Completed 03/26/2024 32132 Collection Of Venous Blood B y Venipuncture Completed 11/18/2023 47864 Collection Of Venous Blood B y Venipuncture Completed 09/02/2023 77387 Collection Of Venous Blood B y Venipuncture Completed 06/02/2022 40341 Collection Of Venous Blood B y Venipuncture [...] Reason for Referral Status Appt [facility] Director Of Training NEW IRON DEFICIENCY ANEMIA Closed [address] [place] [address] [phone] [facility] WAS DR MARY CRUZ,.... DX, CARDIOEMBOLIC CVA Closed 06/22/2022 [address] [place] [address] [phone]
--- OUTSIDE RECORDS SUMMARY | 2025-01-24 13:19 | XMS_ITS | Clinical Summary ---
Author Organization [facility] Address [address] [place] [address] Care Team Providers Care Under Cutter Name Role Phone Yenni Jerez PA-C Primary Care Provider [phone] Medications Medication Sig Dispensed Refills Start Date [...] mouth. 0 Active clotrimazole (MYCELEX) 10 MG ami DISSOLVE 1 MAI BY MOUTH FOUR TIMES [...] age to complete this topic Care Teams Under Cutter Relationship Specialty Start Date End Date Yenni Jerez PA-C [address] Ear, Nose [place] [address] PCP - General Physician Biochemical Development Engineer 06/05/24
--- OUTSIDE RECORDS SUMMARY | 2025-01-24 13:20 | XMS_ITS | Clinical Summary ---
Author Organization [facility] Address [address] [place] [address] Care Team Providers Care Social Media Marketing Analyst Name Role Phone Unavailable Primary Care Provider [...] (SF 5000 PLUS) 1.1 % creaIndications: Caries [place] twice daily with toothpaste then expectorate. Do not rinse. 51 g 4 4 Active Active Problems Problem Noted Date Diagnosed Date Paroxysmal atrial fibrillation ([facility]) 024 Encounters Date Type Department Care Team Description 12/12/2024 2:20 PM EDT Office Visit [facility] [address] [place] [address] Lesli Ramsey RHD Encounter for dental examination [...] Description 06/17/2025 2:20 PM EDT Office Visit [facility] [address] [place] [id number] Lesli Ramsey, RHD [address] [place] [address] Health Maintenance Due Date Last Done Comments Imm-Pneumococcal 65+ (1 of 1 - PCV) 02/18/1994 Imm-Zoster, Recombinant (2 of 3) 12/27/2007 11/01/19 08 Bone Density Screening 02/18/2009 Falls Prevention 02/18/2009 Imm-DTaP/Tdap/Td (2 - Td or Tdap) 03/16/2021 011 [id number] ( - season) 2024 Imm-Influenza (#1) 2024 [...]
--- OUTSIDE RECORDS SUMMARY | 2025-01-24 13:20 | XMS_ITS | Clinical Summary ---
Author Organization [facility] Address [address] [place] [address] Care Team Providers Care Slip Cover Cutter Name Role Phone Pcp, No Primary Care [...] & B [facility] Care Teams Slip Cover Cutter Relationship Specialty Start Date End Date Pcp, No PCP - General General Medicine 09/24/24
--- OUTSIDE RECORDS SUMMARY | 2025-01-24 13:20 | XMS_ITS | Clinical Summary ---
Author Organization [employer] [facility] Address [address] [place] [address] Phone Care Team Providers Care Junction Maker Name Role Phone Yenni Jerez Primary Care Provider [phone] Medications ascorbic acid (VITAMIN C) 500 mg [...] DX:Irregu lar heart rhythm Osteoporosis DX:Osteoporosis Stroke ([facility]/HCC V24, CMS/[facility] V28) DX:Stroke (HCC) Sjogren's disease ([facility] V24) DX:Sjogren's disease (HCC) Family History [...] age to complete this topic Insurance MEDICARE [facility] Advance Directives Documents on File Type Date Recorded Patient Stone Splitter Expl anation Health Care Decision (hx) 10/31/2021 AD KELLY DIRECTIVE Health Care Decision (hx) 10/31/2021 AD KELLY DIRECTIVE Health Care Decision (hx) 10/31/2021 AD KELLY DIRECTIVE Health Care Decision (hx) 10/31/2021 AD KELLY DIRECTIVE Health Care Decision (hx) 10/31/2021 AD KELLY DIRECTIVE Health Care Decision (hx) 10/31/2021 AD KELLY DIRECTIVE Care Teams Junction Maker Relationship Specialty Start Date End Date Yenni Jerez PA [address] [place] [address] PCP - General 06/05/24
[2025-01-24 13:30] VITALS: BP 120/72; PULSE 80; RESP 16
== END 2025-01-24 13:47 | disposition home or self-care (01) ==
LOC: HO.PMCPRC 12:39
PROVIDERS: Visit Provider Internal Medicine
DX: M25.561 Pain in right knee (principal)
CPT/HCPCS: 64555

== ENCOUNTER 2025-02-11 09:50 | Outpatient (AMB) | payer MEDICARE, SELFPAY ==
[2025-02-11 09:57] VITALS: BP 126/58; PULSE 80; RESP 16; BMI 25.0
--- NOTE | 2025-02-11 09:57 | A.OFFVIS_ITS ---
Vital Signs 02/11/25 09:57 Height 4 ft 11 in Weight 124 lb BMI 25.0 BP 126/58 L Blood Pressure Location Lt brachial Position Sitting Respiration 16 Pulse 80 Pulse Source Pulse Oximeter Intake Visit Reasons: s/p right saphenous Sprint Process Automation Engineer Required: No Allergies oxycodone [From Tylox] Adverse Reaction (Intermediate, Verified 02/11/25 09:58) Nausea and Vomiting ( after childbirth-age 19)-has had since Medication List - Last Reconciled 02/11/25 by Rosa Gamboa, WIRE REPAIRER acetaminophen 650 mg (2 x 325 mg) PO Q6H PRN 30 days apixaban (Eliquis) 2.5 mg PO BID atorvastatin 40 mg PO DAILY calcium carbonate-vitamin D3 600 mg-5 mcg (200 unit) 1 tab PO BEDTIME cyclosporine 0.05% (Restasis) 1 drp ophthalmic (eye) BID docusate sodium 100 mg PO BID empagliflozin (Jardiance) 20 mg PO DAILY esomeprazole magnesium (Nexium) 40 mg PO BID furosemide 20 mg PO DAILY glucos sul 9MFy-dfu-qcnxe-C-Mn 550-30-1 mg (Glucosamine Chondroitin) 1 cap PO BID loratadine (Claritin) 10 mg PO DAILY PRN metoprolol succinate ER 25 mg PO DAILY mirabegron ER (Myrbetriq) 50 mg PO BEDTIME multivitamin 1 tab PO DAILY spironolactone 25 mg PO DAILY trazodone 100 mg PO BEDTIME HPI HPI s/p right saphenous Sprint: Details: History of Present Illness The patient is an 79-year-old female presenting with pain associated with her right knee, where a Sprint nerve stimulator was previously placed. The patient describes that the stimulator's setting was initially at 30 and has increased to 62 as her habituation progressed. She expresses that while her pain persists, its intensity has lessened, facilitating her ability to descend stairs with more ease than before. Her recent history indicates that she could only manage the stairs one step at a time due to pain severity. Current improvements have allowed her to navigate the steps in a more normalized pattern more often, marked by a reduction in discomfort. Though some nocturnal discomfort exists, exacerbated when positioned a certain way, the patient maintains that the pain is primarily situated at the knee's upper portion. Previously-recorded improvements detail some variation in individual response time to the Sprint device, reassuring her of the stability given the pain's persistence around the designated knee region. Despite feeling relatively symptom-free post-Corticosteroid placement, she remains interested in pursuing a neurosurgical consultation related to her past MRI for other concerns once the Sprint device is appropriately reassessed in March. Pain Description - Onset and timing: Pain presents upon waking and descending stairs, noted improvement since Sprint placement. - Quality and character: Pain is persistent, with variable intensity and positioned primarily at the knee's top. - Primary location: Right knee. - Exacerbating factors: Specific sleeping positions, occasionally when descending a single step at a time. - Relieving factors: Sprint nerve stimulator and advancement over time, improved mobility in stair navigation. Physical Exam Results - MRI conducted on July 2023 at [facility]. Pain Management - Affect: Patient experiences improved knee pain management with Sprint device, though some nocturnal sensory issues persist. - Analgesia: Effective pain reduction noted with varied temporal adjustments of Sprint device settings. - Adverse Effects: No adverse effects currently reported. - Activities of Daily Living: Improved functional mobility in stair navigation, with prior constraints of one-step descents transitioning to alternating steps without substantial pain. - Aberrant Drug-Related Behaviors: None noted. [facility] Medical History (Updated 01/24/25 @ 13:30 by Meek Childs MD) Arthritis of right knee Lumbar disc herniation Spinal stenosis Difficulty swallowing Basal cell carcinoma Overactive bladder Iron deficiency Elevated cholesterol Atrial fibrillation CVA (cerebral vascular accident) Sjogrens syndrome Osteoarthritis GERD (gastroesophageal reflux disease) HTN (hypertension) Surgical History (Updated 05/31/24 @ 14:28 by Adán De León MD) Hx of right knee surgery (~12/12/23) History of surgery on upper extremity Hx of bilateral cataract extraction History of esophagogastroduodenoscopy (EGD) H/O colonoscopy Hx of tonsillectomy History of extraction of renal calculus History of arthroscopy of left shoulder (~06/2022) History of right shoulder replacement (~04/2021) History of total left knee replacement (~03/2020) Social History Household Members: Spouse Housing: House Are you a primary grounds caretaker to a significant other at home: No Do you presently have visiting nurse or other home services: No Alcohol intake: current Alcohol intake frequency: holidays/special occasions only Alcohol type: wine Patient Tobacco Use Status: Former Tobacco user Tobacco use type: Cigarette Years Smoked: 5 service: No Current occupational status: retired Physical Exam Vital Signs: Last Vital Signs Pulse 80 02/11/25 09:57 Resp 16 02/11/25 09:57 BP 126/58 L 02/11/25 09:57 BMI result Body Mass Index 25.0 Assessment & Plan Assessment & Plan (1) Chronic knee pain after total replacement of right knee joint: Code(s): M25.561 - Pain in right knee; G89.29 - Other chronic pain; Z96.651 - Presence of right artificial knee joint Category: Medical Plan Plan - Monitor Sprint nerve stimulator's impact until removal scheduled in March. - Facilitate post-removal MRI evaluation before neurosurgical consult for back concerns. - Monitor potential lead movement if pain presents in new areas distinct from the knee. Patient was informed and verbally consented to the use of an ambient scribe for clinic note documentation during this visit. Discussion Notes During the visit, I reassured the patient about the positive progression noted with her Sprint device in terms of improving her pain and functionality when us ing stairs. We discussed potential continued enhancements over the following months, emphasizing the individual variability in response. The possibility of lead movement was noted if pain changes distribution, maintaining the aim of confining sensation to the knee area. The patient expressed concern over unrelated back discomfort and wished to proceed with a neurosurgical consultation after her Sprint removal, ideally accompanied by a new MRI. Clear instructions were given on maintaining communication pathways for future imaging requisitions and consultations. The patient understands these considerations, particularly in relation to optimizing her current pain management strategy, and verbalizes approval of the current approach. Patient Instructions - Continue use of Sprint device as prescribed, noting improvements and reporting significant changes in sensations around the knee. - Await removal of the Sprint device in March before pursuing additional MRIs or consultations. - Communicate via message system if any concerns or new issues arise. - Notify if there is any migration of pain from the initial position to ensure prompt assessment. Coding Level of Care Code Est Pt Level 3 (46659) Diagnoses Chronic knee pain after total replacement of right knee joint M25.561; G89.29; Z96.651
--- OUTSIDE RECORDS SUMMARY | 2025-02-11 10:37 | XMS_ITS | Clinical Summary ---
Author Organization [facility] Address [address] [place] [address] Care Team Providers Care Cognos Bi Administrator Name Role Phone Yenni Jerez PA-C Primary Care Provider [phone] Medications Medication Sig Dispensed Refills Start Date [...] - 1-dose 75+ series) 02/18/2019 Influenza Vaccine (Season Ended) 2025 Hepatitis B Vaccines Aged Out No long er eligible based on patient's age to complete this topic RSV Ped < 20 months Aged Out No longe r eligible based on patient's age to complete this topic Care Teams Cognos Bi Administrator Relationship Specialty Start Date End Date Yenni Jerez PA-C [address] Ear, Nose [place] [address] PCP - General Physician Global Professional 06/05/24
== END 2025-02-11 10:23 | disposition home or self-care (01) ==
LOC: HO.PMC 09:51
PROVIDERS: Visit Provider Internal Medicine
DX: M25.561 Pain in right knee (principal); G89.29 Other chronic pain; Z96.651 Presence of right artificial knee joint
CPT/HCPCS: 99213

== ENCOUNTER → 2025-02-11 09:50 | Outpatient (BNVA) | payer MEDICARE, SELFPAY | PROVIDERS: Visit Provider Internal Medicine | DX: M25.561 Pain in right knee (principal); G89.29 Other chronic pain; Z96.82 Presence of neurostimulator; Z96.651 Presence of right artificial knee joint | CPT/HCPCS: 99212 ==

== ENCOUNTER 2025-03-20 09:30 | Outpatient (AMB) | payer MEDICARE, SELFPAY ==
--- OUTSIDE RECORDS SUMMARY | 2025-03-14 23:59 | XMS_ITS | Continuity of Care Document ---
Author Organization [facility] Address [address] [place] [address]- Care Team Providers Care Wound Care Nurse Name Role Phone Shahbaz Alvarez MD, Yenni Diez Primary Care Physic lul Encounter [facility] Date(s): 02/12/25 - 03/14/[address] [address] Encounter Type: Triage Allergies, Adverse Reactions, Alerts Substance Criticality Severity Reaction Reaction Severity Status Tylox Dizziness Nausea and vomiting Active Immunizations Given and Recorded Vaccine Date Status Refusal Reason tetanus/diphtheria/pertussis, acel(Tdap) 03/16/11 Given Zoster Vaccine Live 11/01/07 Given Medications acetaminophen 325 mg oral tablet 975 mg, 3, tablet, By Mouth, Every 8 hours, Refills 0, Maintenance, 03/25/21 7:29:00 AM EDT, Partialfill upon patient request if the prescription is for a schedule II opioid drug. Start Date: 03/25/21 Status: Ordered Repeat number: 1 amLODIPine 5 mg oral tablet 5 mg, 1, tablet, By Mouth, Daily, Call if any significant lightheadedness or leg swelling, # 90 tablet, Refills 3, Tot. Refills 3, Maintenance, 01/08/25 11:49:00 AM EDT, Route to Pharmacy Electronically, [facility], Partial fill upon patient request if the prescription is for a schedule II opioid drug., 149, cm, 01/08/25 11:29:00 EDT, Height, 57.7, kg, 02/26/24 4:40:00 EDT, Dry Weight Start Date: 01/08/25 Stop Date: 01/03/26 Status: Ordered Quantity: 90.0 Unit: tablet Repeat number: 4 Indications: Essential (primary) hypertension; atorvastatin 40 mg oral tablet 1 tablet = 40 mg, By Mouth, Daily, 0 Refills, Maintenance, 06/23/22 1:53:00 PM EDT, Partial fill upon patient request if the prescription is for a schedule II opioid drug. Start Date: 06/23/22 Status: Ordered Repeat number: 1 Calcium And Vitamin D Combination By Mouth, 500 mg 2 times a day, 0 Refills, Maintenance, 11/10/15 11:22:05 AM EST Start Date: 11/10/15 Status: Ordered Repeat number: 1 chondroitin-glucosamine 1.2 g-1.5 g oral capsule 1 capsule, By Mouth, 2 times a day, # 60 capsule, 0 Refills, Maintenance, 03/17/20 8:24:00 AM EDT, Capsule Start Date: 03/17/20 Status: Ordered Quantity: 60.0 Unit: capsule Repeat number: 1 Eliquis 2.5 mg oral tablet 1 tablet = 2.5 mg, By Mouth, 2 times a day, for 90 days, # 180 tablet, 3 Refills, Hard Stop :52:00 AM EDT, 01/07/25 9:52:00 AM EDT, Tablet, [facility]/pharmacy #[id number], Partial fill upon patient request if the prescription is for a schedule II opioid drug., 149, cm, 06/25/24 13:49:00 EDT, Height, 57.7, kg, 02/26/24 4:40:00 EDT, Dry Weight Start Date: 01/07/25 Stop Date: 01/02/26 Status: Ordered Quantity: 180.0 Unit: tablet Repeat number: 4 Eliquis 2.5 mg oral tablet 1 tablet = 2.5 mg, By Mouth, 2 times a day, # 180 tablet, 2 Refills, Maintenance, 01/30/25 4:32:00 PM EDT, Tablet, [id number], Partial fill upon patient request if the prescription is for a schedule II opioid drug., 149, cm, 01/08/25 14:23:00 EDT, Height, 57.7, kg, 02/26/24 4:40:00 EDT, Dry Weight Start Date: 01/30/25 Stop Date: 10/27/25 Status: Ordered Quantity: 180.0 Unit: tablet Repeat number: 3 empagliflozin 10 mg oral tablet 1 tablet = 10 mg, By Mouth, Daily in AM, # 90 tablet, 3 Refills, Maintenance, 06/25/24 1:47:00 PM EDT, Tablet, [facility], Partial fill upon patient request if the prescriptionis for a schedule II opioid drug., 149, cm, 06/25/24 13:32:00 EDT, Height, 57.7, kg, 02/26/24 4:40:00 EDT, Dry Weight Start Date: 06/25/24 Status: Ordered Quantity: 90.0 Unit: tablet Repeat number: 4 Ferrous Sulfate EC Refills 0, Maintenance, 11/22/23 12:19:00 PM EDT, Partial fill upon patient request if the prescription is for a schedule II opioid drug. Start Date: 11/22/23 Status: Ordered Repeat number: 1 furosemide 20 mg oral tablet 10 mg, 0.5, tablet, By Mouth, Daily, # 45 tablet, Refills 3, Tot. Refills 3, Maintenance, 03/08/25 2:18:00 PM EDT, Route to Pharmacy Electronically, [facility], Partial fill upon patient request if the prescription is for a schedule II opioid drug., 149, cm, 01/08/25 11:29:00 EDT, Height, 57.7, kg, 02/26/24 4:40:00 EDT, Dry Weight Start Date: 03/08/25 Stop Date: 03/03/26 Status: Ordered Quantity: 45.0 Unit: tablet Repeat number: 4 Glucosamine Chondroitin By Mouth, Daily, 0 Refills, Maintenance, 11/22/23 12:09:00 PM EDT, Partial fill upon patient requestif the prescription is for a schedule II opioid drug. Start Date: 11/22/23 Status: Ordered Repeat number: 1 metoprolol 25 mg oral tablet, extended release 25 mg, 1, tablet, By Mouth, Daily, # 90 tablet, Refills 3, Tot. Refills 3, Maintenance, 09/14/24 2:34:00 PM EST, Route to Pharmacy Electronically, [facility], Partial fill upon patient request if the prescription is for a schedule II opioid drug., 149, cm, 06/25/24 13:49:00 EDT, Height, 57.7, kg, 02/26/24 4:40:00 EDT, Dry Weight Start Date: 09/14/24 Stop Date: 09/09/25 Status: Ordered Quantity: 90.0 Unit: tablet Repeat number: 4 Multivitamin 1 tab, By Mouth, Daily, 0 Refills, Maintenance, 11/10/15 11:22:25 AM EST Start Date: 11/10/15 Status: Ordered Repeat number: 1 Myrbetriq 50 mg oral tablet, extended release 1 tablet = 50 mg, By Mouth, Daily, do not crush or chew, # 30 tablet, 0 Refills, Maintenance, 03/09/21 5:00:00 PM EDT, ER Tablet, Partial fill upon patient request if the prescription is for a schedule II opioid drug. Start Date: 03/09/21 Status: Ordered Quantity: 30.0 Unit: tablet Repeat number: 1 Nexium Capsule 40 mg, By Mouth, 2 times a day, Maintenance, 03/16/11 4:07:22 PM EDT Start Date: 03/16/11 Status: Ordered Repeat number: 1 Restasis MultiDose 0.05% ophthalmic emulsion 1 drops, Eyes, Both, Every 12 hours, 0 Refills, Maintenance, 03/17/20 8:25:00 AM EDT Start Date: 03/17/20 Status: Ordered Repeat number: 1 spironolactone 25 mg oral tablet 25 mg, 1, tablet, By Mouth, Daily, # 90 tablet, Refills 3, Tot. Refills 3, Maintenance, 03/31/24 11:44:00 AM EDT, Route to Pharmacy Electronically, [facility]/pharmacy #[id number], Partial fill upon patient request if the prescription is for a schedule II opioid drug., 149, cm, 03/13/24 13:36:00 EDT, Height, 57.7, kg, 02/26/24 4:40:00 EDT, Dry Weight Start Date: 03/31/24 Stop Date: 03/26/25 Status: Ordered Quantity: 90.0 Unit: tablet Repeat number: 4 traZODone 100 mg oral tablet 100 mg, 1, tablet, By Mouth, Daily at bedtime, # 180 tablet, Refills 0, Maintenance, 02/26/24 8:37:00 AM EDT, Partial fill upon patient request if the prescription is for a schedule II opioid drug. Start Date: 02/26/24 Status: Ordered Quantity: 180.0 Unit: tablet Repeat number: 1 Vitamin C By Mouth, Daily, 0 Refills, Maintenance, 11/22/23 12:19:00 PM EDT, Partial fill upon patient requestif the prescription is for a schedule II opioid drug. Start Date: 11/22/23 Status: Ordered Repeat number: 1 Problem List Condition Confirmation Course Effective Dates Status H ealth Status Informant Hypertension Confirmed Active Acid reflux disease Confirmed Active Hyperlipidemia Confirmed Active Iron deficiency Confirmed Active Osteoarthritis Confirmed Active Overactive bladder Confirmed Active Sjogren's syndrome Confirmed Active Social History Social History Type Response Smoking Status Former smoker, quit more than 30 days ago entered on: 12/04/19 Sex Sex Representation Female (finding) Patient Care team information Care Team Personnel Name: Fani Shaikh RN Position: [facility] RN Member Role: Primary Care Nurse Name: Yenni Montes De Oca MD Position: [facility] Physician - Endocrinology Member Role: PCP Address: [address] [place] [address] [facility] [address] Telecom: Name: Chilango Covington RN Position: [facility] RN Member Role: Primary Care Nurse Name: Wen Rivers RN Position: [facility] Onco RN Member Role: Primary Care Nurse Name: Cliff Reece RN Position: [facility] RN Member Role: Primary Care Nurse Name: Gwendolyn Eckert RN Position: S RN Member Role: Primary Care Nurse Name: Saniya Cade RN Position: [facility] RN Member Role: Primary Care Nurse Name: Amanda Guillermo RN Position: [facility] RN Member Role: Primary Care Nurse Care Team Related Persons Name: JUDD PAL Name: HILARIO PAL Insurance Providers Guarantor name: LYNETTE PAL Health Plan Information #: 1 Payer: MEDICARE B Payer Identifier: WILVER Member Number: [id number] Group Number: NA Subscriber Identifier: [id number] Relationship to Subscriber: self Coverage Type: NA Coverage Verification Date: NA Telecom: NA Address: Health Plan Information #: 2 Payer: MEDEX SECONDARY ONLY Payer Identifier: NA Member Number: [id number] Group Number: [id number] Subscriber Identifier: [id number] Relationship to Subscriber: self Coverage Type: Medicare Other Coverage Verification Date: NA Telecom: WILVER Address: NA
--- NOTE | 2025-03-20 09:37 | A.OFFVIS_ITS ---
Vital Signs 03/20/25 09:39 Height 4 ft 11 in Weight 110 lb BMI 22.2 BP 120/58 L Blood Pressure Location Lt brachial Position Sitting Respiration 16 Pulse 79 Pulse Source Pulse Oximeter Intake Visit Reasons: Sprint removal Intake Note: Sprint lead removed, intact including the tip Port Cdl A Driver Required: No Allergies oxycodone (From Tylox) Adverse Reaction (Intermediate, Verified 03/20/25 09:40) Nausea and Vomiting ( after childbirth-age 19)-has had since Medication List - Last Reconciled 03/20/25 by Rosa Gamboa LPN acetaminophen 650 mg (2 x 325 mg) PO Q6H PRN 30 days apixaban (Eliquis) 2.5 mg PO BID atorvastatin 40 mg PO DAILY calcium carbonate-vitamin D3 600 mg-5 mcg (200 unit) 1 tab PO BEDTIME cyclosporine 0.05% (Restasis) 1 drp ophthalmic (eye) BID docusate sodium 100 mg PO BID empagliflozin (Jardiance) 20 mg PO DAILY esomeprazole magnesium (Nexium) 40 mg PO BID furosemide 20 mg PO DAILY glucos sul [id number] 550-30-1 mg (Glucosamine Chondroitin) 1 cap PO BID loratadine (Claritin) 10 mg PO DAILY PRN metoprolol succinate ER 25 mg PO DAILY mirabegron ER (Myrbetriq) 50 mg PO BEDTIME multivitamin 1 tab PO DAILY spironolactone 25 mg PO DAILY trazodone 100 mg PO BEDTIME HPI HPI Sprint removal: Details: History of Present Illness The patient is an 80-year-old female presenting for the removal of her right saphenous nerve temporary stimulator. She reports that the sensation improvement is about 40-45%, and she can now go down the stairs with less pain if she takes every other step slowly. The patient has requested a referral to neurosurgery for evaluation of lumbar spinal stenosis and has an MRI scheduled for March 22. Pain Description - Pain improvement of 40-45% with current treatment - Less pain when descending stairs if taking every other step slowly Physical Exam - Lead removed with tip intact. [facility] Medical History (Updated 01/24/25 @ 13:30 by Meek Childs MD) Arthritis of right knee Lumbar disc herniation Spinal stenosis Difficulty swallowing Basal cell carcinoma Overactive bladder Iron deficiency Elevated cholesterol Atrial fibrillation CVA (cerebral vascular accident) Sjogrens syndrome Osteoarthritis GERD (gastroesophageal reflux disease) HTN (hypertension) Surgical History (Updated 05/31/24 @ 14:28 by Adán De León MD) Hx of right knee surgery (~12/12/23) History of surgery on upper extremity Hx of bilateral cataract extraction History of esophagogastroduodenoscopy (EGD) H/O colonoscopy Hx of tonsillectomy History of extraction of renal calculus History of arthroscopy of left shoulder (~06/2022) History of right shoulder replacement (~04/2021) History of total left knee replacement (~03/2020) Social History Household Members: Spouse Housing: House Are you a primary toddler caregiver to a significant other at home: No Do you presently have visiting nurse or other home services: No Alcohol intake: current Alcohol intake frequency: holidays/special occasions only Alcohol type: wine Patient Tobacco Use Status: Former Tobacco user Tobacco use type: Cigarette Years Smoked: 5 service: No Current occupational status: retired Physical Exam Vital Signs: Last Vital Signs Pulse 79 03/20/25 09:39 Resp 16 03/20/25 09:39 BP 120/58 L 03/20/25 09:39 BMI result Body Mass Index 22.2 Assessment & Plan Assessment & Plan (1) Spinal stenosis: Code(s): M48.00 - Spinal stenosis, site unspecified Category: Medical (2) Chronic knee pain after total replacement of right knee joint: Code(s): M25.561 - Pain in right knee; G89.29 - Other chronic pain; Z96.651 - Presence of right artificial knee joint Category: Medical Plan Plan - Removal of right saphenous nerve temporary stimulator was completed. - Referral to neurosurgery for evaluation of lumbar spinal stenosis has been placed, with an MRI scheduled for March 22. Patient was informed and verbally consented to the use of an ambient scribe for clinic note documentation during this visit. Discussion Notes I discussed with the patient the removal of her right saphenous nerve temporary stimulator and the expected outcomes. We also talked about her referral to neurosurgery for lumbar spondylolisthesis and the importance of the upcoming MRI on March 22 for further evaluation. Patient Instructions - Follow up with neurosurgery after MRI on March 22. - Monitor pain levels and report any significant changes. Orders: Referrals Neurosurgery Referral M48.00 - Spinal stenosis, site unspecified Coding Level of Care Code Est Pt Level 3 (81850) Diagnoses Spinal stenosis M48.00 Chronic knee pain after total replacement of right knee joint M25.561; G89.29; Z96.651
[2025-03-20 09:39] VITALS: BP 120/58; PULSE 79; RESP 16; BMI 22.2
--- OUTSIDE RECORDS SUMMARY | 2025-03-20 09:57 | XMS_ITS | Patient Health Record ---
Author Organization [facility] Address [address] [address] Care Team Providers Care Application Integration Specialist Name Role Phone ZAKI HENRIQUEZ M.D. Primary Care Provid er Unavailable Evita Willams Unavailable [phone] Allergies Allergen (clinical drug ingredient) Drug/Non Drug Allergy documented on EMR Reaction Allergy Type Onset Date Status TYLOX Nausea/Vomiting/ Diarrhea Drug Allergy Active Reason For Referral No Information Medications Medication SIG (Take, Route, Frequency, Duration) Notes Start Date End Date Status Multivitamins 1 ORAL daily; Duration: -3 [facility] 02/21/2012 Active Glucosamine Chondroitin Adv 1500/1200 1 ORAL twice daily; Duration: - [facility] 02/21/2012 Active NexIUM 40 MG 1 Orally Twice a day [facility] 02/21/2012 Active Myrbetriq 50 MG 1 tablet Orally Once a day Active Restasis 0.05% CHRISTIANO Ophthalmic twice daily; Duration: - [facility] 02/21/2012 Active Gabapentin 300 MG TAKE 1 CAPSULE BY MOUTH THREE TIMES A DAY Oral; Duration: 30 Active Eliquis 5 MG Oral; Duration: 90 Active Pilocarpine HCl Acti ve Claritin 10 MG 1 tablet Orally Once a day; Duration: 30 day(s) As needed 06/27/2023 Active amLODIPine Besylate 5 MG 1 tablet Orally Once a day; Duration: 30 day(s) Active traZODone HCl 50 MG Oral; Duration: 90 Active Calcium-Carb 600 + D 1 ORAL daily; Duration: -3 [facility] 02/21/2012 Active Atorvastatin Calcium 40 MG Oral; Duration: 90 Active CeleBREX 200MG 1 ORAL daily; Duration: [facility] 02/21/2012 Not-Taking Social History Tobacco Use: Social [...] Status Risk Notes Problem Postmenopausal atrophic vaginitis (33291685) Postmenopausal atrophic vaginitis (N95.2) Active confirmed Problem Overactive bladder (274625473) Overactive bladder (N32.81) Active confirmed Problem Age-related osteoporosis (304311623) Age-related osteoporosis without current pathological fracture (M81.0) Active confirmed Problem Screening for malignant neoplasm of breast (976791270) Encounter for screening mammogram for malignant neoplasm of breast (Z12.31) Active confirmed Problem Hyperlipidemia (27782283) Other and unspecified hyperlipidemia (272.4) Active confirmed Major Problem Esophageal reflux (727853839) Esophageal reflux (530.81) Active confirmed Major Problem Menopausal symptom (57834046) Symptomatic menopausal or female climacteric states (627.2) Active confirmed Major Problem Postmenopausal atrophic vaginitis (36510152) Postmenopausal atrophic vaginitis (627.3) Active confirmed Diag Problem Sicca syndrome (95316606) Sicca syndrome (710.2) Active confirmed Major Problem Gynecological examination normal (956006275136828) Routine gynecological examination (V72.31) Active confirmed Problem Dietary management surveillance (147532244) Dietary surveillance and counseling (V65.3) Active confirmed Diag Problem Screening for malignant neoplasm of colon (689665497) Special screening for malignant neoplasms, colon (V76.51) [...] MEDICARE [address] [place], [place] [id number] DEMARCOLYNETTE Self - patient is the insured MEDEX [address] [place] [address] [phone] [id number] DEMARCOKIMLYNETTE Self - patient is the insured Medical [...]
--- OUTSIDE RECORDS SUMMARY | 2025-03-20 09:57 | XMS_ITS | Clinical Summary ---
Author Organization [facility] Address [address] [place] [address] Care Team Providers Care Financial Advocate Name Role Phone Yenni Jerez PA-C Primary Care Provider [phone] Medications Medication Sig Dispensed Refills Start Date [...] 78 06/07/2024 11:09 AM EDT Temperature 36.9 C (98.4 F) 06/07/2024 11:09 AM EDT Respiratory Rate - - Oxygen Saturation - [...] 1-dose 75+ series) 02/18/2019 Influenza Vaccine (#1) 2025 Hepatitis B Vaccines Aged Out No long er eligible based on patient's age to complete this topic RSV Ped < 20 months Aged Out No longe r eligible based on patient's age to complete this topic Care Teams Financial Advocate Relationship Specialty Start Date End Date Yenni Jerez PA-C [address] [facility] [place] [address] PCP - General Physician Transport Technician 06/05/24
--- OUTSIDE RECORDS SUMMARY | 2025-03-20 09:58 | XMS_ITS | Data Portability ---
Author Organization [place] - [facility], Allergy Address [address] [place] [address] Care Team Providers Care Medical Specialist Name Role Phone ZAKI SMILEY Primary Care [...] to office for reevaluation in 3-4 weeks. Not available 01/09/2025 12:13:12 02/08/2025 02/08/2025 Nasal examination today did not identify a prominent bleeding source to cauterize again. Recommend medical management with saline nasal spray 4-6 times daily, K-Y jelly at night, Afrin with episodes of bleeding. May use Ponaris Nasal Emollient 1/2 dropper twice daily as needed with dryness. She continues on Eliquis. Return to office as needed or go to emergency room if severe episodes. Not available 02/08/2025 09:26:10 Plan of Treatment Reminders Order Date Submit Date Provider Last Modified By Organization Details Last Modified Time Details Appointments None record ed. Lab None record ed. Referral None record ed. Procedures None record ed. Surgeries None record ed. Imaging None record ed. Medication Orders None record ed. Patient TargetsNo targets recorded. Patient Instructions Encounter Date Encounter Id Patient Instructions Last Modified By Organization Details Last Modified Time 01/09/2025 [id number] nosebleed information jschreibstein Not available 01/09/2025 12:25:52 02/08/2025 [id number] nosebleed information jschreibstein Not available 02/08/2025 12:32:56 Reason for Referral None Reported. Problems Name Problem SNOMED Code Status Onset Date Resolution Date Notes Provider Name and Address Organization Details Recorded Time Bleeding from nose 129484275 Active 2022 Epistaxis; Note: Date Diagnosed: 08/05/2023 9:39 AM (R04.0) Not Available [facility] 4 02:39:26 Disturban ce of salivary secretion 82815386 Active 2014 Diseases of the salivary glands: Xerostomia ; Note: Date Diagnosed: 10/18/2014 3:28 PM (527.7) Not Available [facility] 4 02:39:30 Acute sialoaden itis 848486787 Active 2021 Acute sialoadeni tis; Note: Date Diagnosed: 12/22/2021 11:03 AM (K11.21) Not Available [facility] 4 02:39:23 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 286147831 Active 2022 Other hemorrhagi c disorder due to intrinsic circulatin g anticoagul ants, antibodies , or inhibitors ; Note: Date Diagnosed: 08/05/2023 9:39 AM (D68.318) Not Available [facility] 4 02:39:30 Sialolith iasis 81158206 Active 2021 Sialolithi asis; Note: Date Diagnosed: 12/22/2021 11:07 AM (K11.5) Not Available [facility] 4 02:39:27 Anterior epistaxis 197813445 Active 2023 YARIEL RIVERA MD [address] [facility],[place] [address], [place], [address] , [facility] - [facility] 4 14:09:40 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 Procedures Surgical History Date Name Laterality Status Provider Name and Address Organization Details Recorded Time 5 Epistaxis Simple Nasal Cautery Left completed MICHELLE BARRAZA PA-C [address] [facility],[place] [address], [place], [address], [facility] 01/09/2025 12:11:59 4 Epistaxis Simple Nasal Cautery Left completed YARIEL RIVERA MD [address] [place] [address],[place] [address], [place], [address], [facility] 06/14/2024 14:10:30 Imaging Results None recorded. Procedure Notes None recorded. Medical Equipment None Reported. Allergies Allergen ID Allergen Name Allergen Category Reaction Reaction Severity Criticality Documentation Date Start Date Code Code System Note Provider Name and Address Organization Details Recorded Time 61800 acetamino phen / oxycodone medicatio n other Not available Not available 01/24/2024 32504 3 RxNorm React ion: unkno wn, unspe cifie d;; Not Available [facility] 4 01:01:01 Medications Name Sig Start Date [...] 5 mg tablet active Medicati on ID: [id number] B rand Name: pilocarp ine HCl Send Method: E-Prescr ibed Sub s Allowed: subs OK Medic ationGen ericName : pilocarp ine HCl Not Available Not Available Not Available nystatin 100,000 unit/mL oral suspensio n 12/22 completed Medicati [place] ID: [id number] Pr escribed By Name: Andrea Chan nd [...] t Available amlodipin e 5 mg tablet TAKE 1 TABLET DAILY. CALL IF ANY SIGNIFIC ANT LIGHTHEA DEDNESS OR LEG SWELLING . active Not Available Not Available No t Available sulfameth oxazole 800 mg-trimet hoprim 160 mg tablet TAKE 1 TABLET BY MOUTH TWICE A DAY 01/09 completed Not Available Not Available Not Available aspirin 81 mg tablet,de layed release active Medicati on ID: [id number] B rand Name: aspirin Send Method: E-Prescr [...] mg capsule 12/22 completed Medicati on ID: [id number] Du ration Value: 90 Brand Name: Celebrex [...] mg tablet 12/22 completed Medicati on ID: [id number] Du ration Value: 90 Brand Name: simvasta [...] mg capsule 12/22 completed Medicati on ID: [id number] Du ration Value: 90 Brand Name: dashakraigdelmi erendira Send Method: E-Prescr ibed Sub s Allowed: subs OK Medic ationGen ericName : dianavimeli ne Not Available Not Available Not Available [...] e 20 mg tablet TAKE 1 TABLET DAILY NEEDED active Not Available Not Available No [...] spray,lv pension 12/22 completed Medicati on ID: [id number] Du ration Value: 30 Brand Name: fluticas one propiona te Send Method: E-Prescr ibed Sub s Allowed: subs OK Speci al Instruct ion: USE 2 SPRAYS IN EACH NOSTRIL DAILY Me dication GenericN ganseh: fluticas one propiona te Not Available Not Available Not Available glucosami ne-chondr oitin 1,500 mg -1,200 mg/30 mL oral liquid 12/22 completed Medicati on ID: [id number] Br and Name: glucosam ine-modesto droitin Send [...] multivita min 12/22 completed Medicati on ID: [id number] Br and Name: multivit joseph Sen d Method: E-Prescr ibed Sub s Allowed: subs OK Medic ationGen ericName : multivit joseph Not Available Not Available Not Available Super Jordan-3 1,000 mg capsule 12/22 completed Medicati on ID: [id number] Br and Name: Fish Oil Concentr ate Send Method: E-Prescr ibed Sub s Allowed: subs OK Medic ationGen ericName : Fish Oil Concentr ate Not Available Not Available Not Available Myrbetriq 50 mg tablet,ex tended release TAKE 1 TABLET DAILY active Not Available Not Available No t Available Myrbetriq 01/09 completed Medicati on ID: [id number] B rand Name: Myrbetri q Send Method: [...] Updated DateTime 01/09/2025 149.86 cm 24.6 kg/m2 84529.27 g Malini Thiago [place] - [facility] 01/09/2025 11:40:13 Date Recorded Body height Provider Name an d Address Organization Details Last Updated DateTime 02/08/2025 149.86 cm ZANE JAYDEN [place] - [facility] 02/08/2025 09:06:25 Date Recorded Body height Body mass index (BMI) Body weight Provider Name and Address Organization Details Last Updated DateTime 06/14/2024 149.86 cm 23.8 kg/m2 72814.9 g Rozina Fontana [facility] 06/14/2024 14:00:01 Social History None recorded. [...] Diagnosis Note YARIEL RIVERA MD [facility] [address] [address] 06/14/2024 13:13:49 06/14/2024 14:10:19 Anterior epistaxis 423964939 R04.0 Sj gren's syndrome 65242372 M35.00 [id number] MICHELLE BARRAZA PA-C [facility] [address] [address] 01/09/2025 11:25:20 01/09/2025 12:13:42 Anterior epistaxis 073171314 R04.0 Hemorrhagi c disorder due to circulating anticoagulants 348705504 D68.318 Long-term current use of antiplatelet drug 1716153189 83622 Z79.02 [id number] MICHELLE BARRAZA PA-C [facility] [address] [place] [address] 02/08/2025 09:02:25 02/08/2025 09:20:40 Anterior epistaxis 222015132 R04.0 Long-term current use of anticoagulant 674143674 Z79.01 Health Concerns Section Related Observation LastModified by Organization Detai ls LastModified Time None Recorded Concern Status LastModified by Organization Details LastModified Time None Recorded Advance Directives Directive None Recorded Payers Insurance Date Sequence Insurance Name Policy Number Policy Palmer Covered Member ID Palmer Member ID Guarantor Name 02/05/2025 1 [place] viv[place] Brigitte A Gordon [id number] Brigitte A Gordon 01/09/2025 2 [place] [id number] Brigitte A Gordon [id number] Brigitte A Gordon 02/11/2025 2 [place] [id number] Brigitte A Gordon [id number] Brigitte A Gordon Notes Date Note Type Note Provider Name and Address Organization Details Recorded Time 06/14/2024 text/html left epistaxis3 times in past few weeks, lasting 3 minutespmhx - sjogrens PV 08/10/23 Aimee - right nasal cautery YARIEL RIVERA MD [address] [place] [address],[address], [address], [facility] - [facility] 06/14/2024 14:10:50 01/09/2025 text/html 79 year old femjeff polo presents reporting left sided epistaxis. She [...] uses Ponaris nasal emollient. STACY DUTTA MD [address] [place] [address],[place] [address], [place], [address], [place] - [facility] 01/09/2025 12:26:11 02/08/2025 text/html 79 year old jose r polo presents for follow up after left cautery 01/09. She has had some tinges of blood on a tissue from both sides of the nose. She reports lots of allergies right now with frequent sneezing and runny nose. She did have a left sided nosebleed that she stopped with Afrin on a tissue within a couple of minutes. She has been using Ponaris several times daily. She is on Eliquis. STACY DUTTA MD [address] [place] [address], [phone], [facility] - [facility] 02/08/2025 12:32:58 OBGyn Episode No OBEpisode recorded.
--- OUTSIDE RECORDS SUMMARY | 2025-03-20 09:58 | XMS_ITS | Continuity of Care Document ---
Author Organization [facility] [address] [address] Phone [phone] Care Team Providers Care Sales Representative [employer] Name Role Phone Yenni Barnard M.D. 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 09/12/2023 KP Ferrous Svusnsd025(65Fe) mg Tablets 1 by mouth every day Yenni Barnard M.D. 09/12/2023 Trazodone PCV299bm Tablets Take 1 Tablet By Mouth AT Bedtime 90tabs Yenni Barnard M.D. 09/02/2023 Restasis0.05% Emulsion 1 drop each eye twice daily Yenni Barnard M.D. Kjcpwvdhb71ow Tablets 1 by mouth every day Unknown Nfcczwhdevuabp05pf Tablets 1 by mouth every day Unknown Eliquis2.5mg Tablets Take 1 Tablet By Mouth Twice A Day Unknown Metoprolol Succinate ER25mg Tablets ER 24HR 1 by mouth every day Unknown Qvgzrxakaq41rz Tablets 1 by mouth every day prn Unknown Jlfjgsopuh802lj Capsules 1 by mouth three times a day prn Unknown Tylenol Extra Qxsaldqk150ji Tablets 2 by mouth twice a day prn Yenni Barnard M.D. Werhgghswdr033xn Capsules 4 caps by mouth prior to dental work 24caps Yenni Barnard M.D. Multivitamin Adults 50+Adlt 50+ Tablets 1 by mouth every day Yenni Barnard M.D. Calcium 600 +D High Xpufoap594-841sp-Cziv Tablets 1 by mouth qd Yenni Barnard M.D. Vbxwyg43qd Capsules DR judit mouth twice a day Serena Collins MD Caiwekmvl44nq Tablets ER 24HR 1 by mouth every day Tuan Garduno MD Atorvastatin Zvrgtwr32mr Tablets Take 1 Tablet Once Daily 90tabs Yenni Barnard M.D. History Medications Klxgvgjtu42rj Tablets 1 tablet by mouth every day 90tabs Yenni Barnard M.D. 03/26/2024 - 01/03/2025 Vital Signs Date Vital Result Comment 01/03/2025 [...] 51 mL/min/1.73 Low >59 BUN/Creatinine Ratio 18 12 Sodium 137 mmol/L 134-144 Potassium 4.7 mmol/L [...] Comments: TNP CBC With Differential/Plat elet 11/18/2023 [facility] WBC 9.3 K/MM3 (4.0-11 [...] 0) Lymph # 1.7 K/MM3 (0.8-3. 1) [place]# 0.8 K/MM3 (0.4-0. 9) Eo # 0.3 [...] A1c 5.5% Complete Abc With Diff 10/17/2023 [facility] WBC 6.5 K/MM3 (4.0-11 [...] 0) Lymph # 1.3 K/MM3 (0.8-3. 1) [place]# 0.5 K/MM3 (0.4-0. 9) Eo # 0.2 K/MM3 (0.0-0. 4) Baso # 0.1 K/MM3 (0.0-0. 1) Abs. Imm Gran 0.0 K/MM3 Neut 67.7 % (44-76) Lymph 20.4 % (15-43) Monocyte 7.7 % (4.5-10 .5) Eo 2.8 % (0-6) Baso 0.9 % (0-2) Imm Gran 0.5 % Vitamin B12 10/17/2023 [facility] Vitamin B12 1166 pg/mL (232-12 45) Folic Acid 10/17/2023 [facility] Folic Acid 36.9 ng/mL (4.8-37 .3) Homocysteine, Plasma 10/17/2023 [facility] Homocysteine, Plasma 8.9 UMOL/L (0-15) Vitamin B12 09/12/2023 [facility] Vitamin B12 <pending> Folic Acid 09/12/2023 [facility] Folic Acid <pending> Homocysteine,Plas ma/Serum 09/12/2023 [facility] Homocysteine,Plas ma/Serum <pending> Hemoglobin A1c 09/02/2023 Inhouse Hemoglobin A1c 5.7% Glucose Fingerstick 09/02/2023 Inhouse Glucose Fingerstick 109 Ferritin 09/02/2023 [facility] Ferritin 14 NG/ML (14-283 ) Iron & Tibc 09/02/2023 [facility] Iron 24 g/dL Low (30-160 ) Unsaturated [employer] 316 g/dL (110-37 0) Est T. Iron Bin d Capacity 340 g/dL (140-53 0) % Iron Saturation 7 % Low (20-55 ) Complete Abc With Diff 09/02/2023 [facility] WBC 9.8 K/MM3 (4.0-11 [...] 0) Lymph # 1.9 K/MM3 (0.8-3. 1) [place]# 1.1 K/MM3 High (0.4-0. 9) Eo # 0.2 K/MM3 (0.0-0. 4) Baso # 0.1 K/MM3 (0.0-0. 1) Abs. Imm Gran 0.1 K/MM3 Neut 66.4 % (44-76) Lymph 19.6 % (15-43) Monocyte 10.9 % High (4.5-10 .5) Eo 2.0 % (0-6) Baso 0.6 % (0-2) Imm Gran 0.5 % Comprehensive Metabolic Panl 09/02/2023 [facility] Glucose 103 mg/dL High [...] 68 ML/MIN/1.73 M2 1 Immunofixation Serum 09/02/2023 [facility] Immunoglobulin Igg 805 mg/dL (700-16 00) Immunoglobulin Iga 207 mg/dL (70-400 ) Immunoglobulin Igm 133 mg/dL (40-230 ) Immunofix Normal immunofix <SEE NOTE> 2 PTH, Intact 05/09/2023 [facility] PTH, Intact 62 pg/mL (15-65) Albumin 05/09/2023 [facility] Albumin 4.1 GM/DL (3.4-4. 8) Calcium 05/09/2023 [facility] Calcium 8.8 mg/dL (8.6-10 .5) Creatinine 05/09/2023 [facility] Creatinine 0.8 mg/dL (0.5-1. 0) Estimated GFR Creatinine 74 ML/MIN/1.73 M2 3 TSH With Reflex To FT4 05/09/2023 [facility] TSH With Reflex To FT4 3.96 uIU/mL (0.4-4. 2) 25Oh Vitamin D 05/09/2023 [facility] 25Oh Vitamin D 45.2 NG/ML (20-50) N-Telopeptide Cross Links, Urine 05/09/2023 [facility] Cross Linked N-Telopeptides 589 4 Creat, Urine 67.0 5 N-Telopeptide/C re at Ratio 99 High 6 NTX Interpretaion Comment 7 Creatinine 05/08/2023 [facility] Creatinine <pending> Albumin 05/08/2023 [facility] Albumin <pending> 25Oh Vitamin D 05/08/2023 [facility] 25Oh Vitamin D <pending> TSH With Reflex To FT4 05/08/2023 [facility] TSH With Reflex To FT4 <pending> PTH, Intact 05/08/2023 [facility] PTH, Intact <pending> Calcium 05/08/2023 [facility] Calcium <pending> Complete Abc With Diff 02/26/2023 [facility] WBC 6.6 K/MM3 (4.0-11 [...] 0) Lymph # 1.6 K/MM3 (0.8-3. 1) [place]# 0.6 K/MM3 (0.4-0. 9) Eo # 0.2 K/MM3 (0.0-0. 4) Baso # 0.0 K/MM3 (0.0-0. 1) Abs. Imm Gran 0.0 K/MM3 Neut 61.7 % (44-76) Lymph 24.4 % (15-43) Monocyte 9.6 % (4.5-10 .5) Eo 3.5 % (0-6) Baso 0.6 % (0-2) Imm Gran 0.2 % Comprehensive Metabolic Panl 02/26/2023 [facility] Glucose 99 mg/dL (70-99) [...] 65 ML/MIN/1.73 M2 8 Lipid Panel 02/26/2023 [facility] Cholesterol, Total 182 mg/dL (<200) Triglyceride 87 mg/dL (<150) HDL Chol 92 mg/dL (>39) LDL Cholesterol , Calculated 73 mg/dL (0-130) Non HDL Cholesterol (Calc) 90 mg/dL (<160) Hemoglobin A1c 02/26/2023 [facility] Hemoglobin A1c 5.6 % (4.0-5. 6) 9 Hemoglobin A1c 01/24/2023 [facility] Hemoglobin A1c <pending> Glucose Fingerstick 12/07/2022 Inhouse Glucose Fingerstick 93 Culture Urine 10/27/2022 [facility] Specimen Description URINE Special Requests NONE Culture NO GROWTH Report Status FINAL 10/29/2022 10 Glucose Fingerstick 10/13/2022 Inhouse Glucose Fingerstick 94 Hemoglobin A1c 10/13/2022 Inhouse Hemoglobin A1c 5.4% Comprehensive Metabolic Panl 06/02/2022 [facility] Glucose 117 mg/dL High [...] M2 11 Complete Abc With Diff 06/02/2022 [facility] WBC 7.4 K/MM3 (4.0-11 [...] 0) Lymph # 1.8 K/MM3 (0.8-3. 1) [place]# 0.5 K/MM3 (0.4-0. 9) Eo # 0.2 [...] calculated using the National Kidney Foundation recommended 2021 CKD-EPI equation. Estimates GFR from serum creatinine, age and sex. 4 Reference range: Not Estab. Unit: nmol BCE Test performed at [facility], [address] [place] [address] 5 Reference range: Not Estab. Unit: mg/dL [facility] [address] [place] [address] 6 Reference range: 0 t o 89 [...] value is <or EQ 38 nM BCE/mM RECOVERY UNIT OPERATOR, or NTx has decreased >or EQ [...] Darryn Dumont, et al. J Bone Min Res.11(1):M757,1996 [place] [address] 8 Creatinine based est imated glomerular filtration (eGFR) in adults is calculated using the National Kidney Foundation recommended 2020 CKD-EPI equation. Estimates GFR from serum creatinine, age and sex. 9 MONITORING: In known diabetic patients, hemoglobin A1c targets should be discussed with health care provider. DIAGNOSTIC USE: The [place] Diabetes Association (ADA) and the World Health [...] sex. Procedures Date Code Description Status 01/03/2025 64114 Collection Of Venous Blood B y Venipuncture Completed 08/30/2024 71441 Collection Of Venous Blood B y Venipuncture Completed 03/26/2024 39231 Collection Of Venous Blood B y Venipuncture Completed 11/18/2023 09716 Collection Of Venous Blood B y Venipuncture Completed 09/02/2023 35137 Collection Of Venous Blood B y Venipuncture Completed 06/02/2022 57718 Collection Of Venous Blood B y Venipuncture Completed Medical Devices Description No Information Available Encounters Type Date Location Provider Dx Diagnosis Office Visit 03/19/2025 12:50p Main Office Yenni Barnard M.D. I10 Essential (primary) hypertension E78.00 Pure hypercholestero lemia, unspecified Assessments Date Code Description Provider 03/19/2025 I10 Essential (primary) hyperten vince Yenni Barnard M.D. 03/19/2025 E78.00 Pure hypercholesterolemia, u nspecified Yenni Barnard [...] Reason for Referral Status Appt [facility] Administrative Project Coordinator NEW IRON DEFICIENCY ANEMIA Closed [address] [place], [place] [id number] [phone] [facility] Neurology WAS DR MARY CRUZ,.... DX, CARDIOEMBOLIC CVA Closed 06/22/2022 [address] [facility] [address] [place], [place] [id number] [phone]
--- OUTSIDE RECORDS SUMMARY | 2025-03-20 09:59 | XMS_ITS | Clinical Summary ---
Author Organization [facility] Address [address] [place] [address] Care Team Providers Care Field Software Engineer Name Role Phone Unavailable Primary Care Provider [...] (SF 5000 PLUS) 1.1 % creaIndications: Caries [place]set twice daily with toothpaste then expectorate. Do not rinse. 51 g 4 4 Active Active Problems Problem Noted Date Diagnosed Date Paroxysmal atrial fibrillation ([facility]) 0 10/18/2023 Social History Tobacco Use Types Packs/Day Years [...] Upcoming Encounters Date Type Department Care Team ([facility] st Contact Info) Description 05/17/2025 4:00 PM EDT Office Visit [facility] [address] [place] [address] Oz Wood DDS [address] [place] [address] 06/17/2025 2:20 PM EDT Office Visit [facility] [address] [facility] [place] [place] [address] Lesli Ramsey, RHD [address] [place] [address] Health Maintenance Due Date Last Done Comments Advanced Care Planning 1944 Imm-Pneumococcal 50+ (1 of 1 - PCV) 02/18/1994 Imm-Zoster, Recombinant (2 of 3) 12/27/2007 11/01/19 08 Bone Density Screening 02/18/2009 Falls Prevention 02/18/2009 Imm-RSV (adult) (1 - 1-dose 75+ series) 02/18/2019 Imm-DTaP/Tdap/Td (2 - Td or Tdap) 03/16/2021 011 [id number] ( - season) 2024 Alcohol and Drug Screen 09/12/2024 Depression Annual Screen 09/12/2024 Imm-Influenza (#1) 2025 Hypertension Screening (#1) 07/09/2025 Tobacco Screening 12/12/2025 12/12/2024 Dental BW 12/14/2025 12/12/2024, 10/14, 12/09/2022, Additional history exists Dental Examination 12/14/2025 12/12/2024, 0 05/15/2024, 11/03/2023, Additional history exists Dental Perio Charting 12/14/2025 12/12/2024, 023 Dental Prophy 12/14/2025 12/12/2024, 09/0 11/2023, 11/03/2023, Additional history exists Dental FMX/Pano 10/29/2027 10/27/2022 Procedures Procedure Name Priority Date/Time Associated Diagnosis Comments COMP PERIODONTAL EVALUATION - NEW/EST PATIENT Routine 12/12/2024 2:20 PM EDT Encounter for dental examination BITEWINGS - FOUR RADIOGRAPHIC IMAGES Routine 12/12/2024 2:20 PM EDT Retained tooth root Encounter for dental examination PROPHYLAXIS - ADULT Routine 12/12/2024 2 :20 PM EDT Encounter for dental examination PERIODIC ORAL EVALUATION ESTABLISHED PATIENT Routine 12/12/2024 2:20 PM EDT Encounter for dental examination PANORAMIC RADIOGRAPHIC IMAGE Routine 10/27/2022 10:00 AM EST Caries of pulp from Last 3 Months or Most Recently Relevant to Health Maintenance
--- OUTSIDE RECORDS SUMMARY | 2025-03-20 09:59 | XMS_ITS ---
Author Name [facility] Organization Unknown Results Test Name/Text Value Interpretation Date Range Source CRP SERPL MCNC 0.6 mg/dL Normal 06/07/2024 - 0.9 [facility] NEMG ESR Bld Qn Photometric 19.0 mm/h Normal 06/08/2024 0 - 20 [facility]G PMV BLD AUTO 8.3 fL Normal 06/07/2024 7.4 - 11.4 CT[facility]N EMG MCV RBC AUTO 91.2 fL Normal 06/07/2024 78 - 100 [facility]NE MG DIFFERENTIAL TYPE AUTOMATED Normal 06/07/2024 C T[facility]NEMG WBC NO. BLD AUTO 8.8 K/uL Normal 06/07/2024 4 - 10.5 CT [facility] MONOCYTES NFR BLD AUTO 8.6 % Normal 06/07/2024 2 - 12 [facility] NEUTROPHILS NFR BLD AUTO 71.5 % Normal 06/07/2024 44 - 74 [facility] HGB BLD MCNC 12.4 g/dL Below low normal 06/07/2024 12.5 - 16 [facility] LYMPHOCYTES NO. BLD AUTO 1.4 K/uL Normal 06/07/2024 1 - 3.2 [facility] MONOCYTES NO. BLD AUTO 0.8 K/uL Normal 06/07/2024 0 - 0. 8 [facility] MCHC RBC AUTO MCNC 32.9 g/dL Normal 06/07/2024 32 - 36 [facility] BASOPHILS NFR BLD AUTO 1.1 % Normal 06/07/2024 0 - 2 [facility] HCT VFR BLD AUTO 37.5 % Normal 06/07/2024 37 - 47 CT [facility] BASOPHILS IN BLOOD BY AUTOMATED COUNT 0.1 K/uL Normal 06/07/2024 0 - 0.2 [facility] PLATELET NO. BLD AUTO 250.0 K/uL Normal 06/07/2024 150 - 450 [facility] EOSINOPHIL NO. BLD AUTO 0.2 K/uL Normal 06/07/2024 0 - 0.5 [facility] RDW RBC AUTO RTO 17.7 % Above high normal 06/07/2024 12.1 - 16.2 [facility] EOSINOPHIL NFR BLD AUTO 2.5 % Normal 06/07/2024 0 - 6 [facility] RBC NO. BLD AUTO 4.12 M/uL Below low normal 06/07/2024 4.2 - 5.4 [facility] LYMPHOCYTES NFR BLD AUTO 16.3 % Below low normal 06/07/2024 20 - 48 [facility] MCH RBC QN AUTO 30.0 pg Normal 06/07/2024 25 - 33 CTT HNEMG NEUTROPHILS NO. BLD AUTO 6.3 K/uL Normal 06/07/2024 1.8 - 7.8 [facility] SYNOVIOCYTES NFR SNV 1.0 /100 WBC Normal 06/07/2024 [facility] MONONUC CELLS NFR SNV MANUAL 12.0 % Normal 06/07/2024 [facility] POLYS NFR SNV MANUAL 79.0 % Normal 06/07/2024 [facility] UNIDENT CELLS NFR SNV 0.0 /100 WBC Normal 06/07/2024 [facility] RBC NO. SNV MANUAL 83829.0 /UL Normal 06/07/2024 [facility] APPEARANCE SNV BLOODY FLUID Normal 06/07/2024 C [facility]EMG NUCLEATED CELLS NO. SNV MANUAL 568.0 /UL Normal 06/07/2024 [facility] SPECIMEN SOURCE FLD RIGHT KNEE Normal 06/07/2024 [facility]NEMG History of Medication Use Medication Directions Dispensed Refills Start Date End Date Stat us erythromycin (ILOTYCIN) ophthalmic ointment Administer 1 application(s) to the right eye 4 (four) times a day. 09/24/2024 10/02/2024 active metoPROLOL SUCCINATE (TOPROL-XL) 25 MG 24 hr tablet Take 25 mg by mouth. 09/14/2024 active traZODone (DESYREL) 100 MG tablet Take 100 mg by mouth nightly. 09/08/2024 active Eliquis 2.5 MG tablet 1 tablet by Mouth/Oral Cavity route every 12 hours. 08/15/2024 active NexIUM 40 MG capsule Take 40 mg by mouth 2 times a day. 08/15/2024 active Jardiance 10 MG tablet TAKE 1 TABLET BY MOUTH EVERY DAY IN THE MORNING 05/12/2024 active metoprolol tartrate (LOPRESSOR) 50 MG tablet 05/03/2024 active traMADol (ULTRAM) 50 MG tablet TAKE 1 TABLET BY MOUTH EVERY 6 HOURS NEEDED FOR PAIN. PATIENT MAY FILL FOR LESSER QUANTITY 04/17/2024 active spironolactone (ALDACTONE) tablet 25 mg Take by mouth. 03/31/2024 active clotrimazole (MYCELEX) 10 MG mai DISSOLVE 1 MAI BY MOUTH FOUR TIMES A DAY FOR 10 DAYS 03/06/2024 active colchicine 0.6 MG tablet Take 1 tablet (0.6 mg total) by mouth daily. 03/01/2024 active colchicine 0.6 MG tablet Take 1 tablet (0.6 mg total) by mouth daily. 03/01/2024 active amoxicillin (AMOXIL) 500 MG capsule Take by mouth. 11/18/2023 active Ascorbic Acid (Vitamin C) 500 MG CHEW Chew by mouth. 09/12/2023 active ferrous sulfate (KP Ferrous Sulfate) 325 (65 FE) MG tablet Take by mouth. 09/12/2023 act tyrone ferrous sulfate (KP Ferrous Sulfate) 325 (65 FE) MG tablet Take by mouth. 09/12/2023 act tyrone traZODone (DESYREL) 100 MG tablet Take by mouth. 09/02/2023 active traZODone (DESYREL) 100 MG tablet Take by mouth. 09/02/2023 active Mirabegron ER (Myrbetriq) 50 MG TB24 Take by mouth. 03/09/2021 active esomeprazole (NexIUM) 40 MG capsule Take by mouth. active gabapentin (NEURONTIN) 300 MG capsule Take by mouth. active gabapentin (NEURONTIN) 300 MG capsule Take by mouth. active Multiple Vitamins-Minerals (Multivitamin Adults 50+) TABS Take by mouth. active Problems Problem Status Onset Date Problem Type Date of Resolution Source Acute bacterial conjunctivitis of right eye active EncounterDiagnosisAct HHCCT Draining postoperative wound active 2024-06-21 ProblemAct CT_THSFR AN Infection of total right knee replacement, initial encounter ([facility]) active EncounterDiagnosisAct CTT HNEMG Infection of right knee ([facility]) active EncounterDiagnosisAct CTTHSF RAN Status post right knee replacement active EncounterDiagnosisAct CT THSFRAN Encounters Encounter Type Encounter Reason Primary Diagnosis Location Date Ambulatory Conjunctivitis Conjunctivitis [facility] 09/24/2024 Ambulatory Draining postoperative wound, subsequent encounter Draining postoperative wound, subsequent encounter [facility] 08/23/2024 Ambulatory Other complications of procedures, not elsewhere classified, subsequent encounter Other complications of procedures, not elsewhere classified, subsequent encounter [facility] 06/21/2024 Ambulatory Pyogenic arthritis, unspecified Pyogenic arthritis, unspecified [facility] [place] Pyogenic arthritis, unspecified Pyogenic arthritis, unspecified [facility] [place] Care Team Organization Name Specialty Phone Email Start Date End Da te [facility] 10/10/2024 11/28/2024 [facility] 09/24/2024 [facility] 07[facility]23/2024 [facility] 07/21/2024 [facility] 06/08/2024 [facility] [place] [facility]
== END 2025-03-20 10:13 | disposition home or self-care (01) ==
LOC: HO.PMC 09:31
PROVIDERS: Visit Provider Internal Medicine
DX: M48.00 Spinal stenosis, site unspecified (principal); M25.561 Pain in right knee; G89.29 Other chronic pain; Z96.651 Presence of right artificial knee joint
CPT/HCPCS: 99213

== ENCOUNTER → 2025-03-20 09:30 | Outpatient (BNVA) | payer MEDICARE, SELFPAY | PROVIDERS: Visit Provider Internal Medicine | DX: M48.061 Spinal stenosis, lumbar region without neurogenic claudication (principal); M25.561 Pain in right knee; G89.29 Other chronic pain; Z96.651 Presence of right artificial knee joint | CPT/HCPCS: 99212 ==

== ENCOUNTER 2025-04-11 13:03 | Outpatient (AMB) | payer MEDICARE, SELFPAY ==
--- NOTE | 2025-04-11 13:06 | A.OFFVIS_ITS ---
Intake Visit Reasons: OV-RT TKA 12/12/23 -follow up Intake Note: Brigitte is a 80 year old female who presents today as a follow up for her right TKA 12/12/23 . The patient reports mild intermittent discomfort in her right knee. She continues with her home stretching program. She denies any fevers or chills. She takes Tylenol as needed for her discomfort. Allergies oxycodone (From Tylox) Adverse Reaction (Intermediate, Verified 04/11/25 13:18) Nausea and Vomiting ( after childbirth-age 19)-has had since Medication List - Last Reconciled 04/11/25 by Bee Barnes, RN acetaminophen 650 mg (2 x 325 mg) PO Q6H PRN 30 days apixaban (Eliquis) 2.5 mg PO BID atorvastatin 40 mg PO DAILY calcium carbonate-vitamin D3 600 mg-5 mcg (200 unit) 1 tab PO BEDTIME cyclosporine 0.05% (Restasis) 1 drp ophthalmic (eye) BID docusate sodium 100 mg PO BID empagliflozin (Jardiance) 20 mg PO DAILY esomeprazole magnesium (Nexium) 40 mg PO BID furosemide 20 mg PO DAILY glucos sul 1LFs-uru-pujmm-C-Mn 550-30-1 mg (Glucosamine Chondroitin) 1 cap PO BID loratadine (Claritin) 10 mg PO DAILY PRN metoprolol succinate ER 25 mg PO DAILY mirabegron ER (Myrbetriq) 50 mg PO BEDTIME multivitamin 1 tab PO DAILY spironolactone 25 mg PO DAILY trazodone 100 mg PO BEDTIME [facility] Medical History (Updated 04/12/25 @ 07:16 by Adán De León MD) Arthritis of right knee Lumbar disc herniation Spinal stenosis Difficulty swallowing Basal cell carcinoma Overactive bladder Iron deficiency Elevated cholesterol Atrial fibrillation CVA (cerebral vascular accident) Sjogrens syndrome Osteoarthritis GERD (gastroesophageal reflux disease) HTN (hypertension) Surgical History (Updated 05/31/24 @ 14:28 by Adán De León MD) Hx of right knee surgery (~12/12/23) History of surgery on upper extremity Hx of bilateral cataract extraction History of esophagogastroduodenoscopy (EGD) H/O colonoscopy Hx of tonsillectomy History of extraction of renal calculus History of arthroscopy of left shoulder (~06/2022) History of right shoulder replacement (~04/2021) History of total left knee replacement (~03/2020) Social History Household Members: Spouse Housing: House Are you a primary day care home mother to a significant other at home: No Do you presently have visiting nurse or other home services: No Alcohol intake: current Alcohol intake frequency: holidays/special occasions only Alcohol type: wine Patient Tobacco Use Status: Former Tobacco user Tobacco use type: Cigarette Years Smoked: 5 service: No Current occupational status: retired Physical Exam Const Other: Well-nourished well-developed very friendly female awake alert and oriented x3 in no acute distress Extrem Other: Right knee examination shows that the surgical incision is well healed, no erythema, full active extension and flexion to 120 degrees, her patella tracks well Assessment & Plan Assessment & Plan (1) Right knee pain: Code(s): M25.561 - Pain in right knee Category: Medical Plan Ms. Leyva continues to do very well after undergoing right total knee replacement surgery on 12/12/2023. She will continue with her home stretching program to prevent stiffness. She does know to take antibiotics before any dental work. She will contact me prior to her annual follow-up appointment should any questions or concerns arise. I spent 22 minutes in reviewing the patient's records and imaging studies, seeing the patient and documenting in the medical record. Coding Level of Care Code Est Pt Level 3 (16559) Complex EM visit Add On G2211 Diagnoses Right knee pain M25.561
--- OUTSIDE RECORDS SUMMARY | 2025-04-11 13:15 | XMS_ITS | Clinical Summary ---
Author Organization [facility] Address [address] [place] [address] Care Team Providers Care Child Nutrition Director Name Role Phone Yenni Jerez PA-C Primary Care Provider [phone] Medications Medication Sig Dispensed Refills Start Date [...] age to complete this topic Care Teams Child Nutrition Director Relationship Specialty Start Date End Date Yenni Jerez PA-C [address] [facility] [place] [address] PCP - General Physician Pattern Data Operator 06/05/24
--- OUTSIDE RECORDS SUMMARY | 2025-04-11 13:16 | XMS_ITS | Clinical Summary ---
Author Organization [facility] Address [address] [place] [address] Phone Care Team Providers Care Fisher Diving Name Role Phone Yenni Jerez Primary Care Provider [phone] Medications ascorbic acid (VITAMIN C) 500 mg chewable tablet Chew by mouth. 09/12/19 24 Active calcium carbonate-vitam in D (Calcium 600 + D,3,) 600 mg-10 mcg (400 unit) per tablet Take by mouth. Activ e multivitamin with minerals (MULTIPLE VITAMIN-MINERAL S ORAL) Take by mouth. Activ e acetaminophen (TYLENOL) 500 mg tablet Take by mouth. 05/28/20 22 Active amoxicillin (AMOXIL) 500 mg capsule Take by mouth. 11/18/19 24 Active apixaban (ELIQUIS) 2.5 mg tablet 01/17/20 24 Active atorvastatin (LIPITOR) 40 mg tablet 06/23/20 22 Active clotrimazole (MYCELEX) 10 mg mai DISSOLVE 1 MAI BY MOUTH FOUR TIMES A DAY FOR 10 DAYS 03/06/20 24 Active colchicine (COLCRYS) 0.6 mg tablet Take 1 tablet (0.6 mg total) by mouth daily. 03/01/20 24 Active cycloSPORINE (RESTASIS) 0.05 % ophthalmic emulsion Apply to eye. 03/17/20 20 Active empagliflozin (Jardiance) 10 mg tablet TAKE 1 TABLET BY MOUTH EVERY DAY IN THE MORNING 05/12/20 24 Active ferrous sulfate 325 mg (65 mg elemental iron) tablet Take by mouth. 09/12/19 24 Active fluoride, sodium, (Denta 5000 Plus) 1.1 % cream BRUSH TWICE DAILY WITH TOOTHPASTE THEN EXPECTORATE. DO NOT RINSE. 04/17/20 24 Active furosemide (LASIX) 20 mg tablet Take by mouth. 03/13/20 24 Active gabapentin (NEURONTIN) 300 mg capsule Take by mouth. Acti ve metoprolol succinate (TOPROL-XL) 25 mg 24 hr tablet Take by mouth. 03/13/20 24 Active metoprolol tartrate (LOPRESSOR) 50 mg tablet 05/03/20 24 Active mirabegron (MYRBETRIQ) 50 mg tablet extended release 24 hr 24 hr tablet Take by mouth. 03/09/20 21 Active spironolactone (ALDACTONE) 25 mg tablet Take by mouth. 03/31/20 24 Active traMADoL (ULTRAM) 50 mg tablet TAKE 1 TABLET BY MOUTH EVERY 6 HOURS NEEDED FOR PAIN. PATIENT MAY FILL FOR LESSER QUANTITY 04/17/20 24 Active traZODone (DESYREL) 100 mg tablet Take by mouth. 09/02/20 [address] Active [address]IUM [address] capsuleIndicati ons:Gastroesoph ageal reflux disease without esophagitis TAKE 1 CAPSULE TWICE DAILY 180 capsule 03/18/20 25 Active esomeprazole (NexIUM) [address] capsule Take by mouth. 025 Discontinued Active Problems Problem Noted Date Diagnosed Date Draining postoperative wound 06/21/2024 Surgical History Surgery Date Site/Laterality Comments JOINT REPLACEMENT PROCEDURE:JOINT REPLACEMENT;COMMENT:Left TKA 2019 JOINT REPLACEMENT PROCEDURE:JOINT REPLACEMENT;COMMENT:Right TKA 2023 JOINT REPLACEMENT PROCEDURE:JOINT REPLACEMENT;COMMENT:Right shoulder replacement 2021 JOINT REPLACEMENT PROCEDURE:JOINT REPLACEMENT;COMMENT:Left shoulder repair 2022 Medical History Medical History Date Comments Arthritis DX:Arthritis Irregular heart rhythm DX:Irregu lar heart rhythm Osteoporosis DX:Osteoporosis Stroke ([facility] V24, [facility] V28) DX:Stroke (HCC) Sjogren's disease ([facility] V24) DX:Sjogren's disease (HCC) Family History Medical [...] 03/16/2021 03/16/2011 Cholesterol Screening (Lipid Panel) 08/22/2022 Falls Risk Assessment 08/22/2022 Medicare Annual Wellness Visit 08/22/2022 Osteoporosis Screening (Bone Density Screening) 08/22/2022 Social Influencers of Health Screening 08/22/2022 Hypertension/CHF/CAD Annual BMP Blood Test 08/28/2022 COVID-19 Vaccine ( season) 2024 Depression Screening 09/12/2024 Influenza Vaccine (#1) 2025 2, 06/14/2021, 05/29/2020, Additional history exists HIB Vaccines [...] age to complete this topic Insurance MEDICARE [facility] Advance Directives Documents on File Type Date Recorded Patient Package Delivery Room Service Runner Expl anation Health Care Decision (hx) 10/31/2021 AD KELLY DIRECTIVE Health Care Decision (hx) 10/31/2021 AD KELLY DIRECTIVE Health Care Decision (hx) 10/31/2021 AD KELLY DIRECTIVE Health Care Decision (hx) 10/31/2021 AD KELLY DIRECTIVE Health Care Decision (hx) 10/31/2021 AD KELLY DIRECTIVE Health Care Decision (hx) 10/31/2021 AD KELLY DIRECTIVE Care Teams Fisher Diving Relationship Specialty Start Date End Date Yenni Jerez PA [address] [facility] [address] [place] [address] PCP - General 06/05/24
--- OUTSIDE RECORDS SUMMARY | 2025-04-11 13:16 | XMS_ITS | Clinical Summary ---
Author Organization [facility] Address [address] [place] [address] Care Team Providers Care Cementer Machine Name Role Phone Unavailable Primary Care Provider [...] (SF 5000 PLUS) 1.1 % creaIndications: Caries [place] twice daily with toothpaste then expectorate. Do not rinse. 51 g 4 4 Active Active Problems Problem Noted Date Diagnosed Date Paroxysmal atrial fibrillation ([facility]) 0 10/18/2023 Encounters Date Type Department Care Team Description 04/03/2025 10:00 AM EDT Office Visit [facility] [address] [place] [address] Oz Wood DDS from Last 3 Months Social History Tobacco [...] Sign Reading Time Taken Comments Blood Pressure 139/66 04/03/2025 10:04 AM EDT Pulse 76 04/03/2025 10:04 AM EDT Temperature - - Respiratory Rate - - Oxygen Saturation - - Inhaled Oxygen Concentration - - Weight - - Height - - Body Mass Index - - Plan of Treatment Upcoming Encounters Date Type Department Care Team (Late st Contact Info) Description 06/17/2025 2:20 PM EDT Office Visit [facility] [address] [place] [address] Lesli Ramsey RHD [address] [place] [address] Health Maintenance Due Date Last Done Comments Advanced Care Planning 1944 Imm-Pneumococcal 50+ (1 of 1 - PCV) 02/18/1994 Imm-Zoster, Recombinant (2 of 3) 12/27/2007 11/01/19 08 Bone Density Screening 02/18/2009 Falls Prevention 02/18/2009 Imm-RSV (adult) (1 - 1-dose 75+ series) 02/18/2019 Imm-DTaP/Tdap/Td (2 - Td or Tdap) 03/16/2021 011 [id number] ( season) 2024 Alcohol and Drug Screen 09/12/2024 Depression Annual Screen 09/12/2024 Imm-Influenza (#1) 2025 Dental BW 12/14/2025 12/12/2024, 10/14, 12/09/2022, Additional history exists Dental Examination 12/14/2025 12/12/2024, 0 05/15/2024, 11/03/2023, Additional history exists Dental Perio Charting 12/14/2025 12/12/2024, 023 Dental Prophy 12/14/2025 12/12/2024, 09/0 11/2023, 11/03/2023, Additional history exists Hypertension Screening (#1) 04/03/2026 Tobacco Screening 04/03/2026 04/03/2025 Dental FMX/Pano 10/29/2027 10/27/2022 Procedures Procedure Name Priority Date/Time Associated Diagnosis Comments 5 EXTRACTION ERUPTED TOOTH OR EXPOSED ROOT Routine 04/03/2025 10:00 AM EDT Caries Retained tooth root CASE PRESENTATION SUBS DTL & EXTENSIVE TX PLN Routine 04/03/2025 10:00 AM EDT Retained tooth root Caries COMP PERIODONTAL EVALUATION - NEW/EST PATIENT Routine [...]
--- OUTSIDE RECORDS SUMMARY | 2025-04-11 13:16 | XMS_ITS | Clinical Summary ---
Author Organization [facility] Address [address] [place] [address] Care Team Providers Care Shop Laborer Name Role Phone Pcp, No Primary Care [...] 71 09/24/2024 12:38 PM EST Temperature 36.7 C (98.1 F) 09/24/2024 12:38 PM EST Respiratory Rate 16 09/24/2024 12:38 PM EST [...] topic Insurance MEDICARE PART A & B [facility] Care Teams Shop Laborer Relationship Specialty Start Date End Date Pcp, No PCP - General General Medicine 09/24/24
--- OUTSIDE RECORDS SUMMARY | 2025-04-11 13:16 | XMS_ITS | Continuity of Care Document ---
Author Organization [facility] [address] [address] Phone [phone] Care Team Providers Care Unarmed Security Officer Name Role Phone Yenni Barnard M.D. 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 09/12/2023 KP Ferrous Zviixlv467(65Fe) mg Tablets 1 by mouth every day Yenni Barnard M.D. 09/12/2023 Trazodone FJM387fi Tablets Take 1 Tablet By Mouth AT Bedtime 90tabs Yenni Barnard M.D. 09/02/2023 Qovkdnwgf89pi Tablets 1 by mouth every day Unknown Owdfarzhynjmyv70nt Tablets 1 by mouth every day Unknown Eliquis2.5mg Tablets Take 1 Tablet By Mouth Twice A Day Unknown Metoprolol Succinate ER25mg Tablets ER 24HR 1 by mouth every day Unknown Hhebxkiwhz79di Tablets 1 by mouth every day prn Unknown Ehyurubuay777pm Capsules 1 by mouth three times a day prn Unknown Tylenol Extra Elieudvb660ig Tablets 2 by mouth twice a day prn Yenni Barnard M.D. Restasis0.05% Emulsion 1 drop each eye twice daily Yenni Barnard M.D. Vfmmljkqgjk239vx Capsules 4 caps by mouth prior to dental work 24caps Yenni Barnard M.D. Multivitamin Adults 50+Adlt 50+ Tablets 1 by mouth every day Yenni Barnard M.D. Calcium 600 +D High Ouhrfwb877-113jo-Rgnr Tablets 1 by mouth qd Yenni Barnard M.D. Qhmzmw65wr Capsules DR judit mouth twice a day Serena Collins MD Ugfpxombu72ub Tablets ER 24HR 1 by mouth every day Tuan Garduno MD Atorvastatin Enzxixh70ym Tablets Take 1 Tablet Once Daily 90tabs Yenni Barnard M.D. Vital Signs Date Vital Result Comment 01/03/2025 [...] Immature Grans (Abs) 0.1 x10E3/uL 0.0-0.1 NRBC [facility] Hematology Comments: TNP Ferritin 03/26/2024 [facility] Ferritin [...] Immature Grans (Abs) 0.1 x10E3/uL 0.0-0.1 NRBC [facility] Hematology Comments: TNP CBC With Differential/Plat elet 11/18/2023 [facility] WBC 9.3 K/MM3 [...] 0) Lymph # 1.7 K/MM3 (0.8-3. 1) Cocke# 0.8 K/MM3 (0.4-0. 9) Eo # 0.3 [...] A1c 5.5% Complete Abc With Diff 10/17/2023 [facility] WBC 6.5 K/MM3 [...] 0) Lymph # 1.3 K/MM3 (0.8-3. 1) Cocke# 0.5 K/MM3 (0.4-0. 9) Eo # 0.2 K/MM3 (0.0-0. 4) Baso # 0.1 K/MM3 (0.0-0. 1) Abs. Imm Gran 0.0 K/MM3 Neut 67.7 % (44-76) Lymph 20.4 % (15-43) Monocyte 7.7 % (4.5-10 .5) Eo 2.8 % (0-6) Baso 0.9 % (0-2) Imm Gran 0.5 % Vitamin B12 10/17/2023 [facility] Vitamin B12 1166 pg/mL (232-12 45) Folic Acid 10/17/2023 [facility] Folic Acid 36.9 ng/mL (4.8-37 .3) Homocysteine, Plasma 10/17/2023 [facility] Homocysteine, Plasma 8.9 UMOL/L (0-15) Vitamin B12 09/12/2023 [facility] Vitamin B12 <pending> Folic Acid 09/12/2023 [facility] Folic Acid <pending> Homocysteine,Plas ma/Serum 09/12/2023 [facility] Homocysteine,Plas ma/Serum <pending> Hemoglobin A1c 09/02/2023 Inhouse Hemoglobin A1c 5.7% Glucose Fingerstick 09/02/2023 Inhouse Glucose Fingerstick 109 Ferritin 09/02/2023 [facility] Ferritin 14 NG/ML (14-283 ) Iron & Tibc 09/02/2023 [facility] Iron 24 g/dL Low (30-160 ) Unsaturated Iro n Binding Paloma 316 g/dL (110-37 0) Est T. Iron Bin d Capacity 340 g/dL (140-53 0) % Iron Saturation 7 % Low (20-55 ) Complete Abc With Diff 09/02/2023 [facility] WBC 9.8 K/MM3 [...] 0) Lymph # 1.9 K/MM3 (0.8-3. 1) Cocke# 1.1 K/MM3 High (0.4-0. 9) Eo # 0.2 K/MM3 (0.0-0. 4) Baso # 0.1 K/MM3 (0.0-0. 1) Abs. Imm Gran 0.1 K/MM3 Neut 66.4 % (44-76) Lymph 19.6 % (15-43) Monocyte 10.9 % High (4.5-10 .5) Eo 2.0 % (0-6) Baso 0.6 % (0-2) Imm Gran 0.5 % Comprehensive Metabolic Panl 09/02/2023 [facility] Glucose 103 mg/dL [...] 68 ML/MIN/1.73 M2 1 Immunofixation Serum 09/02/2023 [facility] Immunoglobulin Igg 805 mg/dL (700-16 00) Immunoglobulin Iga 207 mg/dL (70-400 ) Immunoglobulin Igm 133 mg/dL (40-230 ) Immunofix Normal immunofix <SEE NOTE> 2 PTH, Intact 05/09/2023 [facility] PTH, Intact 62 pg/mL (15-65) Albumin 05/09/2023 [facility] Albumin 4.1 GM/DL (3.4-4. 8) Calcium 05/09/2023 [facility] Calcium 8.8 mg/dL (8.6-10 .5) Creatinine 05/09/2023 [facility] Creatinine 0.8 mg/dL (0.5-1. 0) Estimated GFR Creatinine 74 ML/MIN/1.73 M2 3 TSH With Reflex To FT4 05/09/2023 [facility] TSH With Reflex To FT4 3.96 uIU/mL (0.4-4. 2) 25Oh Vitamin D 05/09/2023 [facility] 25Oh Vitamin D 45.2 NG/ML (20-50) N-Telopeptide Cross Links, Urine 05/09/2023 [facility] Cross Linked N-Telopeptides 589 4 Creat, Urine 67.0 5 N-Telopeptide/C re at Ratio 99 High 6 NTX Interpretaion Comment 7 Creatinine 05/08/2023 [facility] Creatinine <pending> Albumin 05/08/2023 [facility] Albumin <pending> 25Oh Vitamin D 05/08/2023 [facility] 25Oh Vitamin D <pending> TSH With Reflex To FT4 05/08/2023 [facility] TSH With Reflex To FT4 <pending> PTH, Intact 05/08/2023 [facility] PTH, Intact <pending> Calcium 05/08/2023 [facility] Calcium <pending> Complete Abc With Diff 02/26/2023 [facility] WBC 6.6 K/MM3 (4.0-11 .0) RBC [...] 0) Lymph # 1.6 K/MM3 (0.8-3. 1) Cocke# 0.6 K/MM3 (0.4-0. 9) Eo # 0.2 K/MM3 (0.0-0. 4) Baso # 0.0 K/MM3 (0.0-0. 1) Abs. Imm Gran 0.0 K/MM3 Neut 61.7 % (44-76) Lymph 24.4 % (15-43) Monocyte 9.6 % (4.5-10 .5) Eo 3.5 % (0-6) Baso 0.6 % (0-2) Imm Gran 0.2 % Comprehensive Metabolic Panl 02/26/2023 [facility] Glucose 99 mg/dL [...] 65 ML/MIN/1.73 M2 8 Lipid Panel 02/26/2023 [facility] Cholesterol, Total 182 mg/dL (<200) Triglyceride 87 mg/dL (<150) HDL Chol 92 mg/dL (>39) LDL Cholesterol , Calculated 73 mg/dL (0-130) Non HDL Cholesterol (Calc) 90 mg/dL (<160) Hemoglobin A1c 02/26/2023 [facility] Hemoglobin A1c 5.6 % (4.0-5. 6) 9 Hemoglobin A1c 01/24/2023 [facility] Hemoglobin A1c <pending> Glucose Fingerstick 12/07/2022 Inhouse Glucose Fingerstick 93 Culture Urine 10/27/2022 [facility] Specimen Description URINE Special Requests NONE Culture NO GROWTH Report Status FINAL 10/29/2022 10 Glucose Fingerstick 10/13/2022 Inhouse Glucose Fingerstick 94 Hemoglobin A1c 10/13/2022 Inhouse Hemoglobin A1c 5.4% Comprehensive Metabolic Panl 06/02/2022 [facility] Glucose 117 mg/dL [...] M2 11 Complete Abc With Diff 06/02/2022 [facility] WBC 7.4 K/MM3 [...] 0) Lymph # 1.8 K/MM3 (0.8-3. 1) Cocke# 0.5 K/MM3 (0.4-0. 9) Eo # 0.2 [...] Estab. Unit: nmol BCE [facility], [address] [place] [address] 5 Reference range: Not Estab. Unit: mg/dL [facility], [address] [place] [address], [place] [address] 6 Reference range: 0 t o 89 [...] value is <or EQ 38 nM BCE/mM FIRE SPRINKLER INSPECTOR, or NTx has decreased >or EQ 30% [...] J Bone Min Res.11(1):M757,1996 [place] [address] 8 Creatinine based est imated glomerular filtration (eGFR) in adults is calculated using the National Kidney Foundation recommended 2020 CKD-EPI equation. Estimates GFR from serum creatinine, age and sex. 9 MONITORING: In known diabetic patients, hemoglobin A1c targets should be discussed with health care provider. DIAGNOSTIC USE: The [place] [employer] (ADA) and the World Health [...] sex. 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 DX, CARDIOEMBOLIC CVA Closed 06/22/[address] [address] [phone]
--- OUTSIDE RECORDS SUMMARY | 2025-04-11 13:16 | XMS_ITS | Patient Health Record ---
Author Organization [facility] Address [address] [address] Care Team Providers Care Thresher Broomcorn Name Role Phone ZAKI HENRIQUEZ M.D. Primary Care Provid er Unavailable Imer Evita Unavailable [phone] Allergies Allergen (clinical drug ingredient) Drug/Non Drug Allergy documented on EMR Reaction Allergy Type Onset Date Status TYLOX Nausea/Vomiting/ Diarrhea Drug Allergy Active Reason For Referral No Information Medications Medication SIG (Take, Route, Frequency, Duration) Notes Start Date End Date Status Multivitamins 1 ORAL daily; Duration: -3 [facility] 02/21/2012 Active Glucosamine Chondroitin Adv 1500/1200 1 ORAL twice daily; Duration: - [facility] 02/21/2012 Active NexIUM 40 MG [address] a [address] [facility] 02/21/2012 Active Myrbetriq 50 MG 1 tablet Orally Once a day Active Restasis 0.05% CHRISTIANO Ophthalmic twice daily; Duration: - [facility] 02/21/2012 Active Gabapentin 300 MG TAKE 1 [...] + D 1 ORAL daily; Duration: -3 [facility] 02/21/2012 Active Atorvastatin Calcium 40 MG Oral; Duration: 90 Active CeleBREX 200MG 1 ORAL daily; Duration: [facility] 02/21/2012 Not-Taking Social History Tobacco Use: Social [...] Status Risk Notes Problem Postmenopausal atrophic vaginitis (81603360) Postmenopausal atrophic vaginitis (N95.2) Active confirmed Problem Overactive bladder (666912756) Overactive bladder (N32.81) Active confirmed Problem Age-related osteoporosis (699721314) Age-related osteoporosis without current pathological fracture (M81.0) Active confirmed Problem Screening for malignant neoplasm of breast (651721702) Encounter for screening mammogram for malignant neoplasm of breast (Z12.31) Active confirmed Problem Hyperlipidemia (29735327) Other and unspecified hyperlipidemia (272.4) Active confirmed Major Problem Esophageal reflux (025508041) Esophageal reflux (530.81) Active confirmed Major Problem Menopausal symptom (52938007) Symptomatic menopausal or female climacteric states (627.2) Active confirmed Major Problem Postmenopausal atrophic vaginitis (02127470) Postmenopausal atrophic vaginitis (627.3) Active confirmed Diag Problem Sicca syndrome (50030260) Sicca syndrome (710.2) Active confirmed Major Problem Gynecological examination normal (928893834831199) Routine gynecological examination (V72.31) Active confirmed Problem Dietary management surveillance (091530248) Dietary surveillance and counseling (V65.3) Active confirmed Diag Problem Screening for malignant neoplasm of colon (968843539) Special screening for malignant neoplasms, colon (V76.51) [...] MEDICARE [address] [place], [place] [id number] DEMARCOLYNETTE Self - patient is the insured MEDEX [address] [place] [address] [phone] [id number] DEMARCOKIMLYNETTE Self - patient is the [...]
== END 2025-04-11 13:38 | disposition home or self-care (01) ==
LOC: HO.HOS 13:04
PROVIDERS: Visit Provider Orthopaedic Surgery
DX: M25.561 Pain in right knee (principal)
CPT/HCPCS: 99213; G2211

== ENCOUNTER → 2025-04-11 13:03 | Outpatient (BNVA) | payer MEDICARE, SELFPAY | PROVIDERS: Visit Provider Orthopaedic Surgery | DX: M25.561 Pain in right knee (principal); Z96.651 Presence of right artificial knee joint; Z98.890 Other specified postprocedural states | CPT/HCPCS: 99212 ==

== ENCOUNTER 2025-04-19 12:54 | Outpatient (REF) | payer MEDICARE, SELFPAY ==
--- NOTE | ~2025-04-19 | XR_ITS ---
EXAMINATION: XR LUMBAR SPINE 4 OR MORE VIEWS HISTORY: M48.062 - Spinal stenosis, lumbar region with neurogenic claudication COMPARISON: There are no prior studies for comparison. FINDINGS: AP, and neutral, flexion, and extension lateral views of the lumbar spine are submitted. The bones are osteopenic. There is severe rotatory dextroscoliosis. No definite fracture is seen. There is moderate to severe degenerative disc disease with disc space narrowing and osteophyte formation. There is grade I spondylolisthesis of L4 on L5 measuring approximately 7 mm. This does not change with flexion or extension. The visualized paraspinal soft tissues are unremarkable. XR/XR lumbar spine 4V min IMPRESSION: Severe rotatory dextroscoliosis and moderate to severe degenerative disc disease. Grade I spondylolisthesis of L4 on L5 without change with flexion or extension. Electronically signed by: Isidro Mendieta MD 04/19/2025 02:11 PM EDT
== END 2025-04-19 12:55 | disposition home or self-care (01) ==
LOC: HO.HOSX 12:54
PROVIDERS: Referring Provider Internal Medicine; Visit Provider Neurological Surgery
DX: M48.062 Spinal stenosis, lumbar region with neurogenic claudication (principal); Z79.01 Long term (current) use of anticoagulants
CPT/HCPCS: 72110; 99202

== ENCOUNTER 2025-04-19 12:54 | Outpatient (AMB) | payer MEDICARE, SELFPAY ==
--- OUTSIDE RECORDS SUMMARY | 2025-04-19 12:56 | XMS_ITS | Clinical Summary ---
Author Organization [facility] Address [address] [place] [address] Care Team Providers Care Rn Manager Name Role Phone Yenni Jerez PA-C Primary Care Provider [phone] Medications Medication Sig Dispensed Refills Start Date [...] age to complete this topic Care Teams Rn Manager Relationship Specialty Start Date End Date Yenni Jerez PA-C [address] [facility], [place] [address] PCP - General Physician Predatory Game Hunter 06/05/24
--- OUTSIDE RECORDS SUMMARY | 2025-04-19 12:57 | XMS_ITS | Patient Health Record ---
Author Organization [facility] Address [address] [address] Care Team Providers Care Silver Service Waiter Name Role Phone ZAKI HENRIQUEZ M.D. Primary Care Provid er Unavailable Evita Willams Unavailable [phone] Allergies Allergen (clinical drug ingredient) Drug/Non Drug Allergy documented on EMR Reaction Allergy Type Onset Date Status TYLOX Nausea/Vomiting/ Diarrhea Drug Allergy Active Reason For Referral No Information Medications Medication SIG (Take, Route, Frequency, Duration) Notes Start Date End Date Status Multivitamins 1 ORAL daily; Duration: -3 [facility] 02/21/2012 Active Glucosamine Chondroitin Adv 1500/1200 1 ORAL twice daily; Duration: - [facility] 02/21/2012 Active NexIUM 40 MG 1 Orally Twice a day [facility] 02/21/2012 Active Myrbetriq 50 MG 1 tablet Orally Once a day Active Restasis 0.05% CHRISTIANO Ophthalmic twice daily; Duration: - [facility] 02/21/2012 Active Gabapentin 300 MG [...] + D 1 ORAL daily; Duration: -3 [facility] 02/21/2012 Active Atorvastatin Calcium 40 MG Oral; Duration: 90 Active CeleBREX 200MG 1 ORAL daily; Duration: [facility] 02/21/2012 Not-Taking Social History Tobacco Use: Social [...] Status Risk Notes Problem Postmenopausal atrophic vaginitis (72085156) Postmenopausal atrophic vaginitis (N95.2) Active confirmed Problem Overactive bladder (848173657) Overactive bladder (N32.81) Active confirmed Problem Age-related osteoporosis (812313261) Age-related osteoporosis without current pathological fracture (M81.0) Active confirmed Problem Screening for malignant neoplasm of breast (892745899) Encounter for screening mammogram for malignant neoplasm of breast (Z12.31) Active confirmed Problem Hyperlipidemia (37218234) Other and unspecified hyperlipidemia (272.4) Active confirmed Major Problem Esophageal reflux (031343124) Esophageal reflux (530.81) Active confirmed Major Problem Menopausal symptom (56221747) Symptomatic menopausal or female climacteric states (627.2) Active confirmed Major Problem Postmenopausal atrophic vaginitis (58320425) Postmenopausal atrophic vaginitis (627.3) Active confirmed Diag Problem Sicca syndrome (29758288) Sicca syndrome (710.2) Active confirmed Major Problem Gynecological examination normal (791539284879245) Routine gynecological examination (V72.31) Active confirmed Problem Dietary management surveillance (161372434) Dietary surveillance and counseling (V65.3) Active confirmed Diag Problem Screening for malignant neoplasm of colon (495298269) Special screening for malignant neoplasms, colon (V76.51) [...] MEDICARE [address] [place], [place] [id number] DEMARCOLYNETTE Self - patient is the insured MEDEX [address] [place] [address] [phone] [id number] DEMARCOKIMLYNETTE Self - patient is the [...]
--- OUTSIDE RECORDS SUMMARY | 2025-04-19 12:57 | XMS_ITS | Clinical Summary ---
Author Organization [facility] Address [address] [place] [address] Care Team Providers Care Magazine Filler Name Role Phone Unavailable Primary Care Provider [...] (SF 5000 PLUS) 1.1 % creaIndications: Car[place] twice daily with toothpaste then expectorate. Do not rinse. 51 g 4 4 Active Active Problems Problem Noted Date Diagnosed Date Paroxysmal atrial fibrillation ([facility]) 0 10/18/2023 Encounters Date Type Department Care Team Description 04/03/2025 10:00 AM EDT Office Visit [facility] [address] [place] [address] Oz Wood DDS from Last 3 Months [...] 06/17/2025 2:20 PM EDT Office Visit [facility] [address] [place] [address] Lesli Ramsey RHD [address] [place] [address] Health Maintenance Due Date Last Done Comments Advanced Care Planning 1944 Imm-Pneumococcal 50+ (1 of 1 - PCV) 02/18/1994 Imm-Zoster, Recombinant (2 of 3) 12/27/2007 11/01/19 08 Bone Density Screening 02/18/2009 Falls Prevention 02/18/2009 Imm-RSV (adult) (1 - 1-dose 75+ series) 02/18/2019 Imm-DTaP/Tdap/Td (2 - Td or Tdap) 03/16/2021 011 [id number] ( season) 2024 Alcohol and Drug Screen [...]
--- OUTSIDE RECORDS SUMMARY | 2025-04-19 12:57 | XMS_ITS | Continuity of Care Document ---
Author Organization [facility] [address] [address] Phone [phone] Care Team Providers Care Handy Man Name Role Phone Yenni Barnard M.D. 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 09/12/2023 KP Ferrous Ykpzmjw020(65Fe) mg Tablets 1 by mouth every day Yenni Barnard M.D. 09/12/2023 Trazodone NYI571ez Tablets Take 1 Tablet By Mouth AT Bedtime 90tabs Yenni Barnard M.D. 09/02/2023 Vvjmxxjuf55lz Tablets 1 by mouth every day Unknown Yxdyuhrpwrmksw30bq Tablets 1 by mouth every day Unknown Eliquis2.5mg Tablets Take 1 Tablet By Mouth Twice A Day Unknown Metoprolol Succinate ER25mg Tablets ER 24HR 1 by mouth every day Unknown Drlmzgsaed35fl Tablets 1 by mouth every day prn Unknown Nxnihgcerq079dp Capsules 1 by mouth three times a day prn Unknown Tylenol Extra Yscvpzwp341vn Tablets 2 by mouth twice a day prn Yenni Barnard M.D. Restasis0.05% Emulsion 1 drop each eye twice daily Yenni Barnard M.D. Mqxdebvqiqu691qw Capsules 4 caps by mouth prior to dental work 24caps Yenni Barnard M.D. Multivitamin Adults 50+Adlt 50+ Tablets 1 by mouth every day Yenni Barnard M.D. Calcium 600 +D High Aldxpsr739-467cq-Dizh Tablets 1 by mouth qd Yenni Barnard M.D. Kdurwa01zx Capsules DR judit mouth twice a day Serena Collins MD Dvdwlytzs01pe Tablets ER 24HR 1 by mouth every day Tuan Garduno MD Atorvastatin Prdfexq84lf Tablets Take 1 Tablet Once Daily 90tabs [...] Immature Grans (Abs) 0.1 x10E3/uL 0.0-0.1 NRBC [facility] Hematology Comments: TNP Ferritin 03/26/2024 [facility] [...] Immature Grans (Abs) 0.1 x10E3/uL 0.0-0.1 NRBC [facility] Hematology Comments: TNP CBC With Differential/Plat elet 11/18/2023 [facility] WBC 9.3 K/MM3 (4.0-11 [...] 0) Lymph # 1.7 K/MM3 (0.8-3. 1) [place]# 0.8 K/MM3 (0.4-0. 9) Eo # 0.3 [...] A1c 5.5% Complete Abc With Diff 10/17/2023 [facility] WBC 6.5 K/MM3 (4.0-11 [...] 0) Lymph # 1.3 K/MM3 (0.8-3. 1) Jess[place]# 0.5 K/MM3 (0.4-0. 9) Eo # 0.2 K/MM3 (0.0-0. 4) Baso # 0.1 K/MM3 (0.0-0. 1) Abs. Imm Gran 0.0 K/MM3 Neut 67.7 % (44-76) Lymph 20.4 % (15-43) Monocyte 7.7 % (4.5-10 .5) Eo 2.8 % (0-6) Baso 0.9 % (0-2) Imm Gran 0.5 % Vitamin B12 10/17/2023 [facility] Vitamin B12 1166 pg/mL (232-12 45) Folic Acid 10/17/2023 [facility] Folic Acid 36.9 ng/mL (4.8-37 .3) Homocysteine, Plasma 10/17/2023 [facility] Homocysteine, Plasma 8.9 UMOL/L (0-15) Vitamin B12 09/12/2023 [facility] Vitamin B12 <pending> Folic Acid 09/12/2023 [facility] Folic Acid <pending> Homocysteine,Plas ma/Serum 09/12/2023 [facility] Homocysteine,Plas ma/Serum <pending> Hemoglobin A1c 09/02/2023 Inhouse Hemoglobin A1c 5.7% Glucose Fingerstick 09/02/2023 Inhouse Glucose Fingerstick 109 Ferritin 09/02/2023 [facility] Ferritin 14 NG/ML (14-283 ) Iron & Tibc 09/02/2023 [facility] Iron 24 g/dL Low (30-160 ) Unsaturated Iro n Binding [place] 316 g/dL (110-37 0) Est T. Iron Bin d Capacity 340 g/dL (140-53 0) % Iron Saturation 7 % Low (20-55 ) Complete Abc With Diff 09/02/2023 [facility] WBC 9.8 K/MM3 (4.0-11 [...] 0) Lymph # 1.9 K/MM3 (0.8-3. 1) Jess[place]# 1.1 K/MM3 High (0.4-0. 9) Eo # 0.2 K/MM3 (0.0-0. 4) Baso # 0.1 K/MM3 (0.0-0. 1) Abs. Imm Gran 0.1 K/MM3 Neut 66.4 % (44-76) Lymph 19.6 % (15-43) Monocyte 10.9 % High (4.5-10 .5) Eo 2.0 % (0-6) Baso 0.6 % (0-2) Imm Gran 0.5 % Comprehensive Metabolic Panl 09/02/2023 [facility] Glucose 103 mg/dL High [...] 68 ML/MIN/1.73 M2 1 Immunofixation Serum 09/02/2023 [facility] Immunoglobulin Igg 805 mg/dL (700-16 00) Immunoglobulin Iga 207 mg/dL (70-400 ) Immunoglobulin Igm 133 mg/dL (40-230 ) Immunofix Normal immunofix <SEE NOTE> 2 PTH, Intact 05/09/2023 [facility] PTH, Intact 62 pg/mL (15-65) Albumin 05/09/2023 [facility] Albumin 4.1 GM/DL (3.4-4. 8) Calcium 05/09/2023 [facility] Calcium 8.8 mg/dL (8.6-10 .5) Creatinine 05/09/2023 [facility] Creatinine 0.8 mg/dL (0.5-1. 0) Estimated GFR Creatinine 74 ML/MIN/1.73 M2 3 TSH With Reflex To FT4 05/09/2023 [facility] TSH With Reflex To FT4 3.96 uIU/mL (0.4-4. 2) 25Oh Vitamin D 05/09/2023 [facility] 25Oh Vitamin D 45.2 NG/ML (20-50) N-Telopeptide Cross Links, Urine 05/09/2023 [facility] Cross Linked N-Telopeptides 589 4 Creat, Urine 67.0 5 N-Telopeptide/C re at Ratio 99 High 6 NTX Interpretaion Comment 7 Creatinine 05/08/2023 [facility] Creatinine <pending> Albumin 05/08/2023 [facility] Albumin <pending> 25Oh Vitamin D 05/08/2023 [facility] 25Oh Vitamin D <pending> TSH With Reflex To FT4 05/08/2023 [facility] TSH With Reflex To FT4 <pending> PTH, Intact 05/08/2023 [facility] PTH, Intact <pending> Calcium 05/08/2023 [facility] Calcium <pending> Complete Abc With Diff 02/26/2023 [facility] WBC 6.6 K/MM3 (4.0-11 .0) RBC [...] 0) Lymph # 1.6 K/MM3 (0.8-3. 1) [place]# 0.6 K/MM3 (0.4-0. 9) Eo # 0.2 K/MM3 (0.0-0. 4) Baso # 0.0 K/MM3 (0.0-0. 1) Abs. Imm Gran 0.0 K/MM3 Neut 61.7 % (44-76) Lymph 24.4 % (15-43) Monocyte 9.6 % (4.5-10 .5) Eo 3.5 % (0-6) Baso 0.6 % (0-2) Imm Gran 0.2 % Comprehensive Metabolic Panl 02/26/2023 [facility] Glucose 99 mg/dL (70-99) [...] 65 ML/MIN/1.73 M2 8 Lipid Panel 02/26/2023 [facility] Cholesterol, Total 182 mg/dL (<200) Triglyceride 87 mg/dL (<150) HDL Chol 92 mg/dL (>39) LDL Cholesterol , Calculated 73 mg/dL (0-130) Non HDL Cholesterol (Calc) 90 mg/dL (<160) Hemoglobin A1c 02/26/2023 [facility] Hemoglobin A1c 5.6 % (4.0-5. 6) 9 Hemoglobin A1c 01/24/2023 [facility] Hemoglobin A1c <pending> Glucose Fingerstick 12/07/2022 Inhouse Glucose Fingerstick 93 Culture Urine 10/27/2022 [facility] Specimen Description URINE Special Requests NONE Culture NO GROWTH Report Status FINAL 10/29/2022 10 Glucose Fingerstick 10/13/2022 Inhouse Glucose Fingerstick 94 Hemoglobin A1c 10/13/2022 Inhouse Hemoglobin A1c 5.4% Comprehensive Metabolic Panl 06/02/2022 [facility] Glucose 117 mg/dL High [...] M2 11 Complete Abc With Diff 06/02/2022 [facility] WBC 7.4 K/MM3 (4.0-11 [...] 0) Lymph # 1.8 K/MM3 (0.8-3. 1) [place]# 0.5 K/MM3 (0.4-0. 9) Eo # 0.2 [...] Estab. Unit: nmol BCE [facility], [address] [place] [address] 5 Reference range: Not Estab. Unit: mg/dL Test [facility] by [facility], [address] [place] [address], [place] [address] 6 Reference range: 0 t o 89 [...] value is <or EQ 38 nM BCE/mM BR[place]URN[place]ER, or NTx has decreased >or EQ 30% [...] J Bone Min Res.11(1):M757,1996 [place] [address] 8 Creatinine based est imated glomerular filtration (eGFR) in adults is calculated using the National Kidney Foundation recommended 2020 CKD-EPI equation. Estimates GFR from serum creatinine, age and sex. 9 MONITORING: In known diabetic patients, hemoglobin A1c targets should be discussed with health care provider. DIAGNOSTIC USE: The [place] Diabetes Association (ADA) and the World Health [...] sex. Procedures Date Code Description Status 01/03/2025 42942 Collection Of Venous Blood B y Venipuncture Completed 08/30/2024 74828 Collection Of Venous Blood B y Venipuncture Completed 03/26/2024 21286 Collection Of Venous Blood B y Venipuncture Completed 11/18/2023 62599 Collection Of Venous Blood B y Venipuncture Completed 09/02/2023 42892 Collection Of Venous Blood B y Venipuncture Completed 06/02/2022 10929 Collection Of Venous Blood B y Venipuncture Completed Medical Devices Description No Information Available Encounters Type Date Location Provider Dx Diagnosis Office Visit 04/17/2025 10:23a Main Office Yenni Barnard M.D. I10 Essential (primary) hypertension E78.00 Pure hypercholestero lemia, unspecified Assessments Date Code Description Provider 04/17/2025 I10 Essential (primary) hyperten vince Yenni Barnard M.D. 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 DX, CARDIOEMBOLIC CVA Closed 06/22/[address] [address] [phone]
--- OUTSIDE RECORDS SUMMARY | 2025-04-19 12:57 | XMS_ITS | Clinical Summary ---
Author Organization [email or web address] Building Address [address] [place] [address] Phone Care Team Providers Care Supervisor Forming And Tempering Name Role Phone Yenni Jerez Primary Care Provider [phone] Medications ascorbic acid (VITAMIN C) 500 mg chewable tablet Chew by mouth. 4 Active calcium carbonate-vitami n D (Calcium 600 + D,3,) 600 mg-10 mcg (400 unit) per tablet Take by mouth. Active multivitamin with minerals (MULTIPLE VITAMIN-MINERALS ORAL) Take by mouth. Activ e acetaminophen [...] EVERY DAY IN THE MORNING 4 Active ferrous sulfate 325 mg (65 mg [...] mg tablet Take by mouth. [address] capsuleIndicatio ns:Gastroesophag eal reflux disease without esophagitis TAKE 1 CAPSULE TWICE DAILY 180 capsule 5 Active Active Problems Problem Noted Date Diagnosed Date Draining postoperative wound 06/21/2024 Surgical History Surgery Date Site/Laterality Comments JOINT REPLACEMENT PROCEDURE:JOINT REPLACEMENT;COMMENT:Left TKA 2019 JOINT REPLACEMENT PROCEDURE:JOINT REPLACEMENT;COMMENT:Right TKA 2023 JOINT REPLACEMENT PROCEDURE:JOINT REPLACEMENT;COMMENT:Right shoulder replacement 2021 JOINT REPLACEMENT PROCEDURE:JOINT REPLACEMENT;COMMENT:Left shoulder repair 2022 Medical History Medical History Date Comments Arthritis DX:Arthritis Irregular heart rhythm DX:Irregu lar heart rhythm Osteoporosis DX:Osteoporosis Stroke ([facility] V24, [facility] V28) DX:Stroke (HCC) Sjogren's disease ([facility] V24) DX:Sjogren's disease (HCC) Family History Medical [...] age to complete this topic Insurance MEDICARE [facility] Advance Directives Documents on File Type Date Recorded 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
--- OUTSIDE RECORDS SUMMARY | 2025-04-19 12:57 | XMS_ITS | Clinical Summary ---
Author Organization [facility] Address [address] [place] [address] Care Team Providers Care Slurry Control Operator Helper Name Role Phone Pcp, No Primary [...] topic Insurance MEDICARE PART A & B [facility] Care Teams Slurry Control Operator Helper Relationship Specialty Start Date End Date Pcp, No PCP - General General Medicine 09/24/24
--- NOTE | 2025-04-19 12:59 | A.SPINEOV_ITS ---
Intake Visit Reasons: Spinal stenosis Intake Note: Ms. Leyva is here today c/o back pain. MRI disc brought. Allergies oxycodone (From Tylox) Adverse Reaction (Intermediate, Verified 04/11/25 13:18) Nausea and Vomiting ( after childbirth-age 19)-has had since Assessment & Plan Assessment & Plan (1) Lumbar stenosis with neurogenic claudication: Code(s): M48.062 - Spinal stenosis, lumbar region with neurogenic claudication Category: Medical Plan: Dear colleague Thank you for referring Brigitte Leyva to the office today with a chief complaint of right-sided back pain. HPI: This 80-year-old female is complaining of right-sided back pain that started a year ago. The pain comes with walking and standing. The symptoms are progressive. Sitting down or leaning forward gives relief. She had multiple injections at [place] [facility] that only gave temporary relief. She also underwent physical therapy and acupuncture. She denies weakness or numbness. The left side only gets involved when she keeps pushing herself. PMH: Congestive heart failure, Sjogren syndrome, osteopenia, knee replacement Medications: Eliquis, atorvastatin, calcium and vitamin D, docusate, Jardiance, Nexium, furosemide, loratadine, metoprolol, mirabegron, spironolactone, trazodone, multivitamins Allergies: Oxycodone Social history: [] Physical Exam: Pleasant female. On inspection there is a mild lumbar scoliosis. Straight leg produces pain on the right side of her back. No motor or sensory deficits. She walks in a flexed position. Radiological Studies: MRI done at [facility] on 03/22/2025 shows a grade 1-2 spondylolisthesis L4-5 with associated severe central spinal stenosis and right L4 foraminal stenosis. In addition there is a lumbar scoliosis with the apex at L2-3. Dynamic standing lumbar x-rays show the L4-5 spondylolisthesis without instability. The scoliotic curve is above the L4-5 level. Impression/Plan: This patient is suffering from neurogenic claudication due to severe spinal stenosis L4-5. She denies axial low back pain and combining this with stable x-rays I do not think that the spondylolisthesis needs to be corrected as a 1st option. I offered her a right L4-5 laminotomy on 05/23/2025. She is going to get cardiac etiology clearance. She will stop her Eliquis 3 days prior to surgery. Thank you for allowing me to participate in your patients care. total time spent was 50 minutes in counseling ,coordination of plan, personal review of imaging, surgical decision making and subsequent plan Ayush Baker MD, PhD Spine Fellowship Trained Neurosurgeon Director, [facility] Orders: Orders XR lumbar spine 4V min Today M48.062 - Spinal stenosis, lumbar region with neurogenic claudication Coding Level of Care Code New Pt Level 4 (36483) Diagnoses Lumbar stenosis with neurogenic claudication M48.062
== END 2025-04-19 14:00 | disposition home or self-care (01) ==
LOC: HO.HNS 12:54
PROVIDERS: Referring Provider Internal Medicine; Visit Provider Neurological Surgery
DX: M48.062 Spinal stenosis, lumbar region with neurogenic claudication (principal)
CPT/HCPCS: 99204

== ENCOUNTER → 2025-04-19 13:21 | Outpatient (BNV) | payer MEDICARE, SELFPAY | PROVIDERS: Referring Provider Internal Medicine; Visit Provider Radiology Diagnostic Radiology | DX: M43.16 Spondylolisthesis, lumbar region (principal) | CPT/HCPCS: 72110 ==

== ENCOUNTER 2025-05-23 06:58 | Day surgery (SDC) | payer MEDICARE, SELFPAY ==
--- OUTSIDE RECORDS SUMMARY | 2025-05-17 11:09 | XMS_ITS | Continuity of Care Document ---
Author Organization [facility] [address] [address] Phone [phone] Care Team Providers Care Data Developer Name Role Phone Yenni Barnard M.D. 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 05/10/2025 Trazodone [id number] Tablets Take 1 Tablet By Mouth AT Bedtime 90tabs Yenni Barnard M.D. 09/02/2023 Atorvastatin [id number] Tablets Take 1 Tablet Once Daily 90tabs Yenni Barnard M.D. Isdokpuxr01fv Tablets ER 24HR 1 by mouth every day Tuan Garduno MD [id number] Capsules DR 1by mouth twice a day Serena Collins MD Calcium 600 +D High [id number] t Tablets 1 by mouth qd Yenni Barnard M.D. Multivitamin Adults 50+Adlt 50+ Tablets 1 by mouth every day Yenni Barnard M.D. [id number] Capsules 4 caps by mouth prior to dental work 24caps Yenni Barnard M.D. Restasis0.05% Emulsion 1 drop each eye twice daily Yenni Barnard M.D. Tylenol Extra Xzshnhyf735av Tablets 2 by mouth twice a day prn Yenni Barnard M.D. Nnvkyrukgd52id Tablets 1 by mouth every other day Unknown Metoprolol Succinate ER25mg Tablets ER 24HR 1 by mouth every day Unknown Eliquis2.5mg Tablets Take 1 Tablet By Mouth Twice A Day Unknown Acohfcrxsgtzcs43ux Tablets 1 by mouth every day Unknown Itxodlyfi85la Tablets 1 by mouth every day Unknown Vital Signs Date Vital Result Comment 04/29/2025 3:10pm BP Systolic 100 mmHg BP Diastolic 60 mmHg Heart Rate 70 /min Height 58.5 inches 4'10.50 Weight 128.25 lb BMI (Body Mass Index) 26.3 kg/m2 Results Test Acquired Date Facility Test Result H/L Range Note Urinalysis Complete W Reflex To Culture 04/30/2025 [facility] [place] 1.023 1.005-1.0 30 pH 6.0 5.0-7.5 Urine-Color Yellow Yellow Appearance Clear Clear WBC Esterase Negative Negative Protein Trace Negative/ Trace Glucose 3+ Abnormal Negative Ketones Negative Negative Occult Blood Negative Negative Bilirubin Negative Negative Urobilinogen,Se mi-Qn 0.2 mg/dL 0.2-1.0 Nitrite, Urine Negative Negative Microscopic Examination See Comment: 1 Microscopic Examination See below: 2 Urinalysis Reflex See Comment: 3 WBC None seen /hpf 0 - 5 RBC 0-2 /hpf 0 - 2 Epithelial Cells (non renal) None seen /hpf 0 - 10 Epithelial Cells (renal) TNP Casts None seen /lpf None seen Cast Type TNP Crystals TNP Crystal Type TNP Mucus Threads TNP Bacteria None seen None seen/Few Yeast TNP Trichomonas TNP Comment TNP Basic Metabolic Panel (8) 04/30/2025 [facility] Glucose 89 mg/dL 70-99 BUN 20 mg/dL 8-27 Creatinine 1.15 mg/dL High 0.57-1.00 eGFR 48 mL/min/1.7 3 Low >59 BUN/Creatinine Ratio 17 12-28 Sodium 139 mmol/L 134-144 Potassium 4.5 mmol/L 3.5-5.2 Chloride 103 mmol/L 96-106 Carbon Dioxide, Total 22 mmol/L 20-29 Calcium 8.8 mg/dL 8.7-10.3 CBC With Differential/Boyd telet 04/30/2025 [facility] WBC 7.7 x10E3/uL 3.4-10.8 RBC 4.51 x10E6/uL 3.77-5.28 Hemoglobin 13.7 g/dL 11.1-15.9 Hematocrit 42.9 % 34.0-46.6 MCV 95 fL 79-97 MCH 30.4 pg 26.6-33.0 MCHC 31.9 g/dL 31.5-35.7 RDW 13.7 % 11.7-15.4 Platelets 241 x10E3/uL 150-450 Neutrophils 70 % Not Estab. Lymphs 15 % Not Estab. Monocytes 8 % Not Estab. Eos 5 % Not Estab. Basos 1 % Not Estab. Immature Cells TNP Neutrophils (Absolute) 5.5 x10E3/uL 1.4-7.0 Lymphs (Absolute) 1.2 x10E3/uL 0.7-3.1 Monocytes(Absol tribe) 0.6 x10E3/uL 0.1-0.9 Eos (Absolute) 0.4 x10E3/uL 0.0-0.4 Baso (Absolute) 0.1 x10E3/uL 0.0-0.2 Immature Granulocytes 1 % Not Estab. Immature Grans (Abs) 0.1 x10E3/uL 0.0-0.1 NRBC TNP Hematology Comments: TNP Glucose Fingerstick 04/29/2025 Inhouse Glucose Fingerstick 95 Ferritin 01/03/2025 [facility] Ferritin 68 ng/mL 15-150 Basic Metabolic Panel (8) 01/03/2025 [facility] Glucose 81 mg/dL 70-99 BUN 22 mg/dL 8-27 Creatinine 1.17 mg/dL High 0.57-1.00 eGFR 47 mL/min/1.7 3 Low >59 BUN/Creatinine Ratio 19 12-28 Sodium 143 mmol/L 134-144 Potassium 4.5 mmol/L 3.5-5.2 Chloride 107 mmol/L High 96-106 Carbon Dioxide, Total 19 mmol/L Low 20-29 Calcium 9.1 mg/dL 8.7-10.3 Hemoglobin A1c 01/03/2025 Inhouse Hemoglobin A1c 5.7% Glucose Fingerstick 01/03/2025 Inhouse Glucose Fingerstick 89 CBC With Differential/Boyd telet 01/03/2025 [facility] WBC 8.0 x10E3/uL 3.4-10.8 RBC 4.49 x10E6/uL 3.77-5.28 Hemoglobin 13.5 g/dL 11.1-15.9 Hematocrit 42.0 % 34.0-46.6 MCV 94 fL 79-97 MCH 30.1 pg 26.6-33.0 MCHC 32.1 g/dL 31.5-35.7 RDW 15.1 % 11.7-15.4 Platelets 209 x10E3/uL 150-450 Neutrophils 67 % Not Estab. Lymphs 18 % Not Estab. Monocytes 8 % Not Estab. Eos 5 % Not Estab. Basos 1 % Not Estab. Immature Cells TNP Neutrophils (Absolute) 5.5 x10E3/uL 1.4-7.0 Lymphs (Absolute) 1.4 x10E3/uL 0.7-3.1 Monocytes(Absol tribe) 0.7 x10E3/uL 0.1-0.9 Eos (Absolute) 0.4 x10E3/uL 0.0-0.4 Baso (Absolute) 0.1 x10E3/uL 0.0-0.2 Immature Granulocytes 1 % Not Estab. Immature Grans (Abs) 0.0 x10E3/uL 0.0-0.1 NRBC TNP Hematology Comments: TNP Comp. Metabolic Panel (14) 08/30/2024 [facility] Glucose 103 mg/dL High 70-99 BUN 20 mg/dL 8-27 Creatinine 1.09 mg/dL High 0.57-1.00 eGFR 51 mL/min/1.7 3 Low >59 BUN/Creatinine Ratio 18 12-28 Sodium 137 mmol/L 134-144 Potassium 4.7 mmol/L 3.5-5.2 Chloride 104 mmol/L 96-106 Carbon Dioxide, Total 18 mmol/L Low 20-29 Calcium 8.9 mg/dL 8.7-10.3 Protein, Total 6.0 g/dL 6.0-8.5 Albumin 3.9 g/dL 3.8-4.8 Globulin, Total 2.1 g/dL 1.5-4.5 Bilirubin, Total 0.3 mg/dL 0.0-1.2 Alkaline Phosphatase 75 IU/L 44-121 Ast (Sgot) 24 IU/L 0-40 Alt (SGPT) 18 IU/L 0-32 Hemoglobin A1c 08/30/2024 Inhouse Hemoglobin A1c 5.6% Ferritin 08/30/2024 [facility] Ferritin 47 ng/mL 15-150 CBC With Differential/Boyd telet 08/30/2024 [facility] WBC 8.7 x10E3/uL 3.4-10.8 RBC 4.03 x10E6/uL 3.77-5.28 Hemoglobin 12.0 g/dL 11.1-15.9 Hematocrit 37.3 % 34.0-46.6 MCV 93 fL 79-97 MCH 29.8 pg 26.6-33.0 MCHC 32.2 g/dL 31.5-35.7 RDW 14.1 % 11.7-15.4 Platelets 223 x10E3/uL 150-450 Neutrophils 70 % Not Estab. Lymphs 18 % Not Estab. Monocytes 8 % Not Estab. Eos 3 % Not Estab. Basos 1 % Not Estab. Immature Cells TNP Neutrophils (Absolute) 6.1 x10E3/uL 1.4-7.0 Lymphs (Absolute) 1.5 x10E3/uL 0.7-3.1 Monocytes(Absol tribe) 0.7 x10E3/uL 0.1-0.9 Eos (Absolute) 0.3 x10E3/uL 0.0-0.4 Baso (Absolute) 0.1 x10E3/uL 0.0-0.2 Immature Granulocytes 0 % Not Estab. Immature Grans (Abs) 0.0 x10E3/uL 0.0-0.1 NRBC TNP Hematology Comments: TNP Glucose Fingerstick 08/30/2024 Inhouse Glucose Fingerstick 97 Ferritin 03/26/2024 [facility] Ferritin 169 ng/mL High 15-150 Hemoglobin A1c 03/26/2024 Inhouse Hemoglobin A1c 5.7% Glucose Fingerstick 03/26/2024 Inhouse Glucose Fingerstick 102 CBC With Differential/Boyd telet 03/26/2024 [facility] WBC 8.0 x10E3/uL 3.4-10.8 RBC 4.05 x10E6/uL 3.77-5.28 Hemoglobin 11.1 g/dL 11.1-15.9 Hematocrit 37.7 % 34.0-46.6 MCV 93 fL 79-97 MCH 27.4 pg 26.6-33.0 MCHC 29.4 g/dL Low 31.5-35.7 RDW 16.9 % High 11.7-15.4 Platelets 397 x10E3/uL 150-450 Neutrophils 70 % Not Estab. Lymphs 17 % Not Estab. Monocytes 8 % Not Estab. Eos 3 % Not Estab. Basos 1 % Not Estab. Immature Cells TNP Neutrophils (Absolute) 5.7 x10E3/uL 1.4-7.0 Lymphs (Absolute) 1.4 x10E3/uL 0.7-3.1 Monocytes(Absol tribe) 0.6 x10E3/uL 0.1-0.9 Eos (Absolute) 0.2 x10E3/uL 0.0-0.4 Baso (Absolute) 0.1 x10E3/uL 0.0-0.2 Immature Granulocytes 1 % Not Estab. Immature Grans (Abs) 0.1 x10E3/uL 0.0-0.1 NRBC TNP Hematology Comments: TNP CBC With Differential/Boyd telet 01/31/2024 [facility] WBC 9.3 x10E3/uL 3.4-10.8 RBC 3.86 x10E6/uL 3.77-5.28 Hemoglobin 11.4 g/dL 11.1-15.9 Hematocrit 36.6 % 34.0-46.6 MCV 95 fL 79-97 MCH 29.5 pg 26.6-33.0 MCHC 31.1 g/dL Low 31.5-35.7 RDW 13.5 % 11.7-15.4 Platelets 406 x10E3/uL 150-450 Neutrophils 73 % Not Estab. Lymphs 16 % Not Estab. Monocytes 6 % Not Estab. Eos 3 % Not Estab. Basos 1 % Not Estab. Immature Cells TNP Neutrophils (Absolute) 6.9 x10E3/uL 1.4-7.0 Lymphs (Absolute) 1.5 x10E3/uL 0.7-3.1 Monocytes(Absol tribe) 0.5 x10E3/uL 0.1-0.9 Eos (Absolute) 0.3 x10E3/uL 0.0-0.4 Baso (Absolute) 0.1 x10E3/uL 0.0-0.2 Immature Granulocytes 1 % Not Estab. Immature Grans (Abs) 0.1 x10E3/uL 0.0-0.1 NRBC TNP Hematology Comments: TNP Glucose Fingerstick 11/18/2023 Inhouse Glucose Fingerstick 129 Hemoglobin A1c 11/18/2023 Inhouse Hemoglobin A1c 5.5% CBC With Differential/Boyd telet 11/18/2023 [facility] WBC 9.3 K/MM3 (4.0-11.0 ) RBC 4.22 M/MM3 (4.20-5.4 0) HGB 12.7 GM/DL (11.7-15. 5) HCT 40.0 % (35.7-45. 8) MCV 94.8 FL (80.0-100 .0) MCH 30.1 pg (27.0-34. 0) MCHC 31.8 g/dL Low (33.0-37. 0) PLT 266 K/MM3 (150-460) RDW-SD 62.2 FL High (<47.0) MPV 10.6 FL (9.4-12.4 ) Automated NRBC 0.0 #/100WBC'S Abs. NRBC 0.0 K/MM3 Neut # 6.4 K/MM3 (1.3-7.0) Lymph # 1.7 K/MM3 (0.8-3.1) Grant# 0.8 K/MM3 (0.4-0.9) Eo # 0.3 K/MM3 (0.0-0.4) Baso # 0.1 K/MM3 (0.0-0.1) Abs. Imm Gran 0.0 K/MM3 Neut 69.0 % (44-76) Lymph 18.8 % (15-43) Monocyte 8.5 % (4.5-10.5 ) Eo 2.7 % (0-6) Baso 0.6 % (0-2) Imm Gran 0.4 % Complete Abc With Diff 10/17/2023 [facility] WBC 6.5 K/MM3 (4.0-11.0 ) RBC 4.11 M/MM3 Low (4.20-5.4 0) HGB 11.7 GM/DL (11.7-15. 5) HCT 38.1 % (35.7-45. 8) MCV 92.7 FL (80.0-100 .0) MCH 28.5 pg (27.0-34. 0) MCHC 30.7 g/dL Low (33.0-37. 0) PLT 277 K/MM3 (150-460) RDW-SD 64.1 FL High (<47.0) MPV 11.0 FL (9.4-12.4 ) Automated NRBC 0.0 #/100WBC'S Abs. NRBC 0.0 K/MM3 Neut # 4.4 K/MM3 (1.3-7.0) Lymph # 1.3 K/MM3 (0.8-3.1) Grant# 0.5 K/MM3 (0.4-0.9) Eo # 0.2 K/MM3 (0.0-0.4) Baso # 0.1 K/MM3 (0.0-0.1) Abs. Imm Gran 0.0 K/MM3 Neut 67.7 % (44-76) Lymph 20.4 % (15-43) Monocyte 7.7 % (4.5-10.5 ) Eo 2.8 % (0-6) Baso 0.9 % (0-2) Imm Gran 0.5 % Homocysteine, Plasma 10/17/2023 [facility] Homocysteine, Plasma 8.9 UMOL/L (0-15) Folic Acid 10/17/2023 [facility] Folic Acid 36.9 ng/mL (4.8-37.3 ) Vitamin B12 10/17/2023 [facility] Vitamin B12 1166 pg/mL (232-1245 ) Homocysteine,Boyd sma/Serum 09/12/2023 [facility] Homocysteine,Pl asma/Serum <pending> Folic Acid 09/12/2023 [facility] Folic Acid <pending> Vitamin B12 09/12/2023 [facility] Vitamin B12 <pending> Comprehensive Metabolic Panl 09/02/2023 [facility] Glucose 103 mg/dL High (70-99) BUN 14 mg/dL (8-23) Creatinine 0.9 mg/dL (0.5-1.0) Sodium 141 mmol/L (133-145) Potassium 4.6 mmol/L (3.6-5.2) Chloride 106 mmol/L (98-107) Bicarbonate 25 mmol/L (22-29) Anion Gap 10 (4-17) Albumin 4.2 GM/DL (3.4-4.8) Calcium 9.1 mg/dL (8.6-10.5 ) Bilirubin,Total 0.2 mg/dL (0-1.2 ) Total Protein 6.6 GM/DL (6.2-8.2 ) Ag Ratio 1.8 Ast 23 U/L (0-32) Alk Phos 81 U/L (35-104) Alt 14 U/L (0-33) Estimated GFR Creatinine 68 ML/MIN/1.7 3M2 4 Hemoglobin A1c 09/02/2023 Inhouse Hemoglobin A1c 5.7% Glucose Fingerstick 09/02/2023 Inhouse Glucose Fingerstick 109 Immunofixation Serum 09/02/2023 [facility] Immunoglobulin Igg 805 mg/dL (700-1600 ) Immunoglobulin Iga 207 mg/dL (70-400) Immunoglobulin Igm 133 mg/dL (40-230) Immunofix Normal immunofix <SEE NOTE> 5 Complete Abc With Diff 09/02/2023 [facility] WBC 9.8 K/MM3 (4.0-11.0 ) RBC 3.77 M/MM3 Low (4.20-5.4 0) HGB 10.5 GM/DL Low (11.7-15. 5) HCT 34.5 % Low (35.7-45. 8) MCV 91.5 FL (80.0-100 .0) MCH 27.9 pg (27.0-34. 0) MCHC 30.4 g/dL Low (33.0-37. 0) PLT 293 K/MM3 (150-460) RDW-SD 54.6 FL High (<47.0) MPV 11.3 FL (9.4-12.4 ) Automated NRBC 0.0 #/100WBC'S Abs. NRBC 0.0 K/MM3 Neut # 6.5 K/MM3 (1.3-7.0) Lymph # 1.9 K/MM3 (0.8-3.1) Grant# 1.1 K/MM3 High (0.4-0.9) Eo # 0.2 K/MM3 (0.0-0.4) Baso # 0.1 K/MM3 (0.0-0.1) Abs. Imm Gran 0.1 K/MM3 Neut 66.4 % (44-76) Lymph 19.6 % (15-43) Monocyte 10.9 % High (4.5-10.5 ) Eo 2.0 % (0-6) Baso 0.6 % (0-2) Imm Gran 0.5 % Iron & Tibc 09/02/2023 [facility] Iron 24 g/dL Low (30-160) Unsaturated Iron Binding Mad[place] 316 g/dL (110-370) Est T. Iron Bind Capacity 340 g/dL (140-530) % Iron Saturation 7 % Low (20-55) Ferritin 09/02/2023 [facility] Ferritin 14 NG/ML (14-283) PTH, Intact 05/09/2023 [facility] PTH, Intact 62 pg/mL (15-65) N-Telopeptide Cross Links, Urine 05/09/2023 [facility] Cross Linked N-Telopeptides 589 6 Creat, Urine 67.0 7 N-Telopeptide/C reat Ratio 99 High 8 NTX Interpretaion Comment 9 25Oh Vitamin D 05/09/2023 [facility] 25Oh Vitamin D 45.2 NG/ML (20-50) Creatinine 05/09/2023 [facility] Creatinine 0.8 mg/dL (0.5-1.0) Estimated GFR Creatinine 74 ML/MIN/1.7 3M2 10 TSH With Reflex To FT4 05/09/2023 [facility] TSH With Reflex To FT4 3.96 uIU/mL (0.4-4.2) Calcium 05/09/2023 [facility] Calcium 8.8 mg/dL (8.6-10.5 ) Albumin 05/09/2023 [facility] Albumin 4.1 GM/DL (3.4-4.8) PTH, Intact 05/08/2023 [facility] PTH, Intact <pending> Albumin 05/08/2023 [facility] Albumin <pending> Creatinine 05/08/2023 [facility] Creatinine <pending> TSH With Reflex To FT4 05/08/2023 [facility] TSH With Reflex To FT4 <pending> 25Oh Vitamin D 05/08/2023 [facility] 25Oh Vitamin D <pending> Calcium 05/08/2023 [facility] Calcium <pending> Complete Abc With Diff 02/26/2023 [facility] WBC 6.6 K/MM3 (4.0-11.0 ) RBC 4.08 M/MM3 Low (4.20-5.4 0) HGB 11.8 GM/DL (11.7-15. 5) HCT 38.0 % (35.7-45. 8) MCV 93.1 FL (80.0-100 .0) MCH 28.9 pg (27.0-34. 0) MCHC 31.1 g/dL Low (33.0-37. 0) PLT 314 K/MM3 (150-460) RDW-SD 51.0 FL High (<47.0) MPV 9.9 FL (9.4-12.4 ) Automated NRBC 0.0 #/100WBC'S Abs. NRBC 0.0 K/MM3 Neut # 4.0 K/MM3 (1.3-7.0) Lymph # 1.6 K/MM3 (0.8-3.1) Grant# 0.6 K/MM3 (0.4-0.9) Eo # 0.2 K/MM3 (0.0-0.4) Baso # 0.0 K/MM3 (0.0-0.1) Abs. Imm Gran 0.0 K/MM3 Neut 61.7 % (44-76) Lymph 24.4 % (15-43) Monocyte 9.6 % (4.5-10.5 ) Eo 3.5 % (0-6) Baso 0.6 % (0-2) Imm Gran 0.2 % Comprehensive Metabolic Panl 02/26/2023 [facility] Glucose 99 mg/dL (70-99) BUN 16 mg/dL (8-23) Creatinine 0.9 mg/dL (0.5-1.0) Sodium 140 mmol/L (133-145) Potassium 4.6 mmol/L (3.6-5.2) Chloride 105 mmol/L (98-107) Bicarbonate 25 mmol/L (22-29) Anion Gap 10 (4-17) Albumin 4.2 GM/DL (3.4-4.8) Calcium 9.2 mg/dL (8.6-10.5 ) Bilirubin,Total 0.3 mg/dL (0-1.2 ) Total Protein 6.2 GM/DL (6.2-8.2 ) Ag Ratio 2.1 Ast 25 U/L (0-32) Alk Phos 91 U/L (35-104) Alt 19 U/L (0-33) Estimated GFR Creatinine 65 ML/MIN/1.7 3M2 11 Lipid Panel 02/26/2023 [facility] Cholesterol, Total 182 mg/dL (<200) Triglyceride 87 mg/dL (<150) HDL Chol 92 mg/dL (>39) LDL Cholesterol, Calculated 73 mg/dL (0-130) Non HDL Cholesterol (Calc) 90 mg/dL (<160) Hemoglobin A1c 02/26/2023 [facility] Hemoglobin A1c 5.6 % (4.0-5.6) 12 Hemoglobin A1c 01/24/2023 [facility] Hemoglobin A1c <pending> Glucose Fingerstick 12/07/2022 Inhouse Glucose Fingerstick 93 Culture Urine 10/27/2022 [facility] Specimen Description URINE Special Requests NONE Culture NO GROWTH Report Status FINAL 10/29/2022 13 Glucose Fingerstick 10/13/2022 Inhouse Glucose Fingerstick 94 Hemoglobin A1c 10/13/2022 Inhouse Hemoglobin A1c 5.4% Comprehensive Metabolic Panl 06/02/2022 [facility] Glucose 117 mg/dL High (70-99) BUN 14 mg/dL (8-23) Creatinine 0.9 mg/dL (0.5-1.0) Sodium 141 mmol/L (133-145) Potassium 4.7 mmol/L (3.6-5.2) Chloride 104 mmol/L (98-107) Bicarbonate 26 mmol/L (22-29) Anion Gap 11 (4-17) Albumin 4.4 GM/DL (3.4-4.8) Calcium 9.3 mg/dL (8.6-10.5 ) Bilirubin,Total 0.2 mg/dL (0-1.2 ) Total Protein 6.5 GM/DL (6.2-8.2 ) Ag Ratio 2.1 Ast 27 U/L (0-32) Alk Phos 116 U/L High (35-104) Alt 21 U/L (0-33) Estimated GFR Creatinine 65 ML/MIN/1.7 3M2 14 Complete Abc With Diff 06/02/2022 [facility] WBC 7.4 K/MM3 (4.0-11.0 ) RBC 4.30 M/MM3 (4.20-5.4 0) HGB 12.9 GM/DL (11.7-15. 5) HCT 39.8 % (35.7-45. 8) MCV 92.6 FL (80.0-100 .0) MCH 30.0 pg (27.0-34. 0) MCHC 32.4 g/dL Low (33.0-37. 0) PLT 273 K/MM3 (150-460) RDW-SD 50.2 FL High (<47.0) MPV 9.9 FL (9.4-12.4 ) Automated NRBC 0.0 #/100WBC'S Abs. NRBC 0.0 K/MM3 Neut # 4.9 K/MM3 (1.3-7.0) Lymph # 1.8 K/MM3 (0.8-3.1) Grant# 0.5 K/MM3 (0.4-0.9) Eo # 0.2 K/MM3 (0.0-0.4) Baso # 0.0 K/MM3 (0.0-0.1) Abs. Imm Gran 0.0 K/MM3 Neut 65.9 % (44-76) Lymph 24.6 % (15-43) Monocyte 6.2 % (4.5-10.5 ) Eo 2.4 % (0-6) Baso 0.4 % (0-2) Imm Gran 0.5 % Hemoglobin A1c 06/02/2022 Inhouse Hemoglobin A1c 5.5% Glucose Fingerstick 06/02/2022 Inhouse Glucose Fingerstick 125 1 Microscopic follows if indicated. 2 Microscopic was raina cated and was performed. 3 This specimen will n ot reflex to a Urine Culture. 4 Creatinine based est imated glomerular filtration (eGFR) in adults is calculated using the National Kidney Foundation recommended 2020 CKD-EPI equation. Estimates GFR from serum creatinine, age and sex. 5 Interpreted by Fior Snow MD 6 Reference range: Not Estab. Unit: nmol BCE Test performed at [facility], [address] [place] [id number] 7 Reference range: Not Estab. 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 Patients with Paget's Disease of Bone: The probability that treatment is effective after one month is increased when the measured NTx value is within the reference range, or NTx has decreased >or EQ 30% from baseline.[2] 1. Edda CH, Aarujo NH, Valentín GS, et al. Am J Med, 102:29-37,1997. (1):M757, 1996. 2. Bone H, Darryn J, et al. J Bone Min Res.11(1):M757,1996 Test performed at [address] [address] 10 Creatinine based est imated glomerular filtration (eGFR) in adults is calculated using the National Kidney Foundation recommended 2021 CKD-EPI equation. Estimates GFR from serum creatinine, age and sex. 11 Creatinine based est imated glomerular filtration (eGFR) in adults is calculated using the National Kidney Foundation recommended 2021 CKD-EPI equation. Estimates GFR from serum creatinine, age and sex. 12 MONITORING: In known diabetic patients, hemoglobin A1c targets should be discussed with health care provider. DIAGNOSTIC USE: The [place] Diabetes [employer] (ADA) and the World Health [...] Research and Education Volume 43, Supplement 1 13 FINAL 10/29/2022 14 Creatinine based est imated glomerular filtration (eGFR) in adults is calculated using the National Kidney Foundation recommended 2020 CKD-EPI equation. Estimates GFR from serum creatinine, age and sex. Procedures Date Code Description Status 01/03/2025 01343 Collection Of Venous Blood B y Venipuncture Completed 08/30/2024 10764 Collection Of Venous Blood B y Venipuncture Completed 03/26/2024 58722 Collection Of Venous Blood B y Venipuncture Completed 11/18/2023 54327 Collection Of Venous Blood B y Venipuncture Completed 09/02/2023 79505 Collection Of Venous Blood B y Venipuncture Completed 06/02/2022 75505 Collection Of Venous Blood B y Venipuncture Completed Medical Devices Description No Information Available Encounters Type Date Location Provider Dx Diagnosis Office Visit 04/17/2025 10:23a Main Office Yenni Barnard M.D. I10 Essential (primary) hypertension E78.00 Pure hypercholestero lemia, unspecified Assessments Date Code Description Provider 04/29/2025 D50.9 Iron deficiency anemia, unsp ecified Yenni Barnard M.D. 04/29/2025 I10 Essential (primary) hyperten vince Yenni Barnard M.D. 04/29/2025 I50.32 Chronic diastoli c (congestive) heart failure Yenni Barnard M.D. 04/29/2025 M85.89 Other specified disorders of bone density and structure, multiple sites Yenni Barnard M.D. 04/29/2025 R30.0 Dysuria Yenni Jasmine M.D. 04/29/2025 E78.00 Pure hypercholes terolemia, unspecified Yenni Barnard M.D. 04/29/2025 I48.0 Paroxysmal atrial fibrillati on Yenni Barnard M.D. 04/29/2025 R73.03 Prediabetes Yenni Jasmine M.D. 04/29/[address] ate NOS Yenni Barnard M.D. 04/29/2025 M48.061 Spinal stenosis, lumbar region without neurogenic claudication Yenni Barnard M.D. Plan of Treatment Future Appointment(s):* 08/28/2025 2:30 pm - Yenni Barnard M.D. at Main Office 04/29/2025 - Yenni Barnard M.D.* D50.9 Iron deficiency anemia, unspecified * I10 Essential (primary) hypertension * I50.32 Chronic diastolic (congestive) heart failure * M85.89 Other specified disorders of bone density and structure, multiple sites * R30.0 Dysuria * E78.00 Pure hypercholesterolemia, unspecified * I48.0 Paroxysmal atrial fibrillation * R73.03 Prediabetes * D68.69 Secondary hypercoagulable state NOS * M48.061 Spinal stenosis, lumbar region without neurogenic claudication Functional Status Description No Information Available Mental Status Description No Information Available Referrals Refer to Dr Reason for Referral Status Appt [facility] [employer] [place] IRON DEFICIENCY ANEMIA Closed [address] [place] [address] [phone] [facility] Neurology WAS DR MARY CRUZ,.... DX, CARDIOEMBOLIC CVA Closed 06/22/[address] [place] [address] [phone]
--- OUTSIDE RECORDS SUMMARY | 2025-05-17 11:09 | XMS_ITS | Clinical Summary ---
Author Organization [facility] Address [address] [place] [address] Phone Care Team Providers Care Manager Hospital Name Role Phone Yenni Jerez Primary Care Provider [phone] Medications ascorbic acid (VITAMIN C) 500 mg [...] DX:Irregu lar heart rhythm Osteoporosis DX:Osteoporosis Stroke ([facility] V24, [facility] V28) DX:Stroke (HCC) Sjogren's disease ([facility] V24) DX:Sjogren's disease (HCC) Family History [...] 08/22/2022 Hypertension/CHF/CAD Annual BMP Blood Test 08/28/2022 Depression Screening 09/12/2024 COVID-19 Vaccine ( season) 2025 Influenza Vaccine (#1) 2025 2, 06/14/2021, 05/29/2020, [...] Documents on File Type Date Recorded 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
--- OUTSIDE RECORDS SUMMARY | 2025-05-17 11:09 | XMS_ITS | Clinical Summary ---
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 Do not rinse. 51 g 4 4 Active Active Problems Problem Noted Date Diagnosed Date Paroxysmal atrial fibrillation ([facility]) 0 10/18/2023 Encounters Date Type Department Care Team Description 04/03/2025 10:00 AM EDT Office Visit [facility] [address] [place] [address] Oz Wood DDS from Last 3 Months [...] Description 06/17/2025 2:20 PM EDT [facility] Visit [facility] [address] [place] [address] [facility] [address] [place] [address] Health Maintenance Due Date Last Done Comments Advanced Care Planning 1945 Imm-Pneumococcal 50+ (1 of 1 - PCV) 02/18/1994 Imm-Zoster, Recombinant (2 of 3) 12/27/2007 11/01/19 08 Bone Density Screening 02/18/2009 Falls Prevention 02/18/2009 Imm-RSV (adult) (1 - 1-dose 75+ series) 02/18/2019 Imm-DTaP/Tdap/Td (2 - Td or Tdap) 03/16/2021 011 Alcohol and Drug Screen 09/12/2024 Depression Annual Screen 09/12/2024 [id number] ( - season) 2025 Imm-Influenza (#1) 2025 Dental BW 12/14/2025 12/12/2024, [...]
--- OUTSIDE RECORDS SUMMARY | 2025-05-17 11:09 | XMS_ITS | Patient Health Record ---
Author Organization [facility] Address [address] [address] Care Team Providers Care Air Support Operations Operator Name Role Phone ZAKI HENRIQUEZ M.D. Primary Care Provid er Unavailable Imer Evita Unavailable [phone] Allergies Allergen (clinical drug ingredient) Drug/Non Drug Allergy documented on EMR Reaction Allergy Type Onset Date Status TYLOX Nausea/Vomiting/ Diarrhea Drug Allergy Active Reason For Referral No Information Medications Medication SIG (Take, Route, Frequency, Duration) Notes Start Date End Date Status Multivitamins 1 ORAL daily; Duration: -3 [facility] 02/21/2012 Active Glucosamine Chondroitin Adv 1500/1200 1 ORAL twice daily; Duration: - [facility] [place] Active NexIUM 40 MG 1 Orally Twice a day [facility] [place] 02/21/2012 Active Myrbetriq 50 MG 1 tablet Orally Once a day Active Restasis 0.05% CHRISTIANO Ophthalmic twice daily; Duration: - [facility] 02/21/2012 Active Gabapentin 300 MG TAKE [...] + D 1 ORAL daily; Duration: -3 [facility] 02/21/2012 Active Atorvastatin Calcium 40 MG Oral; Duration: 90 Active CeleBREX 200MG 1 ORAL daily; Duration: [facility] [place]/21/2012 Not-Taking Social History [...] Status Risk Notes Problem Postmenopausal atrophic vaginitis (09507533) Postmenopausal atrophic vaginitis (N95.2) Active confirmed Problem Overactive bladder (033748593) Overactive bladder (N32.81) Active confirmed Problem Age-related osteoporosis (768174493) Age-related osteoporosis without current pathological fracture (M81.0) Active confirmed Problem Screening for malignant neoplasm of breast (223839855) Encounter for screening mammogram for malignant neoplasm of breast (Z12.31) Active confirmed Problem Hyperlipidemia (54101265) Other and unspecified hyperlipidemia (272.4) Active confirmed Major Problem Esophageal reflux (116044261) Esophageal reflux (530.81) Active confirmed Major Problem Menopausal symptom (31073074) Symptomatic menopausal or female climacteric states (627.2) Active confirmed Major Problem Postmenopausal atrophic vaginitis (64354680) Postmenopausal atrophic vaginitis (627.3) Active confirmed Diag Problem Sicca syndrome (93420795) Sicca syndrome (710.2) Active confirmed Major Problem Gynecological examination normal (467312969603779) Routine gynecological examination (V72.31) Active confirmed Problem Dietary management surveillance (678579507) Dietary surveillance and counseling (V65.3) Active confirmed Diag Problem Screening for malignant neoplasm of colon (798823648) Special screening for malignant neoplasms, colon (V76.51) [...] MEDICARE [address] [place], [place] [id number] DEMARCOLYNETTE Self - patient is the insured MED[employer] [address] [place] [address] [phone] [id number] DEMARCOKIMLYNETTE Self - patient is the [...]
--- OUTSIDE RECORDS SUMMARY | 2025-05-17 11:09 | XMS_ITS | Clinical Summary ---
Author Organization [facility] Address [address] [place] [address] Care Team Providers Care Backhaul Driver Name Role Phone Pcp, No Primary Care [...] Health Maintenance Due Date Last Done Comments Advance Care Planning 1945 DTaP/Tdap/Td Vaccines (1 - Tdap) 02/18/1963 Pneumococcal [...] topic Insurance MEDICARE PART A & B [facility] Care Teams Backhaul Driver Relationship Specialty Start Date End Date Pcp, No PCP - General General Medicine 09/24/24
--- OUTSIDE RECORDS SUMMARY | 2025-05-17 11:09 | XMS_ITS | Clinical Summary ---
Author Organization [facility] Address [address] [place] [address] Care Team Providers Care Etcher Enameling Name Role Phone Yenni Jerez PA-C Primary Care Provider [phone] Medications Medication Sig Dispensed Refills Start Date [...] age to complete this topic Care Teams Etcher Enameling Relationship Specialty Start Date End Date Yenni Jerez PA-C [address] Ear, [place] [address] PCP - General Physician Technical Support Manager 06/05/24
[2025-05-20 10:15] VITALS: BP 115/57; PULSE 62; RESP 20; O2SAT 98; BMI 25.0
--- NOTE | 2025-05-21 15:38 | PM.DS ---
DS: Providers Provider Date of Service: 05/23/25 Date of discharge: 05/23/25 Primary care physician: Yenni Barnard MD Admitting clinician: Ayush Baker DS: Diagnosis Discharge Diagnosis (1) Lumbar stenosis with neurogenic claudication: Status: Acute DS: Summary Time Attestation Discharge Coordination Time (in mins): 5 Quality: Safe Use of Opioids Does Pt have an Active Cancer Diagnosis on the Problem List?: No Quality: Stroke Does the patient have a stroke diagnosis?: No Physical Exam Vital Signs: Vital Signs: Last Vital Signs Pulse 62 05/20/25 10:15 Resp 20 05/20/25 10:15 BP 115/57 L 05/20/25 10:15 Pulse Ox 98 05/20/25 10:15 O2 Del Method Room Air 05/20/25 10:15 BMI result Body Mass Index 25.0 DS: Data Data Completed and Pending Completed studies during hospitalization [Text1]: Procedures Introduction of Anesthetic Agent into Peripheral Nerves and Plexi, Percutaneous Approach (12/12/23) Replacement of Right Knee Joint with Synthetic Substitute, Cemented, Open Approach (12/12/23) Discharge Plan Discharge Patient Disposition: Home, Self-Care Referrals: Yenni Barnard MD [Primary Care Provider, Endocrinology] - 1 Week Discharge Medications: New oxycodone 5 mg tablet 5 mg PO Q4H PRN (Reason: pain) Qty: 20 0RF Rx Instructions: Partial Fill upon patient request. docusate sodium [Colace] 100 mg capsule 100 mg PO BID Qty: 20 0RF Continued multivitamin Tablet 1 tab PO QAM calcium carbonate-vitamin D3 600 mg-5 mcg (200 unit) Tablet 1 tab PO QPM docusate sodium 100 mg Capsule 100 mg PO BID mirabegron [Myrbetriq] 50 mg Tablet Extended Release 24 Hr 50 mg PO BEDTIME loratadine [Claritin] 10 mg Tablet 10 mg PO DAILY PRN (Reason: Allergy Symptoms) Glucosamine Chondroitin 550-30-1 mg Capsule 1 cap PO BID acetaminophen 500 mg Tablet 1,000 mg PO QID PRN (Reason: Pain) Jardiance 25 mg Tablet 25 mg PO QAM cyclosporine [Restasis] 0.05 % dropperette 1 drp ophthalmic (eye) BID atorvastatin 40 mg tablet 40 mg PO BEDTIME trazodone 50 mg tablet 100 mg PO BEDTIME esomeprazole magnesium [Nexium] 40 mg capsule,delayed release(DR/EC) 40 mg PO BID furosemide 20 mg tablet 20 mg PO Q2D metoprolol succinate 25 mg tablet extended release 24 hr 25 mg PO QAM spironolactone 25 mg tablet 25 mg PO QAM Held Eliquis 2.5 mg tablet 2.5 mg PO BID Hold Instructions: Resume on 05/26/25. You may resume Eliquis 3 days after surgery Discharge Orders: Discharge Order (Routine); Ordered 05/23/25 Ordered By: Hernan Alvarado Diet: Advance to usual diet Activity on Discharge: As tolerated Activity Restrictions/Additional Instructions: After your spinal surgery we ask you to observe the following restrictions/guidelines: Activity: It is normal to feel some discomfort as you increase your activity, but that will improve with time. We ask you avoid heavy lifting or acitivities that cause pain. As a general rule, 8lbs is a safe limit for lifting right after surgery. Walk as much as you feel comfortable but not to exhaustion. You will feel extra tired the first few days after surgery. Stay well hydrated. It is OK to walk up and down stairs You may return to driving when you are off narcotics (such as vicodin, oxycodone, dilaudid, etc), and you are back to normal functional capacity. If you have any concerns please check with office before driving. Return to work is specific to each patient and each surgery, so please speak with your doctor/PA at first follow up. Please bring paperwork such as FMLA at that time if you need it filled out. Medications: You may resume Eliquis 3 days after surgery For optimum pain control, it is best to start with a combination of 500 mg of Tylenol every 4 hours with 600 mg of Motrin every 8 hours, and use narcotics as needed in between for breakthrough pain. We will give you a short supply of narcotics after surgery (usually one weeks worth). If you need more please call the office but do not use more than prescribed. You will need to give our office 48 hours notice if you need narcotics refilled and we do not fill narcotics on weekends or evenings. If you are on a narcotic, it is a good idea to take a stool softener such as colace or senna to avoid constipation If you take blood thinner such as aspirin, Plavix, Coumadin, Effient, Eliquis etc for conditions such as Afib, DVT, Pulmonary embolus, coronary disease, stents etc please speak with your surgeon about specific details as to when you can resume these medications. Follow up: Please call the office, , after surgery to arrange a 3 week follow up for wound check. Wound Care: You may remove your dressing on the first day after surgery. ?You may ?leave open to air. Please do not remove the steri strips underneath. they will fall off on their own in one week. IT IS NORMAL FOR THE WOUND TO OOZE OR BE BLOODY FOR A FEW DAYS AFTER SURGERY. ?IF THIS HAPPENS JUST PLACE NEW DRESSING OVER IT TO AVOID STAINING CLOTHES. You may shower on post op day # 1 We ask that you do not let the water soak the wound. If it does get wet, just towel dry lightly. Please do not scrub your incision or place any type of chemical/ointment on the wound. No tub baths, pools or jacuzzis for one month. If you have any leaking or redness from your wound, or fevers, please call office Print Language: Senegalese
[2025-05-23] VITALS (9 sets, daily range): BP systolic 88–128; BP diastolic 41–60; PULSE 64–72; RESP 12–18; TEMP 36.1–36.7; O2SAT 92–100; BMI 25.3
--- NOTE | ~2025-05-23 | FL_ITS ---
EXAMINATION: FL GUIDANCE ONLY HISTORY: Right L4-5 Decompression COMPARISON: Correlation is made to plain films of the lumbar spine dated 04/19/2025. TECHNIQUE: Fluoroscopy time: 0.1 minutes. Cumulative Dose: 3.48 mGy. DAP: 0.722 mGym2 Images: 2. FINDINGS: Fluoroscopic spot films of the lumbar spine in the lateral projection demonstrate a probe directed toward the L4 pedicles from a posterior approach. FL/FL guidance in OR IMPRESSION: Fluoroscopy during procedure. Please see procedure report for additional information. Electronically signed by: Isidro Mendieta MD 05/23/2025 09:40 AM EDT
--- NOTE | 2025-05-23 07:09 | P.HPSUR_ITS ---
Pre-Procedural Eval Section A - 24 Hr Update-Section A only Date of Service: 05/23/25 The patient is an INPATIENT: No Changes since office visit: No Cold of Flu in the past 2 weeks, No New Medical Problems, No Changes in Medication and No Patient answered all questions The patient has been examined within 24 hours of the surgical procedure. The History & Physical has been completed within 30 days and I have reviewed it.: No Section B - Complete if H&P > 30 days Chief Complaint: Spinal stenosis, lumbar region with neurogenic Allergies: Allergies Allergy/AdvReac Type Severity Reaction Status Date / Time No Known Allergies Allergy Verified 05/20/25 10:51 Review of Systems Sugical H&P ROS: Negative: Constitution, Cardiovascular, Respiratory, Neurological, Psychiatric, Hem-Onc, Allergic/Immunologic, Gastrointestinal, Genitourinary, Musculoskeletal, Integumentary, Endocrine and Eyes/Ears/Nose/Throat Exam Surgical H&P Exam: Normal: HEENT, Normal: Heart, Normal: Lungs, Normal: Extremities, Normal: Abdomen, Normal: Skin and Normal: Neurological (awake ,alert,oriented x 3 ) Plan right L4-5 decompression Time Spent With Patient Time: Total time managing care of this patient today ___5_ minutes.
[2025-05-23] MEDS: Lactated Ringers 1,000 ML 50 ML IVCONT (07:27)
--- NOTE | 2025-05-23 08:41 | HO.ANESPROP2 ---
Documented by User: Melissa Monte NP 05/20/25 10:46 HPI - Anesthesia Eval Consult details Narrative: 80yo F for Right L4-5 Decompression, 05/23/25 Cardiac optimized. Follows [facility] for afib, htn/hld - stable. OK'd to hold eliquis and jardiance preop No recent illness No CP/SOB with cardiac rehab CVA 2020: No residual Sjogrens/CREST: eye drops only Afib: eliquis, metoprolol GERD: ppi controls Pt states DNR on file. Will bring copy DOS. Discussed perioperative reversal. Anesthesia Pre-Procedure Meds Is the patient on any of the following meds?: SGLT2 Inhib PMFSH Active Problems Active Problems: All Active Problems Lumbar stenosis with neurogenic claudication (Acute) Right knee pain (Acute) Chronic knee pain after total replacement of right knee joint (Acute) Scab of right knee (Acute) Status post total right knee replacement (Acute ~12/12/23) Right knee pain (Acute) Spinal stenosis (Acute) Past Medical History Medical History (HFpEF) heart failure with preserved ejection fraction CREST syndrome Hyperlipidemia Arthritis of right knee Lumbar disc herniation Spinal stenosis Difficulty swallowing Basal cell carcinoma Overactive bladder Iron deficiency Elevated cholesterol Atrial fibrillation CVA (cerebral vascular accident) Sjogrens syndrome Osteoarthritis GERD (gastroesophageal reflux disease) HTN (hypertension) Family History Family history of problems with anesthesia: No Surgical History Surgical History History of total right knee replacement History of surgery on upper extremity Hx of bilateral cataract extraction History of esophagogastroduodenoscopy (EGD) H/O colonoscopy Hx of tonsillectomy History of extraction of renal calculus History of arthroscopy of left shoulder (~06/2022) History of right shoulder replacement (~04/2021) History of total left knee replacement (~03/2020) History of Problems with Anesthesia: No (1 x PONV) Social History Social History Household Members: Spouse Housing: House Are you a primary home care nurse to a significant other at home: No Do you presently have visiting nurse or other home services: No Alcohol intake: current Alcohol intake frequency: holidays/special occasions only Alcohol type: wine Patient Tobacco Use Status: Former Tobacco user Tobacco use type: Cigarette Years Smoked: 5 Use of substances other than those prescribed or required for medical reasons: No Have you been hit, kicked, punched, or otherwise hurt by someone within the past year? If so, by whom?: No Spiritual Healthcare Practices: no Judaism Healthcare Practices: no Cultural Healthcare Practices: no Are you DNR?: Yes Advance Directives on File: No FDLMP: n/a Poor oral hygiene: No service: No Current occupational status: retired [employer] Allergies Allergy/AdvReac Type Severity Reaction Status Date / Time No Known Allergies Allergy Verified 05/23/25 07:12 Home Medications ?Medication ?Instructions ?Recorded ?Confirmed ?Last Taken ?Type atorvastatin 40 mg tablet 40 mg PO BEDTIME 09/01/23 05/20/25 Unknown History cyclosporine 0.05 % eye drops in a 1 drp ophthalmic (eye) BID 09/01/23 05/20/25 Unknown History dropperette (Restasis) esomeprazole magnesium 40 mg 40 mg PO BID 09/01/23 05/20/25 05/23/25 History capsule,delayed release (Nexium) trazodone 50 mg tablet 100 mg PO BEDTIME 09/01/23 05/20/25 Unknown History calcium 600 mg (as 1 tab PO QPM 11/30/23 05/20/25 Unknown History carbonate)-vitamin D3 5 mcg (200 unit) tablet docusate sodium 100 mg capsule 100 mg PO BID 11/30/23 05/20/25 Unknown History mirabegron 50 mg tablet,extended 50 mg PO BEDTIME 11/30/23 05/20/25 Unknown History release 24 hr (Myrbetriq) multivitamin 1 tab PO QAM 11/30/23 05/20/25 Unknown History glucosamine sulf dipot 1 cap PO BID 12/01/23 05/20/25 Unknown History chlr,msm,chond 550 mg-C 30 mg-alondra 1 mg capsule (Glucosamine Chondroitin) loratadine 10 mg tablet (Claritin) 10 mg PO DAILY PRN Allergy Symptoms 12/01/23 05/20/25 Unknown History furosemide 20 mg tablet 20 mg PO Q2D 01/26/24 05/20/25 Unknown History metoprolol succinate 25 mg 25 mg PO QAM 03/29/24 05/20/25 05/23/25 History tablet,extended release 24 hr spironolactone 25 mg tablet 25 mg PO QAM 03/29/24 05/20/25 Unknown History acetaminophen 500 mg tablet 1,000 mg PO QID PRN Pain 05/20/25 05/20/25 Unknown History apixaban 2.5 mg tablet (Eliquis) 2.5 mg PO BID 05/20/25 05/20/25 05/19/25 History Held on 05/21/25. Instructions: Resume on 05/26/25. You may resume Eliquis 3 days after surgery empagliflozin 25 mg tablet 25 mg PO QAM 05/20/25 05/20/25 05/19/25 History (Jardiance) Exam Height,Weight and Vital Signs: Height 4 ft 11 in Weight 56.2 kg Last Vital Signs Pulse 62 05/20/25 10:15 Resp 20 05/20/25 10:15 BP 115/57 L 05/20/25 10:15 Pulse Ox 98 05/20/25 10:15 O2 Del Method Room Air 05/20/25 10:15 Pertinent Lab Results Pertinent Lab Results: Outside facility 04/2025 CBC and BMP ok (Creat 1.15) Narrative Narrative: EKG 04/2025 SR with PACs @ 75 Otherwise nml ECHO 02/2025 Summary Normal left ventricular size and function with ejection fraction of 60-65%. No focal wall motion abnormalities. Grade II, moderate diastolic dysfunction with pseudonormal LV filling pattern and increased LA pressure. The right ventricle is normal in size and mildly hypokinetic. The left atrium is mildly dilated. There is mild mitral regurgitation. There is moderate tricuspid valve regurgitation. Moderate pulmonary hypertension with PA systolic pressure 51 mmHg (assuming RA pressure of 3 mmHg). Airway Mallampati Class: III TM Dist: >3cm Neck ROM: Full Loose/Missing/Broken Teeth: Yes (missing throughout, all front upper and lower teeth crowned) Heart: RRR Lungs: CTAB Assessment and Plan Assessment Anesthesia Assessment: Anesthesia Plan Discussed and PAT Visit Final Anesthetic Review Family History of Problems with Anesthesia: No History of Problems with Anesthesia: No (1 x PONV) Documented by User: Bee Gonzalez DO 05/23/25 08:43 HPI - Anesthesia Eval Anesthesia Pre-Procedure Meds Is the patient on any of the following meds?: SGLT2 Inhib PMFSH Past Medical History Medical History (HFpEF) heart failure with preserved ejection fraction CREST syndrome Hyperlipidemia Arthritis of right knee Lumbar disc herniation Spinal stenosis Difficulty swallowing Basal cell carcinoma Overactive bladder Iron deficiency Elevated cholesterol Atrial fibrillation CVA (cerebral vascular accident) Sjogrens syndrome Osteoarthritis GERD (gastroesophageal reflux disease) HTN (hypertension) Family History Family history of problems with anesthesia: No Surgical History Surgical History History of total right knee replacement History of surgery on upper extremity Hx of bilateral cataract extraction History of esophagogastroduodenoscopy (EGD) H/O colonoscopy Hx of tonsillectomy History of extraction of renal calculus History of arthroscopy of left shoulder (~06/2022) History of right shoulder replacement (~04/2021) History of total left knee replacement (~03/2020) History of Problems with Anesthesia: No Social History Social History Household Members: Spouse Housing: House Are you a primary home care nurse to a significant other at home: No Do you presently have visiting nurse or other home services: No Alcohol intake: current Alcohol intake frequency: holidays/special occasions only Alcohol type: wine Patient Tobacco Use Status: Former Tobacco user Tobacco use type: Cigarette Years Smoked: 5 Use of substances other than those prescribed or required for medical reasons: No Have you been hit, kicked, punched, or otherwise hurt by someone within the past year? If so, by whom?: No Spiritual Healthcare Practices: no Judaism Healthcare Practices: no Cultural Healthcare Practices: no Are you DNR?: Yes Advance Directives on File: No FDLMP: n/a Poor oral hygiene: No service: No Current occupational status: retired Meds Allergies Allergy/AdvReac Type Severity Reaction Status Date / Time No Known Allergies Allergy Verified 05/23/25 07:12 Home Medications ?Medication ?Instructions ?Recorded ?Confirmed ?Last Taken ?Type atorvastatin 40 mg tablet 40 mg PO BEDTIME 09/01/23 05/20/25 Unknown History cyclosporine 0.05 % eye drops in a 1 drp ophthalmic (eye) BID 09/01/23 05/20/25 Unknown History dropperette (Restasis) esomeprazole magnesium 40 mg 40 mg PO BID 09/01/23 05/20/25 05/23/25 History capsule,delayed release (Nexium) trazodone 50 mg tablet 100 mg PO BEDTIME 09/01/23 05/20/25 Unknown History calcium 600 mg (as 1 tab PO QPM 11/30/23 05/20/25 Unknown History carbonate)-vitamin D3 5 mcg (200 unit) tablet docusate sodium 100 mg capsule 100 mg PO BID 11/30/23 05/20/25 Unknown History mirabegron 50 mg tablet,extended 50 mg PO BEDTIME 11/30/23 05/20/25 Unknown History release 24 hr (Myrbetriq) multivitamin 1 tab PO QAM 11/30/23 05/20/25 Unknown History glucosamine sulf dipot 1 cap PO BID 12/01/23 05/20/25 Unknown History chlr,msm,chond 550 mg-C 30 mg-alondra 1 mg capsule (Glucosamine Chondroitin) loratadine 10 mg tablet (Claritin) 10 mg PO DAILY PRN Allergy Symptoms 12/01/23 05/20/25 Unknown History furosemide 20 mg tablet 20 mg PO Q2D 01/26/24 05/20/25 Unknown History metoprolol succinate 25 mg 25 mg PO QAM 03/29/24 05/20/25 05/23/25 History tablet,extended release 24 hr spironolactone 25 mg tablet 25 mg PO QAM 03/29/24 05/20/25 Unknown History acetaminophen 500 mg tablet 1,000 mg PO QID PRN Pain 05/20/25 05/20/25 Unknown History apixaban 2.5 mg tablet (Eliquis) 2.5 mg PO BID 05/20/25 05/20/25 05/19/25 History Held on 05/21/25. Instructions: Resume on 05/26/25. You may resume Eliquis 3 days after surgery empagliflozin 25 mg tablet 25 mg PO QAM 05/20/25 05/20/25 05/19/25 History (Jardiance) Exam Exam Date and Time: 05/23/25 0841 Height,Weight and Vital Signs: Height 4 ft 11 in Weight 56.2 kg Last Vital Signs Pulse 62 05/20/25 10:15 Resp 20 05/20/25 10:15 BP 115/57 L 05/20/25 10:15 Pulse Ox 98 05/20/25 10:15 O2 Del Method Room Air 05/20/25 10:15 Vital Signs Pulse Rate 62 05/20/25 10:15 Respiratory Rate 20 05/20/25 10:15 Blood Pressure 115/57 L 05/20/25 10:15 Pulse Oximetry 98 05/20/25 10:15 Oxygen Delivery Method Room Air 05/20/25 10:15 Temperature 98.0 F 05/23/25 07:40 Pulse Rate 71 05/23/25 07:40 Respiratory Rate 18 05/23/25 07:40 Blood Pressure 128/60 05/23/25 07:40 Pulse Oximetry 97 05/23/25 07:40 Oxygen Delivery Method Room Air 05/23/25 07:40 Airway Mallampati Class: III (small mouth opening) TM Dist: <=3cm Neck ROM: Limited Loose/Missing/Broken Teeth: Yes (several missing teeth, all front upper and lower teeth crowned) Heart: S1S2 Assessment and Plan Assessment Anesthesia Assessment: Anesthesia Plan Discussed and PAT Visit Final Anesthetic Review Family History of Problems with Anesthesia: No History of Problems with Anesthesia: No NPO: Yes ASA Class: III Final Preanesthetic Review: No Changes in Pt Med Stat, Meds/Allgs Chart Reviewed, Consent Obtained/Reviewed, Anes Risks/Benef Reviewed and DNR Form (If Appl.) (DNR/DNI reversed until discharge from PACU) Patient Risk: Intermediate Procedure Risk: Low Anesthetic Plan Anesthetic Plan: GA and Agree w/ Assess. and Plan Disposition: Standard PACU
--- NOTE | 2025-05-23 09:39 | W.PM.OPN ---
Operative Note Operative Note Date of Service: 05/23/25 Narrative: Preoperative Diagnosis: Lumbar spondylolisthesis with spinal stenosis/lateral recess stenosis/neural foraminal stenosis Operation: Right L4-5 Laminotomy, Partial facetectomy and foraminotomy with use of microscope Consent Informed Consent was obtained for this operation. I have explained the nature, purpose and benefits of the operation. I have discussed the risks and benefit of the operation including possible complications or adverse events with patient/family. Alternative(s) were discussed with the patient with their relative benefits and risks as well as the consequences of not accepting the operation were included in obtaining consent. Surgeon: CHUCK OVALLES MD, PHD Procedure Assisted By: Hernan Carney Description of Procedure This 80-year-old female is suffering from right-sided back pain with walking and standing. MRI shows a grade 2 L4-5 spondylolisthesis with severe central stenosis. Flexion-extension x-rays showed a stable spondylolisthesis. The patient was offered a decompression. She is aware that there was a risk of increasing the spondylolisthesis. The procedure complications were explained. The patient was consented. The patient was brought to the operating room and endotracheally intubated. The patient was turned in prone position on the Jose frame. Prep and drape was done followed by timeout. The Physician senior assistant manager provided access. A mid lumbar incision was made followed by release of the paravertebral muscle on the right side to expose the L4-5 lamina and facet joints. An intraoperative x-ray was obtained to confirm the correct level. The spondylolisthesis was reduced on the operative table, which is a sign of instability. The microscope was brought in. I took over the procedure. The high-speed drill was used to do a right L4 L5 laminotomy until flavum ligament was reached. A #2 Kerrison was used to expand the laminotomy near flush to the pedicles and to include a partial facetectomy. The flavum ligament was opened and resected with a #3 Kerrison to decompress the underlying thecal sac. The flavum ligament was removed to decompress the lateral recess and the exiting L5 nerve root. A long nerve hook could be easily passed along the medial side of the pedicle as a sign of adequate decompression. I extended the laminotomy crossing the midline but not completely contralaterally as I did not want to further destabilize the segment. The microscope was removed. Hemostasis was done. The physician senior assistant manager close the Incision in 2 layers. Steri-Strips were used to approximate incision. An OpSite with Tegaderm was used to cover the incision. All sponge needle counts were correct. Patient was extubated and transported in stable is to recovery room. Anesthesia: General Estimated Blood Loss (ml): 20 Complications: None Duration of Surgery: Under 60 Minutes Postoperative Plan: Discharge to home
[2025-05-23] MEDS: oxyCODONE HCl Immed Release 5 MG TABLET PO (10:52)
== END 2025-05-23 11:37 | disposition home or self-care (01) ==
LOC: HO.SSS 06:59
PROVIDERS: PCP Internal Medicine Endocrinology, Diabetes & Metabolism; Visit Provider Neurological Surgery
PROC: (CPT 63047; principal; 2025-05-23 08:50)
DX: M48.062 Spinal stenosis, lumbar region with neurogenic claudication (principal); M43.10 Spondylolisthesis, site unspecified; R26.2 Difficulty in walking, not elsewhere classified; I11.0 Hypertensive heart disease with heart failure; I50.30 Unspecified diastolic (congestive) heart failure; M35.00 Sjogren syndrome, unspecified; M85.80 Other specified disorders of bone density and structure, unspecified site; Z66 Do not resuscitate; Z96.653 Presence of artificial knee joint, bilateral; Z79.01 Long term (current) use of anticoagulants; Z79.899 Other long term (current) drug therapy; Z79.84 Long term (current) use of oral hypoglycemic drugs; Z88.5 Allergy status to narcotic agent; Z87.891 Personal history of nicotine dependence
CPT/HCPCS: 63047; J0131; J0690; J1100; J1885; J2003; J2405; J2704; J3010

== ENCOUNTER → 2025-05-23 06:58 | Outpatient (BNV) | payer MEDICARE, SELFPAY | PROVIDERS: PCP Internal Medicine Endocrinology, Diabetes & Metabolism; Visit Provider Neurological Surgery | DX: M48.062 Spinal stenosis, lumbar region with neurogenic claudication (principal) | CPT/HCPCS: 63047; 99499 ==

== ENCOUNTER 2025-06-13 10:39 | Outpatient (AMB) | payer MEDICARE, SELFPAY ==
--- NOTE | 2025-06-13 10:46 | A.SPINEOV_ITS ---
Intake Visit Reasons: 1st post op Intake Note: ms. Leyva is here today for her 1st post op. General Neurologist Required: No Allergies No Known Allergies Allergy (Verified 05/23/25 07:12) Assessment & Plan Assessment & Plan (1) Status post lumbar spine surgery for decompression of spinal cord: Code(s): Z98.890 - Other specified postprocedural states Category: Surgical Plan Operation: Right L4-5 Laminotomy Brigitte is a pleasant 80-year-old female comes in today for 1st postoperative visit after having a right-sided L4-[address] Baker a few weeks ago. To recap she was initially evaluated in clinic for right-sided low back pain. Today, she reports that her pain is essentially the same as it was prior to surgery. She was accompanied by her to this visit, and they both expressed their concerns regarding her outcome. We discussed the post operative healing course, and I attempted to answer all questions that they had. Unfortunately Brigitte has had fairly severe right-sided low back pain since the surgery, which is significantly limiting her activities of daily living, and interfering with her sleep. She unfortunately has not had any relief from the oxycodone that was previously prescribed. She asked if we are able to send in a different type of pain medication for her so she can try and get her symptoms under control. She specifically stated that hydromorphone was the only thing that would help her after her previous orthopedic surgeries. I did discuss with Brigitte that I believe she is likely suffering from a course of postoperative inflammation, and her symptoms will likely improve in the coming weeks. No new neurological deficits. The patient ambulates well and rises from seated position without difficulty. Her posterior incision site is closed and well healing, however does have slight edema over the superior surface of the incision site. I would like to follow up with Bee again in 6 weeks for her 2nd postoperative visit. I expect her symptoms will improve by that time. For the time being I will send in 1 final prescription for pain control medications, in the hopes that this can help mitigate her symptoms as she heals from surgery. Micah Baker MD,PhD [facility] Medications: New hydromorphone Partial Fill upon patient request. 2 mg PO Q6H PRN 28 tabs 0RF pain Discontinued oxycodone Partial Fill upon patient request. Discontinued Reason: Doctor's Order 5 mg PO Q4H PRN 20 tabs 0RF pain Coding Level of Care Code Global (16909) Diagnoses Status post lumbar spine surgery for decompression of spinal cord Z98.890
--- OUTSIDE RECORDS SUMMARY | 2025-06-13 12:27 | XMS_ITS | Continuity of Care Document ---
Author Organization [facility] [address] [address] Phone [phone] Care Team Providers Care Stripper Machine Operator Name Role Phone Yenni Barnard M.D. 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 05/10/2025 Trazodone [id number] Tablets Take 1 Tablet By Mouth AT Bedtime 90tabs Yenni Barnard M.D. 09/02/2023 Atorvastatin Bdbeezg77ff Tablets Take 1 Tablet Once Daily 90tabs Yenni Barnard M.D. Fxdrjoybq36qq Tablets ER 24HR 1 by mouth every day Tuan Garduno MD Ikuvea85aw Capsules DR 1by mouth twice a day Serena Collins MD Calcium 600 +D High Untcahn996-021xa-Amt t Tablets 1 by mouth qd Yenni Barnard M.D. Multivitamin Adults 50+Adlt 50+ Tablets 1 by mouth every day Yenni Barnard M.D. Osjxfyqjncj890pu Capsules 4 caps by mouth prior to dental work 24caps Yenni Barnard M.D. Restasis0.05% Emulsion 1 drop each eye twice daily Yenni Barnard M.D. Tylenol Extra Yasewukd494hr Tablets 2 by mouth twice a day prn Yenni Barnard M.D. Thvtalipli15aq Tablets 1 by mouth every other day Unknown Metoprolol Succinate ER25mg Tablets ER 24HR 1 by mouth every day Unknown Eliquis2.5mg Tablets Take 1 Tablet By Mouth Twice A Day Unknown Kpqczshrxopkbq31zt Tablets 1 by mouth every day Unknown Izrhdwcvx32zl Tablets 1 by mouth every day Unknown Vital Signs Date Vital Result Comment 04/29/2025 3:10pm BP Systolic 100 mmHg BP Diastolic 60 mmHg Heart Rate 70 /min Height 58.5 inches 4'10.50 Weight 128.25 lb BMI (Body Mass Index) 26.3 kg/m2 Results Test Acquired Date Facility Test Result H/L Range Note Urinalysis Complete W Reflex To Culture 04/30/2025 [facility] [place] 1.023 1.005-1.0 30 pH 6.0 5.0-7.5 Urine-Color [...] 1.4-7.0 Lymphs (Absolute) 1.2 x10E3/uL 0.7-3.1 Monocytes(Absol [place]) 0.6 x10E3/uL 0.1-0.9 Eos (Absolute) 0.4 x10E3/uL [...] 1.4-7.0 Lymphs (Absolute) 1.4 x10E3/uL 0.7-3.1 Monocytes(Absol [place]) 0.7 x10E3/uL 0.1-0.9 Eos (Absolute) 0.4 x10E3/uL [...] 1.4-7.0 Lymphs (Absolute) 1.5 x10E3/uL 0.7-3.1 Monocytes(Absol [place]) 0.7 x10E3/uL 0.1-0.9 Eos (Absolute) 0.3 x10E3/uL [...] 1.4-7.0 Lymphs (Absolute) 1.4 x10E3/uL 0.7-3.1 Monocytes(Absol [place]) 0.6 x10E3/uL 0.1-0.9 Eos (Absolute) 0.2 x10E3/uL [...] 1.4-7.0 Lymphs (Absolute) 1.5 x10E3/uL 0.7-3.1 Monocytes(Absol [place]) 0.5 x10E3/uL 0.1-0.9 Eos (Absolute) 0.3 x10E3/uL 0.0-0.4 Baso (Absolute) 0.1 x10E3/uL 0.0-0.2 Immature Granulocytes 1 % Not Estab. Immature Grans (Abs) 0.1 x10E3/uL 0.0-0.1 NRBC TNP Hematology Comments: TNP Glucose Fingerstick 11/18/2023 Inhouse Glucose Fingerstick 129 Hemoglobin A1c 11/18/2023 Inhouse Hemoglobin A1c 5.5% CBC With Differential/Boyd telet 11/18/2023 [facility] WBC 9.3 K/MM3 (4.0-11.0 ) [...] K/MM3 (1.3-7.0) Lymph # 1.7 K/MM3 (0.8-3.1) Otero# 0.8 K/MM3 (0.4-0.9) Eo # 0.3 K/MM3 (0.0-0.4) Baso # 0.1 K/MM3 (0.0-0.1) Abs. Imm Gran 0.0 K/MM3 Neut 69.0 % (44-76) Lymph 18.8 % (15-43) Monocyte 8.5 % (4.5-10.5 ) Eo 2.7 % (0-6) Baso 0.6 % (0-2) Imm Gran 0.4 % Complete Abc With Diff 10/17/2023 [facility] WBC 6.5 K/MM3 (4.0-11.0 ) [...] K/MM3 (1.3-7.0) Lymph # 1.3 K/MM3 (0.8-3.1) Otero# 0.5 K/MM3 (0.4-0.9) Eo # 0.2 K/MM3 (0.0-0.4) Baso # 0.1 K/MM3 (0.0-0.1) Abs. Imm Gran 0.0 K/MM3 Neut 67.7 % (44-76) Lymph 20.4 % (15-43) Monocyte 7.7 % (4.5-10.5 ) Eo 2.8 % (0-6) Baso 0.9 % (0-2) Imm Gran 0.5 % Homocysteine, Plasma 10/17/2023 [facility] Homocysteine, Plasma 8.9 UMOL/L (0-15) Folic Acid 10/17/2023 [facility] Folic Acid 36.9 ng/mL (4.8-37.3 ) Vitamin B12 10/17/2023 [facility] Vitamin B12 1166 pg/mL (232-1245 ) Homocysteine,Boyd sma/Serum 09/12/2023 [facility] Homocysteine,Pl asma/Serum <pending> Folic Acid 09/12/2023 [facility] Folic Acid <pending> Vitamin B12 09/12/2023 [facility] Vitamin B12 <pending> Comprehensive Metabolic Panl 09/02/2023 [facility] Glucose 103 mg/dL High [...] Inhouse Glucose Fingerstick 109 Immunofixation Serum 09/02/2023 [facility] Immunoglobulin Igg 805 mg/dL (700-1600 ) Immunoglobulin Iga 207 mg/dL (70-400) Immunoglobulin Igm 133 mg/dL (40-230) Immunofix Normal immunofix <SEE NOTE> 5 Complete Abc With Diff 09/02/2023 [facility] WBC 9.8 K/MM3 (4.0-11.0 ) [...] K/MM3 (1.3-7.0) Lymph # 1.9 K/MM3 (0.8-3.1) Otero# 1.1 K/MM3 High (0.4-0.9) Eo # 0.2 K/MM3 (0.0-0.4) Baso # 0.1 K/MM3 (0.0-0.1) Abs. Imm Gran 0.1 K/MM3 Neut 66.4 % (44-76) Lymph 19.6 % (15-43) Monocyte 10.9 % High (4.5-10.5 ) Eo 2.0 % (0-6) Baso 0.6 % (0-2) Imm Gran 0.5 % Iron & Tibc 09/02/2023 [facility] Iron 24 g/dL Low (30-160) Unsaturated Iron Binding [place] 316 g/dL (110-370) Est T. Iron Bind Capacity 340 g/dL (140-530) % Iron Saturation 7 % Low (20-55) Ferritin 09/02/2023 [facility] Ferritin 14 NG/ML (14-283) PTH, Intact 05/09/2023 [facility] PTH, Intact 62 pg/mL (15-65) N-Telopeptide Cross Links, Urine 05/09/2023 [facility] Cross Linked N-Telopeptides 589 6 Creat, Urine 67.0 7 N-Telopeptide/C reat Ratio 99 High 8 NTX Interpretaion Comment 9 25Oh Vitamin D 05/09/2023 [facility] 25Oh Vitamin D 45.2 NG/ML (20-50) Creatinine 05/09/2023 [facility] Creatinine 0.8 mg/dL (0.5-1.0) Estimated GFR Creatinine 74 ML/MIN/1.7 3M2 10 TSH With Reflex To FT4 05/09/2023 [facility] TSH With Reflex To FT4 3.96 uIU/mL (0.4-4.2) Calcium 05/09/2023 [facility] Calcium 8.8 mg/dL (8.6-10.5 ) Albumin 05/09/2023 [facility] Albumin 4.1 GM/DL (3.4-4.8) PTH, Intact 05/08/2023 [facility] PTH, Intact <pending> Albumin 05/08/2023 [facility] Albumin <pending> Creatinine 05/08/2023 [facility] Creatinine <pending> TSH With Reflex To FT4 05/08/2023 [facility] TSH With Reflex To FT4 <pending> 25Oh Vitamin D 05/08/2023 [facility] 25Oh Vitamin D <pending> Calcium 05/08/2023 [facility] Calcium <pending> Complete Abc With Diff 02/26/2023 [facility] WBC 6.6 K/MM3 (4.0-11.0 ) [...] K/MM3 (1.3-7.0) Lymph # 1.6 K/MM3 (0.8-3.1) Otero# 0.6 K/MM3 (0.4-0.9) Eo # 0.2 K/MM3 (0.0-0.4) Baso # 0.0 K/MM3 (0.0-0.1) Abs. Imm Gran 0.0 K/MM3 Neut 61.7 % (44-76) Lymph 24.4 % (15-43) Monocyte 9.6 % (4.5-10.5 ) Eo 3.5 % (0-6) Baso 0.6 % (0-2) Imm Gran 0.2 % Comprehensive Metabolic Panl 02/26/2023 [facility] Glucose 99 mg/dL (70-99) [...] 65 ML/MIN/1.7 3M2 11 Lipid Panel 02/26/2023 [facility] Cholesterol, Total 182 mg/dL (<200) Triglyceride 87 mg/dL (<150) HDL Chol 92 mg/dL (>39) LDL Cholesterol, Calculated 73 mg/dL (0-130) Non HDL Cholesterol (Calc) 90 mg/dL (<160) Hemoglobin A1c 02/26/2023 [facility] Hemoglobin A1c 5.6 % (4.0-5.6) 12 Hemoglobin A1c 01/24/2023 [facility] Hemoglobin A1c <pending> Glucose Fingerstick 12/07/2022 Inhouse Glucose Fingerstick 93 Culture Urine 10/27/2022 [facility] Specimen Description URINE Special Requests NONE Culture NO GROWTH Report Status FINAL 10/29/2022 13 Glucose Fingerstick 10/13/2022 Inhouse Glucose Fingerstick 94 Hemoglobin A1c 10/13/2022 Inhouse Hemoglobin A1c 5.4% Comprehensive Metabolic Panl 06/02/2022 [facility] Glucose 117 mg/dL High [...] K/MM3 (1.3-7.0) Lymph # 1.8 K/MM3 (0.8-3.1) Otero# 0.5 K/MM3 (0.4-0.9) Eo # 0.2 K/MM3 [...] Estab. Unit: nmol BCE [facility] [address] [place] [address] 7 Reference range: Not Estab. Unit: mg/dL Test performed by [facility], [address] [facility] [facility], [place] [address] 8 Reference range: 0 t o 89 [...] value is <or EQ 38 nM BCE/mM FLIGHT/TRANSPORT NURSE, or NTx has decreased >or EQ 30% [...] J Bone Min Res.11(1):M757,1996 Test performed at [address] [address] 10 Creatinine based est imated glomerular filtration [...] with health care provider. DIAGNOSTIC USE: The [place] [employer] (ADA) and the World Health [...] sex. Procedures Date Code Description Status 01/03/2025 19254 Collection Of Venous Blood B y Venipuncture Completed 08/30/2024 83815 Collection Of Venous Blood B y Venipuncture Completed 03/26/2024 10908 Collection Of Venous Blood B y Venipuncture Completed 11/18/2023 47570 Collection Of Venous Blood B y Venipuncture Completed 09/02/2023 83617 Collection Of Venous Blood B y Venipuncture Completed 06/02/2022 61377 Collection Of Venous Blood B y Venipuncture Completed Medical Devices Description No Information Available Encounters Type Date Location Provider Dx Diagnosis Office Visit 05/17/2025 11:27a Main Office Yenni Barnard M.D. I10 Essential (primary) hypertension E78.00 Pure hypercholestero lemia, unspecified Assessments Date Code Description Provider 05/17/2025 I10 Essential (primary) hyperten vince Yenni Barnard M.D. 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 DX, CARDIOEMBOLIC CVA Closed 06/22/[address] [place], [place] [address] [phone]
--- OUTSIDE RECORDS SUMMARY | 2025-06-13 12:27 | XMS_ITS | Clinical Summary ---
Author Organization [facility] Address [address] [place] [address] Care Team Providers Care Senior Relationship Manager Name Role Phone Yenni Jerez PA-C Primary Care Provider [phone] Medications Medication Sig Dispensed Refills Start Date [...] age to complete this topic Care Teams Senior Relationship Manager Relationship Specialty Start Date End Date Yenni Jerez PA-C [address] [facility] [place] [address] PCP - General Physician Lobster Fisherman 06/05/24
--- OUTSIDE RECORDS SUMMARY | 2025-06-13 12:27 | XMS_ITS | Clinical Summary ---
Author Organization [facility] Address [address] [place] [address] Phone Care Team Providers Care Vp Communications Name Role Phone Yenni Jerez Primary Care Provider [phone] Medications ascorbic acid (VITAMIN C) 500 mg [...] DX:Irregu lar heart rhythm Osteoporosis DX:Osteoporosis Stroke ([facility] V24, [facility] V28) DX:Stroke (HCC) Sjogren's disease ([facility] V24) DX:Sjogren's disease (HCC) Family [...] age to complete this topic Insurance MEDICARE [facility] Advance Directives Documents on File Type Date Recorded 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
--- OUTSIDE RECORDS SUMMARY | 2025-06-13 12:27 | XMS_ITS | Patient Health Record ---
Author Organization [facility] Address [address] [address] Care Team Providers Care Chief Deputy Name Role Phone ZAKI HENRIQUEZ M.D. Primary Care Provid er Unavailable Imer Evita Unavailable [phone] Allergies Allergen (clinical drug ingredient) Drug/Non Drug Allergy documented on EMR Reaction Allergy Type Onset Date Status TYLOX Nausea/Vomiting/ Diarrhea Drug Allergy Active Reason For Referral No Information Medications Medication SIG (Take, Route, Frequency, Duration) Notes Start Date End Date Status Multivitamins 1 ORAL daily; Duration: -3 [facility] 02/21/2012 Active Glucosamine Chondroitin Adv 1500/1200 1 ORAL twice daily; Duration: - [facility] 02/21/2012 Active NexIUM 40 MG 1 Orally Twice a day [facility] 02/21/2012 Active Myrbetriq 50 MG 1 tablet Orally Once a day Active Restasis 0.05% CHRISTIANO Ophthalmic twice daily; Duration: - [facility] 02/21/2012 Active Gabapentin 300 MG TAKE [...] + D 1 ORAL daily; Duration: -3 [facility] 02/21/2012 Active Atorvastatin Calcium 40 MG Oral; Duration: 90 Active CeleBREX 200MG 1 ORAL daily; Duration: [facility] 02/21/2012 Not-Taking Social History Tobacco Use: Social [...] Status Risk Notes Problem Postmenopausal atrophic vaginitis (76296637) Postmenopausal atrophic vaginitis (N95.2) Active confirmed Problem Overactive bladder (824972186) Overactive bladder (N32.81) Active confirmed Problem Age-related osteoporosis (126220178) Age-related osteoporosis without current pathological fracture (M81.0) Active confirmed Problem Screening for malignant neoplasm of breast (300332835) Encounter for screening mammogram for malignant neoplasm of breast (Z12.31) Active confirmed Problem Hyperlipidemia (77386965) Other and unspecified hyperlipidemia (272.4) Active confirmed Major Problem Esophageal reflux (587287631) Esophageal reflux (530.81) Active confirmed Major Problem Menopausal symptom (68139549) Symptomatic menopausal or female climacteric states (627.2) Active confirmed Major Problem Postmenopausal atrophic vaginitis (81809459) Postmenopausal atrophic vaginitis (627.3) Active confirmed Diag Problem Sicca syndrome (89913775) Sicca syndrome (710.2) Active confirmed Major Problem Gynecological examination normal (617889420986879) Routine gynecological examination (V72.31) Active confirmed Problem Dietary management surveillance (888603164) Dietary surveillance and counseling (V65.3) Active confirmed Diag Problem Screening for malignant neoplasm of colon (960687271) Special screening for malignant neoplasms, colon (V76.51) [...] MEDICARE [address] [place], [place] [id number] DEMARCOLYNETTE Self - patient is the insured MEDEX [address] [place] [address] [phone] [id number] DEMARCOKIMLYNETTE Self - patient is the [...]
--- OUTSIDE RECORDS SUMMARY | 2025-06-13 12:28 | XMS_ITS | Clinical Summary ---
Author Organization [facility] Address [address] [place] [address] Care Team Providers Care Billing Clerk Name Role Phone Unavailable Primary Care Provider [...] (SF 5000 PLUS) 1.1 % creaIndications: Caries Parker twice daily with toothpaste then expectorate. Do not rinse. 51 g 4 4 Active Active Problems Problem Noted Date Diagnosed Date Paroxysmal atrial fibrillation 10/18/2023 Encounters Date Type Department Care Team Description 04/03/2025 10:00 AM EDT Office Visit [facility] [address] [place] [id number] Oz Wood DDS from Last 3 Months [...] Description 06/17/2025 2:20 PM EDT Office Visit [facility] [address] [place] [address] Lesli Ramsey, ROBERT [address] [place] [address] Health Maintenance Due Date Last Done Comments Advanced Care Planning 1944 Imm-Pneumococcal 50+ (1 of 1 - PCV) 02/18/1994 Imm-Zoster, Recombinant (2 of 3) 12/27/2007 11/01/19 08 Bone Density Screening 02/18/2009 Falls Prevention 02/18/2009 Imm-RSV (adult) (1 - 1-dose 75+ series) 02/18/2019 Imm-DTaP/Tdap/Td (2 - Td or Tdap) 03/16/2021 011 Alcohol and Drug Screen 09/12/2024 Depression Annual Screen 09/12/2024 [id number] ( season) 2025 Imm-Influenza (#1) 2025 Dental BW [...]
--- OUTSIDE RECORDS SUMMARY | 2025-06-13 12:28 | XMS_ITS | Clinical Summary ---
Author Organization [facility] Address [address] [place] [address] Care Team Providers Care Ward Secretary Name Role Phone Pcp, No Primary Care [...] - 1-dose 75+ series) 02/18/2019 Influenza Vaccine 04/12/2025 COVID-19 Vaccine ( - 2023-2 5 season) 2025 Hepatitis B Vaccines Aged Out No long er eligible based on patient's age to complete this topic Insurance MEDICARE PART A & B [facility] Care Teams Ward Secretary Relationship Specialty Start Date End Date Pcp, No PCP - General General Medicine 09/24/24
--- OUTSIDE RECORDS SUMMARY | 2025-06-13 12:28 | XMS_ITS | Data Portability ---
Author Organization [place] - [facility], Allergy Address [address] [place] [address] Care Team Providers Care Curing Room Supervisor Name Role Phone ZAKI SMILEY Primary Care Provider [phone] Assessment Encounter Date Assessment Date Assessment LastModified [...] By Organization Details Last Modified Time 01/09/2025 [id number] nosebleed information jschreibstein Not available 01/09/2025 12:25:52 02/08/2025 [id number] nosebleed information jschreibstein Not available 02/08/2025 12:32:56 Reason for Referral None Reported. Problems Name Problem SNOMED Code Status Onset Date Resolution Date Notes Provider Name and Address Organization Details Recorded Time [place] ce of salivary secretion 04879432 Active 2014 Diseases of the salivary glands: Xerostomia ; Note: Date Diagnosed: 10/18/2014 3:28 PM (527.7) Not Available [facility] 4 02:39:30 Acute sialoaden itis 364117104 Active 2021 Acute sialoadeni tis; Note: Date Diagnosed: 12/22/2021 11:03 AM (K11.21) Not Available [facility] 4 02:39:23 Sialolith iasis 93607420 Active 2021 Sialolithi asis; Note: Date Diagnosed: 12/22/2021 11:07 AM (K11.5) Not Available [facility] 4 02:39:27 Bleeding from nose 480135138 Active 2022 Epistaxis; Note: Date Diagnosed: 08/05/2023 9:39 AM (R04.0) Not Available [facility] 4 02:39:26 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, [place], [address] , [facility] 4 14:09:47 Problem Notes None recorded. Procedures Surgical History Date Name Laterality Status Provider Name and Address Organization Details Recorded Time 5 Epistaxis Simple Nasal Cautery Left completed Kathrine Barraza [facility] 01/09/2025 12:11:59 4 Epistaxis Simple Nasal Cautery Left completed YARIEL RIVERA MD [address] [facility],[place] [address], [place], [address], [facility] 06/14/2024 14:10:30 Imaging Results None recorded. Procedure Notes None recorded. Medical Equipment None Reported. Allergies Allergen ID Allergen Name Allergen Category Reaction Reaction Severity Criticality Documentation Date Start Date Code Code System Note Provider Name and Address Organization Details Recorded Time 61615 acetamino phen / oxycodone medicatio n other Not available Not available 01/24/2024 86604 3 RxNorm React ion: unkno wn, unspe cifie d;; Not Available [facility] 4 01:01:01 Medications Name Sig Start Date [...] 5 mg tablet active Medicati on ID: [id number] B rand Name: pilocarp ine HCl Send Method: E-Prescr ibed Sub s Allowed: subs OK Medic ationGen ericName : pilocarp ine HCl Not Available Not Available Not Available nystatin 100,000 unit/mL oral suspensio n 12/22 [place]: [id number] Pr escribed By Name: Andrea Chan nd [...] tablet,de layed release active Medicati on ID: 925125 B rand Name: aspirin Send Method: E-Prescr [...] mg capsule 12/22 completed Medicati on ID: [id number] Du ration Value: 90 Brand Name: Celebrex Send Method: E-Prescr ibed Sub s Allowed: No subs Med icationChio Chappell me: Celebrex Not Available Not Available Not Available oxycodone -acetamin ophen 5 mg-325 mg tablet TAKE 1/2 TABLET BY MOUTH TWICE A DAY NEEDED FOR PAIN 01/09 completed Not Available Not Available Not Available trazodone 100 mg tablet TAKE 1 TABLET AT BEDTIME active Not Available Not Available No t Available simvastat in 20 mg tablet 12/22 completed Medicati on ID: [id number] Du ration Value: 90 Brand Name: simvasta [...] mg capsule 12/22 completed Medicati on ID: [id number] Du ration Value: 90 Brand Name: scar ne Send Method: E-Prescr ibed Sub s Allowed: subs OK Medic ationGen ericName : scar ne Not Available Not Available Not Available [...] spray,lv pension 12/22 completed Medicati on ID: 37630 Du ration Value: 30 Brand Name: fluticas one propiona te Send Method: E-Prescr ibed Sub s Allowed: subs OK Speci al Instruct ion: USE 2 SPRAYS IN EACH NOSTRIL DAILY Me dication GenericN ganesh: fluticas one propiona te Not Available Not Available Not Available glucosami ne-chondr oitin 1,500 mg -1,200 mg/30 mL oral liquid 12/22 completed Medicati on ID: [id number] Br and Name: glucosam ine-modesto droitin Send [...] multivita min 12/22 completed Medicati on ID: 82135 Br and Name: multivit joseph Sen d Method: E-Prescr ibed Sub s Allowed: subs OK Medic ationGen ericName : multivit joseph Not Available Not Available Not Available Super Fontana-3 1,000 mg capsule 12/22 completed Medicati on ID: 72152 Br and Name: Fish Oil Concentr ate Send Method: E-Prescr ibed Sub s Allowed: subs OK Medic ationGen ericName : Fish Oil Concentr ate Not Available Not Available Not Available Myrbetriq 50 mg tablet,ex tended release TAKE 1 TABLET DAILY active Not Available Not Available No t Available Myrbetriq 01/09 completed Medicati on ID: 563764 B rand Name: Myrbetri q Send Method: [...] Updated DateTime 01/09/2025 149.86 cm 24.6 kg/m2 39473.27 g Malini Das [place] - [facility] 01/09/2025 11:40:13 Date Recorded Body height Provider Name an d Address Organization Details Last Updated DateTime 02/08/2025 149.86 cm ZANE CARPENTER [place] - [facility] 02/08/2025 09:06:25 Date Recorded Body height Body mass index (BMI) Body weight Provider Name and Address Organization Details Last Updated DateTime 06/14/2024 149.86 cm 23.8 kg/m2 91711.9 g Rozina Addi [place] - [facility] 06/14/2024 14:00:01 Social History None recorded. Functional Status None recorded. Mental Status None recorded. Family History Nothing Reported. Medical History No medical history recorded. Gynecological HistoryNo gynecological history recorded. Obstetrics History GPAL:G 0 P 0 0 0 0 Past Encounters Encounter ID Performer Location Encounter Start Date Encounter Closed Date Diagnosis/Indication Diagnosis SNOMED-CT Code Diagnosis ICD10 Code Diagnosis IMO Codes Diagnosis Note YARIEL RIVERA MD [facility] [address] [address] 06/14/2024 13:13:49 06/14/2024 14:10:19 Anterior epistaxis 902831305 R04.0 Sj gren's syndrome 71102027 M35.00 [id number] KATHRINE BARRAZA PA-C [facility] [address] [address] 01/09/2025 11:25:20 01/09/2025 12:13:42 Anterior epistaxis 337511763 R04.0 Hemorrhagi c disorder due to circulating anticoagulants 176622919 D68.318 Long-term current use of antiplatelet drug 9383982230 03893 Z79.02 [id number] KATHRINE BARRAZA PA-C [facility] [address] [address] 02/08/2025 09:02:25 02/08/2025 09:20:40 Anterior epistaxis 821766092 R04.0 Long-term current use of anticoagulant 425787728 Z79.01 Health Concerns Section Related Observation LastModified by Organization Detai ls LastModified Time None Recorded Concern Status LastModified by Organization Details LastModified Time None Recorded Advance Directives Directive None Recorded Payers Insurance Date Sequence Insurance Name Policy Number Policy Palmer Covered Member ID Palmer Member ID Guarantor Name 02/05/2025 1 [place] [employer] Brigitte A Gordon [id number] Brigitte A Gordon 01/09/2025 2 [place] [id number] Brigitte A Gordon [id number] Brigitte A Gordon 02/11/2025 2 [place] [id number] Brigitte A Gordon [id number] Brigitte A Gordon Notes Date Note Type Note Provider Name and Address Organization Details Recorded Time 06/14/2024 text/html ROS as noted in the HPI left epistaxis3 times in past few weeks, lasting 3 minutespmhx - sjogrens PV 08/10/23 Aimee - right nasal cautery YARIEL RIVERA MD [address] [place] [address], [phone], [facility] - [facility] 06/14/2024 14:10:50 01/09/2025 text/html ROS as noted in the HPI 79 year old female presents reporting left sided epistaxis. She is [...] uses Ponaris nasal emollient. STACY DUTTA MD [address] [place] [address], [phone], [facility] - [facility] [place] 01/09/2025 12:26:11 02/08/2025 text/html ROS as noted in the HPI 79 year old female presents for follow up after left cautery [...] She is on Eliquis. STACY DUTTA MD [address] [place] [address], [phone], [facility] - [facility] 02/08/2025 12:32:58 OBGyn Episode No OBEpisode recorded.
== END 2025-06-13 11:10 | disposition home or self-care (01) ==
LOC: HO.HNS 10:39
PROVIDERS: Visit Provider Physician Assistant
DX: Z98.890 Other specified postprocedural states (principal)
CPT/HCPCS: 99024

== ENCOUNTER → 2025-06-13 10:39 | Outpatient (BNVA) | payer MEDICARE, SELFPAY | PROVIDERS: Visit Provider Physician Assistant | DX: Z47.89 Encounter for other orthopedic aftercare (principal); Z98.890 Other specified postprocedural states | CPT/HCPCS: 99212 ==

== ENCOUNTER 2025-07-25 10:22 | Outpatient (AMB) | payer MEDICARE, SELFPAY ==
--- NOTE | 2025-07-25 10:29 | HO.SPINEOV ---
Intake Visit Reasons: 2nd post op Intake Note: Ms. Leyva is here today for her 2nd post op. Shrimp Peeling Machine Tender Required: No Allergies No Known Allergies Allergy (Verified 05/23/25 07:12) Assessment & Plan Assessment & Plan (1) Status post lumbar spine surgery for decompression of spinal cord: Code(s): Z98.890 - Other specified postprocedural states Category: Medical Plan Operation: Right L4-5 Laminotomy Brigitte is a pleasant 80-year-old female comes in today for 1st postoperative visit after having a right-sided L4-[address] Baker. To recap during her last visit she extensively expressed concerned regarding her continued pain from surgery. Today, she reports that her symptoms have modestly reduced since I saw her last, but are still fairly present throughout the day. She expressed concerns regarding this. I reviewed Dr. Baker initial consult note which seems to state that he attempted a small procedure at L4-5 as an alternative to more invasive correction via lumbar fusion. She has a listhesis at L4-5 and a severe degenerative scoliosis above her listhesis. I extensively discussed her lumbar spine degeneration and current issues that can be contributing to her pain. I offered to have her follow up in clinic Dr. Baker to discuss the potential need for further surgery, however she declined. No new neurological deficits. The patient ambulates well and rises from seated position without difficulty. Her posterior incision site is closed and well healed. There is no need for continued routine follow up with the patient. She may follow up on an as-needed basis. Micah Baker MD,PhD [facility] Coding Level of Care Code Global (94235) Diagnoses Status post lumbar spine surgery for decompression of spinal cord Z98.890
--- OUTSIDE RECORDS SUMMARY | 2025-07-25 12:45 | XMS_ITS | Clinical Summary ---
Author Organization [facility] Address [address] [place] [address] Care Team Providers Care Mold Stacker Name Role Phone Yenni Jerez PA-C Primary Care Provider [phone] Medications Medication Sig Dispensed Refills Start Date [...] age to complete this topic Care Teams Mold Stacker Relationship Specialty Start Date End Date Yenni Jerez PA-C [address] [place] [address] Ear, [place]ose & [place] [address] PCP - General Physician Loading Unit Operator Crimping 06/05/24
--- OUTSIDE RECORDS SUMMARY | 2025-07-25 12:45 | XMS_ITS | Patient Health Record ---
Author Organization [facility] Address [address] [address] Care Team Providers Care Wireless Sales Representative Name Role Phone ZAKI HENRIQUEZ M.D. Primary Care Provid er Unavailable Evita Willams Unavailable [phone] Allergies Allergen (clinical drug ingredient) Drug/Non Drug Allergy documented on EMR Reaction Allergy Type Onset Date Status TYLOX Nausea/Vomiting/ Diarrhea Drug Allergy Active Reason For Referral No Information Medications Medication SIG (Take, Route, Frequency, Duration) Notes Start Date End Date Status Multivitamins 1 ORAL daily; Duration: -3 [facility] 02/21/2012 Active Glucosamine Chondroitin Adv 1500/1200 1 ORAL twice daily; Duration: - [facility] 02/21/2012 Active NexIUM 40 MG 1 Orally Twice a day [facility] 02/21/2012 Active Myrbetriq 50 MG 1 tablet Orally Once a day Active Restasis 0.05% CHRISTIANO Ophthalmic twice daily; Duration: - [facility] 02/21/2012 Active Gabapentin 300 MG [...] + D 1 ORAL daily; Duration: -3 [facility] 02/21/2012 Active Atorvastatin Calcium 40 MG Oral; Duration: 90 Active CeleBREX 200MG 1 ORAL daily; Duration: [facility] 02/21/2012 Not-Taking Social History Tobacco Use: Social [...] Status Risk Notes Problem Postmenopausal atrophic vaginitis (14691832) Postmenopausal atrophic vaginitis (N95.2) Active confirmed Problem Overactive bladder (398067942) Overactive bladder (N32.81) Active confirmed Problem Age-related osteoporosis (820255517) Age-related osteoporosis without current pathological fracture (M81.0) Active confirmed Problem Screening for malignant neoplasm of breast (966900399) Encounter for screening mammogram for malignant neoplasm of breast (Z12.31) Active confirmed Problem Hyperlipidemia (06400894) Other and unspecified hyperlipidemia (272.4) Active confirmed Major Problem Esophageal reflux (762498080) Esophageal reflux (530.81) Active confirmed Major Problem Menopausal symptom (95048533) Symptomatic menopausal or female climacteric states (627.2) Active confirmed Major Problem Postmenopausal atrophic vaginitis (04525113) Postmenopausal atrophic vaginitis (627.3) Active confirmed Diag Problem Sicca syndrome (97298085) Sicca syndrome (710.2) Active confirmed Major Problem Gynecological examination normal (533133134086653) Routine gynecological examination (V72.31) Active confirmed Problem Dietary management surveillance (075389273) Dietary surveillance and counseling (V65.3) Active confirmed Diag Problem Screening for malignant neoplasm of colon (635594995) Special screening for malignant neoplasms, colon (V76.51) [...] MEDICARE [address] [place], [place] [id number] DEMARCOLYNETTE Self - patient is the insured MEDEX [address] [place] [address] [phone] [id number] DEMARCOKIMLYNETTE Self - patient is the [...]
--- OUTSIDE RECORDS SUMMARY | 2025-07-25 12:45 | XMS_ITS | Data Portability ---
Author Organization [place] - [facility], Allergy Address [address] [place] [address] Care Team Providers Care Office Worker Name Role Phone ZAKI SMILEY Primary Care [...] By Organization Details Last Modified Time 01/09/2025 [id number] nosebleed information jschreibstein Not available 01/09/2025 12:25:52 02/08/2025 [id number] nosebleed information jschreibstein Not available 02/08/2025 12:32:56 Reason for Referral None Reported. Problems Name Problem SNOMED Code Status Onset Date Resolution Date Notes Provider Name and Address Organization Details Recorded Time [place] ce of salivary secretion 78367519 Active 2014 Diseases of the salivary glands: Xerostomia ; Note: Date Diagnosed: 10/18/2014 3:28 PM (527.7) Not Available [facility] 4 02:39:30 Acute sialoaden itis 437018789 Active 2021 Acute sialoadeni tis; Note: Date Diagnosed: 12/22/2021 11:03 AM (K11.21) Not Available [facility] 4 02:39:23 Sialolith iasis 30563570 Active 2021 Sialolithi asis; Note: Date Diagnosed: 12/22/2021 11:07 AM (K11.5) Not Available [facility] 4 02:39:27 Bleeding from nose 019111554 Active 2022 Epistaxis; Note: Date Diagnosed: 08/05/2023 9:39 AM (R04.0) Not Available [facility] 4 02:39:26 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 4 14:09:40 Sj gren's syndrome 92287925 Active 2023 YARIEL RIVERA MD 100 [facility], [place], [address] , [facility] 4 14:09:47 Problem Notes None recorded. Procedures Surgical History Date Name Laterality Status Provider Name and Address Organization Details Recorded Time 5 Epistaxis Simple Nasal Cautery Left completed Kathrine Barraza [facility] 01/09/2025 12:11:59 4 Epistaxis Simple Nasal Cautery Left completed YARIEL RIVERA MD [address] [facility],[place] [address], [place], [address], [facility] 06/14/2024 14:10:30 Imaging Results None recorded. Procedure Notes None recorded. Medical Equipment None Reported. Allergies Allergen ID Allergen Name Allergen Category Reaction Reaction Severity Criticality Documentation Date Start Date Code Code System Note Provider Name and Address Organization Details Recorded Time 34404 acetamino phen / oxycodone medicatio n other Not available Not available 01/24/2024 91312 3 RxNorm React ion: unkno wn, unspe cifie d;; Not Available [facility] 4 01:01:01 Medications Name Sig Start Date [...] 5 mg tablet active Medicati on ID: 049203 B rand Name: pilocarp ine HCl Send Method: E-Prescr ibed Sub s Allowed: subs OK Medic ationGen ericName : pilocarp ine HCl Not Available Not Available Not Available nystatin 100,000 unit/mL oral suspensio n 12/22 [place]: 88029 Pr escribed By Name: Andrea Chan nd [...] tablet,de layed release active Medicati on ID: 283835 B rand Name: aspirin Send Method: E-Prescr [...] mg capsule 12/22 completed Medicati on ID: 66927 Du ration Value: 90 Brand Name: Celebrex [...] mg tablet 12/22 completed Medicati on ID: 51168 Du ration Value: 90 Brand Name: simvasta [...] mg capsule 12/22 completed Medicati on ID: 10106 Du ration Value: 90 Brand Name: scar [...] spray,lv pension 12/22 completed Medicati on ID: [id number] Du ration Value: 30 Brand Name: fluticas one propiona te Send Method: E-Prescr ibed Sub s Allowed: subs OK Speci al Instruct ion: USE 2 SPRAYS IN EACH NOSTRIL DAILY Me dication GenericN ganesh: fluticas one propiona te Not Available Not Available Not Available glucosami ne-chondr oitin 1,500 mg -1,200 mg/30 mL oral liquid 12/22 completed Medicati on ID: 30937 Br and Name: glucosam ine-modesto droitin Send [...] multivita min 12/22 completed Medicati on ID: 29449 Br and Name: multivit joseph Sen d Method: E-Prescr ibed Sub s Allowed: subs OK Medic ationGen ericName : multivit joseph Not Available Not Available Not Available Super Browns-3 1,000 mg capsule 12/22 completed Medicati on ID: 32330 Br and Name: Fish Oil Concentr ate Send Method: E-Prescr ibed Sub s Allowed: subs OK Medic ationGen ericName : Fish Oil Concentr ate Not Available Not Available Not Available Myrbetriq 50 mg tablet,ex tended release TAKE 1 TABLET DAILY active Not Available Not Available No t Available Myrbetriq 01/09 completed Medicati on ID: 614636 B rand Name: Myrbetri q Send Method: [...] Updated DateTime 01/09/2025 149.86 cm 24.6 kg/m2 62596.27 g Malini Das [place] - [facility] 01/09/2025 11:40:13 Date Recorded Body height Provider Name an d Address Organization Details Last Updated DateTime 02/08/2025 149.86 cm ZANE CARPENTER [place] - [facility] 02/08/2025 09:06:25 Date Recorded Body height Body mass index (BMI) Body weight Provider Name and Address Organization Details Last Updated DateTime 06/14/2024 149.86 cm 23.8 kg/m2 58662.9 g Rozina Addi [place] - [facility] 06/14/2024 14:00:01 Social History None recorded. [...] Diagnosis Note YARIEL RIVERA MD [facility] [address] [address] 06/14/2024 13:13:49 06/14/2024 14:10:19 Anterior epistaxis 353569285 R04.0 Sj gren's syndrome 22211594 M35.00 [id number] KATHRINE BARRAZA PA-C [facility] [address] [address] 01/09/2025 11:25:20 01/09/2025 12:13:42 Anterior epistaxis 006905013 R04.0 Hemorrhagi c disorder due to circulating anticoagulants 979524507 D68.318 Long-term current use of antiplatelet drug 7791490950 93519 Z79.02 [id number] KATHRINE BARRAZA PA-C [facility] [address] [address] 02/08/2025 09:02:25 02/08/2025 09:20:40 Anterior epistaxis 453076039 R04.0 Long-term current use of anticoagulant 396174515 Z79.01 Health Concerns Section Related Observation LastModified by Organization Detai ls LastModified Time None Recorded Concern Status LastModified by Organization Details LastModified Time None Recorded Advance Directives Directive None Recorded Payers Insurance Date Sequence Insurance Name Policy Number Policy Palmer Covered Member ID Palmer Member ID Guarantor Name 02/05/2025 1 [place] [employer] Brigitte A Gordon [id number] Brigitte A Gordon 01/09/2025 2 [place] [id number] Brigitte A Gordon [id number] Brigitte A Gordon 02/11/2025 2 [place]) [id number] Brigitte A Gordon [id number] Brigitte A Gordon Notes Date Note Type Note Provider Name and Address Organization Details Recorded Time 06/14/2024 text/html ROS as noted in the HPI left epistaxis3 times in past few weeks, lasting 3 minutespmhx - sjogrens PV 08/10/23 Aimee - right nasal cautery YARIEL RIVERA MD [address] [place] [address], [phone], [facility] - [facility] 06/14/2024 14:10:50 01/09/2025 text/html ROS as noted in the HPI 79 year old female presents reporting left sided epistaxis. She is on Eliquis. She had cautery 06/14/24 on the left with Dr. iRvera. She had minimal bloody drainage occasionally on tissues but no danette epistaxis until this Tuesday. On Tuesday she had a 20 minute nosebleed. Again yesterday she had a 15 minute nosebleed both times from the left side. She is also status post cautery on the right by Aimee 08/10/23 with no further bleeding. She uses Ponaris nasal emollient. STACY DUTTA MD [address] [place] [address], [phone], [facility] - [facility] [place] 01/09/2025 12:26:11 02/08/2025 text/html ROS as noted [...] She is on Eliquis. STACY DUTTA MD [address] [place] [address], [phone], [facility] - [facility] 02/08/2025 12:32:58 OBGyn Episode No OBEpisode recorded.
--- OUTSIDE RECORDS SUMMARY | 2025-07-25 12:45 | XMS_ITS | Continuity of Care Document ---
Author Organization [facility] [address] [address] Phone [phone] Care Team Providers Care Analytics Senior Manager Name Role Phone Yenni Barnard M.D. 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 05/10/2025 Trazodone [id number] Tablets Take 1 Tablet By Mouth AT Bedtime 90tabs Yenni Barnard M.D. 09/02/2023 Atorvastatin Wovqwuh58eh Tablets Take 1 Tablet Once Daily 90tabs Yenni Barnard M.D. Uezjuitde47rf Tablets ER 24HR 1 by mouth every day Tuan Garduno MD Vrueli10lp Capsules DR 1by mouth twice a day Serena Collins MD Calcium 600 +D High [id number]-Aax t Tablets 1 by mouth qd Yenni Barnard M.D. Multivitamin Adults 50+Adlt 50+ Tablets 1 by mouth every day Yenni Barnard M.D. Fsfuqrlffpm793gb Capsules 4 caps by mouth prior to dental work 24caps Yenni Barnard M.D. Restasis0.05% Emulsion 1 drop each eye twice daily Yenni Barnard M.D. Tylenol Extra Yynupkfg165ia Tablets 2 by mouth twice a day prn Yenni Barnard M.D. Xswmanvcff82op Tablets 1 by mouth every other day Unknown Metoprolol Succinate ER25mg Tablets ER 24HR 1 by mouth every day Unknown Eliquis2.5mg Tablets Take 1 Tablet By Mouth Twice A Day Unknown Kewugcpkvwrccc85md Tablets 1 by mouth every day Unknown Lcnlrjxav97zw Tablets 1 by mouth every day Unknown Vital Signs Date Vital Result Comment 04/29/2025 3:10pm BP Systolic 100 mmHg BP Diastolic 60 mmHg Heart Rate 70 /min Height 58.5 inches 4'10.50 Weight 128.25 lb BMI (Body Mass Index) 26.3 kg/m2 Results Test Acquired Date Facility Test Result H/L Range Note Urinalysis Complete W Reflex To Culture 04/30/2025 [facility] Specific [place] 1.023 1.005-1.0 30 pH 6.0 5.0-7.5 Urine-Color [...] 1.4-7.0 Lymphs (Absolute) 1.2 x10E3/uL 0.7-3.1 Monocytes(Absol salam[place]of) 0.6 x10E3/uL 0.1-0.9 Eos (Absolute) 0.4 x10E3/uL [...] 1.4-7.0 Lymphs (Absolute) 1.4 x10E3/uL 0.7-3.1 Monocytes(Absol salam[place]of) 0.7 x10E3/uL 0.1-0.9 Eos (Absolute) 0.4 x10E3/uL [...] 1.4-7.0 Lymphs (Absolute) 1.5 x10E3/uL 0.7-3.1 Monocytes(Absol sal[place]of) 0.7 x10E3/uL 0.1-0.9 Eos (Absolute) 0.3 x10E3/uL [...] 1.4-7.0 Lymphs (Absolute) 1.4 x10E3/uL 0.7-3.1 Monocytes(Absol salam[place]of) 0.6 x10E3/uL 0.1-0.9 Eos (Absolute) 0.2 x10E3/uL [...] 1.4-7.0 Lymphs (Absolute) 1.5 x10E3/uL 0.7-3.1 Monocytes(Absol [place]of) 0.5 x10E3/uL 0.1-0.9 Eos (Absolute) 0.3 x10E3/uL 0.0-0.4 Baso (Absolute) 0.1 x10E3/uL 0.0-0.2 Immature Granulocytes 1 % Not Estab. Immature Grans (Abs) 0.1 x10E3/uL 0.0-0.1 NRBC TNP Hematology Comments: TNP Glucose Fingerstick 11/18/2023 Inhouse Glucose Fingerstick 129 Hemoglobin A1c 11/18/2023 Inhouse Hemoglobin A1c 5.5% CBC With Differential/Boyd telet 11/18/2023 [facility] WBC 9.3 K/MM3 (4.0-11.0 [...] K/MM3 (1.3-7.0) Lymph # 1.7 K/MM3 (0.8-3.1) [place]# 0.8 K/MM3 (0.4-0.9) Eo # 0.3 K/MM3 (0.0-0.4) Baso # 0.1 K/MM3 (0.0-0.1) Abs. Imm Gran 0.0 K/MM3 Neut 69.0 % (44-76) Lymph 18.8 % (15-43) Monocyte 8.5 % (4.5-10.5 ) Eo 2.7 % (0-6) Baso 0.6 % (0-2) Imm Gran 0.4 % Complete Abc With Diff 10/17/2023 [facility] WBC 6.5 K/MM3 (4.0-11.0 [...] K/MM3 (1.3-7.0) Lymph # 1.3 K/MM3 (0.8-3.1) [place]# 0.5 K/MM3 (0.4-0.9) Eo # 0.2 K/MM3 (0.0-0.4) Baso # 0.1 K/MM3 (0.0-0.1) Abs. Imm Gran 0.0 K/MM3 Neut 67.7 % (44-76) Lymph 20.4 % (15-43) Monocyte 7.7 % (4.5-10.5 ) Eo 2.8 % (0-6) Baso 0.9 % (0-2) Imm Gran 0.5 % Homocysteine, Plasma 10/17/2023 [facility] Homocysteine, Plasma 8.9 UMOL/L (0-15) Folic Acid 10/17/2023 [facility] Folic Acid 36.9 ng/mL (4.8-37.3 ) Vitamin B12 10/17/2023 [facility] Vitamin B12 1166 pg/mL (232-1245 ) Homocysteine,Boyd sma/Serum 09/12/2023 [facility] Homocysteine,Pl asma/Serum <pending> Folic Acid 09/12/2023 [facility] Folic Acid <pending> Vitamin B12 09/12/2023 [facility] Vitamin B12 <pending> Comprehensive Metabolic Panl 09/02/2023 [facility] Glucose 103 mg/dL High [...] Inhouse Glucose Fingerstick 109 Immunofixation Serum 09/02/2023 [facility] Immunoglobulin Igg 805 mg/dL (700-1600 ) Immunoglobulin Iga 207 mg/dL (70-400) Immunoglobulin Igm 133 mg/dL (40-230) Immunofix Normal immunofix <SEE NOTE> 5 Complete Abc With Diff 09/02/2023 [facility] WBC 9.8 K/MM3 (4.0-11.0 [...] K/MM3 (1.3-7.0) Lymph # 1.9 K/MM3 (0.8-3.1) [place]# 1.1 K/MM3 High (0.4-0.9) Eo # 0.2 K/MM3 (0.0-0.4) Baso # 0.1 K/MM3 (0.0-0.1) Abs. Imm Gran 0.1 K/MM3 Neut 66.4 % (44-76) Lymph 19.6 % (15-43) Monocyte 10.9 % High (4.5-10.5 ) Eo 2.0 % (0-6) Baso 0.6 % (0-2) Imm Gran 0.5 % Iron & Tibc 09/02/2023 [facility] Iron 24 g/dL Low (30-160) Unsaturated Iron Binding [place] 316 g/dL (110-370) Est T. Iron Bind Capacity 340 g/dL (140-530) % Iron Saturation 7 % Low (20-55) Ferritin 09/02/2023 [facility] Ferritin 14 NG/ML (14-283) PTH, Intact 05/09/2023 [facility] PTH, Intact 62 pg/mL (15-65) N-Telopeptide Cross Links, Urine 05/09/2023 [facility] Cross Linked N-Telopeptides 589 6 Creat, Urine 67.0 7 N-Telopeptide/C reat Ratio 99 High 8 NTX Interpretaion Comment 9 25Oh Vitamin D 05/09/2023 [facility] 25Oh Vitamin D 45.2 NG/ML (20-50) Creatinine 05/09/2023 [facility] Creatinine 0.8 mg/dL (0.5-1.0) Estimated GFR Creatinine 74 ML/MIN/1.7 3M2 10 TSH With Reflex To FT4 05/09/2023 [facility] TSH With Reflex To FT4 3.96 uIU/mL (0.4-4.2) Calcium 05/09/2023 [facility] Calcium 8.8 mg/dL (8.6-10.5 ) Albumin 05/09/2023 [facility] Albumin 4.1 GM/DL (3.4-4.8) PTH, Intact 05/08/2023 [facility] PTH, Intact <pending> Albumin 05/08/2023 [facility] Albumin <pending> Creatinine 05/08/2023 [facility] Creatinine <pending> TSH With Reflex To FT4 05/08/2023 [facility] TSH With Reflex To FT4 <pending> 25Oh Vitamin D 05/08/2023 [facility] 25Oh Vitamin D <pending> Calcium 05/08/2023 [facility] Calcium <pending> Complete Abc With Diff 02/26/2023 [facility] WBC 6.6 K/MM3 (4.0-11.0 [...] K/MM3 (1.3-7.0) Lymph # 1.6 K/MM3 (0.8-3.1) [place]# 0.6 K/MM3 (0.4-0.9) Eo # 0.2 K/MM3 (0.0-0.4) Baso # 0.0 K/MM3 (0.0-0.1) Abs. Imm Gran 0.0 K/MM3 Neut 61.7 % (44-76) Lymph 24.4 % (15-43) Monocyte 9.6 % (4.5-10.5 ) Eo 3.5 % (0-6) Baso 0.6 % (0-2) Imm Gran 0.2 % Comprehensive Metabolic Panl 02/26/2023 [facility] Glucose 99 mg/dL (70-99) [...] 65 ML/MIN/1.7 3M2 11 Lipid Panel 02/26/2023 [facility] Cholesterol, Total 182 mg/dL (<200) Triglyceride 87 mg/dL (<150) HDL Chol 92 mg/dL (>39) LDL Cholesterol, Calculated 73 mg/dL (0-130) Non HDL Cholesterol (Calc) 90 mg/dL (<160) Hemoglobin A1c 02/26/2023 [facility] Hemoglobin A1c 5.6 % (4.0-5.6) 12 Hemoglobin A1c 01/24/2023 [facility] Hemoglobin A1c <pending> Glucose Fingerstick 12/07/2022 Inhouse Glucose Fingerstick 93 Culture Urine 10/27/2022 [facility] Specimen Description URINE Special Requests NONE Culture NO GROWTH Report Status FINAL 10/29/2022 13 Glucose Fingerstick 10/13/2022 Inhouse Glucose Fingerstick 94 Hemoglobin A1c 10/13/2022 Inhouse Hemoglobin A1c 5.4% Comprehensive Metabolic Panl 06/02/2022 [facility] Glucose 117 mg/dL High [...] K/MM3 (1.3-7.0) Lymph # 1.8 K/MM3 (0.8-3.1) [place]# 0.5 K/MM3 (0.4-0.9) Eo # 0.2 K/MM3 [...] Estab. Unit: nmol BCE Test performed at [facility], [address] [place] [address] 7 Reference range: Not Estab. Unit: mg/dL Test performed by [facility], [address] [facility], [place] [address] 8 Reference range: 0 t o 89 [...] <or EQ 38 nM BCE/mM DIRECTOR OF QUALITY IMPROVEMENT, or NTx has decreased >or EQ 30% [...] J Bone Min Res.11(1):M757,1996 Test performed at [address] [address] 10 Creatinine based est imated glomerular filtration [...] with health care provider. DIAGNOSTIC USE: The [place] [employer] Diabetes Association (ADA) and the World Health [...] sex. Procedures Date Code Description Status 01/03/2025 66338 Collection Of Venous Blood B y Venipuncture Completed 08/30/2024 47438 Collection Of Venous Blood B y Venipuncture Completed 03/26/2024 56281 Collection Of Venous Blood B y Venipuncture Completed 11/18/2023 43332 Collection Of Venous Blood B y Venipuncture Completed 09/02/2023 55735 Collection Of Venous Blood B y Venipuncture Completed 06/02/2022 44630 Collection Of Venous Blood B y Venipuncture [...] Appt Gabriel e [facility] Candy Packer NEW IRON DEFICIENCY ANEMIA Closed [address] [place], [place] [id number] [phone] [facility] Neurology WAS DR MARY CRUZ,.... DX, CARDIOEMBOLIC CVA Closed 06/22/[address] [place], [place] [address] [phone]
--- OUTSIDE RECORDS SUMMARY | 2025-07-25 12:46 | XMS_ITS | Clinical Summary ---
Author Organization [facility] Address [address] [place] [address] Care Team Providers Care Cost Accounting Clerk Name Role Phone Pcp, No Primary Care [...] es 65 and older) 02/18/2009 RSV Vaccine 50 years and old er and Patients (1 - 1-dose 75+ series) 02/18/2019 Influenza Vaccine 04/12/2025 COVID-19 Vaccine ( - 2023-2 5 season) 2025 Hepatitis B Vaccines Aged Out No long er eligible based on patient's age to complete this topic Insurance MEDICARE PART A & B [facility] Care Teams Cost Accounting Clerk Relationship Specialty Start Date End Date Pcp, No PCP - General General Medicine 09/24/24
--- OUTSIDE RECORDS SUMMARY | 2025-07-25 12:46 | XMS_ITS | Clinical Summary ---
Author Organization [facility] Address [address] [place] [address] Care Team Providers Care Assistive Technology Specialist Name Role Phone Unavailable Primary Care Provider [...] (SF 5000 PLUS) 1.1 % creaIndications: Caries [place] twice daily with toothpaste then expectorate. Do not rinse. 51 g 4 4 Active Active Problems Problem Noted Date Diagnosed Date Paroxysmal atrial fibrillation 10/18/2023 Encounters Date Type Department Care Team Description 07/09/2025 3:20 PM EDT Office Visit [facility] [address] [place] [address] Padmaja Quezada DMD 06/17/2025 2:20 PM EDT Office Visit [facility] [address] [place] [id number] Lesli Ramsey RHD from Last 3 Months Social History Tobacco [...] Sign Reading Time Taken Comments Blood Pressure 120/58 07/09/2025 3:24 PM EDT Pulse 70 07/09/2025 3:24 PM EDT Temperature - - Respiratory Rate - - Oxygen Saturation - - Inhaled Oxygen Concentration - - Weight - - Height - - Body Mass Index - - Plan of Treatment Upcoming Encounters Date Type Department Care Team (Late st Contact Info) Description 12/16/2025 11:00 AM EDT Office Visit [facility] [address] [place] [address] Lesli Ramsey RHD [address] [place] [address] Health Maintenance Due Date Last Done Comments Advanced Care Planning 1944 Imm-Pneumococcal 50+ (1 of 1 - PCV) 02/18/1994 Imm-Zoster, Recombinant (2 of 3) 12/27/2007 11/01/19 08 Bone Density Screening 02/18/2009 Falls Prevention 02/18/2009 Imm-RSV (adult) (1 - 1-dose 75+ series) 02/18/2019 Imm-DTaP/Tdap/Td (2 - Td or Tdap) 03/16/2021 011 Alcohol and Drug Screen 09/12/2024 Depression Annual Screen 09/12/2024 Ulh-PCAWJ-84 ( - season) 2025 Imm-Influenza (#1) 2025 Dental Perio Charting 12/14/2025 12/12/2024, 023 Dental BW 06/19/2026 06/17/2025, 04/0 10/2024, 11/03/2023, Additional history exists Dental Examination 06/19/2026 06/17/2025, 0 12/12/2024, 05/15/2024, Additional history exists Dental Prophy 06/19/2026 06/17/2025, 04/0 10/2024, 05/15/2024, Additional history exists Hypertension Screening (#1) 07/09/2026 Tobacco Screening 07/09/2026 07/09/2025 Dental FMX/Pano 10/29/2027 10/27/2022 Procedures Procedure Name Priority Date/Time Associated Diagnosis Comments 6 L(V) RESIN-BASED COMPOSITE ONE SURFACE ANTERIOR Routine 07/09/2025 3:20 PM EDT Caries PERIODIC ORAL EVALUATION ESTABLISHED PATIENT Routine 06/17/2025 2:20 PM EDT Encounter for dental examination DENTAL CASE MANAGEMENT - MOTIVATIONAL INTV Routine 06/17/2025 2:20 PM EDT Encounter for dental examination PROPHYLAXIS - ADULT Routine 06/17/2025 2 :20 PM EDT Encounter for dental examination BITEWINGS - TWO RADIOGRAPHIC IMAGES Routine 06/17/2025 2:20 PM EDT Encounter for dental examination CARIES RISK ASSESSMENT & DOC FINDING HIGH RISK Routine 06/17/2025 2:20 PM EDT Encounter for dental examination NUTRITIONAL COUNSELING CONTROL OF DENTAL DISEASE Routine 06/17/2025 2:20 PM EDT Encounter for dental examination ORAL HYGIENE INSTRUCTIONS Routine 06/17/2025 2:20 PM EDT Encounter for dental examination ORAL CANCER SCREENING Routine 06/17/2025 2:20 PM EDT Encounter for dental examination CASE PRESENTATION SUBS DTL & EXTENSIVE TX PLN Routine 06/17/2025 2:20 PM EDT Encounter for dental examination COMP PERIODONTAL EVALUATION - NEW/EST PATIENT Routine 12/12/2024 2:20 PM EDT Encounter for dental examination PANORAMIC RADIOGRAPHIC IMAGE Routine 10/27/2022 10:00 AM EST Caries of pulp from Last 3 Months or Most Recently Relevant to Health Maintenance
--- OUTSIDE RECORDS SUMMARY | 2025-07-25 12:46 | XMS_ITS | Clinical Summary ---
Author Organization [facility] Address [address] [place] [address] Phone Care Team Providers Care Pari Mutuel Ticket Seller Name Role Phone Yenni Jerez Primary Care Provider Medications ascorbic acid (VITAMIN C) 500 mg [...] DX:Irregu lar heart rhythm Osteoporosis DX:Osteoporosis Stroke ([facility] V24, [facility] V28) DX:Stroke (HCC) Sjogren's disease ([facility] V24) DX:Sjogren's disease (HCC) Family History [...] age to complete this topic Insurance MEDICARE [facility] Advance Directives Documents on File Type Date Recorded 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
== END 2025-07-25 11:08 | disposition home or self-care (01) ==
LOC: HO.HNS 10:24
PROVIDERS: Visit Provider Physician Assistant
DX: Z98.890 Other specified postprocedural states (principal)
CPT/HCPCS: 99024

== ENCOUNTER → 2025-07-25 10:22 | Outpatient (BNVA) | payer MEDICARE, SELFPAY | PROVIDERS: Visit Provider Physician Assistant | DX: M54.50 Low back pain, unspecified (principal); Z98.890 Other specified postprocedural states | CPT/HCPCS: 99212 ==